=== PATIENT | female | born 1965 | race Caucasian/White ===

== ENCOUNTER → 2016-11-10 | Outpatient (CLI) | payer SELFPAY ==
[~2016-11-10] MED LIST: ASPI1TAB PO; ATOR1TAB18 PO; CARA1TAB2 PO; CLOP75TA2 PO; CRES40TA PO; FENO160T10 PO; FLUT22IN INH; FURO20TA2 PO; GEMF600T PO; INSUHUMDS SC; INSULANT SC; K-TA10TA PO; KLOR1TAB77 PO; LISI-538 PO; LOPI600T PO; METF1000 PO; PANT40TA2 PO; PERCOCET PO; POTA10CA PO; PROA1AER IN; SERT-141 PO; SPIR25TA2 PO; SPIR50TA2 PO; TOUJ1.2I SC; TYLE325T5 PO; VITA100066 PO; VITA50003 PO; VITMTA PO
[2016-11-10 09:29] LABS: ALBUMIN 2.6 GM/DL (3.2-5.2); ALBUMIN/GLOBULIN RATIO 0.76 (1.00-1.93); ALKALINE PHOSPHATASE 58 U/L (45-117); ALT/SGPT 19 U/L (12-78); ANION GAP 6 MEQ/L (8-16); AST/SGOT 14 U/L (15-37); BILIRUBIN,TOTAL 0.2 MG/DL (0.2-1.0); BLOOD UREA NITROGEN 27 MG/DL (7-18); CALCIUM LEVEL 8.2 MG/DL (8.5-10.1); CARBON DIOXIDE LEVEL 26 MEQ/L (21-32); CHLORIDE LEVEL 106 MEQ/L (98-107); CHOLESTEROL LEVEL 162 MG/DL (<200); CREATININE FOR GFR 1.36 MG/DL (0.55-1.02); GLOMERULAR FILTRATION RATE 43.5 (>51); GLUCOSE, FASTING 278 MG/DL (70-105); POTASSIUM SERUM 4.3 MEQ/L (3.5-5.1); SODIUM LEVEL 138 MEQ/L (136-145); TRIGLYCERIDES LEVEL 655 MG/DL (<150)
== END ==
LOC: M LAB 08:24
PROVIDERS: ATTEND Nurse Practitioner Family
DX: E11.9 Type 2 diabetes mellitus without complications (principal); N28.9 Disorder of kidney and ureter, unspecified; E78.5 Hyperlipidemia, unspecified

== ENCOUNTER → 2017-02-17 | Outpatient (REF) | payer MEDICAID, SELFPAY ==
[~2017-02-17] MED LIST changes: +CARV6.25 PO; +FLUT1SPR2; -SERT-141 PO; +SERT50TA PO
[2017-02-17 14:22] LABS: ALBUMIN 1.9 GM/DL (3.2-5.2); ALBUMIN/GLOBULIN RATIO 0.49 (1.00-1.93); ALKALINE PHOSPHATASE 120 U/L (45-117); ANION GAP 7 MEQ/L (8-16); BILIRUBIN,TOTAL 0.3 MG/DL (0.2-1.0); BLOOD UREA NITROGEN 18 MG/DL (7-18); CARBON DIOXIDE LEVEL 25 MEQ/L (21-32); CHLORIDE LEVEL 103 MEQ/L (98-107); CREATININE FOR GFR 1.18 MG/DL (0.55-1.02); POTASSIUM SERUM 4.5 MEQ/L (3.5-5.1); SODIUM LEVEL 135 MEQ/L (136-145); TOTAL PROTEIN 5.8 GM/DL (6.4-8.2)
[2017-02-17 14:38] LABS: TRIGLYCERIDES LEVEL 2152 MG/DL (<150)
[2017-02-17 15:11] LABS: ALT/SGPT 25 U/L (12-78); AST/SGOT 24 U/L (15-37)
[2017-02-17 15:19] LABS: CHOLESTEROL LEVEL 595 MG/DL (<200)
[2017-02-17 15:23] LABS: GLUCOSE, FASTING 401 MG/DL (70-105)
== END ==
LOC: M LAB REF 13:26
PROVIDERS: ATTEND Nurse Practitioner Family
DX: E55.9 Vitamin D deficiency, unspecified (principal)

== ENCOUNTER 2017-03-02 13:33 | Emergency (ER) | payer OTHER, SELFPAY ==
[~2017-03-02] VITALS: Ht 157.5 cm; Wt 77.1 kg
[~2017-03-02 13:33] MED LIST changes: -CARV6.25 PO; -FLUT1SPR2
[2017-03-02] MEDS ORDERED: CARV6.25 PO (13:50)
[2017-03-02] MEDS ORDERED: FLUT1SPR2 (13:50)
[2017-03-02] MEDS ORDERED: PERCOCET 5MG/325MG TAB PO ONE (14:15)
[2017-03-02] MEDS ORDERED: NS 1,000 ML IV ONE ×2 (14:45→15:30)
[2017-03-02 14:56] LABS: BASO # 0.1 K/mm3 (0.0-0.2); EOS # 0.3 K/mm3 (0.0-0.50); EOS % 2.9 % (0.0-3.0); LARGE UNSTAINED CELL # 0.2 K/mm3 (0.0-0.4); LARGE UNSTAINED CELL % 1.6 % (0.0-4.0); LYMPH # 2.8 K/mm3 (1.5-4.5); LYMPH % 28.5 % (24.0-44.0); MEAN CORPUSCULAR HEMOGLOBIN 30.2 pg (27.0-33.0); MEAN CORPUSCULAR HGB CONC 32.9 g/dl (32.0-36.5); MEAN CORPUSCULAR VOLUME 91.7 fl (80.0-96.0); MONO # 0.6 K/mm3 (0.0-0.8); NEUTROPHILS # 5.6 K/mm3 (1.8-7.7); PLATELET COUNT, AUTOMATED 292 k/mm3 (150-450); RED CELL DISTRIBUTION WIDTH 14.3 % (11.5-14.5); WHITE BLOOD COUNT 9.3 K/mm3 (4.0-10.0)
[2017-03-02 15:01] LABS: INR 0.9
[2017-03-02 15:16] LABS: ALBUMIN 2.1 GM/DL (3.2-5.2); ALBUMIN/GLOBULIN RATIO 0.55 (1.00-1.93); ALKALINE PHOSPHATASE 89 U/L (45-117); ALT/SGPT 16 U/L (12-78); ANION GAP 8 MEQ/L (8-16); AST/SGOT 12 U/L (15-37); BILIRUBIN,DIRECT < 0.1 MG/DL (0.0-0.2); BILIRUBIN,TOTAL 0.2 MG/DL (0.2-1.0); BLOOD UREA NITROGEN 39 MG/DL (7-18); CARBON DIOXIDE LEVEL 21 MEQ/L (21-32); CHLORIDE LEVEL 105 MEQ/L (98-107); GLOMERULAR FILTRATION RATE 27.7 (>51); GLUCOSE, FASTING 396 MG/DL (70-105); POTASSIUM SERUM 4.9 MEQ/L (3.5-5.1); SODIUM LEVEL 134 MEQ/L (136-145); TOTAL PROTEIN 5.9 GM/DL (6.4-8.2)
[2017-03-02] MEDS ORDERED: MORPHINE 4 MG/ML 1ML SYRINGE IV ONE (19:00)
[2017-03-02] MEDS ORDERED: ONDANSETRON 4MG/2ML VIAL (J2405) IV ONE (19:00)
[2017-03-02 19:04] LABS: CALCIUM LEVEL 7.6 MG/DL (8.5-10.1); CREATININE FOR GFR 1.74 MG/DL (0.55-1.02); GLOMERULAR FILTRATION RATE 32.6 (>51); POTASSIUM SERUM 4.7 MEQ/L (3.5-5.1)
[2017-03-02] MEDS ORDERED: OXYCODONE/APAP 5MG/325MG(BULK FOR ED) 1 TABLET PO ONE (19:30)
[2017-03-02 19:34] VITALS: BP 144/82
== END 2017-03-02 19:39 | disposition home or self-care (01) ==
LOC: M ED 14:01
DX: I73.9 Peripheral vascular disease, unspecified (principal); S93.602A Unspecified sprain of left foot, initial encounter; X58.XXXA Exposure to other specified factors, initial encounter; Y92.89 Other specified places as the place of occurrence of the external cause; Y93.89 Activity, other specified; Y99.8 Other external cause status; I25.10 Atherosclerotic heart disease of native coronary artery without angina pectoris; E78.00 Pure hypercholesterolemia, unspecified; J45.909 Unspecified asthma, uncomplicated; E11.9 Type 2 diabetes mellitus without complications; F32.9 Major depressive disorder, single episode, unspecified; F17.200 Nicotine dependence, unspecified, uncomplicated; Z85.41 Personal history of malignant neoplasm of cervix uteri; Z79.82 Long term (current) use of aspirin; Z79.899 Other long term (current) drug therapy; Z88.0 Allergy status to penicillin

== ENCOUNTER → 2017-03-24 | Outpatient (REF) | payer OTHER ==
[~2017-03-24] MED LIST changes: +CARV6.25 PO; +FLUT1SPR2
[2017-03-24 20:12] LABS: BACTERIA, URINE SMALL AMOUNT; RBC, URINE 0-1 /hpf (0-3); SQUAMOUS EPITHELIAL CELL URINE MOD AMOUNT /hpf (SMALL AMT)
[2017-03-24 20:13] LABS: MICROSCOPIC EXAM PERFORMED
== END ==
LOC: M LAB REF 16:53
PROVIDERS: ATTEND Internal Medicine Nephrology
DX: R80.9 Proteinuria, unspecified (principal)

== ENCOUNTER → 2017-03-29 | Outpatient (REF) | payer OTHER ==
[2017-03-29 14:26] LABS: HEPATITIS B SURFACE ANTIBODY NEGATIVE (POSITIVE)
[2017-03-29 14:32] LABS: COMPLEMENT C3 140 MG/DL (90-180); COMPLEMENT C4 41.7 MG/DL (10-40); TOTAL PROTEIN 6.1 GM/DL (6.4-8.2)
[2017-03-30 13:38] LABS: ALBUMIN 2.93 GM/DL (3.29-5.55); GAMMA GLOBULIN % 16.1 % (11.1-18.8)
[2017-04-02 00:06] LABS: FREE KAPPA LIGHT CHAINS SERUM 76.2 mg/L (3.3-19.4); FREE LAMBDA LIGHT CHAINS SERUM 57.1 mg/L (5.7-26.3); KAPPA/LAMBDA RATIO SERUM 1.33 (0.26-1.65); SJOGREN'S ANTI SS-A <0.2 AI (0.0-0.9); SJOGREN'S ANTI SS-B <0.2 AI (0.0-0.9)
== END ==
LOC: M LAB REF 12:52
PROVIDERS: ATTEND Internal Medicine Nephrology
DX: E11.22 Type 2 diabetes mellitus with diabetic chronic kidney disease (principal); R80.9 Proteinuria, unspecified; N17.9 Acute kidney failure, unspecified

== ENCOUNTER → 2017-03-29 | Outpatient (CLI) | payer OTHER ==
--- NOTE | 2017-03-29 14:59 | REP ---
Renal ultrasound: The kidneys are normal size. The right kidney measures 12.6 x 5.4 x 5.6 cm. Left kidney measures 4.8 x 5.5 x 7.0 cm. There is no hydronephrosis, calculus or mass on the right on the left. There is no right renal cyst. There is a 9.3 mm left renal upper pole cyst. The bladder is not evaluated. Impression: Small left renal cyst. Otherwise, negative renal ultrasound. Signed by Ever Dotson MD 03/29/2017 02:51 P
== END ==
LOC: M RAD 13:43
PROVIDERS: ATTEND Internal Medicine Nephrology
DX: N18.3 Chronic kidney disease, stage 3 (moderate) (principal); E11.22 Type 2 diabetes mellitus with diabetic chronic kidney disease; R80.9 Proteinuria, unspecified

== ENCOUNTER 2017-04-14 04:11 | Emergency (ER) | payer OTHER ==
[~2017-04-14] VITALS: Ht 157.5 cm; Wt 75.0 kg
[~2017-04-14 04:11] MED LIST changes: -ATOR1TAB18 PO; +ATOR80TA59 PO; -CARA1TAB2 PO; +CARA1TAB6 PO; -METF1000 PO; +METF10004 PO; -PROA1AER IN; +PROAAER10 IN; +VITA1CAP40 PO; -VITA50003 PO
[2017-04-14 04:15] VITALS: BP 187/98
[2017-04-14] MEDS ORDERED: BACT800T5 PO (04:23)
--- NOTE | 2017-04-14 05:40 | REPUSA ---
CLINICAL HISTORY: Left upper extremity edema COMMENTS: Real-time ultrasound images of the deep venous system with Doppler evaluation. Normal compression, spontaneity and augmentation. Normal color Doppler. No intraluminal thrombus is seen. IMPRESSION: No evidence of deep venous thrombosis. Thank you for your kind referral of this patient.
== END 2017-04-14 05:40 | disposition home or self-care (01) ==
LOC: M ED 05:38
DX: S46.112A Strain of muscle, fascia and tendon of long head of biceps, left arm, initial encounter (principal); X58.XXXA Exposure to other specified factors, initial encounter; Y92.9 Unspecified place or not applicable; Y93.9 Activity, unspecified; Y99.8 Other external cause status; I10 Essential (primary) hypertension; I25.10 Atherosclerotic heart disease of native coronary artery without angina pectoris; E11.9 Type 2 diabetes mellitus without complications; E78.5 Hyperlipidemia, unspecified; J45.909 Unspecified asthma, uncomplicated; F32.9 Major depressive disorder, single episode, unspecified; I73.9 Peripheral vascular disease, unspecified; F17.200 Nicotine dependence, unspecified, uncomplicated; Z95.820 Peripheral vascular angioplasty status with implants and grafts; Z79.4 Long term (current) use of insulin; Z79.51 Long term (current) use of inhaled steroids; Z79.899 Other long term (current) drug therapy; Z88.0 Allergy status to penicillin

== ENCOUNTER 2017-04-17 00:03 | Emergency (ER) | payer OTHER ==
[~2017-04-17] VITALS: Ht 154.9 cm; Wt 76.0 kg
[~2017-04-17 00:03] MED LIST changes: +BACT800T5 PO
[2017-04-17] MEDS ORDERED: SERT-138 PO (00:30)
[2017-04-17] MEDS ORDERED: FENO48TA2 PO (00:30)
[2017-04-17] MEDS ORDERED: PRED20TA PO (05:08)
[2017-04-17] MEDS ORDERED: predniSONE 20 MG TAB PO ONE (05:15)
[2017-04-17 05:24] VITALS: BP 177/84
--- NOTE | 2017-04-17 07:46 | ECGEPIP ---
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
--- NOTE | 2017-04-17 10:00 | REP ---
LEFT SHOULDER SERIES, COMPLETE: 04/17/2017 CLINICAL HISTORY: Shoulder pain. FINDINGS: No prior study. AC joint shows spurring inferiorly without widening of the joint space or elevation of the clavicle in relationship to the acromion. No clavicular, rib, scapula or humeral fracture. There is some soft tissue calcifications over the greater tuberosity of the humeral head consistent with calcific tendinopathy/calcific bursitis. No subluxation or dislocation of the humeral head on the scapular Y view. IMPRESSION: 1. AC joint arthritis with inferior spurring that may contribute to some impingement at the musculotendinous junction rotator cuff. 2. Calcific tendonitis or calcific bursitis over the greater tuberosity humeral head. Signed by Eric De MD 04/17/2017 07:50 P
== END 2017-04-17 05:33 | disposition home or self-care (01) ==
LOC: M ED 01:16
DX: M25.512 Pain in left shoulder (principal); F17.210 Nicotine dependence, cigarettes, uncomplicated

== ENCOUNTER → 2017-04-28 | Outpatient (CLI) | payer OTHER ==
[~2017-04-28] MED LIST changes: +FENO48TA2 PO; +PRED20TA PO; +SERT-138 PO
[2017-04-28 10:55] LABS: BASO # 0.1 K/mm3 (0.0-0.2); EOS # 0.2 K/mm3 (0.0-0.50); EOS % 2.6 % (0.0-3.0); LARGE UNSTAINED CELL # 0.1 K/mm3 (0.0-0.4); LARGE UNSTAINED CELL % 1.2 % (0.0-4.0); LYMPH # 2.2 K/mm3 (1.5-4.5); LYMPH % 21.6 % (24.0-44.0); MEAN CORPUSCULAR HEMOGLOBIN 30.6 pg (27.0-33.0); MEAN CORPUSCULAR HGB CONC 33.7 g/dl (32.0-36.5); MEAN CORPUSCULAR VOLUME 90.8 fl (80.0-96.0); MONO # 0.5 K/mm3 (0.0-0.8); MONO % 5.3 % (0.0-5.0); NEUTROPHILS # 6.6 K/mm3 (1.8-7.7); NEUTROPHILS % 68.3 % (36.0-66.0); PLATELET COUNT, AUTOMATED 344 k/mm3 (150-450); RED CELL DISTRIBUTION WIDTH 14.7 % (11.5-14.5); WHITE BLOOD COUNT 9.7 K/mm3 (4.0-10.0)
[2017-04-28 11:23] LABS: CALCIUM LEVEL 8.3 MG/DL (8.5-10.1); CREATININE FOR GFR 1.63 MG/DL (0.55-1.02); GLOMERULAR FILTRATION RATE 35.1 (>51); MAGNESIUM LEVEL 1.9 MG/DL (1.8-2.4); POTASSIUM SERUM 4.4 MEQ/L (3.5-5.1)
== END ==
LOC: M LAB 10:03
PROVIDERS: ATTEND Internal Medicine Nephrology
DX: N18.3 Chronic kidney disease, stage 3 (moderate) (principal)

== ENCOUNTER → 2017-05-03 | Outpatient (REF) | payer OTHER ==
[2017-05-03 16:18] LABS: CALCIUM LEVEL 8.2 MG/DL (8.5-10.1); CREATININE FOR GFR 1.48 MG/DL (0.55-1.02); GLOMERULAR FILTRATION RATE 39.3 (>51); POTASSIUM SERUM 3.9 MEQ/L (3.5-5.1)
== END ==
LOC: M LAB REF 14:55
PROVIDERS: ATTEND Nurse Practitioner Family
DX: E78.5 Hyperlipidemia, unspecified (principal)

== ENCOUNTER → 2017-06-01 | Outpatient (CLI) | payer OTHER ==
[2017-06-01 10:38] LABS: CALCIUM LEVEL 8.4 MG/DL (8.5-10.1); CREATININE FOR GFR 1.75 MG/DL (0.55-1.02); GLOMERULAR FILTRATION RATE 32.4 (>51); POTASSIUM SERUM 4.2 MEQ/L (3.5-5.1)
== END ==
LOC: M LAB 09:47
PROVIDERS: ATTEND Nurse Practitioner Family
DX: E11.9 Type 2 diabetes mellitus without complications (principal)

== ENCOUNTER → 2017-07-23 | Outpatient (REF) | payer OTHER | LOC: M LAB REF 13:32 | PROVIDERS: ATTEND Internal Medicine Nephrology | DX: R80.9 Proteinuria, unspecified (principal) ==

== ENCOUNTER → 2017-07-30 | Outpatient (REF) | payer OTHER ==
[2017-07-30 19:16] LABS: INR 0.86
== END ==
LOC: M LAB REF 16:44
PROVIDERS: ATTEND Internal Medicine Nephrology
DX: Z01.818 Encounter for other preprocedural examination (principal); R80.9 Proteinuria, unspecified; N18.3 Chronic kidney disease, stage 3 (moderate)

== ENCOUNTER → 2017-08-12 | Outpatient (CLI) | payer OTHER ==
[~2017-08-12] MED LIST changes: +LIDOCAINE 1% MDV 20ML VIAL As Ordered ONE
--- NOTE | 2017-08-12 17:34 | RO ---
DATE OF PROCEDURE: 08/12/2017 PROCEDURE: Left kidney biopsy. DESCRIPTION: Informed consent was obtained from the patient. Indication for biopsy is proteinuria and hematuria with DANIELA positive. The patient was brought to ultrasound room and procedure was explained. Left kidney identified with ultrasound after getting the patient in proper prone position on the stretcher. Skin was cleaned and prepped in usual sterile fashion. 1% lidocaine used for local anesthesia and a small skin incision made for biopsy needle. Under direct ultrasound guidance left kidney biopsy performed and stool specimens obtained without any problems. The patient tolerated the procedure well. There were no complications. After the procedure ultrasound was performed again and there was no perinephric hematoma noted. The patient transferred back to the recovery room. Tissue sent to pathology.
--- NOTE | 2017-08-16 08:10 | REP ---
Ultrasound guidance: History: Chronic kidney disease stage III. Kidney biopsy. Findings: Sonographic guidance is provided to Dr. Mckeon who performed ultrasound-guided needle biopsy of the left kidney. Signed by Lv Alan MD 08/16/2017 09:15 A
== END ==
LOC: M RADPRO 11:18
PROVIDERS: ATTEND Internal Medicine Nephrology
DX: N18.3 Chronic kidney disease, stage 3 (moderate) (principal); R80.9 Proteinuria, unspecified; Z88.0 Allergy status to penicillin; Z88.8 Allergy status to other drugs, medicaments and biological substances; Z87.891 Personal history of nicotine dependence; Z79.82 Long term (current) use of aspirin; Z79.52 Long term (current) use of systemic steroids; Z79.4 Long term (current) use of insulin; Z79.899 Other long term (current) drug therapy

== ENCOUNTER → 2017-09-23 | Outpatient (REF) | payer OTHER ==
[~2017-09-23] MED LIST changes: -LIDOCAINE 1% MDV 20ML VIAL As Ordered ONE
== END ==
LOC: M LAB REF 13:25
PROVIDERS: ATTEND Internal Medicine Nephrology
DX: E11.22 Type 2 diabetes mellitus with diabetic chronic kidney disease (principal)

== ENCOUNTER → 2017-09-25 | Outpatient (CLI) | payer OTHER ==
[2017-09-25 11:57] LABS: CREATININE FOR GFR 1.81 MG/DL (0.55-1.02); GLOMERULAR FILTRATION RATE 31.1 (>51)
[2017-09-25 12:30] LABS: POTASSIUM SERUM 5.5 MEQ/L (3.5-5.1)
== END ==
LOC: M LAB 11:10
PROVIDERS: ATTEND Orthopaedic Surgery
DX: Z01.810 Encounter for preprocedural cardiovascular examination (principal); E10.9 Type 1 diabetes mellitus without complications; G56.01 Carpal tunnel syndrome, right upper limb

== ENCOUNTER → 2017-10-04 | Outpatient (CLI) | payer OTHER ==
[2017-10-04 17:32] LABS: CALCIUM LEVEL 10.1 MG/DL (8.5-10.1); CREATININE FOR GFR 2.22 MG/DL (0.55-1.02); GLOMERULAR FILTRATION RATE 24.6 (>51); POTASSIUM SERUM 4.5 MEQ/L (3.5-5.1)
== END ==
LOC: M LAB 16:09
PROVIDERS: ATTEND Nurse Practitioner Adult Health
DX: R79.89 Other specified abnormal findings of blood chemistry (principal)

== ENCOUNTER → 2017-11-18 | Day surgery (SDC) | payer OTHER ==
[2017-11-18] MEDS: LR 1,000 ML IV (07:31)
[2017-11-18 10:57] LABS: BEDSIDE GLUCOSE 436 MG/DL (70-105)
[2017-11-18 10:57] LABS: BEDSIDE GLUCOSE 426 MG/DL (70-105)
== END ==
LOC: M SDC 06:28
DX: K13.70 Unspecified lesions of oral mucosa (principal); Z53.09 Procedure and treatment not carried out because of other contraindication

== ENCOUNTER → 2017-12-23 | Outpatient (CLI) | payer OTHER ==
[2017-12-23 14:44] LABS: ANION GAP 7 MEQ/L (8-16); BLOOD UREA NITROGEN 26 MG/DL (7-18); CALCIUM LEVEL 7.9 MG/DL (8.5-10.1); CARBON DIOXIDE LEVEL 26 MEQ/L (21-32); CHLORIDE LEVEL 103 MEQ/L (98-107); GLOMERULAR FILTRATION RATE 23.6 (>51); POTASSIUM SERUM 3.9 MEQ/L (3.5-5.1); SODIUM LEVEL 136 MEQ/L (136-145)
[2017-12-23 15:58] LABS: GLUCOSE, FASTING 432 MG/DL (70-100)
== END ==
LOC: M LAB 13:32
DX: E10.9 Type 1 diabetes mellitus without complications (principal)
CPT/HCPCS: 80048

== ENCOUNTER → 2017-12-24 | Outpatient (CLI) | payer OTHER ==
[2017-12-24 12:43] LABS: ANION GAP 4 MEQ/L (8-16); BLOOD UREA NITROGEN 28 MG/DL (7-18); CARBON DIOXIDE LEVEL 26 MEQ/L (21-32); CHLORIDE LEVEL 111 MEQ/L (98-107); CREATININE FOR GFR 2.19 MG/DL (0.55-1.30); GLUCOSE, FASTING 84 MG/DL (70-100); POTASSIUM SERUM 3.8 MEQ/L (3.5-5.1); SODIUM LEVEL 141 MEQ/L (136-145)
== END ==
LOC: M LAB 11:52
DX: G56.01 Carpal tunnel syndrome, right upper limb (principal); Z01.810 Encounter for preprocedural cardiovascular examination
CPT/HCPCS: 80048

== ENCOUNTER → 2018-03-03 | Outpatient (CLI) | payer OTHER | LOC: M RAD 16:14 | DX: M25.562 Pain in left knee (principal); M25.462 Effusion, left knee | CPT/HCPCS: 73564 ==

== ENCOUNTER → 2018-05-02 | Outpatient (CLI) | payer OTHER | LOC: M RAD 11:43 | DX: N18.6 End stage renal disease (principal) | CPT/HCPCS: G0365 ==

== ENCOUNTER 2018-05-27 10:58 | Day surgery (SDC) | payer OTHER ==
[2018-05-27 11:51] LABS: BEDSIDE GLUCOSE 254 MG/DL (70-105)
[2018-05-27] MEDS: D5W/0.2% SODIUM CHLORIDE 1,000 ML IV (11:59)
[2018-05-27 12:01] LABS: POTASSIUM SERUM 4.7 MEQ/L (3.5-5.1)
[2018-05-27] MEDS ORDERED: HumaLOG INSULIN (NovoLOG) PER UNIT As Ordered (12:43)
[2018-05-27] MEDS ORDERED: LIDOCAINE 1% SDV INJ 30 ML VIAL As Ordered (12:48)
[2018-05-27] MEDS ORDERED: BUPIVACAINE HCL 0.5% 30 ML VIAL As Ordered (12:48)
[2018-05-27] MEDS: NS 1,000 ML IV (13:00)
[2018-05-27] MEDS: HumaLOG INSULIN (NovoLOG) PER UNIT SC (13:00)
[2018-05-27] MEDS ORDERED: ONDANSETRON 4MG/2ML VIAL (J2405) As Ordered (13:19)
[2018-05-27] MEDS ORDERED: ROCURONIUM BROMIDE 50 MG/5 ML VIAL As Ordered (13:19)
[2018-05-27] MEDS ORDERED: MIDAZOLAM INJ 2 MG/2 ML VIAL (J2250) As Ordered (13:19)
[2018-05-27] MEDS ORDERED: LIDOCAINE 2% INJ 100 MG/5 ML SDV (FOR ANES.) As Ordered (13:19)
[2018-05-27] MEDS ORDERED: fentaNYL 100 MCG/2 ML INJECTION (J3010) As Ordered (13:19)
[2018-05-27] MEDS ORDERED: PROPOFOL 200 MG/20 ML VIAL As Ordered ×2 (13:19)
[2018-05-27] MEDS ORDERED: GLYCOPYRROLATE INJ 0.2 MG/ML 2 ML VIAL As Ordered ×3 (13:20→14:34)
[2018-05-27] MEDS: CLINDAMYCIN 900 MG/50 ML PREMIX BAG As Ordered (13:33)
[2018-05-27] MEDS: HEPARIN SOD (PORCINE) 5000 UNITS/ML VIAL As Ordered (13:42)
[2018-05-27] MEDS ORDERED: VASOPRESSIN INJ 20 UNITS/ML VIAL As Ordered (14:22)
[2018-05-27] MEDS ORDERED: ePHEDrine SULFATE 25 MG/5 ML(5MG/ML) SYRINGE As Ordered (14:30)
[2018-05-27] MEDS ORDERED: NEOSTIGMINE 10 MG/10 ML VIAL (J2710) As Ordered (14:34)
[2018-05-27 15:10] LABS: BEDSIDE GLUCOSE 102 MG/DL (70-105)
[2018-05-27] MEDS ORDERED: LR 1,000 ML IV (15:30)
[2018-05-27] MEDS ORDERED: PERCOCET 5MG/325MG TAB PO (15:30)
[2018-05-27] MEDS ORDERED: fentaNYL 100 MCG/2 ML INJECTION (J3010) IV (15:30)
[2018-05-27] MEDS ORDERED: ONDANSETRON 4MG/2ML VIAL (J2405) IV (15:30)
== END 2018-05-27 17:10 | disposition home or self-care (01) ==
LOC: M SDC 10:58
DX: N18.6 End stage renal disease (principal); E11.9 Type 2 diabetes mellitus without complications; I12.0 Hypertensive chronic kidney disease with stage 5 chronic kidney disease or end stage renal disease; D64.9 Anemia, unspecified; F17.210 Nicotine dependence, cigarettes, uncomplicated; F41.9 Anxiety disorder, unspecified; F32.9 Major depressive disorder, single episode, unspecified; J44.9 Chronic obstructive pulmonary disease, unspecified; Z88.0 Allergy status to penicillin; Z79.899 Other long term (current) drug therapy; Z79.4 Long term (current) use of insulin
CPT/HCPCS: 36821

== ENCOUNTER → 2018-06-07 | Outpatient (CLI) | payer OTHER ==
[~2018-06-07] MED LIST changes: -ASPI1TAB PO; -ATOR80TA59 PO; -BACT800T5 PO; -CARA1TAB6 PO; -CARV6.25 PO; -CLOP75TA2 PO; -CRES40TA PO; -FENO160T10 PO; -FENO48TA2 PO; -FLUT1SPR2; -FLUT22IN INH; -FURO20TA2 PO; -GEMF600T PO; -INSUHUMDS SC; -INSULANT SC; +ISOVUE-300 61% 50ML VIAL (Q9967) As Ordered; -K-TA10TA PO; -KLOR1TAB77 PO; -LISI-538 PO; -LOPI600T PO; -METF10004 PO; +MIDAZOLAM INJ 2 MG/2 ML VIAL (J2250) As Ordered; -PANT40TA2 PO; -PERCOCET PO; -POTA10CA PO; -PRED20TA PO; -PROAAER10 IN; -SERT-138 PO; -SERT50TA PO; -SPIR25TA2 PO; -SPIR50TA2 PO; -TOUJ1.2I SC; -TYLE325T5 PO; -VITA100066 PO; -VITA1CAP40 PO; -VITMTA PO; +fentaNYL 100 MCG/2 ML INJECTION (J3010) As Ordered
== END | disposition home or self-care (01) ==
LOC: M IRPRO 08:07
DX: T82.898A Other specified complication of vascular prosthetic devices, implants and grafts, initial encounter (principal); N18.6 End stage renal disease
CPT/HCPCS: 36901

== ENCOUNTER → 2018-06-07 | Outpatient (CLI) | payer OTHER ==
[2018-06-08 09:13] LABS: HEPATITIS B SURFACE ANTIGEN NEGATIVE (NEGATIVE)
[2018-06-08 09:14] LABS: HEPATITIS B SURFACE ANTIBODY NEGATIVE (POSITIVE)
[2018-06-08 09:37] LABS: HEPATITIS C VIRUS ABY INDEX 0.1 INDEX (<0.8)
[2018-06-08 09:38] LABS: HEPATITIS B CORE ANTIBODY IGM NEGATIVE (NEGATIVE)
== END ==
LOC: M SMT 11:16
DX: N18.4 Chronic kidney disease, stage 4 (severe) (principal); N05.8 Unspecified nephritic syndrome with other morphologic changes
CPT/HCPCS: 86706

== ENCOUNTER 2018-06-12 19:43 | Emergency (ER) | payer OTHER ==
[2018-06-12] MEDS: OXYMETAZOLINE NASAL SPRAY (AFRIN) (21:01)
[2018-06-12 21:41] LABS: HEMATOCRIT 36.7 % (36.0-47.0); HEMOGLOBIN 12.5 g/dl (12.0-15.5); MEAN CORPUSCULAR HEMOGLOBIN 29.8 pg (27.0-33.0); MEAN CORPUSCULAR HGB CONC 34.1 g/dl (32.0-36.5); MEAN CORPUSCULAR VOLUME 87.6 fl (80.0-96.0); RED BLOOD COUNT 4.19 10^6/uL (4.00-5.40); RED CELL DISTRIBUTION WIDTH 14.2 % (11.5-14.5); WHITE BLOOD COUNT 11.3 10^3/uL (4.0-10.0)
[2018-06-12 21:42] LABS: BASO # 0.1 10^3/uL (0.0-0.2); BASO % 0.8 % (0.0-1.0); EOS # 0.6 10^3/uL (0.0-0.50); EOS % 5.6 % (0.0-3.0); IMMATURE GRANULOCYTE % 0.4 % (0-3.0); LYMPH % 26.4 % (24.0-44.0); MONO # 0.7 10^3/uL (0.0-0.8); MONO % 5.7 % (0.0-5.0); NEUTROPHILS # 6.9 10^3/uL (1.8-7.7); NEUTROPHILS % 61.1 % (36.0-66.0); PLATELET COUNT, AUTOMATED 323 10^3/uL (150-450)
[2018-06-12 21:57] LABS: INR 0.95; PROTHROMBIN TIME 12.8 SECONDS (12.1-14.4)
[2018-06-12 21:58] LABS: PARTIAL THROMBOPLASTIN TIME 29.6 SECONDS (25.4-37.6)
[2018-06-12 22:04] LABS: ANION GAP 10 MEQ/L (8-16); BLOOD UREA NITROGEN 62 MG/DL (7-18); CALCIUM LEVEL 8.5 MG/DL (8.5-10.1); CARBON DIOXIDE LEVEL 20 MEQ/L (21-32); CHLORIDE LEVEL 104 MEQ/L (98-107); CREATININE FOR GFR 3.82 MG/DL (0.55-1.30); GLOMERULAR FILTRATION RATE 13.1 (>51); POTASSIUM SERUM 4.3 MEQ/L (3.5-5.1); SODIUM LEVEL 134 MEQ/L (136-145)
[2018-06-12 22:07] LABS: GLUCOSE, FASTING 456 MG/DL (70-100)
== END 2018-06-12 23:17 | disposition home or self-care (01) ==
LOC: M ED 19:43
DX: R04.0 Epistaxis (principal); E11.9 Type 2 diabetes mellitus without complications; N18.6 End stage renal disease; Z99.2 Dependence on renal dialysis; Z79.82 Long term (current) use of aspirin; Z79.4 Long term (current) use of insulin; Z79.899 Other long term (current) drug therapy; Z88.0 Allergy status to penicillin; Z88.8 Allergy status to other drugs, medicaments and biological substances
CPT/HCPCS: 80048

== ENCOUNTER → 2018-06-29 | Outpatient (REF) | payer OTHER ==
[2018-06-29 14:08] LABS: CHOLESTEROL LEVEL 210 MG/DL (<200); HDL CHOLESTEROL 30 MG/DL (>40); NON-HDL-C 180 MG/DL; TRIGLYCERIDES LEVEL 844 MG/DL (<150)
== END ==
LOC: M LAB REF 13:27
DX: N18.5 Chronic kidney disease, stage 5 (principal)
CPT/HCPCS: 80061

== ENCOUNTER → 2018-07-20 | Outpatient (CLI) | payer OTHER | LOC: M RAD 12:51 | DX: N18.5 Chronic kidney disease, stage 5 (principal); T85.691A Other mechanical complication of intraperitoneal dialysis catheter, initial encounter; Y83.1 Surgical operation with implant of artificial internal device as the cause of abnormal reaction of the patient, or of later complication, without mention of misadventure at the time of the procedure | CPT/HCPCS: 74018 ==

== ENCOUNTER → 2018-07-26 | Outpatient (CLI) | payer OTHER | LOC: M LAB 12:10 | DX: Z01.818 Encounter for other preprocedural examination (principal) | CPT/HCPCS: 93005 ==

== ENCOUNTER 2018-07-28 08:23 | Day surgery (SDC) | payer OTHER ==
[~2018-07-28 08:23] MED LIST changes: -ISOVUE-300 61% 50ML VIAL (Q9967) As Ordered; +LIDOCAINE 2% INJ 100 MG/5 ML SDV (FOR ANES.) As Ordered; +ONDANSETRON 4MG/2ML VIAL (J2405) As Ordered; +PROPOFOL 200 MG/20 ML VIAL As Ordered; +ROCURONIUM BROMIDE 50 MG/5 ML VIAL As Ordered; +dexameTHASONE 4 MG/ML 1ML VIAL (J1100) As Ordered; -fentaNYL 100 MCG/2 ML INJECTION (J3010) As Ordered; +fentaNYL 250 MCG/5 ML INJECTION (J3010) As Ordered
[2018-07-28] MEDS ORDERED: D5W/0.2% SODIUM CHLORIDE 1,000 ML IV (09:00)
[2018-07-28 09:20] LABS: BEDSIDE GLUCOSE 275 MG/DL (70-105)
[2018-07-28] MEDS ORDERED: LIDOCAINE 1% SDV INJ 30 ML VIAL As Ordered (10:58)
[2018-07-28] MEDS ORDERED: BUPIVACAINE HCL 0.5% 30 ML VIAL As Ordered (10:58)
[2018-07-28 12:37] LABS: BEDSIDE GLUCOSE 172 MG/DL (70-105)
[2018-07-28] MEDS ORDERED: CISATRACURIUM 2MG/ML 5ML VIAL As Ordered (13:04)
[2018-07-28] MEDS ORDERED: MIDAZOLAM INJ 2 MG/2 ML VIAL (J2250) As Ordered (13:04)
[2018-07-28] MEDS ORDERED: dexameTHASONE 4 MG/ML 1ML VIAL (J1100) As Ordered (13:04)
[2018-07-28] MEDS ORDERED: fentaNYL 250 MCG/5 ML INJECTION (J3010) As Ordered (13:04)
[2018-07-28] MEDS ORDERED: PROPOFOL 200 MG/20 ML VIAL As Ordered (13:04)
[2018-07-28] MEDS ORDERED: LIDOCAINE 2% INJ 100 MG/5 ML SDV (FOR ANES.) As Ordered (13:04)
[2018-07-28] MEDS ORDERED: ONDANSETRON 4MG/2ML VIAL (J2405) As Ordered (13:04)
[2018-07-28] MEDS ORDERED: PHENYLephrine HCL 500 MCG/5 ML (100MCG/ML) SYRINGE (J2370) As Ordered (13:10)
[2018-07-28] MEDS ORDERED: GLYCOPYRROLATE INJ 0.2 MG/ML 2 ML VIAL As Ordered (13:19)
[2018-07-28] MEDS ORDERED: NEOSTIGMINE 10 MG/10 ML VIAL (J2710) As Ordered (13:19)
[2018-07-28] MEDS ORDERED: LR 1,000 ML IV (14:15)
[2018-07-28] MEDS ORDERED: METOCLOPRAMIDE INJ 10MG/2ML VIAL (J2765) IV (14:15)
[2018-07-28] MEDS ORDERED: ONDANSETRON 4MG/2ML VIAL (J2405) IV (14:15)
[2018-07-28 14:20] LABS: BEDSIDE GLUCOSE 205 MG/DL (70-105)
[2018-07-28] MEDS: fentaNYL 100 MCG/2 ML INJECTION (J3010) IV ×4 (14:25→14:40)
[2018-07-28] MEDS: PERCOCET 5MG/325MG TAB PO (14:25)
[2018-07-28 14:28] LABS: APPEARANCE, BODY FLUID CLOUDY (CLEAR); BF DIFF IF INDICATED? YES (NO); BF MONONUCLEAR CELL % 37.2 % (0-0); BF POLYMORPHONUCLEAR CELL % 62.8 % (0-0); PERITONEAL FL COLOR RED (COLORLESS); RBC BODY FLUID 54 10^3/uL (<2); SOURCE, BODY FLUID PERITONEAL; WBC BODY FLUID 164 /uL (0-10)
== END 2018-07-28 19:20 | disposition home or self-care (01) ==
LOC: M SDC 08:23
DX: N18.5 Chronic kidney disease, stage 5 (principal); I12.0 Hypertensive chronic kidney disease with stage 5 chronic kidney disease or end stage renal disease; E78.00 Pure hypercholesterolemia, unspecified; I73.9 Peripheral vascular disease, unspecified; M12.9 Arthropathy, unspecified; L40.9 Psoriasis, unspecified; J45.909 Unspecified asthma, uncomplicated; J44.9 Chronic obstructive pulmonary disease, unspecified; F41.9 Anxiety disorder, unspecified; F32.9 Major depressive disorder, single episode, unspecified; R06.83 Snoring; G47.33 Obstructive sleep apnea (adult) (pediatric); E11.51 Type 2 diabetes mellitus with diabetic peripheral angiopathy without gangrene; T88.59XD Other complications of anesthesia, subsequent encounter; Z88.0 Allergy status to penicillin; Z88.8 Allergy status to other drugs, medicaments and biological substances; Z91.048 Other nonmedicinal substance allergy status; Z79.899 Other long term (current) drug therapy; Z79.52 Long term (current) use of systemic steroids; Z79.82 Long term (current) use of aspirin; Z72.0 Tobacco use; Z86.718 Personal history of other venous thrombosis and embolism; Z98.51 Tubal ligation status; Z78.0 Asymptomatic menopausal state; Z86.19 Personal history of other infectious and parasitic diseases
CPT/HCPCS: 49325

== ENCOUNTER → 2018-08-01 | Outpatient (REF) | payer OTHER ==
[2018-08-02 12:38] LABS: IMMEDIATE SPIN CROSSMATCH 1 1
== END ==
LOC: M LAB REF 17:30
DX: D64.9 Anemia, unspecified (principal)

== ENCOUNTER 2018-08-02 09:35 | Outpatient (CLI) | payer OTHER ==
[2018-08-02] MEDS: diphenhydrAMINE 25 MG CAP PO (11:45)
[2018-08-02] MEDS: FUROSEMIDE 40 MG/4 ML VIAL (J1940) IV (14:52)
== END 2018-08-02 16:00 | disposition home or self-care (01) ==
LOC: M OPCLI4PR 09:35 → M MS4PR 10:32 → M OPCLI4PR 16:00
DX: D50.0 Iron deficiency anemia secondary to blood loss (chronic) (principal); Z79.4 Long term (current) use of insulin; Z79.82 Long term (current) use of aspirin; Z79.899 Other long term (current) drug therapy; Z88.0 Allergy status to penicillin; Z88.8 Allergy status to other drugs, medicaments and biological substances
CPT/HCPCS: 36430

== ENCOUNTER → 2018-11-14 | Outpatient (REF) | payer MEDICARE, OTHER ==
[~2018-11-14] MED LIST changes: +AMLO2.5T3 PO; +ASPI1TAB PO; +ATOR80TA59 PO; +BACT800T5 PO; +CALC1CAP; +CARA1TAB6 PO; +CARV12.5; +CARV6.25 PO; +CLEO300C2 PO; +CLOP75TA2 PO; +CRES40TA PO; +FENO160T10 PO; +FENO48TA2 PO; +FLUT1SPR2; +FLUT22IN INH; +FURO20TA2 PO; +GEMF600T5 PO; +INSUHUMDS SC; +INSULANT SC; +IPRA0.00 IN; +K-TA10TA PO; +KLOR CON; +KLOR10TA76 PO; +KLOR1TAB77 PO; -LIDOCAINE 2% INJ 100 MG/5 ML SDV (FOR ANES.) As Ordered; +LISI-538 PO; +LOPI600T PO; +LORA-243 PO; +MAGN250T3 PO; +METF10004 PO; -MIDAZOLAM INJ 2 MG/2 ML VIAL (J2250) As Ordered; -ONDANSETRON 4MG/2ML VIAL (J2405) As Ordered; +PANT40TA3 PO; +PERCOCET PO; +PRED20TA PO; +PROAAER10 IN; -PROPOFOL 200 MG/20 ML VIAL As Ordered; -ROCURONIUM BROMIDE 50 MG/5 ML VIAL As Ordered; +SERT-138 PO; +SERT50TA PO; +SODI325T9 PO; +SPIR-10; +SPIR-10 PO; +SPIR50TA4 PO; +TORS10TA3 PO; +TORS20TA2; +TOUJ1.2I SC; +TUMS750C20 PO; +TYLE325T5 PO; +VENTAER IN; +VITA100066 PO; +VITA50005 PO; +VITMTA PO; +[UNRECOGNIZED DRUG - OTHER]; -dexameTHASONE 4 MG/ML 1ML VIAL (J1100) As Ordered; -fentaNYL 250 MCG/5 ML INJECTION (J3010) As Ordered
== END ==
LOC: M SFHCWAGY 14:12
PROVIDERS: ATTEND Nurse Practitioner Family
DX: Z12.4 Encounter for screening for malignant neoplasm of cervix (principal); Z12.12 Encounter for screening for malignant neoplasm of rectum
CPT/HCPCS: 82270; G0101; G0123

== ENCOUNTER 2018-12-28 11:04 | Inpatient (IN) | payer MEDICARE, OTHER ==
[~2018-12-28] VITALS: Ht 160 cm; Wt 77.0 kg
[~2018-12-28 11:04] MED LIST changes: -CARV12.5; +CARV12.5 PO; -SPIR-10; -VENTAER IN; +VENTAER INH
[2018-12-28] MEDS ORDERED: NS 500 ML IV ONE (11:15)
[2018-12-28] MEDS ORDERED: LABETALOL HCL 100 MG/20 ML VIAL IV STA ×2 (11:27→13:22)
[2018-12-28 11:30] LABS: BASO # 0.1 10^3/uL (0.0-0.2); BASO % 0.8 % (0.0-1.0); EOS # 0.1 10^3/uL (0.0-0.50); EOS % 0.4 % (0.0-3.0); HEMATOCRIT 36.9 % (36.0-47.0); HEMOGLOBIN 12.1 g/dl (12.0-15.5); LYMPH # 1.6 10^3/uL (1.5-4.5); LYMPH % 12.3 % (24.0-44.0); MEAN CORPUSCULAR HEMOGLOBIN 28.4 pg (27.0-33.0); MEAN CORPUSCULAR HGB CONC 32.8 g/dl (32.0-36.5); MEAN CORPUSCULAR VOLUME 86.6 fl (80.0-96.0); MONO # 0.5 10^3/uL (0.0-0.8); MONO % 3.5 % (0.0-5.0); NEUTROPHILS # 10.6 10^3/uL (1.8-7.7); NEUTROPHILS % 82.4 % (36.0-66.0); PLATELET COUNT, AUTOMATED 338 10^3/uL (150-450); RED BLOOD COUNT 4.26 10^6/uL (4.00-5.40); WHITE BLOOD COUNT 12.9 10^3/uL (4.0-10.0)
[2018-12-28 11:30] LABS: ABG BASE EXCESS -2.4 (-2.0-2.0); ABG HCO3 20.9 MEQ/L (22.0-26.0); ABG O2 SATURATION 94.2 % (95.0-99.0); ABG PARTIAL PRESSURE CO2 31.6 mmHg (35.0-45.0); ABG PARTIAL PRESSURE O2 68.6 mmHg (75.0-100.0); ABG STANDARD HCO3 22.4 MEQ/L (22.0-26.0); ABG TOTAL CO2 21.9 MEQ/L (22.0-29.0); ABG pH (ARTERIAL) 7.438 UNITS (7.350-7.450)
[2018-12-28] MEDS ORDERED: ACETAMINOPHEN 325 MG TAB PO ONE (11:30)
[2018-12-28] MEDS ORDERED: ACETAMINOPHEN 650 MG SUPP As Ordered ONE (11:36)
[2018-12-28] MEDS ORDERED: ACETAMINOPHEN 650 MG SUPP PR ONE (11:45)
[2018-12-28 12:15] LABS: OSMOLALITY SERUM 321 MOSM/KG (275-295)
--- NOTE | 2018-12-28 12:22 | REP ---
CT brain without contrast: History: Altered mental status. Comparison is made with MRI study of the brain from February 18, 2012. CT findings: Preliminary digital front end driver radiograph demonstrates that the patient is edentulous. Bone window settings demonstrate an intact bony calvarium. There is heavy vascular calcification in the distal vertebral and distal carotid arteries in this relatively young woman. Visualized paranasal sinuses are clear except for the right frontal sinus which is completely opacified. The right frontal sinus was filled with fluid at the time the 2012 prior MRI study as well. No intraorbital abnormality is seen. On soft-tissue window settings, there is diffuse mild to moderate cerebral atrophy. This is more prominent than on the prior study. There is no evidence of intracranial hemorrhage. There is no evidence of infarct, extra-axial fluid collection, mass or midline shift. Mild small vessel changes are noted in the periventricular white matter as seen on previous MRI study. Impression: Diffuse atrophy and advanced vascular calcification. Small vessel changes. No acute intracranial abnormality. Electronically Signed by Lv Alan MD 12/28/2018 12:26 P
--- NOTE | 2018-12-28 12:31 | REP ---
CHEST, SINGLE VIEW: Single view of the chest is performed in the supine position. No infiltrate is seen. There is mild elevation of the left hemidiaphragm. Cardiomediastinal silhouette is somewhat magnified. There is calcification of the thoracic aorta. IMPRESSION: No acute infiltrate. Electronically Signed by Ever Spencer MD 12/28/2018 11:02 P
[2018-12-28 12:47] LABS: ACETAMINOPHEN LEVEL 7.3 UG/ML (10.0-30.0); ALBUMIN 1.6 GM/DL (3.2-5.2); ALT/SGPT 21 U/L (12-78); BILIRUBIN,DIRECT < 0.1 MG/DL (0.0-0.2); BILIRUBIN,TOTAL 0.2 MG/DL (0.2-1.0); BLOOD UREA NITROGEN 34 MG/DL (7-18); CARBON DIOXIDE LEVEL 23 MEQ/L (21-32); CHLORIDE LEVEL 98 MEQ/L (98-107); CPK CREATINE PHOSPHOKINASE 105 U/L (26-192); CREATININE FOR GFR 2.96 MG/DL (0.55-1.30); ETHYL ALCOHOL (ETHANOL) < 0.003 % (0.000-0.010); GLOMERULAR FILTRATION RATE 17.6 (>51); GLUCOSE, FASTING 740 MG/DL (70-100); SALICYLATE LEVEL < 1.7 MG/DL (5.0-30.0); SODIUM LEVEL 132 MEQ/L (136-145); TOTAL PROTEIN 5.4 GM/DL (6.4-8.2); TROPONIN I < 0.02 NG/ML (< 0.10)
[2018-12-28 12:53] LABS: INFLUENZA A AMPLIFICATION NEGATIVE (NEGATIVE); INFLUENZA B AMPLIFICATION NEGATIVE (NEGATIVE)
[2018-12-28] MEDS ORDERED: INSULIN IV RATE CHANGE DOCUMENTATION ML/HR XX SCH (13:00)
[2018-12-28] MEDS ORDERED: INSULIN HUMAN REGULAR 100 UNITS in NS 99 ML IV SCH (13:00)
[2018-12-28 13:43] LABS: AMPHETAMINES LEVEL URINE NEGATIVE (NEGATIVE); BARBITURATES URINE NEGATIVE (NEGATIVE); BENZODIAZEPINES URINE NEGATIVE (NEGATIVE); CANNABINOIDS URINE NEGATIVE (NEGATIVE); COCAINE METABOLITE URINE NEGATIVE (NEGATIVE); METHADONE URINE NEGATIVE (NEGATIVE); OPIATES URINE NEGATIVE (NEGATIVE); PHENCYCLIDINE URINE NEGATIVE (NEGATIVE)
[2018-12-28] MEDS ORDERED: RANI300T PO (13:53)
[2018-12-28] MEDS ORDERED: KLOR20TA42 PO (13:53)
[2018-12-28] MEDS ORDERED: ZOFR4TAB16 PO (13:53)
[2018-12-28] MEDS ORDERED: TESS100C PO (13:53)
[2018-12-28] MEDS ORDERED: NOVOINJ3 SC (13:53)
[2018-12-28] MEDS ORDERED: AURY1TAB PO (13:53)
[2018-12-28] MEDS ORDERED: TORS20TA2 PO (13:53)
[2018-12-28] MEDS ORDERED: MOXIFLOXACIN HCL 400 MG in APPROPRIATE DILUENT 1 EA IV ONE (14:30)
--- NOTE | 2018-12-28 14:43 | REP ---
CT CHEST WITHOUT IV CONTRAST: CT chest performed without IV contrast. Sagittal and coronal reconstruction images are performed. The study is limited by breathing motion. There does appear to be hazy infiltrate throughout the left upper lobe with diffuse ground-glass and mild interstitial opacity with more focal patchy infiltrate or atelectasis in the lingula. There also appears to be mild diffuse ground-glass interstitial infiltrate in the right lung. I do not see significant axillary or mediastinal adenopathy. The heart is slightly enlarged. There is mild atherosclerotic calcification of the thoracic aorta without evidence of aneurysm. A very small amount of pericardial fluid or thickening is seen. No pleural effusion is seen. There are degenerative changes of the spine. IMPRESSION: Diffuse ground-glass and interstitial infiltrate left upper lobe with patchy atelectasis/infiltrate in the lingula. Mild diffuse ground-glass and interstitial infiltrate right lung. Electronically Signed by Ever Spencer MD 12/28/2018 11:35 P
--- NOTE | 2018-12-28 14:46 | REP ---
CT of the abdomen pelvis without IV or bowel contrast: Comparison is 06/11/2016. There is a peritoneal catheter entering at the umbilicus with the tip coiled in the mid abdomen. This is a change from the prior study. There is no catheter kinking. There is a small volume of free fluid in the abdomen surrounding the liver and spleen and in the pelvis. There are no focal fluid collections to suggest abscess or hematoma. There are no inflammatory changes in the mesentery. There is no pneumoperitoneum. There is no bowel distension or obstruction. There is no diverticulosis or diverticulitis. The unenhanced hepatic parenchyma is unremarkable. There are surgical clips in the gallbladder fossa. The pancreas and spleen are unremarkable. The adrenals and unenhanced kidneys are unremarkable except for tiny calcifications in the renal danilo bilaterally, likely vascular calcifications. The abdominal aorta is unremarkable except for calcified atheroma. There is no retroperitoneal mass or abscess. Pelvis: The terminal ileum and appendix are unremarkable. There is a small volume of free fluid as discussed previously. The uterus and adnexa are unremarkable. There is no adenopathy. There are no lytic, blastic or destructive skeletal changes. Impression: There has been interval placement of a peritoneal catheter. There is a small volume of free fluid surrounding the liver and spleen and in the pelvis. There are no focal fluid collections to suggest abscess or hematoma. There is no bowel distension or obstruction. There is no diverticulosis or diverticulitis. No pneumoperitoneum. Cholecystectomy. Electronically Signed by Ever Dotson MD 12/28/2018 02:37 P
[2018-12-28] MEDS ORDERED: DEXTROSE 50% 50 ML SYRINGE IV PRN (16:00)
[2018-12-28] MEDS ORDERED: GLUCAGON FOR INJ 1 MG VIAL (J1610) SC PRN (16:00)
[2018-12-28] MEDS ORDERED: GLUCOSE 4 GM CHEW TABLET PO PRN (16:00)
[2018-12-28] MEDS ORDERED: NS 1,000 ML IV SCH (16:00)
[2018-12-28] MEDS: HumaLOG INSULIN (NovoLOG) PER UNIT SC SCH ×2 (18:06→23:21)
[2018-12-28 18:08] LABS: APPEARANCE, BODY FLUID CLEAR (CLEAR); PERITONEAL FL COLOR COLORLESS (COLORLESS); SOURCE, BODY FLUID PERITONEAL
[2018-12-28 18:18] VITALS: BP 191/91
[2018-12-28] MEDS ORDERED: hydrALAZINE INJ 20 MG/ML VIAL IV ONE (18:30)
[2018-12-28] MEDS ORDERED: LABETALOL HCL 100 MG/20 ML VIAL IV PRN (18:30)
[2018-12-28 18:41] LABS: SOURCE, BODY FLUID ALBUMIN PERITONEAL; SOURCE, BODY FLUID GLUCOSE PERITONEAL; SOURCE, BODY FLUID TOT PROTEIN PERITONEAL; TOTAL PROTEIN, BODY FLUID 0.2 G/DL (NOT ESTABLISHED)
[2018-12-28] MEDS: VANCOMYCIN HCL 1,000 MG, VIAL MATE ADAPTER 1 EACH in D5W 250 ML IV SCH (19:05)
[2018-12-28] MEDS: ACETAMINOPHEN 650 MG SUPP PR PRN (19:05)
--- NOTE | 2018-12-28 19:18 | HPEPDOC ---
[facility] Medical History & Physical Date of Admission Dec 28, 2018 Primary Care Physician: CHRISTNIA TUBBS NP Attending Physician: JACK MCGRATH MD History and Physical CHIEF COMPLAINT: Altered mental status HISTORY OF PRESENT ILLNESS: Kerline Henao is a 53-year-old white female, diabetic with stage IV kidney disease on nightly peritoneal dialysis, who presents to emergency department via EMS for altered mental status. Per 's report: Patient woke up this morning at approximately 8:30 AM and walked into the kitchen to get something to drink. At this time she became dizzy and lethargic. She called out to her come help her. He assisted her back into the bedroom and to the bed. He was at this time that he noticed she became obtunded and having difficulty answering questions. EMS was contacted and the patient was transported to the hospital. Her states that she did not fall or completely lose consciousness. He also shares that over the last 2 weeks the patient has been vomiting episodically. He also reports new onset of diarrhea, cough and fatigue. Yesterday the patient's cough became productive with brown-colored phlegm. Family states that the patient would take her temperature daily and at no time did she come febrile. In patient's usual state of health, she is quite active, ambulates on her own accord and drives independently. Upon presentation to the emergency room, the patient had a low-grade temperature and remained largely obtunded. Patient was given fluids. Her blood glucose was quite elevated at 740 and insulin drip was started. Head CT was negative, a chest CT did indicate bilateral infiltrates. Lumbar puncture was unable to be performed due to the patient being on Plavix. Patient was admitted to the ICU for further treatment and management of suspected infectious encephalitis. PAST MEDICAL HISTORY: 1. COPD 2. Type II Diabetes 3. Hypertension 4. Hyperlipidemia 5. Hypertriglyceridemia 6. Chronic back pain 7. Stage 4 kidney disease, on nightly peritoneal dialysis PAST SURGICAL HISTORY: 1. Tubal Ligation 2. Ovarian Cyst removal 3. Right breast biopsy in 2002 4. D&C hysteroscopy by Dr. Diallo in 2005 5. Right carpal tunnel release 6. Bilateral arterial stent placement 7. Cholecystectomy 8. Left arm fistula 9. Kidney Biopsy 10. 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 REVIEW OF SYSTEMS: A complete review of systems was unable to be performed due to the patient's altered mental status. Per patient's family, she has been experiencing 2 weeks worth of intermittent vomiting, diarrhea and productive cough with brown sputum. Otherwise negative in systems HOME MEDICATIONS: Please see below. PHYSICAL EXAMINATION: VITAL SIGNS: Temperature 101.9, pulse 82, respiratory rate 22, blood pressure 191/91 (124), pulse oximetry 93 % on room air. GENERAL APPEARANCE: Obese, obtunded patient, HEENT: Mucous membranes moist, OP clear CARDIOVASCULAR: Regular rate and rhythm, normal S1 and S2, no murmurs appreciated LUNGS: Rales appreciated in the lower lobes bilaterally. No wheezing or rhonchi ABDOMEN: Protuberant, obese, no obvious masses, bowel sounds are normal, patient does have a port for dialysis in the mid abdomen SKIN: Warm, dry, intact MSK: Moves all extremities appropriately. EXTREMITIES: Radial pulses 2+, equal bilaterally. No lower extremity edema NEUROLOGICAL: Minimally responsive to verbal stimuli, able to open eyes, not oriented, not consistently following commands, but no focal neurological deficits LABORATORY DATA: See below. IMAGING: Head CT: Diffuse atrophy and advanced vascular calcification small vessel changes, no acute intracranial abnormality Chest x-ray: No acute infiltrate Chest CT: Diffuse groundglass interstitial infiltrate in the left upper lobe with patchy atelectasis in the lingula. Diffuse groundglass interstitial infiltrate in the right lung Abdomen/pelvis CT: Peritoneal catheter, small volume of free fluid surrounding the liver and spleen no abscess or hematoma, no bowel distention or obstruction, no diverticulosis or diverticulitis, no pneumoperitoneum MICROBIOLOGY: Please see below. ASSESSMENT: Patient is a 53-year-old female with past medical history significant for type 2 diabetes, stage IV kidney disease (nightly peritoneal dialysis) and COPD who presents to the emergency department following 2 weeks of intermittent vomiting diarrhea and productive cough with brown sputum. PLAN: 1. Altered mental status likely 2/2 encephalopathy from infectious etiology (bl PNA and concern for possible meningtitis and/or viral encephalitis) Patient is being worked up for a possible infectious encephalitis/meningitis and pneumonia Started on broad-spectrum antibiotics vancomycin and moxifloxacin. Infectious disease was consulted regarding antibiotic therapy and we appreciate Dr. Otto's input. Per her recommendations the patient was also started on acyclovir x 1 in the event encephalitis is of viral origin. HSV PCR, urine strep pneumo and legionella antigen tests ordered. Other infectious workup including GI panel and respiratory panel sent, flu negative, Anesthesia was consult is regarding the possibility of performing a lumbar puncture. Unfortunately there was some concern regarding the patient being on Plavix. The possibility of a puncture will again be discussed with them tomorrow. CT head negative. MRI ordered and pending, may need sedation to tolerate MRI 2. Diabetes: Patient initially presented with a high blood glucose is on an insulin drip. However, given her lack of anion gap, the drip was discontinued and a sliding scale was initiated. Fingersticks every 6 hours while NPO 3. Hypertensive Urgency IV labetalol prn for pressure control holding home oral medications 4. ESRD on PD Patient receives nightly peritoneal dialysis. Nephrology has been consulted and we appreciate their input. Dr Smith to place PD orders 5. GI/FEN - pt npo given altered - holding home po meds for now pending clinical improvement 6. DVT prophylaxis: subQ heparin Vital Signs Vital Signs Date Time Temp Pulse Resp B/P (MAP) Pulse Ox O2 Delivery O2 Flow Rate FiO2 12/28/18 17:15 88 213/103 (139) 95 12/28/18 13:48 101.7 12/28/18 11:23 17 Room Air Laboratory Data Labs 24H Laboratory Tests 2 12/28/18 11:15: Immature Granulocyte % (Auto) 0.6, White Blood Count 12.9H, Red Blood Count 4.26, Hemoglobin 12.1, Hematocrit 36.9, Mean Corpuscular Volume 86.6, Mean Corpuscular Hemoglobin 28.4, Mean Corpuscular Hemoglobin Concent 32.8, Red Cell Distribution Width 14.6H, Platelet Count 338, Neutrophils (%) (Auto) 82.4H, Lymphocytes (%) (Auto) 12.3L, Monocytes (%) (Auto) 3.5, Eosinophils (%) (Auto) 0.4, Basophils (%) (Auto) 0.8, Neutrophils # (Auto) 10.6H, Lymphocytes # (Auto) 1.6, Monocytes # (Auto) 0.5, Eosinophils # (Auto) 0.1, Basophils # (Auto) 0.1, Nucleated Red Blood Cells % (auto) 0.0, Anion Gap 11, Glomerular Filtration Rate 17.6L, Osmolality 321H, Lactic Acid Level 0.6, Calcium Level 8.0L, Aspartate Amino Transf (AST/SGOT) 24, Alanine Aminotransferase (ALT/SGPT) 21, Alkaline Phosphatase 127H, Total Bilirubin 0.2, Direct Bilirubin < 0.1, Ammonia 25, Total Creatine Kinase 105, Creatine Kinase MB 2.0, Creatine Kinase MB Relative Index 2.00, Troponin I < 0.02, Total Protein 5.4L, Albumin 1.6L, Albumin/Globulin Ratio 0.42L, Thyroid Stimulating Hormone (TSH) 1.390, Salicylates Level < 1.7L, Acetaminophen Level 7.3L, Ethyl Alcohol Level < 0.003, B-Hydroxybutyrate 1.60 12/28/18 11:20: Blood Gas Bicarbonate Standard 22.4, Arterial Blood pH 7.438, Arterial Blood Partial Pressure CO2 31.6L, Arterial Blood Partial Pressure O2 68.6L, Arterial Blood Total CO2 21.9L, Arterial Blood HCO3 20.9L, Arterial Blood Base Excess - 2.4L, Arterial Blood Oxygen Saturation 94.2L 12/28/18 12:11: Influenza Type A (RT-PCR) NEGATIVE, Influenza Type B (RT-PCR) NEGATIVE 12/28/18 12:57: Urine Color STRAW, Urine Appearance CLEAR, Urine pH 7.0, Urine Specific [place] 1.020, Urine Protein 3+H, Urine Glucose (UA) 3+H, Urine Ketones NEGATIVE, Urine Blood 1+H, Urine Nitrite NEGATIVE, Urine Bilirubin NEGATIVE, Urine Urobilinogen 0.2, Urine Leukocyte Esterase NEGATIVE, Urine WBC (Auto) 2, Urine RBC (Auto) 11H, Urine Hyaline Casts (Auto) 0, Urine Bacteria (Auto) 1+H, Urine Squamous Epithelial Cells 1, Urine Sperm (Auto) , Urine Amphetamines Screen NEGATIVE, Urine Benzodiazepines Screen NEGATIVE, Urine Opiates Screen NEGATIVE, Urine Methadone Screen NEGATIVE, Urine Barbiturates Screen NEGATIVE, Urine Phencyclidine Screen NEGATIVE, Urine Cocaine Metabolite Screen NEGATIVE, Urine Cannabinoids Screen NEGATIVE 12/28/18 14:24: Bedside Glucose (Misc Panel) 545*H 12/28/18 15:36: Bedside Glucose (Misc Panel) 413H 12/28/18 16:56: Body Fluid Specific [place] 1.010, Body Fluid WBC (Auto) 25H, Body Fluid RBC (Auto) < 2, Body Fluid Mononuclear Cells % Auto 92.0H, Fluid Polymorphonuclear Cell % Auto 8.0H, Peritoneal Fluid Source PERITONEAL, Peritoneal Fluid Color COLORLESS, Peritoneal Fluid Appearance CLEAR 12/28/18 16:57: Bedside Glucose (Misc Panel) 363H 12/28/18 17:39: Bedside Glucose (Misc Panel) 369H CBC/BMP Laboratory Tests 12/28/18 11:15 Red Blood Count 4.26, Mean Corpuscular Volume 86.6, Mean Corpuscular Hemoglobin 28.4, Mean Corpuscular Hemoglobin Concent 32.8, Red Cell Distribution Width 14.6 H, Neutrophils (%) (Auto) 82.4 H, Lymphocytes (%) (Auto) 12.3 L, Monocytes (%) (Auto) 3.5, Eosinophils (%) (Auto) 0.4, Basophils (%) (Auto) 0.8, Neutrophils # (Auto) 10.6 H, Lymphocytes # (Auto) 1.6, Monocytes # (Auto) 0.5, Eosinophils # (Auto) 0.1, Basophils # (Auto) 0.1 Microbiology Microbiology 12/28/18 Blood Culture, Received Pending 12/28/18 Blood Culture, Received Pending 12/28/18 Acid Fast Stain, Received Pending 12/28/18 Mycobacterial Culture, Received Pending 12/28/18 Fungal Smear, Received Pending 12/28/18 Fungal Culture, Received Pending 12/28/18 Gram Stain, Received Pending 12/28/18 Body Fluid Culture, Received Pending 12/28/18 Anaerobic Culture, Received Pending 12/28/18 Respiratory Virus Panel (PCR) (DAFNE) - Final, Complete Home Medications Scheduled (Auryxia) 210 Mg Tab, 420 MG PO WM Carvedilol (Carvedilol) 12.5 Mg Tab, 12.5 MG PO BID Clopidogrel Bisulfate (Clopidogrel) 75 Mg Tab, 75 MG PO DAILY Ergocalciferol (Vitamin D) 50,000 Unit Cap, 50,000 UNIT PO QWEEK THURSDAYS Fluticasone Propionate (Flovent Hfa) 220 Mcg/Act Aer, 2 PUFF INH BID Insulin Aspart (Novolog Flexpen) 100 Unit/Ml Inj, 1 DOSE SC WM PER SLIDING SCALE Insulin Glargine (Lantus) 1 Units/0.01 Ml Susp, 50 UNITS SC BID Loratadine (Loratadine) 10 Mg Tab, 10 MG PO DAILY Potassium Chloride (Klor-Con M20) 20 Meq Tabcr, 20 MEQ PO DAILY Ranitidine HCl (Ranitidine HCl) 300 Mg Tab, 1 TAB PO DAILY Rosuvastatin Calcium (Crestor) 40 Mg Tab, 40 MG PO QHS Sertraline HCl (Sertraline HCl) 100 Mg Tab, 200 MG PO DAILY Spironolactone (Spironolactone) 25 Mg Tab, 25 MG PO DAILY Torsemide (Torsemide) 20 Mg Tab, 20 MG PO DAILY Scheduled PRN Albuterol Sulfate (Ventolin Hfa) 108 Mcg/Act Aer, 2 PUFF INH QID PRN for SHORTNESS OF BREATH Benzonatate (Tessalon Perles) 100 Mg Cap, 100 MG PO TID PRN for COUGH Ondansetron HCl (Zofran) 4 Mg Tab, 4 MG PO Q6H PRN for NAUSEA Allergies Coded Allergies: Penicillins (Verified Allergy, Intermediate, HIVES, 07/26/18) Penicillins Cross Reactors (Verified Allergy, Intermediate, HIVES, 07/26/18) TAPE (Verified Allergy, Intermediate, SILKY TAPE - ITCHY RASH, 07/26/18) Linagliptin (Verified Adverse Reaction, Intermediate, pancreatitis, 07/26/18) GME ATTESTATION GME ATTESTATION My faculty preceptor for this patient encounter was physically present during the encounter and was fully available. All aspects of the patient interview, e xamination, medical decision making process, and medical care plan development were reviewed and approved by the faculty preceptor. The faculty preceptor is aware and concurs with the plan as stated in the body of this note and will attest to such by his/her cosignature. DESIREE SCOTT DO Dec 28, 2018 19:18 JACK MCGRATH MD Dec 28, 2018 19:30
[2018-12-28 20:00] VITALS: BP 183/81
[2018-12-28] MEDS ORDERED: ACYCLOVIR IV ONE (20:00)
[2018-12-28] MEDS ORDERED: NS IV ONE (20:00)
[2018-12-28] MEDS: HEPARIN SOD (PORCINE) 5000 UNITS/ML VIAL SQ SCH (20:10)
--- NOTE | 2018-12-28 20:35 | ECGEPIP ---
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
[2018-12-28 21:00] VITALS: BP 180/89
[2018-12-28 22:00] VITALS: BP 155/79
--- NOTE | 2018-12-28 22:35 | PHACANCOPD ---
PHARMACY VANCOMYCIN DOSING Pt Demographics Demographics Patient Age:53 , Weight:78.400 , Gender: female Events Past 24 Hours Events Past 24 Hours: YES: Dialysis, Fever, Elevation in WBC Vancomycin Vancomycin indication: AMS, possible ENCEPHALOPATHY Vancomycin Target Ranges: 15-20 mcg/ml Vancomycin Load Y/N: No Load Dose Date Time Vancomycin Load Dose: Date: Time: Vancomycin Dose Date: 12/28/18. Current Vancomycin Dose: [1GM IV Q24H (18:00)] Intermittent Dosing?: No Labs Labs Laboratory Tests 12/28/18 11:15 Red Blood Count 4.26, Mean Corpuscular Volume 86.6, Mean Corpuscular Hemoglobin 28.4, Mean Corpuscular Hemoglobin Concent 32.8, Red Cell Distribution Width 14.6 H, Neutrophils (%) (Auto) 82.4 H, Lymphocytes (%) (Auto) 12.3 L, Monocytes (%) (Auto) 3.5, Eosinophils (%) (Auto) 0.4, Basophils (%) (Auto) 0.8, Neutrophils # (Auto) 10.6 H, Lymphocytes # (Auto) 1.6, Monocytes # (Auto) 0.5, Eosinophils # (Auto) 0.1, Basophils # (Auto) 0.1 Micro Microbiology 12/28/18 Blood Culture, Received Pending 12/28/18 Blood Culture, Received Pending 12/28/18 Acid Fast Stain, Received Pending 12/28/18 Mycobacterial Culture, Received Pending 12/28/18 Fungal Smear, Received Pending 12/28/18 Fungal Culture, Received Pending 12/28/18 Gram Stain, Received Pending 12/28/18 Body Fluid Culture, Received Pending 12/28/18 Anaerobic Culture, Received Pending 12/28/18 Respiratory Virus Panel (PCR) (DAFNE) - Final, Complete Creatinine Clearance Date:12/28/18. Creatinine Clearance: [STAGE IV CKD w/NIGHTLY PD]. Assessment and Plan Maintaining Current Dose?: Yes Reason for dose change: No Dose Change Pharmacist Note Pharmacist Note Date: 12/28/18. PharmD note: BEGIN VANCO 1GM IV Q24H @18:00 VANCO TROUGH IN A FEW DAYS WHEN SHE IS AT [facility] Dec 28, 2018 22:35
[2018-12-29] VITALS (12 sets, daily range): BP systolic 103–160; BP diastolic 60–75
[2018-12-29] MEDS: ACETAMINOPHEN 650 MG SUPP PR PRN
[2018-12-29 05:01] LABS: BASO # 0.1 10^3/uL (0.0-0.2); BASO % 0.5 % (0.0-1.0); EOS % 0.1 % (0.0-3.0); HEMATOCRIT 37.1 % (36.0-47.0); HEMOGLOBIN 12.4 g/dl (12.0-15.5); LYMPH # 2.4 10^3/uL (1.5-4.5); LYMPH % 16.5 % (24.0-44.0); MEAN CORPUSCULAR HEMOGLOBIN 28.2 pg (27.0-33.0); MEAN CORPUSCULAR HGB CONC 33.4 g/dl (32.0-36.5); MEAN CORPUSCULAR VOLUME 84.5 fl (80.0-96.0); MONO # 0.9 10^3/uL (0.0-0.8); MONO % 6.2 % (0.0-5.0); NEUTROPHILS # 11.1 10^3/uL (1.8-7.7); NEUTROPHILS % 76.3 % (36.0-66.0); PLATELET COUNT, AUTOMATED 316 10^3/uL (150-450); RED BLOOD COUNT 4.39 10^6/uL (4.00-5.40); WHITE BLOOD COUNT 14.6 10^3/uL (4.0-10.0)
[2018-12-29 05:15] LABS: INR 1.04; PROTHROMBIN TIME 13.7 SECONDS (12.1-14.4)
[2018-12-29 05:26] LABS: ALBUMIN 1.4 GM/DL (3.2-5.2); BILIRUBIN,TOTAL 0.4 MG/DL (0.2-1.0); CREATININE FOR GFR 3.36 MG/DL (0.55-1.30); GLOMERULAR FILTRATION RATE 15.2 (>51); POTASSIUM SERUM 3.2 MEQ/L (3.5-5.1); TOTAL PROTEIN 5.9 GM/DL (6.4-8.2)
[2018-12-29] MEDS: HumaLOG INSULIN (NovoLOG) PER UNIT SC SCH ×4 (05:42→22:09)
[2018-12-29] MEDS: HEPARIN SOD (PORCINE) 5000 UNITS/ML VIAL SQ SCH ×2 (09:06→22:10)
[2018-12-29] MEDS: KCL 10MEQ/100ML SWI (KRUN) 10 MEQ in APPROPRIATE DILUENT 1 EA IV SCH ×3 (09:07→14:44)
[2018-12-29] MEDS ORDERED: ONDANSETRON 4MG/2ML VIAL (J2405) IV PRN (09:45)
[2018-12-29] MEDS ORDERED: METOCLOPRAMIDE INJ 10MG/2ML VIAL (J2765) IV PRN (09:45)
[2018-12-29] MEDS ORDERED: NS 0.45% 1,000 ML IV SCH (10:00)
--- NOTE | 2018-12-29 10:30 | IPNPDOC ---
Text Note Date of Service The patient was seen on 12/29/18. NOTE Subjective: Patient is able to open her eyes and follow basic commands this morning. She denies any pain or discomfort but does complain of nausea. No chest pain or shortness or breath. No belly pain. She has had 1 solid BM and 1 bout of diarrhea since admission. No difficulties urinating. Family at bedside states they will be bringing in the patient's MOLST form today. They are under the impression that she is a DNR/DNI. PFS consult to confirm. Objective: Vitals: (see below) General: Awake and alert, laying in ICU bed, no acute distress HEENT: Moist mucous membranes. EOMI, sclera non-icteric Neck: No JVD or carotid bruits appreciated bilaterally Cardiac: Slightly tachycardic, regular rate and rhythm, normal S1 and S1, No murmurs Pulm: Crackles appreciated on R lung mid and lower lung orona. No wheezing, rhonchi. Abd: NT/ND + BS Ext: No edema or cyanosis, PT pulses 1+ and equal bilaterally. 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 Diffuse ground glass interstitial infiltrate in the right lung Abdomen/pelvis CT: Peritoneal catheter, small volume of free fluid surrounding the liver and spleen no abscess or hematoma, no bowel distention or obstruction, no diverticulosis or diverticulitis, no pneumoperitoneum Assessment/Plan: Patient is a 53-year-old female with past medical history significant for type 2 diabetes, stage IV kidney disease (nightly peritoneal dialysis) and COPD who presents to the emergency department following 2 weeks of intermittent vomiting diarrhea and productive cough with brown sputum, found to be obtunded with AMS. 1. Altered mental status likely 2/2 encephalopathy from infectious etiology (bl PNA and concern for possible meningtitis and/or viral encephalitis) - Possible infectious encephalitis/meningitis and pneumonia: Started on broad- spectrum antibiotics vancomycin and moxifloxacin. Infectious disease was consulted regarding antibiotic therapy and we appreciate Dr. Otto's input. Peritoneal fluid testing pending. Influenza, GI and respiratory panel are negative. Brain MRI ordered. - Possible HSV Encephalitis: Per ID recommendations, the patient was also started on acyclovir x 1 in the event encephalitis is of viral origin. HSV PCR, urine strep pneumo and legionella antigen tests ordered. 2. Diabetes: -Sliding scale was initiated. Fingersticks every 6 hours while NPO -Holding home medications 3. Hypertensive Urgency: -Patient maintaining pressures -IV labetalol prn for pressure control -holding home oral medications 4. ESRD on PD -Patient receives nightly peritoneal dialysis. Nephrology has been consulted and we appreciate their input. -Dr Smith to place PD orders 5. GI/FEN - pt npo given altered - holding home po meds for now pending clinical improvement 6. Hypokalemia - 10 meq of KCL IV given 7. Nausea: -Reglan every 6 hours PRN 8. DVT prophylaxis: -SubQ heparin -DVT prophy: Heparin SubQ and Sequentials Dispo: Pending clinical improvement VS,Aleksandrbone, I+O VS, Fishbone, I+O Laboratory Tests 12/28/18 11:15 Red Blood Count 4.26, Mean Corpuscular Volume 86.6, Mean Corpuscular Hemoglobin 28.4, Mean Corpuscular Hemoglobin Concent 32.8, Red Cell Distribution Width 14.6 H, Neutrophils (%) (Auto) 82.4 H, Lymphocytes (%) (Auto) 12.3 L, Monocytes (%) (Auto) 3.5, Eosinophils (%) (Auto) 0.4, Basophils (%) (Auto) 0.8, Neutrophils # (Auto) 10.6 H, Lymphocytes # (Auto) 1.6, Monocytes # (Auto) 0.5, Eosinophils # (Auto) 0.1, Basophils # (Auto) 0.1 12/29/18 04:43 Red Blood Count 4.39, Mean Corpuscular Volume 84.5, Mean Corpuscular Hemoglobin 28.2, Mean Corpuscular Hemoglobin Concent 33.4, Red Cell Distribution Width 14.6 H, Neutrophils (%) (Auto) 76.3 H, Lymphocytes (%) (Auto) 16.5 L, Monocytes (%) (Auto) 6.2 H, Eosinophils (%) (Auto) 0.1, Basophils (%) (Auto) 0.5, Neutrophils # (Auto) 11.1 H, Lymphocytes # (Auto) 2.4, Monocytes # (Auto) 0.9 H, Eosinophils # (Auto) 0.0, Basophils # (Auto) 0.1, Calcium Level 8.0 L, Aspartate Amino Transf (AST/SGOT) 25, Alanine Aminotransferase (ALT/SGPT) 17, Alkaline Phosphatase 108, Total Bilirubin 0.4 #, Total Protein 5.9 L, Albumin 1.4 L Vital Signs Date Time Temp Pulse Resp B/P (MAP) Pulse Ox O2 Delivery O2 Flow Rate FiO2 12/29/18 04:00 99.9 98 18 108/63 (78) 95 12/28/18 11:23 Room Air I&O- Last 24 Hours up to 6 AM 12/29/18 06:00 Intake Total 5615.6 ml Output Total 4100 ml Balance 1515.6 ml GME ATTESTATION GME ATTESTATION My faculty preceptor for this patient encounter was physically present during the encounter and was fully available. All aspects of the patient interview, examination, medical decision making process, and medical care plan development were reviewed and approved by the faculty preceptor. The faculty preceptor is aware and concurs with the plan as stated in the body of this note and will attest to such by his/her cosignature. DESIREE SCOTT DO Dec 29, 2018 10:30 ALEJANDRA BENZ MD Dec 29, 2018 20:59
[2018-12-29] MEDS: ACETAMINOPHEN TAB 650MG DOSE (2X325MG) PO PRN (14:31)
[2018-12-29] MEDS ORDERED: KCL 10MEQ IN STERILE WATER 100ML As Ordered ONE (14:40)
[2018-12-29 14:48] LABS: MAGNESIUM LEVEL 1.7 MG/DL (1.8-2.4)
--- NOTE | 2018-12-29 14:57 | IPN ---
DATE: 12/29/2018 SUBJECTIVE: Patient is seen and examined this morning at the bedside in the intensive care unit. She is mentating better today. She is awake, alert, oriented to person and place. She is conversational. She complains of mild headache and reports that she is hungry and thirsty. Denies any other complaints. Blood pressure is better controlled this morning, and nursing staff report no issues with her peritoneal dialysis exchanges. She continues to spike fever. Maximal temperature this afternoon is 101.2. VITAL SIGNS: Temperature 101.2, pulse 90, respiratory rate 20, blood pressure 157/72, saturating 94% on room air. Intake and output yesterday shows positive 1.1 liter balance. Weight in the bed scale today is 77.5 kg. GENERAL: Patient is seen in the intensive care unit lying in bed in no acute distress. Her extraocular muscles are intact. Her tongue is dry. Her neck is supple. There is no jugular venous distention. Her pupils are reactive to light. CARDIAC: S1, S2, regular rate and rhythm. LUNGS: There is occasional crackle on the left. Otherwise clear on the right. There is no accessory muscle use or tachypnea. ABDOMEN: Soft and nontender. The peritoneal dialysis (PD) catheter exit site is clean, dry, and intact. EXTREMITIES: Negative for edema, clubbing, or cyanosis. Her left upper extremity shows a radiocephalic fistula with thrill and bruit. SKIN: Shows no rashes or ulcers. There is tattooing. NEUROLOGIC: She is cooperative with physical exam. She answers simple questions appropriately. She thinks it is 2018. She is oriented to person and place. LABORATORY DATA: White count 14.6, hemoglobin 12.4. Sodium 139, potassium 3.2, bicarbonate 24, glucose 218. Microbiology: Blood cultures no growth for 24 hours times two sets. Gastrointestinal (GI) polymerase chain reaction (PCR) negative. Respiratory panel negative. INPATIENT MEDICATIONS: She received a dose of acyclovir. She continues on moxifloxacin. She is on half-normal saline at 30 mL an hour. She continues on renally dosed vancomycin. Remainder of medications is unchanged from prior. PROBLEMS: 1. Altered mental status. She has clinically improved in the past 24 hours. Her altered mentation is associated with the fever spikes and initially presenting with hypertensive urgency. CT head is reviewed. MRI of the brain is pending. She received empiric antimicrobial and also antiviral. The infectious workup is ongoing. She is still having fever spikes but is mentating better this morning. Her peritoneal dialysis fluid was negative for infection. Blood cultures are thus far negative as well. 2. End-stage renal disease, on peritoneal dialysis. She continues on her usual 2.5% exchanges, five exchanges daily. Volume status is acceptable, and no changes are being made to the regimen today. 3. Hypertension. Blood pressure control has improved since admission. Patient is now tolerating clear liquid diet, and she can likely be transitioned back to her home antihypertensive regimen, presently receiving labetalol intravenous (IV), managed by the primary team. 4. Hypokalemia. She received IV potassium chloride supplementation. Will check a magnesium level as well.
[2018-12-29] MEDS ORDERED: DEXTROSE 50% 50 ML SYRINGE IV PRN (15:00)
[2018-12-29] MEDS ORDERED: GLUCOSE 4 GM CHEW TABLET PO PRN (15:00)
[2018-12-29] MEDS ORDERED: GLUCAGON FOR INJ 1 MG VIAL (J1610) SC PRN (15:00)
--- NOTE | 2018-12-29 15:44 | REP ---
Chest x-ray: Two views. History: Pneumonia. Comparison chest x-ray December 28, 2018. Findings: The lungs are symmetrically aerated. There is hazy opacity seen along the left heart border consistent with some residual infiltrate. No new infiltrate is seen. Pleural angles are sharp. Heart size is normal. The aorta is slightly calcific. Impression: Some residual infiltrate is seen along the left heart border. Otherwise no acute disease. Electronically Signed by Lv Alan MD 12/29/2018 04:53 P
[2018-12-29] MEDS ORDERED: MOXIFLOXACIN HCL 400 MG in APPROPRIATE DILUENT 1 EA IV SCH (16:00)
[2018-12-29] MEDS: VANCOMYCIN HCL 1,000 MG, VIAL MATE ADAPTER 1 EACH in D5W 250 ML IV SCH (17:48)
--- NOTE | 2018-12-29 23:33 | CR ---
DATE OF CONSULTATION: 12/29/2018 INFECTIOUS DISEASE CONSULTATION REASON FOR CONSULTATION: Asked to consult by the hospitalist for headache and sepsis. HISTORY OF PRESENT ILLNESS: Kerline Yadav is a 53-year-old female with a history of end-stage renal disease, on peritoneal dialysis for the past 6 months who presented to the emergency room, brought in by her because of mental status changes and fevers. The patient had what she describes today as a flu-like illness, cough, nausea, vomiting, diarrhea, not feeling well for about a week prior to admission. The day of hospitalization, her saw her walking to the kitchen, and she complained of being very dizzy and lethargic. He brought her back to her bedroom and then became unresponsive with difficulty arousing. He called the paramedics and brought her to the hospital. The patient was complaining of severe headache, was very confused. She stated that she was having this headache associated with vomiting. Her had been ill. The daughter stated that the had the flu and was treated, but she denied that. She did not have a fever at home that she knew about. She feels much better today, the headache has markedly improved. She received IV vancomycin and moxifloxacin as well as one dose of IV acyclovir. She did not receive any steroids. Her blood glucose was elevated at 740. Insulin drip was started. Head CT was negative. Lumbar puncture was not performed as the patient is on Plavix for peripheral vascular disease. PAST MEDICAL HISTORY: Significant for chronic obstructive pulmonary disease (COPD) with continued tobacco abuse, type 2 diabetes, hypertension, hyperlipidemia, chronic back pain, degenerative disc disease, end-stage renal disease - on peritoneal dialysis, peripheral vascular disease status post stenting, five stents on the left SFA, one stent Rt SFA, done by Dr. Barnes in 2014. PAST SURGICAL HISTORY: Tubal ligation, ovarian cyst removal, right breast biopsy, dilation and curettage (D and C), carpal tunnel release, bilateral arterial stents, superficial femoral arteries, cholecystectomy, left arm arteriovenous (AV) fistula, kidney biopsy. SOCIAL HISTORY: She is . She lives with her . She has two children, a son and a daughter. The daughter is in the intensive care unit (ICU) at her bedside. She babysits for her grandchildren. She continues to smoke about a pack of cigarettes a day. Denies alcohol use. FAMILY HISTORY: Father of lung cancer and a stroke, and mother had bilateral breast cancer and a stroke as well as diabetes, but she is alive. ALLERGIES: PENICILLIN. She describes hives and does not know if she has had cephalosporins. TAPE and LINAGLIPTIN causing pancreatitis. MEDICATIONS: Insulin sliding scale, moxifloxacin 400 mg IV every 24 hours, Tylenol as needed, metoclopramide 10 mg IV every 6 hours as needed, labetalol 20 mg IV every 6 hours as needed, vancomycin 1 gram IV every 24 hours, dextrose as directed. LABORATORY DATA: White count on admission was 12.9, today it was 14.6, hemoglobin 12.4, hematocrit 37.1, platelets 316. Sodium 139, potassium 3.2, chloride 106, bicarbonate 24, BUN 31, creatinine 3.36, glucose 218, yesterday glucose was 740. Lactic acid 0.6, calcium 8, magnesium 1.7, AST 25, ALT 17, alkaline phosphatase 108, albumin 1.4, ammonia 25. Blood cultures, two sets, done on 12/28/2018 are no growth after 24 hours. Respiratory panel was negative. Peritoneal fluid had 25 white cells, less than 2 reds, 92% mononuclear cells. Cultures are pending but this is not the source of infection. There is no pleocytosis. Gastrointestinal (GI) panel was negative. Sputum has many white cells, many gram-positive rods, gram-negative rods and gram-positive cocci. Cultures pending. IMAGING: Brain MRI is pending. Chest x-ray shows residual infiltrate, hazy opacity at the left heart border. CT abdomen and pelvis shows unremarkable ileum, appendix, small volume of free fluid. Uterus, adnexa are normal. There is no adenopathy. No lytic lesions. No intra-abdominal infection. Presence of peritoneal catheter. No fluid collections. CXR shows diffuse ground glass opacity and interstitial infiltrate left upper lobe with patchy atelectasis in the lingula. PHYSICAL EXAMINATION: She is a pleasant female in no acute distress. Temperature is 101.2, pulse 99, respirations 18, blood pressure 125/70, oxygen saturations 98% on room air. Heart: Normal S1, S2. Fine systolic ejection murmur best heard at the left upper sternal border. Lungs: Diffuse expiratory wheezes bilaterally. Abdomen: Soft, nontender, slightly distended, peritoneal dialysis (PD) catheter in place, clear ascitic fluid. Extremities: No clubbing, cyanosis or edema. No calf tenderness. Skin: No rashes. Multiple tattoos on upper extremities, back: Oropharynx: Edentulous. No thrush. No lesions. Neck: Supple. No jugular venous distention (JVD). No bruits. Neurologic Exam: Patient alert and oriented times three. She moves all extremities. She knows she is in the hospital. She knows the name of her daughter and grandkids. IMPRESSION: This is a 53-year-old female admitted yesterday with mental status changes and significant lethargy, within 24 hours has markedly improved after she received broad-spectrum antibiotic with IV vancomycin and moxifloxacinand one dose of acyclovir. Lumbar puncture was not done as there was concern of spinal hematoma from Plavix. She received one dose of acyclovir while she was being worked up for possibility of encephalitis as she had significant mental status changes, but today she has recovered drastically and this would not be consistent with encephalitis. Her symptoms are more likely related to a postviral pneumonia, possibly Pneumococcus, Staphylococcus aureus, also in the differential would be Legionnaire's disease as she is a smoker, and she had a lot of GI illness as well headache, which are sometimes consistent with Legionnaire's disease. PLAN: Agree with continued current antibiotics including IV vancomycin and moxifloxacin. If cultures tomorrow remain negative after 48 hours, would discontinue vancomycin and continue moxifloxacin. If she continues to improve, moxifloxacin could be switched to oral as long as she has good oral intake and continued improvement. Urine Legionella antigen and pneumococcal antigens have been sent. Will add a procalcitonin level in the morning. That will help de-escalate antibiotics. I did not see the need for a lumbar puncture to be done as this is clinically not encephalitis or meningitis due to the quick turn around and marked improvement within 24 hours. [facility]
[2018-12-30] VITALS (7 sets, daily range): BP systolic 122–158; BP diastolic 63–80
[2018-12-30 05:06] LABS: INR 1.01; PROTHROMBIN TIME 13.4 SECONDS (12.1-14.4)
[2018-12-30] MEDS: HumaLOG INSULIN (NovoLOG) PER UNIT SC SCH ×4 (07:30→21:13)
--- NOTE | 2018-12-30 08:25 | REP ---
MRI brain without contrast: History: Altered mental status. Comparison CT study December 28, 2018. Comparison MRI study of the brain is from February 18, 2012. Technique: Axial and sagittal imaging planes are utilized for T1 and T2-weighted scans. Sequences include spin-echo, fast spin echo, FLAIR, and diffusion weighted sequences. MRI findings: No bony calvarial lesion is seen. There is mucosal thickening and/or fluid filling the right frontal sinus. This is a chronic finding unchanged. There is no other evidence of significant paranasal sinus disease. No intraorbital abnormality is seen. Deep facial soft tissues are unremarkable. There is mild generalized volume loss. FLAIR and turbo spin echo T2-weighted scans demonstrate a moderate pattern of multifocal periventricular T2 hyperintensity. This is similar to the 2012 study, perhaps slightly more pronounced. It is most compatible with small vessel changes. There is no area of corresponding T1 hypointensity. Diffusion weighted scan show no evidence of restricted diffusion. There is no evidence of acute ischemia, infarct, mass or hemorrhage. No extra-axial fluid collection or midline shift is seen. No vascular abnormality is appreciated. There is mild motion artifact. Impression: No acute intracranial lesion. Small vessel changes are again noted along with some mild generalized volume loss. Electronically Signed by Lv Alan MD 12/30/2018 09:53 A
[2018-12-30 08:46] LABS: HEMATOCRIT 35.7 % (36.0-47.0); HEMOGLOBIN 11.7 g/dl (12.0-15.5); MEAN CORPUSCULAR HEMOGLOBIN 28.9 pg (27.0-33.0); MEAN CORPUSCULAR HGB CONC 32.8 g/dl (32.0-36.5); MEAN CORPUSCULAR VOLUME 88.1 fl (80.0-96.0); PLATELET COUNT, AUTOMATED 276 10^3/uL (150-450); RED BLOOD COUNT 4.05 10^6/uL (4.00-5.40); WHITE BLOOD COUNT 9.6 10^3/uL (4.0-10.0)
[2018-12-30 09:12] LABS: CALCIUM LEVEL 7.6 MG/DL (8.5-10.1); CREATININE FOR GFR 3.46 MG/DL (0.55-1.30); GLOMERULAR FILTRATION RATE 14.7 (>51); POTASSIUM SERUM 2.9 MEQ/L (3.5-5.1)
--- NOTE | 2018-12-30 09:48 | CR ---
DATE OF CONSULTATION: 12/28/2018 REQUESTING PHYSICIAN: Kelsie Menon MD REASON FOR CONSULTATION: Management of end-stage renal disease on peritoneal dialysis in this patient with altered mental status. 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 She is maintained on peritoneal dialysis. Per the family the patient was in her usual state of health yesterday. She was up about and active, interacting with the family, going about her daily routine and last night before she fell asleep she hooked herself up to her peritoneal dialysis cycler. However, this morning the family found her to be significantly altered, confused and lethargic. She has been nonverbal since this morning. She has not recognized her family and has not followed any commands. Subsequently, she was also noted to be at times touching her forehead. The family reports she has had some mild diarrhea over the past couple of weeks and has chronic on and off headaches. They otherwise deny any new issues, deny any new medications, deny any rashes, or sick contacts. The patient was subsequently brought to the emergency room. She was noted to be febrile and significantly hypertensive and with blood glucose of 740. Workup for infectious etiologies/stroke/metabolic causes of encephalopathy are all underway and nephrology consultation was requested for the help in management of her end-stage renal disease on peritoneal dialysis. PAST MEDICAL HISTORY: 1. 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 2. Peritoneal dialysis dependent. 3. Insulin-dependent diabetes. 4. Hypertension. 5. History of cervical cancer. 6. Depression. 7. Asthma. 8. Dyslipidemia. 9. Secondary hyperparathyroidism. 10. Anemia of chronic renal failure. PAST SURGICAL HISTORY: 1. Cholecystectomy in 2017. 2. Femoral artery bypass in 2017. 3. Renal biopsy in 2017. 4. Arteriovenous (AV) fistula creation 2017. 5. Peritoneal dialysis catheter placement 2018. FAMILY HISTORY: Dyslipidemia, hypertension, diabetes, history of lung cancer and breast cancer and brain aneurysm in the family. Father is to lung cancer. Mother to pneumonia. She has two children. She is and lives with her . She is a current everyday smoker. There is no alcohol or drug use reported. ALLERGIES: TRADJENTA and PENICILLIN. HOME MEDICATIONS: - Tylenol as needed - Colace 100 mg by mouth daily - Carvedilol 12.5 mg by mouth twice a day - Crestor 40 mg nightly - Lantus - Bactroban to dialysis catheter exit site - Novolog - Plavix 75 mg daily - potassium chloride 20 mEq by mouth daily - Renvela 800 mg three times a day with meals - Sertraline 100 mg by mouth daily - spironolactone 25 mg by mouth daily - Torsemide 20 mg by mouth daily - Ventolin inhaler REVIEW OF SYSTEMS: Unable to obtain secondary to the patient's altered mental status. Per her family she has been having intermittent diarrhea for the past couple of weeks and also has on and off headaches. They deny sick contacts, rashes, complaints of abdominal pain, complaint of visual disturbances. PHYSICAL EXAMINATION: VITAL SIGNS: Temperature 99.9 current, temperature maximum (T-max) 101.9, pulse 82, respiratory rate 18, blood pressure 183/81 saturating 98% on room air. In and out (I and O) not fully recorded. GENERAL: The patient is seen in the emergency room lying lateral recumbent in the stretcher. She does not respond to verbal or tactile stimulus. She does not focus or make eye contact. She is obtunded but she does self position in the stretcher. HEENT: Pupils reactive to light. Her tongue is dry. NECK: Supple. Jugular veins are not elevated. CARDIAC: S1, S2, regular rate and rhythm. No edema in the peripheries. LUNGS: Occasional rhonchus on the left, otherwise clear. ABDOMEN: Soft, there are bowel sounds. She does not grimace when I palpate. Her peritoneal catheter (PD) catheter exit site is on the left and is clean, dry and intact to a dressing. SKIN: Normal temperature and turgor. MUSCULOSKELETAL: She is noted to be moving all of her extremities. She does not follow any commands. NEUROLOGIC: The patient is lethargic, does not respond to verbal stimuli. She is nonverbal, no moaning or muttering noted. She opens her eyes but does not track. No tremor noted. SKIN: Scattered tattoos are visible but I do not see any rashes. LABORATORY DATA: White count 12.9, hemoglobin 12.1, platelets 338. Sodium 132, potassium 4.0, bicarbonate 23, glucose 740, ammonia 25, TSH 1.3. Urine toxicology is reviewed. Her peritoneal cell count shows only 25 WBC. MICROBIOLOGY: Blood cultures are pending. IMAGING: Chest CT on December 28, noncontrast shows some ground-glass interstitial infiltrate on the left and mild ground-glass interstitial infiltrate on the right. CT of the abdomen and pelvis: No pneumoperitoneum. No focal fluid collections, no bowel distention or obstruction. INPATIENT MEDICATIONS: - she received Moxifloxacin 400 mg intravenous (IV) daily - acyclovir 780 mg IV times one - normal saline at 40 mL an hour - insulin drip - vancomycin 1 gram daily - heparin 5000 units subcutaneous every 12 - several pushes of labetalol IV and then started on labetalol 20 mg IV every 6 hourly PROBLEMS: 1. Altered mental status of one day onset with fever spikes and associated uncontrolled hypertension and leukocytosis. She is undergoing infectious workup. The peritoneal fluid is benign. The peritoneal cell count is not compatible with peritonitis. Her blood cultures are pending. She has been started on empiric antibiotics and antivirals. CT of the head is noted. MRI is also pending to evaluate for possible stroke. Lumbar puncture is on hold due to the patient being on Plavix but serologies for herpes simplex virus (HSV) and Strep pneumonia are pending. 2. End-stage renal disease on peritoneal dialysis. There is no sign of any peritonitis or dialysis related infection. Orders for peritoneal dialysis are written. She will continue on five exchanges of 2.5% Dianeal. Her electrolytes are acceptable with of course the exception of significant hyperglycemia. 3. Hypertensive urgency. Her oral home medications are held due to altered mental status. She is receiving IV labetalol per primary team. Would control her blood pressure by 25%. CT of head is noted and MRI is pending for stroke evaluation. 4. Insulin-dependent diabetes with significant hyperglycemia. Glucose 740 on arrival, now down to about 300. The patient is receiving insulin managed by the primary team. Thank you for involving me in the care of Ms. Kerline Henao. I will be happy to follow her along with you. .
[2018-12-30] MEDS: ACETAMINOPHEN TAB 650MG DOSE (2X325MG) PO PRN (09:52)
[2018-12-30] MEDS: HEPARIN SOD (PORCINE) 5000 UNITS/ML VIAL SQ SCH ×2 (09:53→21:13)
[2018-12-30] MEDS ORDERED: POTASSIUM CHLORIDE 10 MEQ SR TABLET PO ONE ×2 (10:00→11:00)
[2018-12-30] MEDS ORDERED: POTASSIUM CHLORIDE 10 MEQ SR TABLET As Ordered ONE (10:03)
--- NOTE | 2018-12-30 13:18 | IPNPDOC ---
Text Note Date of Service The patient was seen on 12/30/18. NOTE Subjective: Patient was interviewed and examined today in the ICU. Patient is alert and oriented and denying any pain or discomfort. Patient's mentation has drastically improved since her admission. She does not recall the events surrounding her initial admission nor does she recall her time in the emergency department. She confirmed much of the HPI obtained from her family members in regards to her 2 week history of nausea, vomiting, and diarrhea. She denies chest pain, shortness of breath, abdominal pain. She has moved her bowels and has not had any difficulty with urination. Objective: Vitals: (see below) General: Awake and alert, laying in ICU bed, no acute distress HEENT: Moist mucous membranes. Patient wears dentures, EOMI, sclera non-icteric, no nystagmus Neck: No JVD or carotid bruits appreciated bilaterally. Cardiac: Slightly tachycardic, regular rate and rhythm, normal S1 and S1, No murmurs Pulm: Crackles appreciated on R lower lung orona. No wheezing, rhonchi. Abd: NT/ND + BS, abdominal catheter site examined, no surrounding erythema, drainage or induration. Catheter placement appropriate. Ext: No edema or cyanosis, PT pulses 1+ and equal bilaterally. Radial pulses 2+ and equal MSK: Moves all extremities equally and bilaterally SKIN: Warm, pink, dry, multiple colored tattoos noted on patient's upper arms and back Neuro: Patient is oriented to person place and time. Rubber Molder strength and dorsiflexion 5/5 bilaterally, negative nuchal rigidity and Kernig sign. Labs (see below) Microbiology (see below) Images: Head CT: Diffuse atrophy and advanced vascular calcification small vessel changes, no acute intracranial abnormality Chest x-ray: No acute infiltrate Chest CT: Diffuse ground glass interstitial infiltrate in the left upper lobe with patchy atelectasis in the lingula. Diffuse ground glass interstitial infiltrate in the right lung Abdomen/pelvis CT: Peritoneal catheter, small volume of free fluid surrounding the liver and spleen no abscess or hematoma, no bowel distention or obstruction, no diverticulosis or diverticulitis, no pneumoperitoneum Brain MRI: No acute intracranial lesion. Small vessel changes are again noted a long with some mild generalized volume loss. Assessment/Plan: Patient is a 53-year-old female with past medical history significant for type 2 diabetes, stage IV kidney disease (nightly peritoneal dialysis) and COPD who presents to the emergency department following 2 weeks of intermittent vomiting diarrhea and productive cough with brown sputum, found to be obtunded with AMS. 1. Altered mental status likely secondary to pneumonia - Patient to be continued on IV vancomycin and moxifloxacin with plan to D/C vancomycin if cultures are negative after 48 hours. Moxifloxacin to PO with continued improvement per ID. patient will be transferred out of the ICU for management. - Given that the patient's mental status has drastically improved in the last 24 hours, in conjunction with a largely negative physical exam, encephalitis/meningitis remains unlikely. Patient did receive acyclovir 1, she did not receive steroids - HSV, urine Legionella, urine strep pneumoniae pending. Legionnaires on differential due to the patient being a smoker with a history of GI illness. - Tox screen negative 2. Diabetes: -Sliding scale was initiated. Fingersticks every 6 hours while NPO -Holding home medications 3. Hypertensive Urgency: -Patient maintaining pressures -IV labetalol prn for pressure control -holding home oral medications 4. ESRD on PD -Patient receives nightly peritoneal dialysis. Nephrology has been consulted and we appreciate their input. -Continue on five exchanges of 2.5% Dianeal. 5. GI/FEN - pt npo - holding home po meds for now pending clinical improvement 6. Hypokalemia - Downward trending potassium, 2.9 this morning. - 40 meq of KCL PO ONCE given 7. Nausea: -Reglan every 6 hours PRN -DVT prophy: Heparin SubQ and Sequentials Dispo: Pending clinical improvement VS,Fishbone, I+O VS, Fishbone, I+O Vital Signs Date Time Temp Pulse Resp B/P (MAP) Pulse Ox O2 Delivery O2 Flow Rate FiO2 12/30/18 04:15 99.5 84 20 145/69 (94) 91 12/28/18 11:23 Room Air I&O- Last 24 Hours up to 6 AM 12/30/18 06:00 Intake Total 18995 ml Output Total 36716 ml Balance 180 ml GME ATTESTATION GME ATTESTATION My faculty preceptor for this patient encounter was physically present during the encounter and was fully available. All aspects of the patient interview, examination, medical decision making process, and medical care plan development were reviewed and approved by the faculty preceptor. The faculty preceptor is aware and concurs with the plan as stated in the body of this note and will attest to such by his/her cosignature. DESIREE SCOTT DO Dec 30, 2018 06:25
[2018-12-30] MEDS ORDERED: MOXIFLOXACIN 400 MG TAB PO ONE (15:45)
--- NOTE | 2018-12-30 21:56 | IPN ---
DATE: 12/30/2018 Kerline Yadav is doing very well. She was transferred to the medical/surgical floor. She denies any headache. No nausea, vomiting or diarrhea. No abdominal pain. She has a mild cough, mild shortness of breath with exertion, otherwise feeling great. She has been afebrile. Temperature is 97.2, last fever was 24 hours ago up to 101.2. HEART: Normal S1, S2. No murmurs. LUNGS: Diffuse expiratory wheezes bilaterally. ABDOMEN: Soft, nontender with a peritoneal dialysis (PD) catheter in place. EXTREMITIES: No clubbing, cyanosis or edema. No calf tenderness. Skin has multiple tattoos. LABORATORY DATA: White count is 9.6, hemoglobin 11.7, hematocrit 35.7, platelets 276. Sodium 136, potassium 2.9, chloride 101, bicarbonate 26, BUN 26, creatinine 3.46, glucose 380, calcium 7.6. (cut off) 0.37, which is consistent with local bacterial infection and sepsis. IMPRESSION: 1. Pneumonia, postviral, probably superimposed bacterial infection, doing much better. The patient will be switched to oral moxifloxacin to finish a seven-day course of antibiotics. 2. Encephalopathy, probably related to sepsis and has resolved. There is no evidence of meningitis. MRI was negative and therefore lumbar puncture is no longer indicated. 3. End-stage renal disease, on peritoneal dialysis. There is no evidence of peritonitis from peripheral dialysis (PD) catheter. PLAN: Discontinue IV moxifloxacin, switch to oral moxifloxacin to finish a 7-10 day course. If the patient has Legionnaire's disease, I would recommend a 10-day course of therapy. If urine Legionella antigen is negative, probably a seven-day course therapy would be adequate.
[2018-12-31 02:00] VITALS: BP 152/76
[2018-12-31] MEDS: MOXIFLOXACIN 400 MG TAB PO SCH (05:46)
[2018-12-31 05:55] LABS: BASO # 0.1 10^3/uL (0.0-0.2); BASO % 0.9 % (0.0-1.0); EOS # 0.3 10^3/uL (0.0-0.50); HEMATOCRIT 32.3 % (36.0-47.0); HEMOGLOBIN 10.4 g/dl (12.0-15.5); LYMPH # 2.9 10^3/uL (1.5-4.5); LYMPH % 32.8 % (24.0-44.0); MEAN CORPUSCULAR HEMOGLOBIN 28.1 pg (27.0-33.0); MEAN CORPUSCULAR HGB CONC 32.2 g/dl (32.0-36.5); MEAN CORPUSCULAR VOLUME 87.3 fl (80.0-96.0); MONO # 0.6 10^3/uL (0.0-0.8); MONO % 6.8 % (0.0-5.0); NEUTROPHILS # 4.9 10^3/uL (1.8-7.7); NEUTROPHILS % 56.3 % (36.0-66.0); PLATELET COUNT, AUTOMATED 286 10^3/uL (150-450); WHITE BLOOD COUNT 8.7 10^3/uL (4.0-10.0)
[2018-12-31 06:00] VITALS: BP 158/68
[2018-12-31 06:06] LABS: INR 0.97
[2018-12-31 06:19] LABS: CALCIUM LEVEL 7.3 MG/DL (8.5-10.1); CREATININE FOR GFR 3.63 MG/DL (0.55-1.30); GLOMERULAR FILTRATION RATE 13.9 (>51)
--- NOTE | 2018-12-31 07:47 | IPN ---
DATE: 12/30/2018 SUBJECTIVE: Patient is seen and examined this morning at the bedside in the intensive care unit. Family reports she is not back to her baseline mentation. She is still having trouble recalling some things and becomes easily tearful. She tries to explain the story and significance behind some of her tattoos but is unable to express herself and tears up. She otherwise denies any complaints. Has been tolerating oral diet. Reports cough is mild, and there is some dyspnea with exertion when she walked around her room. She remains afebrile. VITAL SIGNS: Temperature 97.2, pulse 85, respiratory rate 18, blood pressure 156/79, saturating 97% on room air. Review of intake and output yesterday shows positive 380 mL. Weight on the bed scale today is 77 kg. General: The patient is seen sitting upright in bed in the ICU, awake, alert, oriented to person, year and place. Extraocular muscles are intact. Tongue is moist. Neck is supple. Jugular veins are not elevated. Cardiac: S1, S2, regular rate and rhythm. Lungs: There is occasional rhonchus and expiratory wheeze bilaterally. Abdomen: Soft and nontender. There is peritoneal dialysis (PD) fluid in situ. The PD catheter exit site is clean, dry and intact. There is a left upper extremity fistula with thrill and bruit. The lower extremities are negative for clubbing, cyanosis, or edema. Skin shows multiple tattoos. LABORATORY: Sodium 136, potassium 2.9, hemoglobin 11.7. Microbiology: Cultures thus far remain negative, including blood, peritoneal fluid. Brain MRI did not show any acute findings. INPATIENT MEDICATIONS: Patient is noted to now be on oral moxifloxacin. She received 80 mEq of oral potassium today. Remainder of medications are unchanged from prior. PROBLEMS: 1. End-stage renal disease, on peritoneal dialysis. Continue with five exchanges of 2.5% Dianeal. Volume status is acceptable. No changes are being made to the regimen today, and the PD fluid was negative for any infection. 2. Hypokalemia. She received aggressive oral supplementation with 80 mEq of potassium today, and her spironolactone can be resumed tomorrow. 3. Altered mental status. The patient is clinically improving. There is no further fever. Cultures thus far are negative. She has been evaluated by infectious disease and encephalopathy is attributed to probable pneumonia. She continues on now oral moxifloxacin. 4. Hypertension. Blood pressures are fairly controlled. Systolic is in the 140s. She has not yet been resumed on her home antihypertensive regimen.
[2018-12-31] MEDS: HEPARIN SOD (PORCINE) 5000 UNITS/ML VIAL SQ SCH ×2 (08:30→21:42)
[2018-12-31] MEDS: HumaLOG INSULIN (NovoLOG) PER UNIT SC SCH ×4 (08:31→21:42)
[2018-12-31 09:50] LABS: HSV-1 DNA Negative (Negative); HSV-2 DNA Negative (Negative)
--- NOTE | 2018-12-31 11:07 | IPNPDOC ---
Text Note Date of Service The patient was seen on 12/31/18. NOTE Subjective: Patient was interviewed and examined today in the PCU. Patient is alert and oriented to person, place and time. This morning, she cites concerns regarding her vision. She states that yesterday, she noted splashes of red and blue colors in her L temporal visual field. She denies eye pain, blurry or hazy vision. Her , who was at bedside, is reporting that her eyelids appear more swollen than usual. She denies chest pain, shortness of breath, abdominal pain. She has moved her bowels and has not had any difficulty with urination. Objective: Vitals: (see below) General: Awake and alert, laying in ICU bed, no acute distress HEENT: Moist mucous membranes. Patient wears dentures, EOMI, sclera non-icteric, no nystagmus, visual acuity intact bilateral, no visual field deficits. Neck: No JVD or carotid bruits appreciated bilaterally. Cardiac: Slightly tachycardic, regular rate and rhythm, normal S1 and S1, No murmurs Pulm: Crackles appreciated on R lower lung orona. No wheezing, rhonchi. Abd: NT/ND + BS, abdominal catheter site examined, no surrounding erythema, drainage or induration. Catheter placement appropriate. Ext: No edema or cyanosis, PT pulses 1+ and equal bilaterally. Radial pulses 2+ and equal MSK: Moves all extremities equally and bilaterally SKIN: Warm, pink, dry, multiple colored tattoos noted on patient's upper arms and back Neuro: Patient is oriented to person place and time. Refrigerator Car Icer strength and dorsiflexion 5/5 bilaterally, negative nuchal rigidity and Kernig sign. Labs (see below) Microbiology (see below) Images: Head CT: Diffuse atrophy and advanced vascular calcification small vessel changes, no acute intracranial abnormality Chest x-ray: No acute infiltrate Chest CT: Diffuse ground glass interstitial infiltrate in the left upper lobe with patchy atelectasis in the lingula. Diffuse ground glass interstitial infiltrate in the right lung Abdomen/pelvis CT: Peritoneal catheter, small volume of free fluid surrounding the liver and spleen no abscess or hematoma, no bowel distention or obstruction, no diverticulosis or diverticulitis, no pneumoperitoneum Brain MRI: No acute intracranial lesion. Small vessel changes are again noted along with some mild generalized volume loss. Assessment/Plan: Patient is a 53-year-old female with past medical history significant for type 2 diabetes, stage IV kidney disease (nightly peritoneal dialysis) and COPD who presents to the emergency department following 2 weeks of intermittent vomiting diarrhea and productive cough with brown sputum, found to be obtunded with AMS. 1. Altered mental status likely secondary to pneumonia - IV vancomycin and moxifloxacin discontinues, patient now on PO moxifloxacin. - Given that the patient's mental status has drastically improved in the last 48 hours, in conjunction with a largely negative physical exam, meningitis remains unlikely. - Monitor vision impairment for improvement. MRI negative yesterday, WBC trending downward. - HSV negative - Urine Legionella, urine strep pneumoniae pending. Legionnaires on differential due to the patient being a smoker with a history of GI illness. - Tox screen negative 2. Diabetes: -Sliding scale was initiated. -Holding home medications 3. Hypertensive Urgency: -Patient maintaining pressures -IV labetalol prn for pressure control -holding home oral medications 4. ESRD on PD: -Patient receives nightly peritoneal dialysis. Nephrology has been consulted and we appreciate their input. -Continue on five exchanges of 2.5% Dianeal. 5. GI/FEN - pt npo - holding home po meds for now pending clinical improvement 6. Hypokalemia - Downward trending potassium, 3.2 this morning. - 80 meq of KCL PO given yesterday, will monitor and supplement if necessary 7. Nausea: -Reglan every 6 hours PRN -DVT prophy: Heparin SubQ and Sequentials Dispo: Pending clinical improvement, potential for discharge on Wednesday VS,Shai, I+O VS, Shai, I+O Laboratory Tests 12/30/18 08:16 Red Blood Count 4.05, Mean Corpuscular Volume 88.1, Mean Corpuscular Hemoglobin 28.9, Mean Corpuscular Hemoglobin Concent 32.8, Red Cell Distribution Width 15.4 H, Calcium Level 7.6 L 12/30/18 18:44 12/31/18 05:34 Red Blood Count 3.70 L, Mean Corpuscular Volume 87.3, Mean Corpuscular Hemoglobin 28.1, Mean Corpuscular Hemoglobin Concent 32.2, Red Cell Distribution Width 15.2 H, Calcium Level 7.3 L, Neutrophils (%) (Auto) 56.3, Lymphocytes (%) (Auto) 32.8, Monocytes (%) (Auto) 6.8 H, Eosinophils (%) (Auto) 3.0, Basophils (%) (Auto) 0.9, Neutrophils # (Auto) 4.9, Lymphocytes # (Auto) 2.9, Monocytes # (Auto) 0.6, Eosinophils # (Auto) 0.3, Basophils # (Auto) 0.1 Vital Signs Date Time Temp Pulse Resp B/P (MAP) Pulse Ox O2 Delivery O2 Flow Rate FiO2 12/31/18 06:00 97.6 81 18 158/68 (98) 97 12/28/18 11:23 Room Air I&O- Last 24 Hours up to 6 AM 12/31/18 06:00 Intake Total 95564 ml Output Total 74555 ml Balance 350 ml GME ATTESTATION GME ATTESTATION My faculty preceptor for this patient encounter was physically present during the encounter and was fully available. All aspects of the patient interview, examination, medical decision making process, and medical care plan development were reviewed and approved by the faculty preceptor. The faculty preceptor is aware and concurs with the plan as stated in the body of this note and will attest to such by his/her cosignature. DESIREE SCOTT DO Dec 31, 2018 07:10
[2018-12-31 14:00] VITALS: BP 158/76
[2018-12-31 14:09] LABS: BODY FLUID CULTURE Not Indicated (.); LEGIONELLA ANTIGEN URINE Negative (Negative); ORGANISM ID Not indicated. (.); SPECIMEN SOURCE Urine (.); URINE STREP PNEUMONIAE ANTIGEN Negative (Negative)
[2018-12-31 18:00] VITALS: BP 180/74
[2018-12-31 22:00] VITALS: BP 160/67
[2019-01-01] VITALS (7 sets, daily range): BP systolic 113–184; BP diastolic 63–91
[2019-01-01] MEDS: MOXIFLOXACIN 400 MG TAB PO SCH (05:55)
[2019-01-01 06:02] LABS: BASO # 0.1 10^3/uL (0.0-0.2); BASO % 1.1 % (0.0-1.0); EOS # 0.3 10^3/uL (0.0-0.50); EOS % 3.5 % (0.0-3.0); HEMATOCRIT 33.2 % (36.0-47.0); HEMOGLOBIN 10.8 g/dl (12.0-15.5); LYMPH # 2.9 10^3/uL (1.5-4.5); LYMPH % 32.1 % (24.0-44.0); MEAN CORPUSCULAR HEMOGLOBIN 28.7 pg (27.0-33.0); MEAN CORPUSCULAR HGB CONC 32.5 g/dl (32.0-36.5); MEAN CORPUSCULAR VOLUME 88.3 fl (80.0-96.0); MONO # 0.7 10^3/uL (0.0-0.8); MONO % 7.7 % (0.0-5.0); NEUTROPHILS % 55.4 % (36.0-66.0); PLATELET COUNT, AUTOMATED 299 10^3/uL (150-450); RED BLOOD COUNT 3.76 10^6/uL (4.00-5.40); WHITE BLOOD COUNT 8.9 10^3/uL (4.0-10.0)
[2019-01-01 06:14] LABS: INR 0.86; PROTHROMBIN TIME 11.8 SECONDS (12.1-14.4)
[2019-01-01 06:28] LABS: CALCIUM LEVEL 7.4 MG/DL (8.5-10.1); CREATININE FOR GFR 3.66 MG/DL (0.55-1.30); GLOMERULAR FILTRATION RATE 13.8 (>51); POTASSIUM SERUM 3.2 MEQ/L (3.5-5.1)
[2019-01-01] MEDS ORDERED: AVEL1TAB3 PO (06:55)
[2019-01-01] MEDS ORDERED: INSUDET SC (07:00)
[2019-01-01] MEDS ORDERED: amLODIPine 5 MG TAB PO ONE (07:30)
[2019-01-01] MEDS: HEPARIN SOD (PORCINE) 5000 UNITS/ML VIAL SQ SCH ×2 (07:43→22:12)
[2019-01-01] MEDS: HumaLOG INSULIN (NovoLOG) PER UNIT SC SCH ×4 (07:44→22:12)
[2019-01-01] MEDS: ACETAMINOPHEN TAB 650MG DOSE (2X325MG) PO PRN (07:51)
[2019-01-01] MEDS ORDERED: POTASSIUM CHLORIDE 10 MEQ SR TABLET PO ONE (08:00)
[2019-01-01] MEDS ORDERED: LEVEMIR (INSULIN DETEMIR) 1 UNITS/0.01ML SC ONE (08:00)
[2019-01-01] MEDS: LOSARTAN 50 MG TAB PO SCH (10:12)
--- NOTE | 2019-01-01 13:23 | IPNPDOC ---
Date Seen The patient was seen on 01/01/19. Progress Note SUBJECTIVE: Pt anxious to go home. Despite nin070's mmHg, she denies any headache, changes in vision, chest pain, pressure, tightness, diplopia, dizziness, orlightheadedness. She has remained afebrile and has no c/o chills, abd pain, nausea, diarrhea or vomiting. tolerating her diet. She still has residual dry nonproductive cough. OBJECTIVE: VITALS: PLS SEE BELOW GEN: edentulous. no repsiratory distress, AAOx3. answering questions appropriately HEART: Normal S1, S2. No murmurs. LUNGS: bilateral rhonchi. diminished. ABDOMEN: Soft, nontender with a peritoneal dialysis (PD) catheter in place. EXTREMITIES: No clubbing, cyanosis or edema. No calf tenderness. Skin has multiple tattoos. LABORATORY DATA, IMAGING STUDIES, MICROBIOLOGY: PLS SEE BELOW ASSESSMENT AND PLAN: 53-year-old female with a past medical history significant for end-stage renal disease, on peritoneal dialysis for the past 6 months c/o flu-like illness, cough, nausea, vomiting, diarrhea, not feeling well x1 wk , unresponsivess, severe headache, vomiting. SBP on admission was 200mmHg. She was given iv labetalol and CT head was negative, s/p IV vancomycin and moxifloxacin as well as one dose of IV acyclovir. She did not receive any steroids. Her blood glucose was elevated at 740. Insulin drip was started. Head CT was negative. Lumbar puncture was not performed as the patient is on Plavix for peripheral vascular disease. After IV abx and HTN control, her mentation improved. MRI brain was negative and encephalitis was ruled out. Vanco was discontinued. CXR: left heart border infiltrate, urine legionella was negative. She clinically improved and was transferred to a [facility] floor with her mentation returning back to baseline. She was treated for. Left Lower lobe Pneumonia ID appreciated. continued on po avelox without fever chills or productive cough. white count has improved and pt remains stable on po avelox x 7-10 days. urine legionella is negative. Sepsis due to LLL Pneumonia on avelox. Hypertensive Encephalopathy with presenting blood pressure of 200 mmHg on admission, s/p iv labetalol. currently with sbp 160 mmHg and asymptomatic. on norvasc and BENTLEY inh. per nephrology, labetalol with holding parameters Acute Encephalopathy,most likely secondary to sepsis from viral and subsequent secondary bacterial pneumonia inthe setting of uncontrolled hypertension, resolved. There is no evidence of meningitis. MRI was negative and therefore lumbar puncture is no longer indicated. End-stage renal disease, on peritoneal dialysis. There is no evidence of peritonitis from peripheral dialysis (PD) catheter. Hypokalemia, supplemented. disposition: dc home Wednesday if normal bp and if passes HSE. VS, I&O, 24H, Fishbone Vital Signs/I&O Vital Signs Date Time Temp Pulse Resp B/P (MAP) Pulse Ox O2 Delivery O2 Flow Rate FiO2 01/01/19 02:00 98.8 88 18 168/78 (108) 98 12/28/18 11:23 Room Air I&O- Last 24 Hours up to 6 AM 01/01/19 06:00 Intake Total 57829 ml Output Total 8750 ml Balance 1560 ml Laboratory Data 24H LABS Laboratory Tests 2 12/31/18 11:30: Bedside Glucose (Misc Panel) 348H 01/01/19 05:18: Immature Granulocyte % (Auto) 0.2, White Blood Count 8.9, Red Blood Count 3.76L, Hemoglobin 10.8L, Hematocrit 33.2L, Mean Corpuscular Volume 88.3, Mean Corpuscular Hemoglobin 28.7, Mean Corpuscular Hemoglobin Concent 32.5, Red Cell Distribution Width 14.9H, Platelet Count 299, Neutrophils (%) (Auto) 55.4, Lymphocytes (%) (Auto) 32.1, Monocytes (%) (Auto) 7.7H, Eosinophils (%) (Auto) 3.5H, Basophils (%) (Auto) 1.1H, Neutrophils # (Auto) 5.0, Lymphocytes # (Auto) 2.9, Monocytes # (Auto) 0.7, Eosinophils # (Auto) 0.3, Basophils # (Auto) 0.1, Nucleated Red Blood Cells % (auto) 0.0, Prothrombin Time 11.8L, Prothromb Time International Ratio 0.86, Anion Gap 9, Glomerular Filtration Rate 13.8L, Blood Urea Nitrogen 31H, Creatinine 3.66H, Sodium Level 134L, Potassium Level 3.2L, Chloride Level 99, Carbon Dioxide Level 26, Calcium Level 7.4L CBC/BMP Laboratory Tests 01/01/19 05:18 Red Blood Count 3.76 L, Mean Corpuscular Volume 88.3, Mean Corpuscular Hemoglobin 28.7, Mean Corpuscular Hemoglobin Concent 32.5, Red Cell Distribution Width 14.9 H, Neutrophils (%) (Auto) 55.4, Lymphocytes (%) (Auto) 32.1, Monocytes (%) (Auto) 7.7 H, Eosinophils (%) (Auto) 3.5 H, Basophils (%) (Auto) 1.1 H, Neutrophils # (Auto) 5.0, Lymphocytes # (Auto) 2.9, Monocytes # (Auto) 0.7, Eosinophils # (Auto) 0.3, Basophils # (Auto) 0.1, Calcium Level 7.4 L Microbiology Microbiology 12/28/18 Blood Culture - Preliminary, Resulted No Growth after 72 hours. All specime... 12/28/18 Blood Culture - Preliminary, Resulted No Growth after 72 hours. All specime... 12/28/18 Acid Fast Stain, Received Pending 12/28/18 Mycobacterial Culture, Received Pending 12/28/18 Fungal Smear, Received Pending 12/28/18 Fungal Culture, Received Pending 12/28/18 Gram Stain - Final, Complete 12/28/18 Body Fluid Culture - Final, Complete 12/28/18 Anaerobic Culture - Final, Complete 12/29/18 Gastrointestinal Tract Panel (PCR) - Final, Complete 12/29/18 Gram Stain - Final, Resulted 12/29/18 Sputum Culture, Resulted Pending 12/28/18 Respiratory Virus Panel (PCR) (DAFNE) - Final, Complete ALEJANDRA BENZ MD Jan 01, 2019 06:47
[2019-01-01] MEDS: LABETALOL 100 MG TAB PO SCH ×2 (14:29→22:12)
[2019-01-01] MEDS ORDERED: SPIRONOLACTONE 50 MG TAB PO ONE (17:00)
[2019-01-01] MEDS: LEVEMIR (INSULIN DETEMIR) 1 UNITS/0.01ML SC SCH (22:12)
[2019-01-01] MEDS: amLODIPine 5 MG TAB PO SCH (22:13)
[2019-01-02 02:00] VITALS: BP 136/60
[2019-01-02 06:00] VITALS: BP 133/91
[2019-01-02] MEDS: MOXIFLOXACIN 400 MG TAB PO SCH (06:09)
[2019-01-02 06:30] LABS: BASO # 0.1 10^3/uL (0.0-0.2); BASO % 1.2 % (0.0-1.0); EOS # 0.3 10^3/uL (0.0-0.50); EOS % 3.4 % (0.0-3.0); HEMATOCRIT 32.6 % (36.0-47.0); HEMOGLOBIN 10.7 g/dl (12.0-15.5); LYMPH # 2.6 10^3/uL (1.5-4.5); LYMPH % 30.4 % (24.0-44.0); MEAN CORPUSCULAR HEMOGLOBIN 28.5 pg (27.0-33.0); MEAN CORPUSCULAR HGB CONC 32.8 g/dl (32.0-36.5); MEAN CORPUSCULAR VOLUME 86.9 fl (80.0-96.0); MONO # 0.6 10^3/uL (0.0-0.8); MONO % 7.1 % (0.0-5.0); NEUTROPHILS % 57.4 % (36.0-66.0); PLATELET COUNT, AUTOMATED 305 10^3/uL (150-450); RED BLOOD COUNT 3.75 10^6/uL (4.00-5.40); WHITE BLOOD COUNT 8.7 10^3/uL (4.0-10.0)
[2019-01-02 06:44] LABS: INR 0.89; PROTHROMBIN TIME 12.1 SECONDS (12.1-14.4)
[2019-01-02 06:49] LABS: CALCIUM LEVEL 7.5 MG/DL (8.5-10.1); CREATININE FOR GFR 3.58 MG/DL (0.55-1.30); GLOMERULAR FILTRATION RATE 14.1 (>51); POTASSIUM SERUM 3.8 MEQ/L (3.5-5.1)
[2019-01-02 08:00] VITALS: BP 144/62
[2019-01-02] MEDS: HumaLOG INSULIN (NovoLOG) PER UNIT SC SCH ×2 (08:14→12:18)
[2019-01-02] MEDS ORDERED: SPIRONOLACTONE 50 MG TAB PO SCH (09:00)
[2019-01-02] MEDS: HEPARIN SOD (PORCINE) 5000 UNITS/ML VIAL SQ SCH (09:00)
[2019-01-02] MEDS: amLODIPine 5 MG TAB PO SCH (09:00)
[2019-01-02] MEDS: LEVEMIR (INSULIN DETEMIR) 1 UNITS/0.01ML SC SCH (09:01)
[2019-01-02] MEDS: LOSARTAN 50 MG TAB PO SCH (09:02)
[2019-01-02] MEDS: LABETALOL 100 MG TAB PO SCH (09:02)
--- NOTE | 2019-01-02 10:55 | IPN ---
DATE: 12/31/2018 Mrs. Pierce is seen this morning on her bedside. Peritoneal dialysis exchange is in progress. The patient is feeling much better and denies any dyspnea, chest pain, headache, nausea, vomiting, fever or chills. She was admitted with altered mentation and has been treated with broad-spectrum antibiotics and antiviral therapy. Her mentation has improved and it is felt that she does not have any central nervous system infection. She remains on broad-spectrum antibiotic with Avelox 400 mg daily. She is tolerating her peritoneal dialysis very well and her peritoneal fluid has been cleared. Peritonitis has been ruled out. The patient also had severe hypokalemia which has been corrected with replacement. PHYSICAL EXAMINATION: Temperature 97.6 degrees Fahrenheit, heart rate 80 per minute and respiratory rate 18 per minute. Blood pressure 158/68 mmHg and oxygen saturation 97% on room air. Her head is atraumatic. There is no oral thrush or ulcers. Neck is supple and without jugular venous distention (JVD) or thyroid enlargement. Heart sounds are regular and lungs sound clear to auscultation. Abdomen is soft and nontender and bowel sounds are normal. Her belly is filled with peritoneal solution at present. Extremities have no cyanosis or clubbing. Skin has no rash or ulcers. Neurologically, she is awake, alert and able to answer all questions appropriately; however, her feels that she is still not quite at her baseline mentation. On review of laboratories, her sodium level is 136, potassium 4.0, CO2 22, BUN 32 and creatinine 3.60. WBC count is 8.7, hemoglobin 10.4 and hematocrit 32.3. PROBLEMS: 1. End-stage renal disease. The patient remains on peritoneal dialysis and is tolerating well. We will continue with the current prescription. 2. Hypokalemia. Mostly nutritional and has recovered and improved with supplement. She should remain on regular diet now. 3. Anemia. She does have mild anemia, which does not need any specific intervention at this point. 4. Altered mentation. The patient seems to be doing very well and is close to her baseline mentation. 5. Hypertension. Blood pressure is reasonably well-controlled and will continue to monitor and make adjustments as needed. DISPOSITION: Hospitalist service should evaluate her and if she gets cleared by physical therapy then from a renal standpoint, probably she can be discharged within the next 24 hours.
[2019-01-02 12:00] VITALS: BP 148/68
[2019-01-02] MEDS ORDERED: COZA50TA PO (12:29)
[2019-01-02] MEDS ORDERED: ALDA50TA2 PO (12:29)
[2019-01-02] MEDS ORDERED: LABE10TAB PO (12:29)
[2019-01-02] MEDS ORDERED: AMLO5TAB6 PO (12:31)
--- NOTE | 2019-01-02 13:02 | DS.PDOC ---
Discharge Summary General Date of Admission Dec 28, 2018 at 16:01 Date of Discharge Jan 02, 2019 Specialist/Consultants Involve Dr. Clarita Mckeon Discharge Summary ADMITTING DIAGNOSES: 1. Hypertensive encephalopathy DISCHARGE DIAGNOSES: 1. Hypertensive encephalopathy 2. Left lower lobe Pneumonia COMPLICATIONS/CHIEF COMPLAINT: Fever Hypertensive Encephalopathy. HISTORY OF PRESENT ILLNESS: 53-year-old female with a past medical history significant for end-stage renal disease, on peritoneal dialysis for the past 6 months c/o flu-like illness, cough, nausea, vomiting, diarrhea, not feeling well x1 wk , unresponsive, severe headache, vomiting. HOSPITAL COURSE: SBP on admission was 200mmHg. She was given iv labetalol and CT head was negative, s/p IV vancomycin and moxifloxacin as well as one dose of IV acyclovir. She did not receive any steroids. Her blood glucose was elevated at 740. Insulin drip was started. Head CT was negative. Lumbar puncture was not performed as the patient is on Plavix for peripheral vascular disease. After IV abx and HTN control, her mentation improved. MRI brain was negative and encephalitis was ruled out. Vanco was discontinued. CXR: left heart border infiltrate, urine legionella was negative. She clinically improved and was henry sferred to a med surg floor with her mentation returning back to baseline. On med surg floor, the patient was transitioned to po avelox for 7-10 days. Patient's white count remained stable without fever, chills or productive cough. Hypertension has been controlled with PO labetalol. Patient had a bout of hypokalemia that was corrected with supplementation. Given that she has remained hemodynamically stable, afebrile and without leukocytosis, the patient will be discharged home with close follow-up from her PCP. DISCHARGE MEDICATIONS: Please see below. ALLERGIES: Please see below. PHYSICAL EXAMINATION ON DISCHARGE: VITAL SIGNS: Please see below. GENERAL: Alert and oriented, looked of bed and ambulating , no acute distress, able to participate in her care HEENT: Normocephalic atraumatic, membranes moist, EOMI, PERRLA, sclera nonicteric NECK: Supple, no thyromegaly, no adenopathy CARDIOVASCULAR EXAMINATION: Normal S1 and S2, regular rate and rhythm, no murmurs, gallops or rubs appreciated RESPIRATORY EXAMINATION: Clear to auscultation bilaterally, no wheezing rhonchi or rales ABDOMINAL EXAMINATION: Abdomen is protuberant (secondary to peritoneal dialysis fluid), catheter site is clean, no erythema or drainage. Bowel sounds are present throughout EXTREMITIES: Healed to move all extremities equally and bilaterally, some bilateral 2+ pitting edema in the lower extremity SKIN: Tattoos noted throughout, warm pink and dry NEUROLOGICAL EXAMINATION: No focal deficits PSYCHIATRIC EXAMINATION: Mood and affect are appropriate LABORATORY DATA: Please see below. IMAGING: Head CT: Diffuse atrophy and advanced vascular calcification. Small vessel changes. No acute intracranial abnormality. Chest CT: Diffuse ground-glass and interstitial infiltrate left upper lobe with patchy atelectasis/infiltrate in the lingula. Mild diffuse ground-glass and interstitial infiltrate right lung. Abdomen CT: There has been interval placement of a peritoneal catheter. There is a small volume of free fluid surrounding the liver and spleen and in the pelvis.There are no focal fluid collections to suggest abscess or hematoma. There is no bowel distension or obstruction. There is no diverticulosis or diverticulitis. No pneumoperitoneum. Cholecystectomy. Chest XR:Some residual infiltrate is seen along the left heart border. Otherwise no acute disease. Head MRI: No acute intracranial lesion. Small vessel changes are again noted along with some mild generalized volume loss. ACTIVITY: As tolerated DIET: As tolerated DISPOSITION: Discharge home with close follow-up with PCP and nephrology DISCHARGE CONDITION: Stable TIME SPENT ON DISCHARGE: Greater than 25 minutes. Vital Signs/I&Os Vital Signs Date Time Temp Pulse Resp B/P (MAP) Pulse Ox O2 Delivery O2 Flow Rate FiO2 01/02/19 08:00 97.0 101 18 144/62 (89) 98 12/28/18 11:23 Room Air I&O- Last 24 Hours up to 6 AM 01/02/19 06:00 Intake Total 9002 ml Output Total 9650 ml Balance -648 ml Laboratory Data Labs 24H Laboratory Tests 2 01/01/19 11:55: Bedside Glucose (Misc Panel) 320H 01/01/19 16:26: Bedside Glucose (Misc Panel) 266H 01/01/19 20:06: Bedside Glucose (Misc Panel) 417H 01/02/19 06:06: Immature Granulocyte % (Auto) 0.5, White Blood Count 8.7, Red Blood Count 3.75L, Hemoglobin 10.7L, Hematocrit 32.6L, Mean Corpuscular Volume 86.9, Mean Corpuscular Hemoglobin 28.5, Mean Corpuscular Hemoglobin Concent 32.8, Red Cell Distribution Width 14.6H, Platelet Count 305, Neutrophils (%) (Auto) 57.4, Lymphocytes (%) (Auto) 30.4, Monocytes (%) (Auto) 7.1H, Eosinophils (%) (Auto) 3.4H, Basophils (%) (Auto) 1.2H, Neutrophils # (Auto) 5.0, Lymphocytes # (Auto) 2.6, Monocytes # (Auto) 0.6, Eosinophils # (Auto) 0.3, Basophils # (Auto) 0.1, Nucleated Red Blood Cells % (auto) 0.0, Prothrombin Time 12.1, Prothromb Time International Ratio 0.89, Anion Gap 9, Glomerular Filtration Rate 14.1L, Blood Urea Nitrogen 30H, Creatinine 3.58H, Sodium Level 133L, Potassium Level 3.8, Chloride Level 100, Carbon Dioxide Level 24, Calcium Level 7.5L CBC/BMP Laboratory Tests 01/02/19 06:06 Red Blood Count 3.75 L, Mean Corpuscular Volume 86.9, Mean Corpuscular Hemoglobin 28.5, Mean Corpuscular Hemoglobin Concent 32.8, Red Cell Distribution Width 14.6 H, Neutrophils (%) (Auto) 57.4, Lymphocytes (%) (Auto) 30.4, Monocytes (%) (Auto) 7.1 H, Eosinophils (%) (Auto) 3.4 H, Basophils (%) (Auto) 1.2 H, Neutrophils # (Auto) 5.0, Lymphocytes # (Auto) 2.6, Monocytes # (Auto) 0.6, Eosinophils # (Auto) 0.3, Basophils # (Auto) 0.1, Calcium Level 7.5 L FSBS Laboratory Tests Test 01/01/19 11:55 01/01/19 16:26 01/01/19 20:06 Range/Units Bedside Glucose (Misc Panel) 320 266 417 70-105 MG/DL Microbiology Microbiology 12/28/18 Blood Culture - Preliminary, Resulted No Growth after 72 hours. All specime... 12/28/18 Blood Culture - Preliminary, Resulted No Growth after 72 hours. All specime... 12/28/18 Acid Fast Stain, Received Pending 12/28/18 Mycobacterial Culture, Received Pending 12/28/18 Fungal Smear, Received Pending 12/28/18 Fungal Culture, Received Pending 12/28/18 Gram Stain - Final, Complete 12/28/18 Body Fluid Culture - Final, Complete 12/28/18 Anaerobic Culture - Final, Complete 12/29/18 Gastrointestinal Tract Panel (PCR) - Final, Complete 12/29/18 Gram Stain - Final, Complete 12/29/18 Sputum Culture - Final, Complete Streptococcus Group G 12/28/18 Respiratory Virus Panel (PCR) (DAFNE) - Final, Complete Discharge Medications Scheduled (Auryxia) 210 Mg Tab, 420 MG PO WM, (Reported) Amlodipine Besylate (Amlodipine Besylate) 5 Mg Tab, 5 MG PO BID Clopidogrel Bisulfate (Clopidogrel) 75 Mg Tab, 75 MG PO DAILY, (Reported) Ergocalciferol (Vitamin D) 50,000 Unit Cap, 50,000 UNIT PO QWEEK, (Reported) THURSDAYS Fluticasone Propionate (Flovent Hfa) 220 Mcg/Act Aer, 2 PUFF INH BID, (Reported) Insulin Aspart (Novolog Flexpen) 100 Unit/Ml Inj, 1 DOSE SC WM, (Reported) PER SLIDING SCALE Insulin Detemir (Levemir) 1 Units/0.01 Ml Susp, 10 UNITS SC QAM Labetalol HCl (Labetalol HCl) 100 Mg Tab, 100 MG PO BID Loratadine (Loratadine) 10 Mg Tab, 10 MG PO DAILY, (Reported) Losartan Potassium (Cozaar) 50 Mg Tab, 50 MG PO DAILY Moxifloxacin Hydrochloride (Avelox) 400 Mg Tab, 400 MG PO DAILY@06 Potassium Chloride (Klor-Con M20) 20 Meq Tabcr, 20 MEQ PO DAILY, (Reported) Ranitidine HCl (Ranitidine HCl) 300 Mg Tab, 1 TAB PO DAILY, (Reported) Rosuvastatin Calcium (Crestor) 40 Mg Tab, 40 MG PO QHS, (Reported) Sertraline HCl (Sertraline HCl) 100 Mg Tab, 200 MG PO DAILY, (Reported) Spironolactone (Aldactone) 50 Mg Tab, 50 MG PO DAILY Scheduled PRN Albuterol Sulfate (Ventolin Hfa) 108 Mcg/Act Aer, 2 PUFF INH QID PRN for SHORTNESS OF BREATH, (Reported) Benzonatate (Tessalon Perles) 100 Mg Cap, 100 MG PO TID PRN for COUGH, (Reported) Ondansetron HCl (Zofran) 4 Mg Tab, 4 MG PO Q6H PRN for NAUSEA, (Reported) Allergies Coded Allergies: Penicillins (Verified Allergy, Intermediate, HIVES, 07/26/18) Penicillins Cross Reactors (Verified Allergy, Intermediate, HIVES, 07/26/18) TAPE (Verified Allergy, Intermediate, SILKY TAPE - ITCHY RASH, 07/26/18) Linagliptin (Verified Adverse Reaction, Intermediate, pancreatitis, 07/26/18) GME ATTESTATION GME ATTESTATION My faculty preceptor for this patient encounter was physically present during the encounter and was fully available. All aspects of the patient interview, examination, medical decision making process, and medical care plan development were reviewed and approved by the faculty preceptor. The faculty preceptor is aw are and concurs with the plan as stated in the body of this note and will attest to such by his/her cosignature. DESIREE SCOTT DO Jan 02, 2019 11:58
[2019-01-02] MEDS ORDERED: LOSA100T50 PO (13:34)
[2019-01-02] MEDS ORDERED: CORE25TA PO (13:34)
--- NOTE | 2019-01-02 14:49 | IPN ---
DATE: 01/01/2019 Mrs. Henao is seen this morning on her bedside. She is feeling well and denies any complaints other than mild cough. She has been on Avelox. She is afebrile at present and denies any chills, nausea or vomiting. Her peritoneal dialysis is functioning very well. PHYSICAL EXAMINATION: Temperature 97.8 degrees Fahrenheit, heart rate 88 per minute and respiratory rate 20 per minute. Blood pressure 170/84 mmHg and oxygen saturation 97% on room air. Head is atraumatic. Neck is supple and without jugular venous distention (JVD) or thyroid enlargement. Heart sounds are irregular in rhythm. Lungs are clear to auscultation. Abdomen is soft and distended with peritoneal dialysis fluid and bowel sounds are present. Extremities have no cyanosis or clubbing. Neurologically, she is awake, alert and without a focal deficit. Today's labs show WBC count 8.9, hemoglobin 10.8 and hematocrit 33.2. Sodium 134, potassium 3.2, BUN 31 and creatinine 3.66. Glucose 415 and calcium 7.4. Her hemoglobin A1c is 16.0. PROBLEMS: 1. End-stage renal disease. The patient remains on peritoneal dialysis, which has been functioning reasonably well. We will continue with current prescription. 2. Hypokalemia. This is nutritional and she will continue with spironolactone. I am going to increase the dose of her spironolactone to 50 mg daily. She has already been given a dose of potassium chloride 40 mEq this morning and her electrolytes will be checked again tomorrow morning. 3. Diabetes. Her diabetes has been poorly controlled, which is reflected by hemoglobin A1c of 16%. Even here in the hospital, her blood sugars are running high. I would suggest to hospitalist service for adjusting her insulin. She will need further adjustment as an outpatient after discharge. 4. Altered mentation. She seems to be doing well and remains on Avelox 400 mg daily. 5. Hypertension. Blood pressure control is also suboptimal. I am going to adjust her medications with increase in the dose of spironolactone. We are going to add losartan 50 mg daily and then adjust further if needed.
--- NOTE | 2019-01-02 18:28 | IPN ---
DATE: 01/02/2019 Mrs. Henao is seen this morning on her bedside. She is feeling well and wants to go home. She denies any nausea, vomiting, dyspnea or chest pain. She still has a mild cough but no sputum or hemoptysis. PHYSICAL EXAMINATION: Temperature 97.0 degrees Fahrenheit, heart rate 101 per minute and respiratory rate 18 per minute. Blood pressure 144/62 mmHg and oxygen saturation 98% on room air. Head is atraumatic. Neck veins are not abnormally distended. She has no oral thrush or ulcers. Heart sounds are irregular and tachycardiac. Lungs sound clear to auscultation. Abdomen is soft and nontender and filled with peritoneal dialysis solution. Catheter is intact. Extremities have no cyanosis or clubbing. Neurologically, she seems at her baseline mentation without a focal deficit. LABORATORY DATA: Today's laboratories show WBC count 8.7, hemoglobin 10.7 and hematocrit 32.6. Platelets 305. Sodium 133, potassium 3.8, CO2 24, BUN 30 and creatinine 3.89. PROBLEMS: 1. End-stage renal disease. The patient remains on peritoneal dialysis which is functioning very well. She will continue with her prescription at home. 2. Diabetes. Her diabetes has been uncontrolled and she needs to work on it. She needs her dietary restrictions and to follow her insulin regimen in order to get her diabetes under good control. Her A1c is 16% which is worrisome. 3. Cough and shortness of breath. She is improving and has been on Avelox. No other source of infection has been identified. Volume status is reasonable and she will remain on current prescription of peritoneal dialysis and diuretic. 4. Anemia. Her anemia is stable and she will be managed with her chronic dialysis treatment. DISPOSITION: From a renal standpoint, the patient can be discharged to home and followup in outpatient dialysis clinic. She already has an appointment scheduled for the third week of this month.
[2019-01-02] MEDS ORDERED: LEVEMIR (INSULIN DETEMIR) 1 UNITS/0.01ML SC SCH (21:00)
== END 2019-01-02 14:16 | disposition home or self-care (01) | DRG 193 ==
LOC: M ED 11:04 → EDBD 11:04 → M ED INP 16:01 → M ICU 17:31 → M MS5PR 12-30 13:55 → M MSPAV 12-30 15:42
PROVIDERS: ADMIT Internal Medicine; ATTEND General Practice
PROC: 3E1M39Z Irrigation of Peritoneal Cavity using Dialysate, Percutaneous Approach (ICD-10-PCS; principal; 2018-12-28)
DX: J15.9 Unspecified bacterial pneumonia (principal); N18.6 End stage renal disease; I12.0 Hypertensive chronic kidney disease with stage 5 chronic kidney disease or end stage renal disease; I67.4 Hypertensive encephalopathy; J44.9 Chronic obstructive pulmonary disease, unspecified; E11.22 Type 2 diabetes mellitus with diabetic chronic kidney disease; E78.5 Hyperlipidemia, unspecified; E78.1 Pure hyperglyceridemia; F17.210 Nicotine dependence, cigarettes, uncomplicated; I16.0 Hypertensive urgency; Z99.2 Dependence on renal dialysis; Z79.4 Long term (current) use of insulin; Z79.899 Other long term (current) drug therapy; Z88.0 Allergy status to penicillin; Z88.8 Allergy status to other drugs, medicaments and biological substances; Z91.048 Other nonmedicinal substance allergy status; E87.6 Hypokalemia; R19.7 Diarrhea, unspecified; R11.2 Nausea with vomiting, unspecified; R41.82 Altered mental status, unspecified; E11.51 Type 2 diabetes mellitus with diabetic peripheral angiopathy without gangrene; Z95.820 Peripheral vascular angioplasty status with implants and grafts; E11.21 Type 2 diabetes mellitus with diabetic nephropathy; D63.1 Anemia in chronic kidney disease; E11.65 Type 2 diabetes mellitus with hyperglycemia

== ENCOUNTER → 2019-06-28 | Outpatient (CLI) | payer MEDICARE, MEDICAID ==
[~2019-06-28] MED LIST changes: +ALDA50TA2 PO; +AMLO5TAB6 PO; -ASPI1TAB PO; +ASPI81TA26 PO; +AURY1TAB PO; +AVEL1TAB3 PO; +CARV25TA PO; +CORE25TA PO; +COZA50TA PO; +DIFI200T PO; +FENO135C6 PO; +FENO145T7 PO; -FENO48TA2 PO; +FENO48TA7 PO; +GABA-1171 PO; +INSUDET SC; +KLOR20TA42 PO; +LABE10TAB PO; +LOSA100T50 PO; +NOVOINJ3 SC; +RANI300T PO; +SERT-141 PO; -SERT50TA PO; +SEVE800T3 PO; +TESS100C PO; +TORS100T PO; +TORS20TA2 PO; +ZOFR4TAB16 PO; +[UNRECOGNIZED DRUG - OTHER] IV
[2019-06-28 15:38] LABS: BASO # 0.1 10^3/uL (0.0-0.2); BASO % 1.2 % (0.0-1.0); EOS # 0.4 10^3/uL (0.0-0.5); EOS % 4.2 % (0.0-3.0); HEMATOCRIT 33.9 % (36.0-47.0); HEMOGLOBIN 11.1 g/dl (12.0-15.5); LYMPH # 1.9 10^3/uL (1.5-5.0); LYMPH % 19.7 % (24.0-44.0); MEAN CORPUSCULAR HGB CONC 32.7 g/dl (32.0-36.5); MEAN CORPUSCULAR VOLUME 91.6 fl (80.0-96.0); MONO # 0.6 10^3/uL (0.0-0.8); MONO % 6.1 % (0.0-5.0); NEUTROPHILS # 6.5 10^3/uL (1.5-8.5); NEUTROPHILS % 68.6 % (36.0-66.0); PLATELET COUNT, AUTOMATED 342 10^3/uL (150-450); WHITE BLOOD COUNT 9.5 10^3/uL (4.0-10.0)
[2019-06-28 16:04] LABS: HEMOGLOBIN A1c 9.1 %
[2019-06-28 16:15] LABS: ALBUMIN 2.4 GM/DL (3.2-5.2); BILIRUBIN,TOTAL 0.2 MG/DL (0.2-1.0); CALCIUM LEVEL 8.3 MG/DL (8.5-10.1); CREATININE FOR GFR 7.48 MG/DL (0.55-1.30); POTASSIUM SERUM 4.5 MEQ/L (3.5-5.1); THYROID STIMULATING HORMONE 1.64 uIU/ML (0.358-3.740); TOTAL 25(OH) VITAMIN D 26.4 NG/ML (30.0-100.0)
== END ==
LOC: M LAB 14:54
PROVIDERS: ATTEND Nurse Practitioner Family
DX: Z00.01 Encounter for general adult medical examination with abnormal findings (principal); R19.7 Diarrhea, unspecified

== ENCOUNTER → 2019-08-02 | Outpatient (REF) | payer MEDICARE, MEDICAID ==
[~2019-08-02] MED LIST changes: -CARV25TA PO; -FENO135C6 PO; -FENO145T7 PO; +FENO48TA2 PO; -FENO48TA7 PO; -GABA-1171 PO; -SEVE800T3 PO; -TORS100T PO; -[UNRECOGNIZED DRUG - OTHER] IV
== END ==
LOC: M LAB REF 09:23
PROVIDERS: ATTEND Internal Medicine Nephrology
DX: A04.72 Enterocolitis due to Clostridium difficile, not specified as recurrent (principal)

== ENCOUNTER 2019-08-03 20:28 | Emergency (ER) | payer MEDICARE, MEDICAID ==
[~2019-08-03] VITALS: Ht 157.5 cm; Wt 65.9 kg
[2019-08-03 20:28] VITALS: BP 124/64
[~2019-08-03 20:28] MED LIST changes: -DIFI200T PO; +FENO48TA13 PO; -FENO48TA2 PO
[2019-08-03 22:00] LABS: BASO # 0.1 10^3/uL (0.0-0.2); BASO % 0.5 % (0.0-1.0); EOS # 0.3 10^3/uL (0.0-0.5); EOS % 1.4 % (0.0-3.0); HEMOGLOBIN 10.2 g/dl (12.0-15.5); LYMPH # 1.6 10^3/uL (1.5-5.0); LYMPH % 8.6 % (24.0-44.0); MEAN CORPUSCULAR HEMOGLOBIN 30.6 pg (27.0-33.0); MEAN CORPUSCULAR HGB CONC 32.9 g/dl (32.0-36.5); MEAN CORPUSCULAR VOLUME 93.1 fl (80.0-96.0); MONO # 1.1 10^3/uL (0.0-0.8); MONO % 5.6 % (0.0-5.0); NEUTROPHILS # 15.7 10^3/uL (1.5-8.5); NEUTROPHILS % 83.5 % (36.0-66.0); PLATELET COUNT, AUTOMATED 369 10^3/uL (150-450); RED BLOOD COUNT 3.33 10^6/uL (4.00-5.40); WHITE BLOOD COUNT 18.8 10^3/uL (4.0-10.0)
[2019-08-03] MEDS: GASTROGRAFIN SOLUTION 30ML PO SCH ×2 (22:30→23:10)
[2019-08-03 22:36] LABS: ALBUMIN 2.1 GM/DL (3.2-5.2); BILIRUBIN,TOTAL 0.4 MG/DL (0.2-1.0); CALCIUM LEVEL 8.1 MG/DL (8.5-10.1); CREATININE FOR GFR 7.08 MG/DL (0.55-1.30); GLOMERULAR FILTRATION RATE 6.4 (>51); POTASSIUM SERUM 2.8 MEQ/L (3.5-5.1); TOTAL PROTEIN 5.5 GM/DL (6.4-8.2)
[2019-08-03] MEDS ORDERED: KCL 10MEQ/100ML SWI (KRUN) 10 MEQ in IV 1 EA IV ONE (23:00)
--- NOTE | 2019-08-04 00:01 | REPVR ---
PROCEDURE INFORMATION: Exam: CT Abdomen And Pelvis Without Contrast Exam date and time: 08/03/2019 9:28 PM Clinical history: 54 years old, female; Abdominal pain; Generalized; Additional Info: abdominal pain; R/O colitis TECHNIQUE: Imaging protocol: Computed tomography of the abdomen and pelvis without contrast. Radiation optimization: All CT scans at this facility use at least one of these dose optimization techniques: automated exposure control; mA and/or kV adjustment per patient size (includes targeted exams where dose is matched to clinical indication); or iterative reconstruction. COMPARISON: CT ABD PELVIS W/O CONTRAST 12/28/2018 1:54 PM FINDINGS: Tubes, catheters and devices: Peritoneal dialysis catheter with the tip in the right lower quadrant. Heart: Mild pericardial effusion. Liver: Normal. No mass. Gallbladder and bile ducts: Status post cholecystectomy. No biliary ductal dilatation. Pancreas: Normal. No ductal dilation. Spleen: Normal. No splenomegaly. Adrenals: Normal. No mass. Kidneys and ureters: Normal. No hydronephrosis. Stomach and bowel: Diffuse thickening of the colon from the mid colon to the rectum. No abnormal bowel dilatation. Appendix: Appendix is normal. Intraperitoneal space: Unremarkable. No free air. No significant fluid collection. Vasculature: Severe calcified atherosclerotic disease. No aortic aneurysm. Stents in the visualized right and left superficial femoral arteries. Lymph nodes: Unremarkable. No enlarged lymph nodes. Bladder: Unremarkable as visualized. Reproductive: Uterus is normal. Pelvic Floor: There is ballooning of the levator hiatus. Bones/joints: Moderate degenerative spine. No acute fracture. Soft tissues: Unremarkable. IMPRESSION: 1. Diffuse thickening of the colon from the mid colon to the rectum. Ischemic versus infectious versus inflammatory colitis. 2. Severe calcified atherosclerotic disease. 3. Peritoneal dialysis catheter present. 4. Additional findings as described. Electronically signed by: Chacha Avery On 08/04/2019 00:01:19 AM
[2019-08-04] MEDS ORDERED: POTASSIUM CHLORIDE 10 MEQ SR TABLET PO ONE ×2 (00:45→02:00)
[2019-08-04] MEDS ORDERED: DIFI200T PO (01:59)
== END 2019-08-04 02:11 | disposition home or self-care (01) ==
LOC: M ED 20:28
DX: A04.72 Enterocolitis due to Clostridium difficile, not specified as recurrent (principal); E87.6 Hypokalemia; N18.9 Chronic kidney disease, unspecified; I12.9 Hypertensive chronic kidney disease with stage 1 through stage 4 chronic kidney disease, or unspecified chronic kidney disease; E78.5 Hyperlipidemia, unspecified; Z99.2 Dependence on renal dialysis; Z88.0 Allergy status to penicillin; Z88.8 Allergy status to other drugs, medicaments and biological substances; Z91.048 Other nonmedicinal substance allergy status
CPT/HCPCS: 74176; 80053; 81001; 83605; 85025; 87040; 96365; 99284; Q9963

== ENCOUNTER 2019-09-28 13:32 | Inpatient (IN) | payer MEDICARE, MEDICAID ==
[~2019-09-28] VITALS: Ht 154.9 cm; Wt 74.7 kg
[~2019-09-28 13:32] MED LIST changes: +DIFI200T PO
[2019-09-28 14:58] LABS: BASO % 0.2 % (0.0-1.0); EOS % 0.1 % (0.0-3.0); HEMATOCRIT 25.3 % (36.0-47.0); HEMOGLOBIN 8.4 g/dl (12.0-15.5); LYMPH # 0.8 10^3/uL (1.5-5.0); LYMPH % 4.1 % (24.0-44.0); MEAN CORPUSCULAR HEMOGLOBIN 31.7 pg (27.0-33.0); MEAN CORPUSCULAR HGB CONC 33.2 g/dl (32.0-36.5); MEAN CORPUSCULAR VOLUME 95.5 fl (80.0-96.0); MONO # 0.9 10^3/uL (0.0-0.8); MONO % 4.3 % (0.0-5.0); NEUTROPHILS # 18.1 10^3/uL (1.5-8.5); NEUTROPHILS % 90.7 % (36.0-66.0); PLATELET COUNT, AUTOMATED 288 10^3/uL (150-450); RED BLOOD COUNT 2.65 10^6/uL (4.00-5.40)
--- NOTE | 2019-09-28 15:06 | REP ---
Clinical: Systemic inflammatory response syndrome . Comparison: 12/29/2018 . Findings: The mediastinum and cardiac silhouette are stable and within normal limits for portable technique. The lung orona are clear without acute consolidation, effusion, or pneumothorax. Skeletal structures are intact. Impression: No acute cardiopulmonary process appreciated. Electronically Signed by Elpidio Baumann MD 09/28/2019 02:58 P
[2019-09-28 15:21] LABS: BILIRUBIN,TOTAL 0.8 MG/DL (0.2-1.0); CALCIUM LEVEL 7.7 MG/DL (8.5-10.1); CREATININE FOR GFR 8.85 MG/DL (0.55-1.30); GLOMERULAR FILTRATION RATE 4.9 (>51); POTASSIUM SERUM 3.4 MEQ/L (3.5-5.1)
[2019-09-28 15:22] LABS: BILIRUBIN,DIRECT 0.6 MG/DL (0.0-0.2); MAGNESIUM LEVEL 2.1 MG/DL (1.8-2.4); TOTAL PROTEIN 5.7 GM/DL (6.4-8.2)
[2019-09-28 15:23] LABS: INFLUENZA A AMPLIFICATION NEGATIVE (NEGATIVE); INFLUENZA B AMPLIFICATION NEGATIVE (NEGATIVE)
[2019-09-28] MEDS ORDERED: NS 500 ML IV ONE (15:45)
[2019-09-28] MEDS ORDERED: TORS100T PO (16:07)
[2019-09-28] MEDS ORDERED: FENO135C6 PO (16:07)
[2019-09-28] MEDS ORDERED: SEVE800T3 PO (16:07)
[2019-09-28] MEDS ORDERED: GABA-1171 PO (16:07)
[2019-09-28] MEDS ORDERED: VANCOMYCIN HCL 1,000 MG, VIAL MATE ADAPTER 1 EACH in D5W 250 ML IV ONE (16:15)
--- NOTE | 2019-09-28 16:32 | REP ---
Clinical: Abdominal pain. Technique: Axial noncontrast images from the lung bases to the pubic symphysis with coronal and sagittal re-formations. Comparison: 08/03/2019. Findings: Lung bases demonstrate minimal dependent changes. Liver, spleen, pancreas, bilateral adrenal glands and kidneys are relatively normal / stable. Atherosclerotic changes to the aorta and vasculature as well as renovascular calcifications are again identified. No hydronephrosis or perinephric stranding. Peritoneal dialysis catheter noted in the lower abdomen/pelvis. Evaluation of the enteric system demonstrates mild mucosal thickening to the ascending through transverse colon suggesting the possibility of colitis. Normal terminal ileum and appendix identified in the right lower quadrant. No evidence for small bowel obstruction. Evaluation the pelvis demonstrates normal bladder and stable uterus/adnexa. No ascites. No free air. No significant adenopathy. Atherosclerotic disease noted. Skeletal structures are intact. Impression: 1. Possible mild colitis involving the ascending through transverse colon. 2. No further acute abdominopelvic pathology appreciated. 3. Chronic stable findings. Electronically Signed by Elpidio Baumann MD 09/28/2019 04:24 P
[2019-09-28 16:56] LABS: VENOUS BASE EXCESS -15.8 (-2.0-2.0); VENOUS HCO3 10.9 MEQ/L (23.0-27.0); VENOUS O2 SATURATION 94.8 % (60.0-80.0); VENOUS PARTIAL PRESSURE CO2 28.6 mmHg (38.0-50.0); VENOUS PARTIAL PRESSURE O2 84.9 mmHg (30.0-50.0); VENOUS PH 7.197 UNITS (7.330-7.430); VENOUS STANDARD HCO3 12.1 MEQ/L; VENOUS TOTAL CO2 11.7 MEQ/L (24.0-28.0)
[2019-09-28] MEDS ORDERED: LOSA100T50 PO (17:09)
[2019-09-28] MEDS ORDERED: CARV25TA PO (17:09)
[2019-09-28 18:50] VITALS: BP 76/38
[2019-09-28] MEDS ORDERED: SODIUM CHLORIDE 0.9% 1000ML IV ONE ×2 (19:00→19:15)
[2019-09-28] MEDS ORDERED: ALBUTEROL SULFATE 2.5 MG/0.5 ML INH NEB SOLN NEB PRN (19:00)
[2019-09-28 19:34] VITALS: BP 106/56
[2019-09-28] MEDS ORDERED: GLUCAGON FOR INJ 1 MG VIAL (J1610) SC PRN (20:15)
[2019-09-28] MEDS ORDERED: DEXTROSE 50% 50 ML SYRINGE IV PRN (20:15)
[2019-09-28] MEDS ORDERED: GLUCOSE 4 GM CHEW TABLET PO PRN (20:15)
[2019-09-28] MEDS ORDERED: MEROPENEM INJ 1 GM in IV 1 EA IV SCH (21:00)
[2019-09-28] MEDS ORDERED: GABAPENTIN 100 MG CAP PO SCH (21:00)
[2019-09-28] MEDS: HumaLOG INSULIN (NovoLOG) PER UNIT SC SCH (21:00)
[2019-09-28] MEDS: SERTRALINE 100 MG TAB PO SCH (21:23)
[2019-09-28] MEDS: HEPARIN SOD (PORCINE) 5000 UNITS/ML VIAL SC SCH (21:23)
[2019-09-28] MEDS: ROSUVASTATIN 10 MG TAB (CRESTOR) PO SCH (21:23)
--- NOTE | 2019-09-28 21:28 | HPEPDOC ---
General Date of Admission 09/28/19 Date of Service: Sep 28, 2019 Chief Complaint The patient is a 54-year-old female admitted with a reason for visit of Weakness. Source: Patient, RN/, Old records History of Present Illness 54 year old female with PMH of C diff in June 2019 treated with more than 1 month of vancomycin , stool positive for C diff again in jul 2019 was given Dificid prescription from the ED but she did not fill it as not covered by insurance, COPD, ESRD on PD, depression, Peripheral arterial disease with stents, Type II Diabetes says does not need medicine any more, Hypertension, Hyperlipidemia, Hypertriglyceridemia, Chronic back pain, Peripheral vascular disease status post stenting, five stents on the left SFA, one stent Rt SFA was sent form dialysis clinic as she was felt to have signs of uremia with flap and mild lethargy and BP of 80s/50s. She complained of abdominal pain with cramps going on for 2 weeks and diarrehea wtery 6 to 8 times a day for at least 1 month. She has not been able to use her cycler every day as she had to disconn ect herself several times a night to go to the bathroom. She last dialyzed 2 days ago. Her abdominal ain is located in the left upper quadrant and in the lower abdomen . The pain is like a pressure sensation with some cramps about 5/10 in intensity. Associated with episodes of diarrhea. The stools are watery no blood in it. CT abdomen showed colitis in the ascending and transverse colon. Her BP was low in the ED and she recieved a NS bolus and also recieved 1 dose of vancomycin. She was admitted for Sepsis due to colitis possibly c.diff colitis and possible PD peritonitis with Uremia. Home Medications Scheduled Carvedilol (Carvedilol) 25 Mg Tablet, 25 MG PO BID, (Reported) Clopidogrel Bisulfate (Clopidogrel) 75 Mg Tab, 75 MG PO DAILY, (Reported) Ergocalciferol (Vitamin D2) (Vitamin D2) 50,000 Unit Cap, 50,000 UNIT PO QWEEK, (Reported) THURSDAYS Fenofibric Acid (Choline) (Fenofibric Acid) 135 Mg Capsule.dr, 135 MG PO DAILY, (Reported) Ferric Citrate (Auryxia) 210 Mg Tab, 420 MG PO WM, (Reported) Fluticasone Propionate (Flovent Hfa) 220 Mcg/Act Aer, 2 PUFF INH BID, (Reported) Gabapentin (Gabapentin) 100 Mg Capsule, 200 MG PO QHS, (Reported) Loratadine (Loratadine) 10 Mg Tab, 10 MG PO DAILY, (Reported) Losartan Potassium (Losartan Potassium) 100 Mg Tablet, 100 MG PO DAILY, (Reported) Potassium Chloride (Klor-Con M20) 20 Meq Tabcr, 20 MEQ PO DAILY, (Reported) Rosuvastatin Calcium (Crestor) 40 Mg Tab, 40 MG PO QHS, (Reported) Sertraline HCl (Sertraline HCl) 100 Mg Tab, 200 MG PO QHS, (Reported) Sevelamer Carbonate (Sevelamer Carbonate) 800 Mg Tablet, 1,600 MG PO TID, (Reported) with meals Torsemide (Torsemide) 100 Mg Tablet, 100 MG PO DAILY, (Reported) Scheduled PRN Albuterol Sulfate (Ventolin Hfa) 108 Mcg/Act Aer, 2 PUFF INH QID PRN for SHORTNESS OF BREATH, (Reported) Allergies Coded Allergies: Penicillins (Verified Allergy, Intermediate, HIVES, 08/03/19) TAPE (Verified Allergy, Intermediate, SILKY TAPE - ITCHY RASH, 07/26/18) linagliptin (Verified Adverse Reaction, Intermediate, PANCREATITIS, 08/03/19) Past Medical History Medical History 1. COPD 2. Type II Diabetes 3. Hypertension 4. Hyperlipidemia 5. Hypertriglyceridemia 6. Chronic back pain 7. ESRD on PD. 8. Peripheral vascular disease status post stenting, five stents on the left SFA, one stent Rt SFA, done by Dr. Barnes 9. C diff. Surgical History 1. Tubal Ligation 2. Ovarian Cyst removal 3. Right breast biopsy in 2002 4. D&C hysteroscopy by Dr. Diallo in 2005 5. Right carpal tunnel release 6. Bilateral arterial stent placement 7. Cholecystectomy 8. Left arm fistula 9. Kidney Biopsy 10. PermCatheter placement 11. carpal tunnel release Family History Father: at 67 years old, lung cancer, CVA Mother: Alive, cancer, breast bilateral, diabetes, CVA Siblings: Brother: Skin cancer, diabetes, 2 sisters: Diabetes and cervical cancer Children: Healthy Unexpected deaths due to medical reasons: Maternal aunt of lung cancer Social History * Smoker: current smoker Alcohol: Denies Drugs: denies A-FIB/CHADSVASC A-FIB History Current/History of A-Fib/PAF?: No Review of Systems Constitutional: Reports: Weakness, Fatigue, Lethargy; Denies: Chills, Fever, Malaise, Night Sweats, Weight Loss, Other Eyes: Denies: Pain, Vision change ENT: Denies: Head Aches, Ear Pain, Dysphagia Skin: Denies: Rash, Lesions, Breakdown Pulmonary: Denies: Dyspnea, Cough Cardiovascular: Denies: Chest Pain, Palpitations, Orthopnea, Paroxysmal Noc. Dyspnea, Lt Headedness Gastrointestinal: Reports: Nausea, Abdominal Pain, Diarrhea Genitourinary: Reports: Incontinence Hematologic: Denies: Bruising, Bleeding Excessively Musculoskeletal: Denies: Neck Pain, Back Pain, Joint Pain, Muscle Pain, Spasms Neurological: Denies: Weakness, Numbness, Change in speech, Confusion Physical Examination General Exam: Positive: Alert, Cooperative, No Acute Distress Eye Exam: Positive: PERRLA, Conjunctiva & lids normal, EOMI; Negative: Sclera icteric ENT Exam: Positive: Atraumatic, Mucous membr. moist/pink, Pharynx Normal Neck Exam: Positive: Supple; Negative: JVD, thyromegaly Chest Exam: Positive: Normal air movement, Other (bilateral few basal crackles. ) Heart Exam: Positive: Rate Normal, Regular Rhythm, Normal S1, Normal S2, Murmurs (continueous murmur probably conducted for the AVF in the lef fore arm. ); Negative: Rubs Abdomen Exam: Positive: BS Hypoactive, Soft, Tenderness (in the left upper quadrant and periumbilical region), Other (PD cath in place, no tenderness in t eh tunnel no discharge ) Extremity Exam: Negative: Clubbing, Cyanosis, Edema Skin Exam: Negative: Breakdown, Lesion Neuro Exam: Positive: Normal Speech, Strength at 5/5 X4 ext Vital Signs Vital Signs Date Time Temp Pulse Resp B/P (MAP) Pulse Ox O2 Delivery O2 Flow Rate FiO2 09/28/19 15:17 76 78 Room Air 09/28/19 14:52 09/28/19 13:35 97.8 18 Laboratory Data Labs 24H Laboratory Tests 2 09/28/19 14:30: Immature Granulocyte % (Auto) 0.6, Neutrophils (%) (Auto) 90.7H, Lymphocytes (%) (Auto) 4.1L, Monocytes (%) (Auto) 4.3, Eosinophils (%) (Auto) 0.1, Basophils (%) (Auto) 0.2, Neutrophils # (Auto) 18.1H, Lymphocytes # (Auto) 0.8L, Monocytes # (Auto) 0.9H, Eosinophils # (Auto) 0.0, Basophils # (Auto) 0.0, Nucleated Red Blood Cells % (auto) 0.0, Anion Gap 17H, Glomerular Filtration Rate 4.9L, Lactic Acid Level 0.8, Calcium Level 7.7L, Magnesium Level 2.1, Total Bilirubin 0.8, Direct Bilirubin 0.6H, Aspartate Amino Transf (AST/SGOT) 158H, Alanine Aminotransferase (ALT/SGPT) 127H, Alkaline Phosphatase 97, Total Protein 5.7L, Albumin 2.0L, Albumin/Globulin Ratio 0.54L, Influenza Type A (RT-PCR) NEGATIVE, Influenza Type B (RT-PCR) NEGATIVE 09/28/19 15:47: Urine Color YELLOW, Urine Appearance CLOUDYH, Urine pH 5.0, Urine Specific [place] 1.012, Urine Protein 3+H, Urine Glucose (UA) NEGATIVE, Urine Ketones NEGATIVE, Urine Blood 3+H, Urine Nitrite NEGATIVE, Urine Bilirubin NEGATIVE, Urine Urobilinogen 0.2, Urine Leukocyte Esterase 2+H, Urine WBC (Auto) 51H, Urine RBC (Auto) 19H, Urine Hyaline Casts (Auto) 1, Urine Bacteria (Auto) 2+H, Urine Squamous Epithelial Cells 9, Urine Transitional Epithelial Cells <1, Urine Sperm (Auto) CBC/BMP Laboratory Tests 09/28/19 14:30 Microbiology Microbiology 09/28/19 Urine Culture, Received Pending 09/28/19 Blood Culture, Received Pending 09/28/19 Blood Culture, Received Pending Assessment/Plan 54 year old female with PMH of C diff in June 2019 treated with more than 1 month of vancomycin , stool positive for C diff again in jul 2019 was given Dificid prescription from the ED but she did not fill it as not covered by insurance, COPD, ESRD on PD, depression, Peripheral arterial disease with stents, Type II Diabetes says does not need medicine any more, Hypertension, Hyperlipidemia, Hypertriglyceridemia, Chronic back pain, Peripheral vascular disease status post stenting, five stents on the left SFA, one stent Rt SFA was sent form dialysis clinic as she was felt to have signs of uremia with flap and mild lethargy and BP of 80s/50s. She complained of abdominal pain with cramps going on for 2 weeks and diarrehea wtery 6 to 8 times a day for at least 1 month. She has not been able to use her cycler every day as she had to di sconnect herself several times a night to go to the bathroom. She last dialyzed 2 days ago. Her abdominal ain is located in the left upper quadrant and in the lower abdomen . The pain is like a pressure sensation with some cramps about 5/10 in intensity. Associated with episodes of diarrhea. The stools are watery no blood in it. CT abdomen showed colitis in the ascending and transverse colon. Her BP was low in the ED and she received a NS bolus and also received 1 dose of vancomycin. She was admitted for Sepsis due to colitis possibly c.diff colitis and possible PD peritonitis with Uremia. Possible C diff colitis will send GI panel. did not respond to long course of vancomycin from june to july. c,diff still positive in july was given deficid but insurance did not cover it so patient never took it. will start on deficid consult ID PD peritonitis possibly secondary to colitis however with cover with broad spectrum antibitics till PD fluid cell count and gram strain are available Meropenem and voncomycin. normal lactate patient has no SIRS criteria and has only one q SOFA criteria so we cannot say that she has sepsis Hypotension clinically looks dry. possibly due to dehydration form diarrhea, poor oral intake on the backgound of antihypertensives and diuretics. will give ivf bolus and continue Bicarb gtt. Uremia due to inadequete dialysis patient has not been using her cycler regularly as she has been having days of diarrehea when she would have to unhook herselt 3 or 4 times a night. So if she is having diarrhea then she would not dialyse herself. will start on PD exchanges 5 each with 1.5%. 2 liters. Nephrology consulted. ESRD on PD. for 1 year. Inadequete Dialysis recently due to being sick. Now very acidotic with VVG pH of 7.13. Bicarb of 13. will start on Bicarb gtt. DIabetes says does not need medications any more will place patient with lispro sliding scale Sepsis with hypotension with elevated WBC seems to be responding to fluids. continue meropenem and vancomycin. Peripheral arterial disease with stents will continue ASA and plavix Hyperlipidemia continue statin Hypertension now with hypotension will hold all antihypertensives and diuretics Plan / VTE VTE Prophylaxis Ordered?: Yes ANGELA RUIZ MD Sep 28, 2019 16:22
[2019-09-28] MEDS: FLUTICASONE HFA 220 MCG 12 GM INHALER (FLOVENT) INH SCH (22:37)
[2019-09-28] MEDS: SODIUM BICARBONATE 150 MEQ in STERILE WATER LITER BAG 1,000 ML IV SCH (23:00)
[2019-09-28] MEDS ORDERED: ACETAMINOPHEN TAB 650MG DOSE (2X325MG) PO ONE (23:15)
[2019-09-29] VITALS: BP 121/58
[2019-09-29] MEDS: FIDAXOMICIN 200 MG TAB (DIFICID) PO SCH ×3 (00:15→21:25)
[2019-09-29 04:00] VITALS: BP 112/62
[2019-09-29 06:12] LABS: HEMATOCRIT 22.1 % (36.0-47.0); HEMOGLOBIN 7.4 g/dl (12.0-15.5); MEAN CORPUSCULAR HGB CONC 33.5 g/dl (32.0-36.5); MEAN CORPUSCULAR VOLUME 92.5 fl (80.0-96.0); PLATELET COUNT, AUTOMATED 246 10^3/uL (150-450); RED BLOOD COUNT 2.39 10^6/uL (4.00-5.40); WHITE BLOOD COUNT 17.5 10^3/uL (4.0-10.0)
[2019-09-29 06:37] LABS: SOURCE, BODY FLUID PERITONEAL DIALYSATE
[2019-09-29 06:37] LABS: CALCIUM LEVEL 6.9 MG/DL (8.5-10.1); CREATININE FOR GFR 8.45 MG/DL (0.55-1.30); GLOMERULAR FILTRATION RATE 5.2 (>51); POTASSIUM SERUM 2.6 MEQ/L (3.5-5.1)
[2019-09-29 06:38] LABS: APPEARANCE, BODY FLUID HAZY (CLEAR); PERITONEAL DIALYSATE FL COLOR PALE YELLOW (COLORLESS)
[2019-09-29] MEDS ORDERED: POTASSIUM CHLORIDE 10 MEQ SR TABLET PO ONE ×3 (06:45→23:30)
[2019-09-29] MEDS: HumaLOG INSULIN (NovoLOG) PER UNIT SC SCH ×4 (07:30→21:00)
[2019-09-29 08:00] VITALS: BP 109/55
[2019-09-29] MEDS: FLUTICASONE HFA 220 MCG 12 GM INHALER (FLOVENT) INH SCH ×2 (08:21→20:55)
[2019-09-29] MEDS: CLOPIDOGREL 75 MG TAB PO SCH (10:47)
[2019-09-29] MEDS: FENOFIBRATE 145 MG TAB (TRICOR) PO SCH (10:48)
[2019-09-29] MEDS: HEPARIN SOD (PORCINE) 5000 UNITS/ML VIAL SC SCH ×2 (10:49→21:24)
[2019-09-29] MEDS: SODIUM BICARBONATE 150 MEQ in STERILE WATER LITER BAG 1,000 ML IV SCH (10:49)
[2019-09-29 12:00] VITALS: BP 110/66
[2019-09-29 13:06] LABS: ALBUMIN 1.7 GM/DL (3.2-5.2); BILIRUBIN,DIRECT 0.4 MG/DL (0.0-0.2); BILIRUBIN,TOTAL 1.1 MG/DL (0.2-1.0); TOTAL PROTEIN 5.8 GM/DL (6.4-8.2)
[2019-09-29] MEDS: IBUPROFEN 400 MG TAB PO ONE ×2 (15:50→17:18)
[2019-09-29] MEDS: KCL 10MEQ/100ML SWI (KRUN) 10 MEQ in IV 1 EA IV SCH ×3 (15:50→18:34)
[2019-09-29 16:00] VITALS: BP 118/67
[2019-09-29] MEDS ORDERED: DIFI200T PO (16:33)
[2019-09-29 20:00] VITALS: BP 152/60
[2019-09-29] MEDS ORDERED: MEROPENEM INJ 1 GM in IV 1 EA IV SCH (21:00)
[2019-09-29] MEDS: ROSUVASTATIN 10 MG TAB (CRESTOR) PO SCH (21:25)
[2019-09-29] MEDS: SERTRALINE 100 MG TAB PO SCH (21:25)
[2019-09-29] MEDS: SODIUM BICARBONATE 325 MG TAB PO SCH (21:25)
[2019-09-29 23:01] LABS: POTASSIUM SERUM 2.7 MEQ/L (3.5-5.1)
[2019-09-30] VITALS: BP 126/56
[2019-09-30] MEDS ORDERED: POTASSIUM CHLORIDE 10 MEQ SR TABLET PO ONE ×2 (01:00→04:00)
[2019-09-30 04:00] VITALS: BP 104/52
[2019-09-30 05:03] LABS: HEMATOCRIT 24.4 % (36.0-47.0); MEAN CORPUSCULAR HEMOGLOBIN 30.3 pg (27.0-33.0); MEAN CORPUSCULAR HGB CONC 32.8 g/dl (32.0-36.5); MEAN CORPUSCULAR VOLUME 92.4 fl (80.0-96.0); PLATELET COUNT, AUTOMATED 269 10^3/uL (150-450); RED BLOOD COUNT 2.64 10^6/uL (4.00-5.40)
[2019-09-30 05:50] LABS: CREATININE FOR GFR 7.37 MG/DL (0.55-1.30); GLOMERULAR FILTRATION RATE 6.1 (>51); POTASSIUM SERUM 3.3 MEQ/L (3.5-5.1)
--- NOTE | 2019-09-30 07:30 | CR ---
DATE OF CONSULTATION: 09/29/2019 REASON FOR CONSULTATION: Recurrent Clostridium (C) difficile diarrhea. HISTORY OF PRESENT ILLNESS: The patient is a 54-year-old female with a history of end-stage renal disease on peritoneal dialysis for about a year who presented with diarrhea, incontinence, weakness and lethargy. The patient's states that he took her to dialysis to be evaluated and they recommended for her to be admitted to the hospital due to dehydration and weakness. The patient has a history of Clostridium (C) difficile colitis for the past three months with C. difficile positivity on 06/28/2019 and 08/02/2019 and 09/29/2019. The patient was treated as an outpatient by her primary care provider at the [facility] with vancomycin. At one point, fidaxomicin was attempted through the emergency room (ER) but it was denied due to prior authorization. She denies any cough or shortness of breath. No abdominal pain. No nausea or vomiting. Mostly, she has diarrhea and decreased appetite. She has not been able to do dialysis due to her diarrhea. PAST MEDICAL HISTORY: Significant for: 1. End-stage renal disease on peritoneal dialysis. 2. History of diabetes with diabetic neuropathy. 3. Chronic obstructive pulmonary disease (COPD) with continued tobacco abuse. 4. Depressive disorder. 5. Peripheral vascular disease with stents. 6. Hypertension. 7. Hyperlipidemia. 8. Chronic degenerative disc disease. 9. History of gallstone pancreatitis. PAST SURGICAL HISTORY: 1. Peripheral vascular stents to the left superficial femoral artery (SFA), right SFA. 2. Peritoneal dialysis (PD) catheter placement. 3. Laparoscopic cholecystectomy in May of 2016. 4. Tubal ligation. 5. Ovarian cyst removal. 6. Right breast biopsy 2002. 7. Hysteroscopy by Dr. Diallo in 2005. 8. Right carpal tunnel release. 9. Bilateral arterial stent placement. 10. Left arm arteriovenous (AV) fistula that has not been used. 11. Kidney biopsy. MEDICATIONS: - Coreg 25 mg by mouth twice a day - Plavix 75 mg by mouth daily - vitamin D2 50,000 units weekly - fenofibric acid 135 mg by mouth daily - ferric citrate 210 mg by mouth with meals - Flovent HFA 220 mcg two puffs inhaled twice a day - gabapentin 200 mg at bedtime - loratadine 10 mg by mouth daily - losartan 100 mg daily - potassium chloride 20 mEq daily - rosuvastatin 40 mg by mouth at bedtime - sertraline 100 mg tablets two tablets at bedtime - sevelamer 800 mg two tablets three times a day - torsemide 100 mg by mouth daily - albuterol 108 mcg two puffs four times a day as needed ALLERGIES: PENICILLIN, TAPE and LINAGLIPTIN causing pancreatitis. FAMILY HISTORY: Father at 67 from lung cancer. Mother of cancer, diabetes, cerebrovascular accident (CVA). Brother has skin cancer and sister has cervical cancer. SOCIAL HISTORY: She continues to smoke less than a half a pack a day. Denies alcohol or drug use. She lives with her . REVIEW OF SYSTEMS: She complains of weakness, lethargy, but had no fever or chills. No night sweats. No weight loss. She has a headache today. She has no abdominal pain but has diarrhea and incontinence and decreased appetite. The patient does have urinary incontinence. She does still urinate, usually whenever she has a bowel movement. She denies any upper or lower extremity weakness. PHYSICAL EXAMINATION: She is a lethargic, middle-aged woman, looks older than stated age, in no acute distress. She falls asleep when she is talked to. Neck is supple. No jugular venous distention (JVD). She has bilateral bruits radiating from heart murmur. Heart: Normal S1, S2 with a holosystolic ejection murmur 2/6 over the whole precordium radiating also to the carotids. Abdomen: Soft, decreased bowel sounds, mildly tender in the left lower quadrant. There is a peritoneal dialysis (PD) catheter periumbilical with clear fluid in the tubing. Extremities: No clubbing, cyanosis or edema. Skin has multiple tattoos but no ulcerations or open lesions. Oropharynx is clear with no lesion or thrush. Neurologic: Motor strength is normal but the patient is lethargic, falling asleep easily with conversation but easily arousable. HEENT: Pupils equal and reactive, anicteric. Neck is supple. No adenopathy. Temperature is 97.5, pulse 75, respirations 22, blood pressure 109/55, oxygen saturation 92% on room air. LABORATORY DATA: White count was 20, hemoglobin 8.4, hematocrit 25.3, platelets 288 yesterday. Today, white count is 17.5, hemoglobin 7.4, hematocrit 22.1, platelets 246. Sodium 137, potassium 2.6, chloride 107, bicarbonate 15, BUN 106, creatinine 8.45, glucose 133, calcium 6.9, lactic acid 0.8, AST 158, ALT 127, alkaline phosphatase 97. Influenza A and B were negative. MICROBIOLOGY: C. difficile was positive on GI panel. Urine culture is pending. Blood cultures are pending. Peritoneal fluid was sent out at 6 a.m. today. Gram-stain and fungal smear pending. Fluid has 155 white cells with 62% mononuclear cells, 38% PMNs, not consistent with infection, total PMNs would be 62. IMAGING STUDIES: CT abdomen and pelvis suggestive of mild colitis the ascending throughout the transverse colon, no acute process, peritoneal dialysis in place. Chest x-ray PA and lateral showed no acute pulmonary process. IMPRESSION: This is a 54-year-old female with a history of end-stage renal disease on peritoneal dialysis who presented with diarrhea, incontinence, and weakness. She has not done peritoneal dialysis in a couple of days due to weakness. She is uremic and encephalopathic with leukocytosis but does not look septic. The patient was dehydrated with hypotension and hypokalemia. She has received one dose of vancomycin and meropenem for presumptive sepsis and was started on fidaxomicin. There is no evidence of infection other than Clostridium (C) difficile colitis and therefore antibiotics are not indicated. PLAN: Discontinue IV vancomycin. Discontinue IV meropenem. Continue fidaxomicin 200 mg by mouth twice a day. The patient has failed two courses of vancomycin. The patient will need IV bezlotoxumab 700 mg IV infusion that could be done at the infusion unit the day after discharge as it is not covered as an inpatient. If diarrhea does not improve with fidaxomicin and bezlotoxumab then a stool transplantation may be indicated. Thank you for the consultation. The case has been discussed with Dr. Nahed Johnson.
[2019-09-30 07:42] VITALS: BP 117/58
[2019-09-30] MEDS: CLOPIDOGREL 75 MG TAB PO SCH (08:36)
[2019-09-30] MEDS: FENOFIBRATE 145 MG TAB (TRICOR) PO SCH (08:36)
[2019-09-30] MEDS: SODIUM BICARBONATE 325 MG TAB PO SCH (08:36)
[2019-09-30] MEDS: HumaLOG INSULIN (NovoLOG) PER UNIT SC SCH ×4 (08:36→22:06)
[2019-09-30] MEDS: POTASSIUM CHLORIDE 10 MEQ SR TABLET PO SCH ×2 (08:36→22:05)
[2019-09-30] MEDS: FIDAXOMICIN 200 MG TAB (DIFICID) PO SCH ×2 (08:36→22:05)
[2019-09-30] MEDS: HEPARIN SOD (PORCINE) 5000 UNITS/ML VIAL SC SCH ×2 (08:37→22:05)
[2019-09-30] MEDS: FLUTICASONE HFA 220 MCG 12 GM INHALER (FLOVENT) INH SCH ×2 (09:28→21:08)
--- NOTE | 2019-09-30 11:26 | IPNPDOC ---
Subjective Date Seen The patient was seen on 09/29/19. Subjective Chief Complaint/HPI Complains of a little heavy breathing this am , No diarrhea this am , did have 4 stools overnight. Abdominal pain is better. Poor appetite. no fever or chills, BP better after IVF. No cough or phlegm. Also complains of headache Objective Physical Examination General Exam: Positive: Alert, Cooperative, No Acute Distress Eye Exam: Positive: PERRLA, Conjunctiva & lids normal, EOMI; Negative: Sclera icteric ENT Exam: Positive: Atraumatic, Mucous membr. moist/pink, Pharynx Normal Neck Exam: Positive: Supple; Negative: JVD, thyromegaly Chest Exam: Positive: Normal air movement, Other (bilateral few basal crackles. ) Heart Exam: Positive: Rate Normal, Regular Rhythm, Normal S1, Normal S2, Murmurs (continueous murmur probably conducted for the AVF in the lef fore arm. ); Negative: Rubs Abdomen Exam: Positive: BS Hypoactive, Soft, Tenderness (in the left upper quadrant and periumbilical region), Other (PD cath in place, no tenderness in carrillo tunnel no discharge ) Extremity Exam: Negative: Clubbing, Cyanosis, Edema Skin Exam: Negative: Breakdown, Lesion Neuro Exam: Positive: Normal Speech, Strength at 5/5 X4 ext, Other (flap present) Assessment /Plan Assessment 54 year old female with PMH of C diff in June 2019 treated with more than 1 month of vancomycin , stool positive for C diff again in jul 2019 was given Dificid prescription from the ED but she did not fill it as not covered by insurance, COPD, ESRD on PD, depression, Peripheral arterial disease with stents, Type II Diabetes says does not need medicine any more, Hypertension, Hyperlipidemia, Hypertriglyceridemia, Chronic back pain, Peripheral vascular disease status post stenting, five stents on the left SFA, one stent Rt SFA was sent form dialysis clinic as she was felt to have signs of uremia with flap and mild lethargy and BP of 80s/50s. She complained of abdominal pain with cramps going on for 2 weeks and diarrehea wtery 6 to 8 times a day for at least 1 month. She has not been able to use her cycler every day as she had to disconnect herself several times a night to go to the bathroom. She last dialyzed 2 days ago. Her abdominal ain is located in the left upper quadrant and in the lower abdomen . The pain is like a pressure sensation with some cramps about 5/10 in intensity. Associated with episodes of diarrhea. The stools are watery no blood in it. CT abdomen showed colitis in the ascending and transverse colon. Her BP was low in the ED and she received a NS bolus and also received 1 dose of vancomycin. She was admitted for Sepsis due to colitis possibly c.diff colitis and possible PD peritonitis with Uremia. C diff colitis did not respond to long course of vancomycin from june to july. c,diff still positive in july was given deficid but insurance did not cover it so patient never took it. on deficid consult ID PD peritonitis possibly secondary to c diff colitis will dc meropenem. Transaminitis ? cause. Hypotension resolved. possibly due to dehydration form diarrhea, poor oral intake on the backgound of antihypertensives and diuretics. now seems to be getting a little overloaded. will stop the bicarb gtt. Uremia due to inadequete dialysis patient has not been using her cycler regularly as she has been having days of diarrehea when she would have to unhook herselt 3 or 4 times a night. So if she is having diarrhea then she would not dialyse herself. will start on PD exchanges 5 each with 1.5%. 2 liters. Nephrology consulted. ESRD on PD. for 1 year. Inadequete Dialysis recently due to being sick. Now very acidotic with VVG pH of 7.13. Bicarb of 13. will start on Bicarb gtt. DIabetes says does not need medications any more will place patient with lispro sliding scale Sepsis with hypotension with elevated WBC seems to be responding to fluids. continue meropenem and vancomycin. Peripheral arterial disease with stents will continue ASA and plavix Hyperlipidemia continue statin Hypertension now with hypotension will hold all antihypertensives and diuretics Plan/VTE VTE Prophylaxis Ordered?: Yes VS, I&O, 24H, Fishbone Vital Signs/I&O Vital Signs Date Time Temp Pulse Resp B/P (MAP) Pulse Ox O2 Delivery O2 Flow Rate FiO2 09/29/19 04:00 99.2 78 18 112/62 (79) 90 Room Air I&O- Last 24 Hours up to 6 AM 09/29/19 06:00 Intake Total 6080 ml Output Total 1700 ml Balance 4380 ml Laboratory Data 24H LABS Laboratory Tests 2 09/28/19 14:30: Immature Granulocyte % (Auto) 0.6, Neutrophils (%) (Auto) 90.7H, Lymphocytes (%) (Auto) 4.1L, Monocytes (%) (Auto) 4.3, Eosinophils (%) (Auto) 0.1, Basophils (%) (Auto) 0.2, Neutrophils # (Auto) 18.1H, Lymphocytes # (Auto) 0.8L, Monocytes # (Auto) 0.9H, Eosinophils # (Auto) 0.0, Basophils # (Auto) 0.0, Nucleated Red Blood Cells % (auto) 0.0, Anion Gap 17H, Glomerular Filtration Rate 4.9L, Lactic Acid Level 0.8, Calcium Level 7.7L, Magnesium Level 2.1, Total Bilirubin 0.8, Direct Bilirubin 0.6H, Aspartate Amino Transf (AST/SGOT) 158H, Alanine Aminotransferase (ALT/SGPT) 127H, Alkaline Phosphatase 97, Total Protein 5.7L, Albumin 2.0L, Albumin/Globulin Ratio 0.54L, Influenza Type A (RT-PCR) NEGATIVE, Influenza Type B (RT-PCR) NEGATIVE 09/28/19 15:47: Urine Color YELLOW, Urine Appearance CLOUDYH, Urine pH 5.0, Urine Specific Crouse 1.012, Urine Protein 3+H, Urine Glucose (UA) NEGATIVE, Urine Ketones NEGATIVE, Urine Blood 3+H, Urine Nitrite NEGATIVE, Urine Bilirubin NEGATIVE, Urine Urobilinogen 0.2, Urine Leukocyte Esterase 2+H, Urine WBC (Auto) 51H, Urine RBC (Auto) 19H, Urine Hyaline Casts (Auto) 1, Urine Bacteria (Auto) 2+H, Urine Squamous Epithelial Cells 9, Urine Transitional Epithelial Cells <1, Urine Sperm (Auto) 09/28/19 16:43: Blood Gas Bicarbonate Standard 12.1, Venous Blood pH 7.197L, Venous Blood Partial Pressure CO2 28.6L, Venous Blood Partial Pressure O2 84.9H, Venous Blood Total Carbon Dioxide 11.7L, Venous Blood HCO3 10.9L, Venous Blood Oxygen Saturation 94.8H, Venous Blood Base Excess -15.8L 09/28/19 20:27: Bedside Glucose (Misc Panel) 189H 09/29/19 05:28: Nucleated Red Blood Cells % (auto) 0.2H, Anion Gap 15, Glomerular Filtration Rate 5.2L, Calcium Level 6.9L 09/29/19 06:00: Body Fluid Source PERITONEAL DIALYSATE, Body Fluid WBC (Auto) 155H, Body Fluid RBC (Auto) < 2, Body Fluid Mononuclear Cells % Auto 61.9H, Fluid Polymorphonuclear Cell % Auto 38.1H, Peritoneal Fluid Color PALE YELLOW, Peritoneal Fluid Appearance HAZY CBC/BMP Laboratory Tests 09/28/19 14:30 09/29/19 05:28 Microbiology Microbiology 09/29/19 Fungal Smear, Received Pending 09/29/19 Fungal Culture, Received Pending 09/29/19 Gram Stain, Received Pending 09/29/19 Body Fluid Culture, Received Pending 09/29/19 Gastrointestinal Tract Panel (PCR) - Final, Complete Clostridium Difficile A/B 09/28/19 Urine Culture, Received Pending 09/28/19 Blood Culture, Received Pending 09/28/19 Blood Culture, Received Pending ANGELA RUIZ MD Sep 29, 2019 06:54
[2019-09-30 12:30] LABS: ALBUMIN 1.7 GM/DL (3.2-5.2); BILIRUBIN,DIRECT 0.4 MG/DL (0.0-0.2); BILIRUBIN,TOTAL 0.9 MG/DL (0.2-1.0); TOTAL PROTEIN 5.9 GM/DL (6.4-8.2)
--- NOTE | 2019-09-30 12:38 | IPNPDOC ---
Subjective Date Seen The patient was seen on 09/30/19. Subjective Chief Complaint/HPI Continues to have loose stools but says it is a little thicker now. Denies any abdominal pain today. no fever or chills, no chest pain or sob, says her hands are not shaking so much today. Her appetite is better. Objective Physical Examination General Exam: Positive: Alert, Cooperative, No Acute Distress Eye Exam: Positive: PERRLA, Conjunctiva & lids normal, EOMI; Negative: Sclera icteric ENT Exam: Positive: Atraumatic, Mucous membr. moist/pink, Pharynx Normal Neck Exam: Positive: Supple; Negative: JVD, thyromegaly Chest Exam: Positive: Normal air movement, Other (bilateral few basal crackles. ) Heart Exam: Positive: Rate Normal, Regular Rhythm, Normal S1, Normal S2, Murmurs (continueous murmur probably conducted for the AVF in the lef fore arm. ); Negative: Rubs Abdomen Exam: Positive: BS Hypoactive, Soft, Tenderness (in the left upper quadrant and periumbilical region), Other (PD cath in place, no tenderness in carrillo tunnel no discharge ) Extremity Exam: Negative: Clubbing, Cyanosis, Edema Skin Exam: Negative: Breakdown, Lesion Neuro Exam: Positive: Normal Speech, Strength at 5/5 X4 ext, Other (flap present) Assessment /Plan Assessment 54 year old female with PMH of C diff in June 2019 treated with more than 1 month of vancomycin , stool positive for C diff again in jul 2019 was given Dificid prescription from the ED but she did not fill it as not covered by insurance, COPD, ESRD on PD, depression, Peripheral arterial disease with stents, Type II Diabetes says does not need medicine any more, Hypertension, Hyperlipidemia, Hypertriglyceridemia, Chronic back pain, Peripheral vascular disease status post stenting, five stents on the left SFA, one stent Rt SFA was sent form dialysis clinic as she was felt to have signs of uremia with flap and mild lethargy and BP of 80s/50s. She complained of abdominal pain with cramps going on for 2 weeks and diarrhea watery 6 to 8 times a day for at least 1 month. She has not been able to use her cycler every day as she had to disconnect herself several times a night to go to the bathroom. She last dialyzed 2 days ago. Her abdominal ain is located in the left upper quadrant and in the lower abdomen . The pain is like a pressure sensation with some cramps about 5/10 in intensity. Associated with episodes of diarrhea. The stools are watery no blood in it. CT abdomen showed colitis in the ascending and transverse colon. Her BP was low in the ED and she received a NS bolus and also received 1 dose of vancomycin. She was admitted for Sepsis due to colitis possibly c.diff colitis and possible PD peritonitis with Uremia. C.diff colitis failed 2 courses of vancomycin on deficid at present As per ID the patient will need IV bezlotoxumab 700 mg IV infusion the day after discharge as it is not covered as an inpatient. If diarrhea does not improve with fidaxomicin and bezlotoxumab then a stool transplantation may be needed. PD peritonitis possibly secondary to c diff colitis will dc meropenem and vancomycin Transaminitis ? cause. Hypotension resolved. possibly due to dehydration form diarrhea, poor oral intake on the backgound of antihypertensives and diuretics. now seems to be getting a little overloaded. Uremia improved. due to inadequete dialysis at home. continue PD exchanges as per nephrology ESRD on PD. for 1 year. Inadequete Dialysis recently due to being sick. continue PD exchanges as per nephrology Diabetes says does not need medications any more will place patient with lispro sliding scale Sepsis with hypotension with elevated WBC seems to be responding to fluids. continue meropenem and vancomycin. Peripheral arterial disease with stents will continue ASA and plavix Hyperlipidemia continue statin Hypertension will restart Bp starts rising.now Bp is normal Hypokalemia will continue aggressive replacement. Plan/VTE VTE Prophylaxis Ordered?: Yes VS, I&O, 24H, Shai Vital Signs/I&O Vital Signs Date Time Temp Pulse Resp B/P (MAP) Pulse Ox O2 Delivery O2 Flow Rate FiO2 09/30/19 07:42 97.5 76 18 117/58 (77) 93 Room Air I&O- Last 24 Hours up to 6 AM 09/30/19 06:00 Intake Total 47993 ml Output Total 8400 ml Balance 4580 ml Laboratory Data 24H LABS Laboratory Tests 2 09/29/19 18:23: Bedside Glucose (Misc Panel) 190H 09/29/19 21:24: Bedside Glucose (Misc Panel) 243H 09/29/19 22:20: Magnesium Level 2.0 09/30/19 04:45: Nucleated Red Blood Cells % (auto) 0.1H, Anion Gap 13, Glomerular Filtration Rate 6.1L, Calcium Level 7.0L 09/30/19 12:00: Bedside Glucose (Misc Panel) 276H CBC/BMP Laboratory Tests 09/29/19 22:20 09/30/19 04:45 Microbiology Microbiology 09/29/19 Fungal Smear, Received Pending 09/29/19 Fungal Culture, Received Pending 09/29/19 Gram Stain - Final, Resulted 09/29/19 Body Fluid Culture, Resulted Pending 09/29/19 Gastrointestinal Tract Panel (PCR) - Final, Complete Clostridium Difficile A/B 09/28/19 Urine Culture - Final, Complete 09/28/19 Blood Culture - Preliminary, Resulted No growth after 24 hours . All specim... 09/28/19 Blood Culture - Preliminary, Resulted No growth after 24 hours . All specim... ANGELA RUIZ MD Sep 30, 2019 12:38
--- NOTE | 2019-09-30 14:32 | IPN ---
DATE OF VISIT: 09/30/2019 Mrs. Henao is seen this morning on her bedside. She is being treated for recurrent C. difficile colitis. She has a known history of end-stage renal disease and has been on peritoneal dialysis. Her dialysis is working very well. Acute peritonitis has been ruled out. The patient continues to have loose stools but denies any vomiting or abdominal pain. She has no dyspnea or chest pain. PHYSICAL EXAMINATION: Temperature 97.5 degrees Fahrenheit, heart rate 76 per minute and respiratory rate 18 per minute. Blood pressure 117/58 mmHg and oxygen saturation 93% on room air. Head is atraumatic. Neck supple and without JVD or thyroid enlargement. Heart sounds are regular and lungs sound clear to auscultation. Abdomen is soft with minimal tenderness. Peritoneal dialysis catheter is intact. Extremities have no cyanosis or clubbing. Neurologically, she is awake, alert and at her baseline mentation. Today's labs show WBC count down to 16.0 from 20.0 on admission and 17.5 yesterday. Hemoglobin is 8.0 and hematocrit 24.4. Platelets 269. Sodium 138, potassium 3.3, CO2 20, BUN 86 and creatinine 7.37. Glucose 176 and calcium 7.0. Her albumin level was 1.7 yesterday and it was not checked today. PROBLEMS: 1. End-stage renal disease. The patient remains on peritoneal dialysis. She did not perform her dialysis for a few days at home due to frequent diarrhea. Her BUN and creatinine have improved significantly. At present we will continue with current prescription of peritoneal dialysis five exchanges per day. 2. Metabolic acidosis due to lack of dialysis and it is now improving nicely. We will continue with dialysis and stop the sodium bicarbonate for now. 3. Hypokalemia related to frequent diarrhea and we will continue to replace potassium and recheck her electrolytes. 4. C. difficile colitis. The patient is now on Dificid and continues to have loose stools for now. She is being followed by Dr. Otto. It remains to be seen if she improves with Dificid only or if she will need a fecal transplant. 5. Anemia. Her anemia is significant and she is likely to require transfusion. I am going to check her iron studies and I will consider giving her Aranesp if she has adequate iron stores.
[2019-09-30 15:50] VITALS: BP 165/70
[2019-09-30 22:00] VITALS: BP 159/74
[2019-09-30] MEDS: ROSUVASTATIN 10 MG TAB (CRESTOR) PO SCH (22:04)
[2019-09-30] MEDS: SERTRALINE 100 MG TAB PO SCH (22:05)
[2019-10-01 06:00] VITALS: BP 144/69
[2019-10-01 06:41] LABS: HEMATOCRIT 24.2 % (36.0-47.0); HEMOGLOBIN 7.8 g/dl (12.0-15.5); MEAN CORPUSCULAR HEMOGLOBIN 30.4 pg (27.0-33.0); MEAN CORPUSCULAR HGB CONC 32.2 g/dl (32.0-36.5); MEAN CORPUSCULAR VOLUME 94.2 fl (80.0-96.0); PLATELET COUNT, AUTOMATED 303 10^3/uL (150-450); RED BLOOD COUNT 2.57 10^6/uL (4.00-5.40); WHITE BLOOD COUNT 13.2 10^3/uL (4.0-10.0)
[2019-10-01 07:07] LABS: CALCIUM LEVEL 7.5 MG/DL (8.5-10.1); CREATININE FOR GFR 7.01 MG/DL (0.55-1.30); GLOMERULAR FILTRATION RATE 6.5 (>51); POTASSIUM SERUM 3.5 MEQ/L (3.5-5.1)
--- NOTE | 2019-10-01 07:55 | CR ---
DATE OF CONSULTATION: 09/29/2019 REQUESTING PHYSICIAN: Dr. Nahed Johnson CONSULTING PHYSICIAN: Dr. Neli Mckeon REASON FOR CONSULTATION: End-stage renal disease on peritoneal dialysis. HISTORY OF PRESENT ILLNESS: Kerline Henao is well known to me. 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 The patient has recently been having recurrent C. difficile colitis and has been on antibiotics in June and July with a prolonged vancomycin taper for her recurrent C. difficile colitis. The patient states that over the past week she continued had a flare-up of multiple watery bowel movements per day and she stopped doing her peritoneal dialysis at home at nighttime because of the recurrent diarrhea. She went to the peritoneal dialysis outpatient office yesterday for a routine visit for blood work and she was noted by the peritoneal dialysis nurse to be frankly uremic with asterixis and also to be hypotensive and generally unwell looking, and she was subsequently directed to come to the emergency room for further evaluation. The patient complains of diarrhea, weakness and lethargy. In the ER she was found to have an elevated white count and to be severely acidotic with blood urea nitrogen of greater than 100 and nephrology evaluation was requested for management of this patient's end-stage renal disease. PAST MEDICAL HISTORY: 1. 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 2. Peritoneal dialysis dependent. 3. Insulin dependent diabetes, poorly controlled. 4. Hypertension. 5. History of cervical cancer. 6. Depression. 7. Asthma. 8. Dyslipidemia. 9. Secondary hyperparathyroidism. 10. Anemia of chronic renal failure. PAST SURGICAL HISTORY: Cholecystectomy in 2017. Femoral artery bypass in 2017. Renal biopsy 2017. Arteriovenous fistula creation 2018. Peritoneal dialysis catheter placement 2018. Tubal ligation. Ovarian cyst removal. Right breast biopsy 2002. Hysteroscopy. Right carpal tunnel release. FAMILY/SOCIAL HISTORY: Dyslipidemia, hypertension, diabetes, history of lung cancer and breast cancer, and brain aneurysm the family. Father is due to lung cancer. Mother of pneumonia. Kerline has two children. She is , lives with her . She denies alcohol or drug use. She smokes less than half a pack a day. HOME MEDICATIONS: - carvedilol 25 mg twice a day - Plavix 75 mg daily - vitamin D 50,000 units by mouth weekly - fenofibrate acid 135 mg by mouth daily - ferric citrate 210 mg by mouth with meals - Flovent two puffs inhaled daily - gabapentin 200 mg at bedtime - loratadine 10 mg by mouth daily - losartan 100 mg daily - potassium chloride 20 mEq daily - rosuvastatin 40 mg by mouth at bedtime - sertraline 100 mg two tablets at bedtime - Renvela 800 mg two tablets three times a day - torsemide 100 mg by mouth daily - albuterol two puffs four times a day as needed ALLERGIES: 1. PENICILLIN. 2. TAPE. 3. LINAGLIPTIN. REVIEW OF SYSTEMS: CONSTITUTIONAL: She complains of weakness and lethargy. Denies fevers or chills. No weight loss. EYES: She denies visual changes or tearing. ENT: She denies of odynophagia or epistaxis. CARDIAC: She denies chest pain, palpitations or leg swelling. RESPIRATORY: She denies shortness of breath or cough. GASTROINTESTINAL: She reports diarrhea and poor appetite. ENDOCRINE: She reports diabetes and secondary hyperparathyroidism of renal origin. HEMATOLOGIC: She reports anemia. She denies long-term anticoagulant use. MUSCULOSKELETAL: She denies acute arthralgias or myalgias. SKIN: She denies any new rashes or ulcers. NEUROLOGIC: She denies a seizures or syncope. PSYCHIATRIC: She reports a history of depression. PHYSICAL EXAMINATION: Vital signs: Temperature 98.2, pulse 72, respiratory rate 18, blood pressure 118/67, saturating 100% on room air. General: The patient is seen sitting upright at the edge of the bed, legs dangling, awake, alert and oriented times three. Neck is supple. Jugular veins are not elevated. Heart sounds are regular, S1-S2. No edema in the legs. Lungs have diminished breath sounds at the base and fine crackles. She is seen on room air. No accessory muscle use. No tachypnea. Abdomen is soft. There is some mild tenderness. The peritoneal dialysis catheter exit site is clean, dry and intact. There is peritoneal dialysis fluid in situ. Musculoskeletal: There is a left upper extremity fistula with thrill and bruit. The legs have no clubbing, cyanosis or edema. Skin normal temperature and turgor. Neurologic: Oriented times three. No focal deficits. Psychiatric: Appropriate mood and affect. LABORATORIES: White count 17.5, hemoglobin 7.4, platelet 246, sodium 137, potassium 2.6, bicarbonate 15, BUN 106, creatinine 8.4, magnesium 2.1. Microbiology: GI PCR grew C. Difficile. Blood cultures with no growth for 24 hours times two sets. Peritoneal cell count shows WBC of 155 of which will be 38% of polymorphs. Chest x-ray September 28 shows no acute cardiopulmonary process. INPATIENT MEDICATIONS: - albuterol as needed - Plavix 75 mg by mouth daily - fenofibrate 145 mg by mouth daily - sodium bicarbonate drip 100 mL/hour - Dificid 200 mg by mouth twice daily - Advair two puffs inhaled twice a day - heparin 5000 units subcu every 12 hours - insulin - I started the patient on potassium 40 mEq by mouth daily. - rosuvastatin 40 by mouth at bedtime - Zoloft 100 mg by mouth at bedtime - sodium bicarbonate 325 mg by mouth twice a day PROBLEMS: 1. End-stage renal disease on peritoneal dialysis. The patient presented with symptoms of uremia. She admitted to skipping her peritoneal dialysis for at least three or four nights in a row because of recurrent diarrhea and generalized weakness. Her BUN is greater than 100. She is acidotic. She was resumed on the manual exchanges overnight. She has also received IV fluids overnight and today I am making her exchanges all 2.5% DIANEAL and I am stopping her IV fluids. She is receiving appropriate electrolyte supplementation, but she does remain considerably acidotic. I will add some oral bicarbonate until the acidosis improves. 2. Metabolic acidosis secondary to noncompliance with peritoneal dialysis. Serum bicarbonate is significantly low at 13. The patient received sodium bicarbonate IV fluids; however, she is having some faint crackles at the bases and has skipped dialysis for a few nights. I do not want her to get volume overloaded and the IV fluids are being discontinued and we will put her on oral bicarbonate supplementation. I do expect that her acidosis should improve with reinstitution of peritoneal dialysis exchanges. 3. Hypokalemia related to Clostridium difficile diarrhea. She is receiving aggressive oral supplementation. 4. C. difficile colitis. The patient is on Dificid. She has been having flares of her C. difficile for the past two months. Dr. Otto is seeing her. She has significant leukocytosis, although this is improving. 5. Anemia related to chronic renal failure and possible iron deficiency. Hemoglobin is significantly low at 7.4. Iron studies are pending and we will follow. Thank you for involving me in the care of Ms. Henao. I will be happy to follow her along with you.
[2019-10-01] MEDS: FENOFIBRATE 145 MG TAB (TRICOR) PO SCH (08:31)
[2019-10-01] MEDS: CLOPIDOGREL 75 MG TAB PO SCH (08:31)
[2019-10-01] MEDS: FIDAXOMICIN 200 MG TAB (DIFICID) PO SCH ×2 (08:31→22:43)
[2019-10-01] MEDS: POTASSIUM CHLORIDE 10 MEQ SR TABLET PO SCH ×2 (08:32→22:43)
[2019-10-01] MEDS: HEPARIN SOD (PORCINE) 5000 UNITS/ML VIAL SC SCH ×2 (08:32→22:44)
[2019-10-01] MEDS: HumaLOG INSULIN (NovoLOG) PER UNIT SC SCH ×4 (08:32→22:44)
[2019-10-01] MEDS: LEVEMIR (INSULIN DETEMIR) 1 UNITS/0.01ML SC SCH (08:33)
[2019-10-01] MEDS: FLUTICASONE HFA 220 MCG 12 GM INHALER (FLOVENT) INH SCH ×2 (08:58→20:00)
--- NOTE | 2019-10-01 11:27 | IPNPDOC ---
Subjective Date Seen The patient was seen on 10/01/19. Subjective Chief Complaint/HPI feels much better. Diarrhea almost gone. Has 1 small episode yesterday and none overnight. Says she is not shaking any more and her appetite is better. Said early this morning had some chest tightness and difficulty in breathing and needed a breathing treatment which helped Objective Physical Examination General Exam: Positive: Alert, Cooperative, No Acute Distress Eye Exam: Positive: PERRLA, Conjunctiva & lids normal, EOMI; Negative: Sclera icteric ENT Exam: Positive: Atraumatic, Mucous membr. moist/pink, Pharynx Normal Neck Exam: Positive: Supple; Negative: JVD, thyromegaly Chest Exam: Positive: Clear to auscultation, Normal air movement Heart Exam: Positive: Rate Normal, Regular Rhythm, Normal S1, Normal S2, Murmurs (continueous murmur probably conducted for the AVF in the lef fore arm. ); Negative: Rubs Abdomen Exam: Positive: BS Hypoactive, Soft, Tenderness (in the left upper quadrant and periumbilical region), Other (PD cath in place, no tenderness in the tunnel no discharge ) Extremity Exam: Negative: Clubbing, Cyanosis, Edema Skin Exam: Negative: Breakdown, Lesion Neuro Exam: Positive: Normal Speech, Strength at 5/5 X4 ext, Normal Tone Assessment /Plan Assessment 54 year old female with PMH of C diff in June 2019 treated with more than 1 month of vancomycin , stool positive for C diff again in jul 2019 was given Dificid prescription from the ED but she did not fill it as not covered by insurance, COPD, ESRD on PD, depression, Peripheral arterial disease with stents, Type II Diabetes says does not need medicine any more, Hypertension, Hyperlipidemia, Hypertriglyceridemia, Chronic back pain, Peripheral vascular disease status post stenting, five stents on the left SFA, one stent Rt SFA was sent form dialysis clinic as she was felt to have signs of uremia with flap and mild lethargy and BP of 80s/50s. She complained of abdominal pain with cramps going on for 2 weeks and diarrhea watery 6 to 8 times a day for at least 1 month. She has not been able to use her cycler every day as she had to disconnect herself several times a night to go to the bathroom. She last dialyzed 2 days ago. Her abdominal ain is located in the left upper quadrant and in the lower abdomen . The pain is like a pressure sensation with some cramps about 5/10 in intensity. Associated with episodes of diarrhea. The stools are watery no blood in it. CT abdomen showed colitis in the ascending and transverse colon. Her BP was low in the ED and she received a NS bolus and also received 1 dose of vancomycin. She was admitted for Sepsis due to colitis possibly c.diff colitis and possible PD peritonitis with Uremia. C.diff colitis No sepsis. Hypotension due to dehydraton form diarreha and poor ora intake on the back ground of diuretics and antihypertensives. failed 2 courses of vancomycin on deficid at present As per ID the patient will need IV bezlotoxumab 700 mg IV infusion the day after discharge as it is not covered as an inpatient. If diarrhea does not improve with fidaxomicin and bezlotoxumab then a stool transplantation may be needed. Will consult PFS for Deficid . PD peritonitis ruled out PD fluid culture negative. dced meropenem and vancomycin Transaminitis improving. ? cause possible due to infection. Hypotension resolved. possibly due to dehydration form diarrhea, poor oral intake on the background of antihypertensives and diuretics. Uremia Had BUN of over 100 on admission improved. due to inadequete dialysis at home. continue PD exchanges as per nephrology ESRD on PD. for 1 year. Inadequete Dialysis recently due to being sick. continue PD exchanges as per nephrology Diabetes says does not need medications any more sugsrs high in the hsopital will start levemir and continue lispro as per sliding scale. Peripheral arterial disease with stents will continue ASA and plavix Hyperlipidemia continue statin Hypertension will restart Bp starts rising.now Bp is normal Hypokalemia will continue aggressive replacement. COPD/asthma will continue albuterol and fluticasone. Plan/VTE VTE Prophylaxis Ordered?: Yes VS, I&O, 24H, Fishbone Vital Signs/I&O Vital Signs Date Time Temp Pulse Resp B/P (MAP) Pulse Ox O2 Delivery O2 Flow Rate FiO2 10/01/19 06:00 99.9 82 17 144/69 (94) 98 Room Air I&O- Last 24 Hours up to 6 AM 10/01/19 06:00 Intake Total 47173 ml Output Total 81963 ml Balance -780 ml Laboratory Data 24H LABS Laboratory Tests 2 09/30/19 12:00: Bedside Glucose (Misc Panel) 276H 09/30/19 16:53: Bedside Glucose (Misc Panel) 229H 09/30/19 19:46: Bedside Glucose (Misc Panel) 295H 10/01/19 06:13: Nucleated Red Blood Cells % (auto) 0.3H, Anion Gap 11, Glomerular Filtration Rate 6.5L, Calcium Level 7.5L CBC/BMP Laboratory Tests 10/01/19 06:13 Microbiology Microbiology 09/29/19 Fungal Smear, Received Pending 09/29/19 Fungal Culture, Received Pending 09/29/19 Gram Stain - Final, Complete 09/29/19 Body Fluid Culture - Final, Complete 09/29/19 Gastrointestinal Tract Panel (PCR) - Final, Complete Clostridium Difficile A/B 09/28/19 Urine Culture - Final, Complete 09/28/19 Blood Culture - Preliminary, Resulted No Growth after 48 hours. All Specime... 09/28/19 Blood Culture - Preliminary, Resulted No Growth after 48 hours. All Specime... ANGELA RUIZ MD Oct 01, 2019 11:23
--- NOTE | 2019-10-01 13:47 | IPN ---
DATE OF VISIT: 10/01/2019 Mrs. Henao is seen this morning. She just completed her peritoneal dialysis exchange. She reports that diarrhea is improving. She denies any nausea, vomiting, or abdominal pain. She has no dyspnea, chest pain, fever, or chills. PHYSICAL EXAMINATION: Temperature 99 degrees Fahrenheit, heart rate 82 per minute, and respiratory rate 16 per minute. Blood pressure 144/69 mmHg, and oxygen saturation 98% on room air. Head is atraumatic. Neck is supple and without jugular venous distention (JVD) or thyroid enlargement. Heart sounds are regular, and lungs clear to auscultation. Abdomen: Soft and nontender. Bowel sounds normal. Peritoneal dialysis catheter is intact. Extremities have no cyanosis or clubbing. Neurologically, she is awake, alert and oriented times three. Today's labs show WBC count down to 13.2, hemoglobin 7.8, and hematocrit 24.2. Sodium is 136, potassium 3.5, CO2 23, BUN 76, and creatinine 7.01. A ferritin level is 1123. Yesterday, her iron level was only 21. PROBLEMS: 1. End-stage renal disease. The patient continues with peritoneal dialysis which is working very well. No changes are being made today. 2. Anemia. She has worsening anemia with iron deficiency. Will give her a dose of intravenous Venofer 400 mg. I will hold off on Aranesp at this point. 3. Clostridium (C) difficile colitis. The patient is improving and continues with Dificid. 4. Hypertension. Blood pressure seems to be reasonably well-controlled, and no changes are being made today.
[2019-10-01 14:25] VITALS: BP 154/65
[2019-10-01] MEDS: GABAPENTIN 100 MG CAP PO SCH ×2 (18:07→22:43)
[2019-10-01 22:00] VITALS: BP 154/75
[2019-10-01] MEDS: ROSUVASTATIN 10 MG TAB (CRESTOR) PO SCH (22:42)
[2019-10-01] MEDS: SERTRALINE 100 MG TAB PO SCH (22:43)
[2019-10-02] VITALS (13 sets, daily range): BP systolic 112–186; BP diastolic 58–86
[2019-10-02 06:25] LABS: HEMATOCRIT 23.4 % (36.0-47.0); HEMOGLOBIN 7.7 g/dl (12.0-15.5); MEAN CORPUSCULAR HEMOGLOBIN 30.7 pg (27.0-33.0); MEAN CORPUSCULAR HGB CONC 32.9 g/dl (32.0-36.5); MEAN CORPUSCULAR VOLUME 93.2 fl (80.0-96.0); PLATELET COUNT, AUTOMATED 290 10^3/uL (150-450); RED BLOOD COUNT 2.51 10^6/uL (4.00-5.40); WHITE BLOOD COUNT 11.8 10^3/uL (4.0-10.0)
[2019-10-02 06:46] LABS: ALBUMIN 1.5 GM/DL (3.2-5.2); BILIRUBIN,DIRECT 0.6 MG/DL (0.0-0.2); BILIRUBIN,TOTAL 0.8 MG/DL (0.2-1.0); CALCIUM LEVEL 7.6 MG/DL (8.5-10.1); CREATININE FOR GFR 6.61 MG/DL (0.55-1.30); GLOMERULAR FILTRATION RATE 6.9 (>51); TOTAL PROTEIN 5.8 GM/DL (6.4-8.2)
[2019-10-02] MEDS: FLUTICASONE HFA 220 MCG 12 GM INHALER (FLOVENT) INH SCH ×2 (07:59→20:13)
[2019-10-02] MEDS: HumaLOG INSULIN (NovoLOG) PER UNIT SC SCH ×4 (09:49→22:18)
[2019-10-02] MEDS: FENOFIBRATE 145 MG TAB (TRICOR) PO SCH (09:50)
[2019-10-02] MEDS: GABAPENTIN 100 MG CAP PO SCH ×3 (09:50→22:20)
[2019-10-02] MEDS: POTASSIUM CHLORIDE 10 MEQ SR TABLET PO SCH ×2 (09:50→22:19)
[2019-10-02] MEDS: FIDAXOMICIN 200 MG TAB (DIFICID) PO SCH ×2 (09:51→22:19)
[2019-10-02] MEDS: CLOPIDOGREL 75 MG TAB PO SCH (09:51)
[2019-10-02] MEDS: HEPARIN SOD (PORCINE) 5000 UNITS/ML VIAL SC SCH ×2 (09:51→22:19)
[2019-10-02] MEDS: LEVEMIR (INSULIN DETEMIR) 1 UNITS/0.01ML SC SCH (09:51)
--- NOTE | 2019-10-02 11:40 | IPNPDOC ---
Subjective Date Seen The patient was seen on 10/02/19. Subjective Chief Complaint/HPI Feeling well this morning. Diarrhea has stopped had 1 bowel movement semisoft stool small amount, Had low grade fever this morning. No abdominal pain , nausea or vomiting. No issues with PD Objective Physical Examination General Exam: Positive: Alert, Cooperative, No Acute Distress Eye Exam: Positive: PERRLA, Conjunctiva & lids normal, EOMI; Negative: Sclera icteric ENT Exam: Positive: Atraumatic, Mucous membr. moist/pink, Pharynx Normal Neck Exam: Positive: Supple; Negative: JVD, thyromegaly Chest Exam: Positive: Clear to auscultation, Normal air movement Heart Exam: Positive: Rate Normal, Regular Rhythm, Normal S1, Normal S2, Murmurs (continueous murmur probably conducted for the AVF in the lef fore arm. ); Negative: Rubs Abdomen Exam: Positive: Normal bowel sounds, Soft, Other (PD cath in place, no tenderness in the tunnel no discharge ) Extremity Exam: Negative: Clubbing, Cyanosis, Edema Skin Exam: Negative: Breakdown, Lesion Neuro Exam: Positive: Normal Speech, Strength at 5/5 X4 ext, Normal Tone Assessment /Plan Assessment 54 year old female with PMH of C diff in June 2019 treated with more than 1 month of vancomycin , stool positive for C diff again in jul 2019 was given Dificid prescription from the ED but she did not fill it as not covered by insurance, COPD, ESRD on PD, depression, Peripheral arterial disease with stents, Type II Diabetes says does not need medicine any more, Hypertension, Hyperlipidemia, Hypertriglyceridemia, Chronic back pain, Peripheral vascular disease status post stenting, five stents on the left SFA, one stent Rt SFA was sent form dialysis clinic as she was felt to have signs of uremia with flap and mild lethargy and BP of 80s/50s. She complained of abdominal pain with cramps going on for 2 weeks and diarrhea watery 6 to 8 times a day for at least 1 month. She has not been able to use her cycler every day as she had to disconnect herself several times a night to go to the bathroom. She last dialyzed 2 days ago. Her abdominal ain is located in the left upper quadrant and in the lower abdomen . The pain is like a pressure sensation with some cramps about 5/10 in intensity. Associated with episodes of diarrhea. The stools are watery no blood in it. CT abdomen showed colitis in the ascending and transverse colon. Her BP was low in the ED and she received a NS bolus and also received 1 dose of vancomycin. She was admitted for Sepsis due to colitis possibly c.diff colitis and possible PD peritonitis with Uremia. C.diff colitis but no sepsis. hypotension possible due to dehydration, from diarrhea and poor oral intake on hte back ground of antihypertensives. failed 2 courses of vancomycin on deficid at present As per ID the patient will need IV bezlotoxumab 700 mg IV infusion the day after discharge as it is not covered as an inpatient. If diarrhea does not improve with fidaxomicin and bezlotoxumab then a stool transplantation may be needed. Will consult PFS for Deficid . PD peritonitis ruled out peritoneal fluid culture is negative. Transaminitis CT abdomen and pelvis no abnormality in Liver or gall bladder noted. ? cause possible due to infection. Hepatitis panel ordered Hypotension resolved. possibly due to dehydration form diarrhea, poor oral intake on the background of antihypertensives and diuretics. Uremia Had BUN of over 100 on admission improved. due to inadequete dialysis at home. continue PD exchanges as per nephrology ESRD on PD. for 1 year. Inadequete Dialysis recently due to being sick. continue PD exchanges as per nephrology Acute on chronic Anemia due anemia of chronic disease with Ongoing infection. Ferritin is 1123 though iron is low . I do not think she has iron deficiency. She is not using her iron stores. will give 2 units of PRBC. Diabetes says does not need medications any more sugars high in the hospital will start levemir and continue lispro as per sliding scale. Peripheral arterial disease with stents will continue ASA and plavix Hyperlipidemia continue statin Hypertension will restart Bp starts rising.now Bp is normal Hypokalemia will continue aggressive replacement. COPD/asthma will continue albuterol and fluticasone. Dispo: Discharge in 24 to 48 hours after PRBC transfusion and get authorization for deficid. Plan/VTE VTE Prophylaxis Ordered?: Yes VS, I&O, 24H, Fishbone Vital Signs/I&O Vital Signs Date Time Temp Pulse Resp B/P (MAP) Pulse Ox O2 Delivery O2 Flow Rate FiO2 10/02/19 06:20 100.0 10/02/19 06:00 82 18 133/58 (83) 96 10/01/19 22:00 Room Air I&O- Last 24 Hours up to 6 AM 10/02/19 06:00 Intake Total 45927 ml Output Total 49187 ml Balance 1445 ml Laboratory Data 24H LABS Laboratory Tests 2 10/01/19 12:13: Bedside Glucose (Misc Panel) 273H 10/01/19 16:39: Bedside Glucose (Misc Panel) 266H 10/01/19 20:28: Bedside Glucose (Misc Panel) 194H 10/02/19 05:55: Nucleated Red Blood Cells % (auto) 0.2H, Anion Gap 8, Glomerular Filtration Rate 6.9L, Calcium Level 7.6L, Total Bilirubin 0.8, Direct Bilirubin 0.6H, Aspartate Amino Transf (AST/SGOT) 130H, Alanine Aminotransferase (ALT/SGPT) 102H, Alkaline Phosphatase 145H, Total Protein 5.8L, Albumin 1.5L, Albumin/Globulin Ratio 0.35L CBC/BMP Laboratory Tests 10/02/19 05:55 Microbiology Microbiology 09/29/19 Fungal Smear, Received Pending 09/29/19 Fungal Culture, Received Pending 09/29/19 Gram Stain - Final, Complete 09/29/19 Body Fluid Culture - Final, Complete 09/29/19 Gastrointestinal Tract Panel (PCR) - Final, Complete Clostridium Difficile A/B 09/28/19 Urine Culture - Final, Complete 09/28/19 Blood Culture - Preliminary, Resulted No Growth after 72 hours. All specime... 09/28/19 Blood Culture - Preliminary, Resulted No Growth after 72 hours. All specime... ANGELA RUIZ MD Oct 02, 2019 11:40
--- NOTE | 2019-10-02 14:24 | IPN ---
DATE OF VISIT: 10/02/2019 Mrs. Henao is seen this morning on her bedside. Her is visiting and present in the room. The patient is feeling much better today but still has some lower extremity discomfort. She denies any fever, chills, nausea, or vomiting. Her diarrhea is improving. She is being treated for Clostridium (C) difficile colitis. She is also on peritoneal dialysis for her end-stage renal disease. On physical examination, temperature 100 degrees Fahrenheit, heart rate 82 per minute, and respiratory rate 18 per minute. Blood pressure 133/58 mmHg and oxygen saturation 96% on room air. Head is atraumatic. Neck: Supple and without jugular venous distention (JVD) or thyroid enlargement. Heart sounds are regular. Lungs clear to auscultation. Abdomen: Soft and nontender and bowel sounds are present. Peritoneal dialysis catheter is intact. Extremities: Without any cyanosis or clubbing. Skin has no rash or ulcers. Neurologically, she is awake, alert, and oriented times three. Today's laboratories show WBC count 11.8, hemoglobin 7.7, and hematocrit 23.4. Platelets 290. Sodium 136, potassium 4.0, CO2 24, BUN 71, and creatinine 6.61. Calcium 7.6 and albumin 1.5. PROBLEMS: 1. End-stage renal disease. The patient remains on peritoneal dialysis with five exchanges per day. We will continue with the same until she goes home and will resume her chronic prescription at home. 2. Clostridium (C) difficile colitis. Her diarrhea is improving, and she remains on Dificid. Patient and family services is trying to get an authorization for outpatient use of Dificid. 3. Anemia. Her anemia is gradually worsening. She will be transfused 2 units of packed red blood cells (RBCs) in order to optimize her condition for discharge. The patient consented for transfusion. 4. Hypertension. Blood pressure very well controlled on current antihypertensive medications. No changes are being made today.
[2019-10-02] MEDS ORDERED: HEPARIN SOD (PORCINE) 5000 UNITS/ML VIAL PD ONE (17:00)
--- NOTE | 2019-10-02 17:33 | IPN ---
DATE: 09/28/2019 Kerline is doing much better. She is getting two units of packed red blood cells this afternoon and hopefully will be discharged home tomorrow. She has a three dollar co-pay on fidaxomicin. She has no nausea or vomiting. No abdominal pain. Diarrhea has markedly improved. She had some mucus and had only two bowel movements. PHYSICAL EXAMINATION: Maximum temperature (T-max) is 100, currently 99.6 but she is getting blood, pulse 78, respirations 24, blood pressure 112/63, oxygen saturation 96% on room air. HEART: Normal S1, S2 with a systolic ejection murmur 2/6 over the whole precordium. LUNGS: Few expiratory wheezes, diminished air entry. ABDOMEN: Soft, nontender. No hepatosplenomegaly. Peritoneal dialysis (PD) catheter in place with clear dialysate. She has multiple ecchymosis in the lower abdominal quadrant. EXTREMITIES: +1 pitting edema bilaterally. She has an ulceration on the mid back which is tender with a scab, mild erythema around it. LABORATORY DATA: White count is 11.8 down from 20,000 on admission, hemoglobin 7.7, hematocrit 23.4, platelets 290. Sodium 136, potassium 4, chloride 104, bicarbonate 24, BUN 71, creatinine 6.6, glucose 171, AST 130, ALT 102, alkaline phosphatase 145, total protein 5.8, albumin 1.5. IMPRESSION: 1. Clostridium (C) difficile colitis, on oral fidaxomicin, doing much better. White count has markedly improved and she is currently day number five of by mouth Dificid to finish a 14-day course. I would also suggest a prior authorization to get IV Zinplava as an outpatient to be done in the next 2-3 days after discharge at a dose of 750 mg times one dose. Please obtain prior authorization before discharge. 2. Abnormal liver function tests (LFTs). Hepatitis serology has been added. This needs to be further monitored. 3. End-stage renal disease, on peritoneal dialysis. Peritoneal culture fluids were negative. PLAN: Continue Dificid 200 mg by mouth twice a day for a total of 14 days, get prior authorization for IV Zinplava 750 mg to be given within the next week.
[2019-10-02] MEDS: ROSUVASTATIN 10 MG TAB (CRESTOR) PO SCH (22:20)
[2019-10-02] MEDS: SERTRALINE 100 MG TAB PO SCH (22:20)
[2019-10-02] MEDS: MUPIROCIN 2% OINT 22 GM TUBE TOP SCH (22:21)
[2019-10-03] VITALS (8 sets, daily range): BP systolic 149–171; BP diastolic 67–89
[2019-10-03 06:11] LABS: HEMATOCRIT 31.1 % (36.0-47.0); MEAN CORPUSCULAR HEMOGLOBIN 29.9 pg (27.0-33.0); MEAN CORPUSCULAR HGB CONC 33.1 g/dl (32.0-36.5); MEAN CORPUSCULAR VOLUME 90.4 fl (80.0-96.0); PLATELET COUNT, AUTOMATED 276 10^3/uL (150-450); RED BLOOD COUNT 3.44 10^6/uL (4.00-5.40); WHITE BLOOD COUNT 12.9 10^3/uL (4.0-10.0)
[2019-10-03 06:21] LABS: HEMOGLOBIN 10.3 g/dl (12.0-15.5)
[2019-10-03 06:39] LABS: ALBUMIN 1.5 GM/DL (3.2-5.2); BILIRUBIN,TOTAL 1.6 MG/DL (0.2-1.0); CREATININE FOR GFR 6.02 MG/DL (0.55-1.30); GLOMERULAR FILTRATION RATE 7.7 (>51); POTASSIUM SERUM 4.1 MEQ/L (3.5-5.1)
[2019-10-03] MEDS: FLUTICASONE HFA 220 MCG 12 GM INHALER (FLOVENT) INH SCH ×2 (07:16→20:36)
[2019-10-03] MEDS ORDERED: ACETAMINOPHEN 500 MG TAB PO ONE (08:00)
[2019-10-03] MEDS ORDERED: CARVedilol 12.5 MG TAB PO ONE (08:00)
[2019-10-03] MEDS: HumaLOG INSULIN (NovoLOG) PER UNIT SC SCH ×4 (08:53→21:42)
[2019-10-03] MEDS: HEPARIN SOD (PORCINE) 5000 UNITS/ML VIAL SC SCH ×2 (08:54→21:43)
[2019-10-03] MEDS: LEVEMIR (INSULIN DETEMIR) 1 UNITS/0.01ML SC SCH (08:54)
[2019-10-03] MEDS: POTASSIUM CHLORIDE 10 MEQ SR TABLET PO SCH ×2 (08:55→21:43)
[2019-10-03] MEDS: FIDAXOMICIN 200 MG TAB (DIFICID) PO SCH ×2 (08:55→21:43)
[2019-10-03] MEDS: CLOPIDOGREL 75 MG TAB PO SCH (08:55)
[2019-10-03] MEDS: FENOFIBRATE 145 MG TAB (TRICOR) PO SCH (08:55)
[2019-10-03] MEDS: GABAPENTIN 100 MG CAP PO SCH ×3 (08:56→21:43)
[2019-10-03] MEDS: MUPIROCIN 2% OINT 22 GM TUBE TOP SCH ×2 (08:57→21:46)
--- NOTE | 2019-10-03 09:59 | REP ---
PORTABLE CHEST X-RAY: Single view. HISTORY: Fever. COMPARISON STUDY: September 28, 2019. FINDINGS: Moderate cardiomegaly is observed. There is no evidence of pleural effusion or pulmonary edema. There is minimal plate-like atelectasis in the left base. IMPRESSION: Moderate cardiomegaly. Plate-like atelectasis left base. No acute infiltrate. Electronically Signed by Lv Alan MD 10/03/2019 05:14 P
[2019-10-03 11:44] LABS: APPEARANCE, BODY FLUID CLEAR (CLEAR); PERITONEAL FL COLOR PALE YELLOW (COLORLESS); SOURCE, BODY FLUID PERITONEAL
--- NOTE | 2019-10-03 12:09 | IPN ---
DATE: 10/03/2019 SUBJECTIVE: The patient is a 54-year-old female who is seen sitting on the side of her bed during her peritoneal dialysis exchange. The patient says that she is feeling better today; however, she did have a fever overnight, which is currently being worked up by her primary team. The patient also did receive 2 units of blood yesterday, but says she is feeling better. Her diarrhea has improved. PHYSICAL EXAMINATION: VITAL SIGNS: Temperature 99.8, pulse 77, respiratory rate 18, blood pressure 156/68, pulse oximetry 98% on room air. HEENT: Normocephalic, atraumatic. Anicteric sclerae. Moist mucous membranes. NECK: Supple without jugular venous distention (JVD). CARDIOVASCULAR: Regular rate and rhythm. No murmur. LUNGS: Clear to auscultation bilaterally. ABDOMEN: Soft, nontender. Bowel sounds heard. Hemodialysis catheter intact. Peritoneal dialysis fluid was clear and yellow. EXTREMITIES: No evidence of edema. LABORATORIES: White blood cells 12.9, hemoglobin 10.3, hematocrit 31.1, platelet count 276. Sodium 133, potassium 4.1, chloride 101, carbon dioxide 24, BUN 65, creatinine 6.02, glucose 174, calcium 8.0, total bilirubin 1.6, direct bilirubin 1.0, AST 145, ALT 105, alkaline phosphatase 160, total protein 6.0, albumin 1.5. IMAGING: Chest x-ray performed on 10/03/2019 showed moderate cardiomegaly with plate-like atelectasis in the left base but no acute infiltrate. ASSESSMENT AND PLAN: 1. End stage renal disease. The patient remains on peritoneal dialysis with five exchanges per day. We will continue the same until she goes home. The patient was going to be go home today but because she has had fevers overnight she is remaining in the hospital. Her peritoneal dialysis fluid does not appear to be the source of infection, but a cell count was ordered today. 2. Clostridium (C.) difficile colitis. Her diarrhea is improving and she remains on Dificid. THe patient has been able to get Dificid covered with a $3.00 copay. 3. Anemia. Her anemia was gradually worsening, but she received 2 units of packed red blood cells and her hemoglobin has responded. 4. Hypertension. Blood pressure is well controlled on current antihypertensive medications and no changes are being made today. 5. Fever. The patient had fevers overnight. Her chest x-ray appears clear. We are ordering a cell count for her peritoneal dialysis fluid, although this does not appear to be the source of the infection. The patient's fever could most likely be secondary to the 2 units of red blood cells that she received yesterday, as she says that she feels well and does not feel ill.
--- NOTE | 2019-10-03 14:57 | IPN ---
DATE: 10/03/2019 Patient is febrile with temperature of 101.1 yesterday at 2208. This morning had a low grade temperature of 100.8 at 2:00 a.m. The patient otherwise denies any fevers, chills, abdominal pain, nausea or vomiting. Denies any dysuria, urgency or frequency. The patient's diarrhea is improving, currently yogurt like consistency and down to about three bowel movements from previous 10-15 at home. No other issues per nursing. Overnight, T-max 101, current temperature is 99.4, pulse 72, respiratory rate 18, blood pressure 149/89, 98% on room air. Generally, patient is awake, alert and oriented to person, place and time, answering questions appropriately. Neck is supple. Full range of motion. No cervical lymphadenopathy or thyromegaly. Moist mucous membranes. Lungs are clear to auscultation. No wheezing, rales or rhonchi. Heart S1, S2 sinus rhythm. Abdomen is soft, nontender. Positive bowel sounds times four quadrants. Peritoneal dialysis intact and nontender. Extremities no cyanosis, clubbing or pitting edema. LABORATORY DATA: White 12.9, hemoglobin 10, hematocrit 31, platelet count 276, sodium 133, potassium 4.1, chloride 101, bicarb 24, BUN 65, creatinine 6, glucose 174, total bilirubin 1.6, direct bilirubin 1, AST 145, ALT 105, alkaline phosphatase 160. ASSESSMENT/PLAN: This is a 54-year-old female with end stage renal disease on chronic peritoneal dialysis, C. difficile colitis followed by Dr. Otto, on Dificid, to finish a 14 day course and prior authorization required for IV ZINPLAVA as an outpatient at a dose of 750 mg times one dose. Peritoneal fluids were initially negative, but currently has a fever of 101. ACTIVE ISSUES: 1. Fever, T-max of 101 on 10/02/2019. Initial peritoneal fluid was negative. Currently on no antibiotics aside from Dificid for C. difficile. Defer to Dr. Otto for further management. The patient had a chest x-ray which showed no acute infiltrate. Will check UA, peritoneal fluid culture and gram stain. White count is slightly elevated at 12.9. The patient was transfused blood, 2 units yesterday. 2. Anemia of chronic disease status post 2 units RBC transfusion with resultant improvement in hemoglobin to optimize her condition. 3. End stage renal disease on peritoneal dialysis, five exchanges per day to be continued as an outpatient once stable for hospital discharge. 4. C. difficile colitis. Patient and family services (PFS) has obtained authorization for Dificid with $3 copay as an outpatient. DISPOSITION: Stable for hospital discharge if she remains stable overnight and her peritoneal fluid is clear with no signs of peritonitis. [facility]
[2019-10-03] MEDS: LORATADINE 10 MG TAB PO SCH (16:27)
--- NOTE | 2019-10-03 17:33 | IPN ---
DATE: 10/03/2019 Kerline is feeling great. She denies any complaints. She had some fevers while getting her blood transfusion yesterday up to 101.1 and elevated high blood pressures and therefore was not discharged today. She had three bowel movements that are muddy, more formed. No nausea, vomiting or abdominal pain. She is doing her peritoneal dialysis without any problem. LABORATORY DATA White count 12.9, hemoglobin 10.3, hematocrit 31.1, platelets 276. Sodium 133, potassium 4.1, chloride 101, bicarb 24, BUN 65, creatinine 6, glucose 174, calcium 8, bilirubin 1.6, AST 145, ALT 105, alkaline phosphatase 160. Hepatitis A, B and C serology are pending. Respiratory panel was sent today and is pending. PHYSICAL EXAMINATION: Temperature is 99.8, pulse 77, respirations 18, O2 sat 98%, blood pressure 156/68. HEART: Normal S1, S2. Systolic ejection murmur 2/6. LUNGS: Clear. No wheezes, rales or rhonchi. ABDOMEN: Soft, nontender. PD catheter in place. EXTREMITIES: No clubbing, cyanosis or edema. SKIN: An ulcerated scab on her mid back which is slightly tender to touch. Has Bactroban and Optifoam dressing. Chest x-ray portable has moderate cardiomegaly and atelectasis left base. No acute infiltrate. IMPRESSION: 1. Clostridium (C.) difficile colitis, recurrent. Doing much better with by mouth Dificid 200 mg twice a day. Only had three bowel movements today. 2. Leukocytosis, improving. 3. Low grade fever, probably related to transfusion. 4. Abnormal liver function tests. Needs to be followed up as an outpatient. Hepatitis serology is still pending. Also HIV serology was added. PLAN The patient could be discharged home tomorrow on daptomycin for 10 more days. She also will receive an infusion of IV Zinplava 750 mg times one dose on at the infusion unit. The patient has no contraindication to Zinplava. No history of congestive heart failure even though her BMP was slightly elevated while in the hospital.
[2019-10-03] MEDS: (RENVELA) SEVELAMER **CARBONate** 800 MG TAB PO SCH (17:52)
[2019-10-03] MEDS: ROSUVASTATIN 10 MG TAB (CRESTOR) PO SCH (21:43)
[2019-10-03] MEDS: SERTRALINE 100 MG TAB PO SCH (21:43)
[2019-10-03] MEDS: CARVedilol 12.5 MG TAB PO SCH (21:45)
[2019-10-04 06:00] VITALS: BP 151/70
[2019-10-04 06:20] LABS: HEMATOCRIT 31.7 % (36.0-47.0); HEMOGLOBIN 10.3 g/dl (12.0-15.5); MEAN CORPUSCULAR HGB CONC 32.5 g/dl (32.0-36.5); MEAN CORPUSCULAR VOLUME 92.4 fl (80.0-96.0); PLATELET COUNT, AUTOMATED 261 10^3/uL (150-450); RED BLOOD COUNT 3.43 10^6/uL (4.00-5.40); WHITE BLOOD COUNT 13.2 10^3/uL (4.0-10.0)
[2019-10-04 06:50] LABS: ALBUMIN 1.5 GM/DL (3.2-5.2); BILIRUBIN,TOTAL 1.3 MG/DL (0.2-1.0); CREATININE FOR GFR 5.97 MG/DL (0.55-1.30); GLOMERULAR FILTRATION RATE 7.8 (>51); POTASSIUM SERUM 4.4 MEQ/L (3.5-5.1)
[2019-10-04] MEDS: FLUTICASONE HFA 220 MCG 12 GM INHALER (FLOVENT) INH SCH (07:22)
[2019-10-04] MEDS ORDERED: FENO145T13 PO (07:31)
[2019-10-04] MEDS: HEPARIN SOD (PORCINE) 5000 UNITS/ML VIAL SC SCH (08:10)
[2019-10-04] MEDS: HumaLOG INSULIN (NovoLOG) PER UNIT SC SCH (08:11)
[2019-10-04] MEDS: LEVEMIR (INSULIN DETEMIR) 1 UNITS/0.01ML SC SCH (08:11)
[2019-10-04] MEDS: POTASSIUM CHLORIDE 10 MEQ SR TABLET PO SCH (08:13)
[2019-10-04] MEDS: (RENVELA) SEVELAMER **CARBONate** 800 MG TAB PO SCH (08:13)
[2019-10-04] MEDS: GABAPENTIN 100 MG CAP PO SCH (08:13)
[2019-10-04] MEDS: CLOPIDOGREL 75 MG TAB PO SCH (08:13)
[2019-10-04 08:14] VITALS: BP 146/70
[2019-10-04] MEDS: LORATADINE 10 MG TAB PO SCH (08:14)
[2019-10-04] MEDS: FENOFIBRATE 145 MG TAB (TRICOR) PO SCH (08:14)
[2019-10-04] MEDS: CARVedilol 12.5 MG TAB PO SCH (08:14)
[2019-10-04] MEDS: FIDAXOMICIN 200 MG TAB (DIFICID) PO SCH (08:14)
[2019-10-04] MEDS: MUPIROCIN 2% OINT 22 GM TUBE TOP SCH (08:17)
[2019-10-04 13:07] LABS: HEPATITIS A ANTIBODY IGM NEGATIVE (NEGATIVE); HEPATITIS B CORE ANTIBODY IGM NEGATIVE (NEGATIVE); HEPATITIS B SURFACE ANTIGEN NEGATIVE (NEGATIVE); HEPATITIS C VIRUS ABY INDEX 0.1 INDEX (<0.8); HIV 1&2 SCREEN CENTAUR NEGATIVE (NEGATIVE)
--- NOTE | 2019-10-04 13:28 | DSES ---
DATE OF ADMISSION: 09/28/2019 DATE OF DISCHARGE: 10/04/2019 CONSULTANTS: [employer], Dr. Elkins and Neli Mckeon. Dr. Gertrudis Otto, infectious disease specialist. PRIMARY DISCHARGE DIAGNOSES: 1. Recurrent Clostridium difficile colitis. 2. Low grade fever related to blood transfusion. 3. Abnormal liver function tests. 4. Peritoneal dialysis, with end stage renal disease. 5. Anemia, requiring two units packed red blood (RBC) transfusion. 6. Hypertension. DISCHARGE MEDICATIONS: - fenofibrate 145 daily - Dificid 200 twice a day for ten days - albuterol two puffs inhaled four times a day - Coreg 25 twice a day - Plavix 75 daily - vitamin D 50,000 units weekly - ferrous citrate 420 with meals - Flovent 2 puffs inhaled twice a day - gabapentin 200 mg at bedtime - loratadine 10 daily - potassium chloride 20 mEq daily - Crestor 40 at bedtime - Sertraline 200 at bedtime - Sevelamer 1600 mg by mouth three times a day HOSPITAL COURSE: 54-year-old female who presented to the emergency room with worsening weakness, abdominal cramping and diarrhea for two weeks, 6-8 times daily for the last month. The patient has had to disconnect herself from peritoneal dialysis due to her bowel movement several times during the night to go to the bathroom. Her cramping abdominal pain was rated at 5 out of 10. Blood pressure was low. The patient on presentation to the ER received a bolus of normal saline and a dose of vancomycin for possible peritoneal dialysis peritonitis with uremia. The patient was given bicarbonate drip as well as IV fluid boluses with improvement in her hypotension and metabolic acidosis. She had nephrology consulted for peritoneal dialysis management. For recurrent Clostridium difficile, Dr. Gertrudis Otto was consulted and recommended Dificid for a total of 14 days IV and then Zinplava as outpatient with dose of 750 mg times one. Peritoneal cultures were negative. White count decreased from admission of 20,000 to discharge of 13.2. Blood cultures were negative. Peritoneal fluid was negative. Respiratory panel was negative. The patient had a blood transfusion, 2 units RBCs, with a temperature of 101 thought to be related to blood transfusion. PHYSICAL EXAMINATION ON DISCHARGE: Temperature 99.8, pulse 73, respiratory rate 20, blood pressure 151/70, 94% on room air. Generally, awake, alert, oriented times three, answering questions appropriately. Lungs: Clear to auscultation. No wheezing, rales or rhonchi. Heart: S1 and S2. Sinus rhythm. Abdomen: Soft. Peritoneal dialysis noted. No rebound or guarding. Positive bowel sounds. Extremities: No pitting edema. LABORATORY DATA: On discharge, white count 13.2, hemoglobin 10, hematocrit 31, platelet count 261. Sodium 137, potassium 4.4, chloride 103, bicarbonate 27, BUN 64, creatinine 5.97, glucose 206. GI panel on 09/29/2019 Clostridium difficile positive. IMAGING STUDY: CT of abdomen and pelvis 09/28/2019 with mild colitis involving the ascending through transverse colon. MTDD
[2019-10-05] MEDS ORDERED: [UNRECOGNIZED DRUG - OTHER] IV (17:19)
[2019-10-06] MEDS ORDERED: VITA50005 PO (02:17)
[2019-10-06] MEDS ORDERED: FENO145T13 PO (02:23)
[2019-10-06] MEDS ORDERED: LOSA100T50 PO (02:23)
[2019-10-06] MEDS ORDERED: DIFI200T PO (02:23)
== END 2019-10-04 08:42 | disposition home or self-care (01) | DRG 371 ==
LOC: M ED 13:32 → M ED INP 17:08 → M MSPAV 18:50 → M PCU 19:33 → M MSPAV 09-30 15:42
PROVIDERS: ADMIT Internal Medicine Nephrology; ATTEND General Practice
PROC: 3E1M39Z Irrigation of Peritoneal Cavity using Dialysate, Percutaneous Approach (ICD-10-PCS; principal; 2019-09-28)
PROC: 30233N1 Transfusion of Nonautologous Red Blood Cells into Peripheral Vein, Percutaneous Approach (ICD-10-PCS; 2019-10-02)
DX: A04.71 Enterocolitis due to Clostridium difficile, recurrent (principal); N18.6 End stage renal disease; I12.0 Hypertensive chronic kidney disease with stage 5 chronic kidney disease or end stage renal disease; E87.2 Acidosis; N25.81 Secondary hyperparathyroidism of renal origin; J44.9 Chronic obstructive pulmonary disease, unspecified; E11.51 Type 2 diabetes mellitus with diabetic peripheral angiopathy without gangrene; E78.5 Hyperlipidemia, unspecified; E87.6 Hypokalemia; F32.9 Major depressive disorder, single episode, unspecified; I95.9 Hypotension, unspecified; R50.84 Febrile nonhemolytic transfusion reaction; D63.1 Anemia in chronic kidney disease; F17.200 Nicotine dependence, unspecified, uncomplicated; E11.40 Type 2 diabetes mellitus with diabetic neuropathy, unspecified; E11.22 Type 2 diabetes mellitus with diabetic chronic kidney disease; Z99.2 Dependence on renal dialysis; Z95.820 Peripheral vascular angioplasty status with implants and grafts; Z79.899 Other long term (current) drug therapy; Z88.0 Allergy status to penicillin; Z88.8 Allergy status to other drugs, medicaments and biological substances; Z91.048 Other nonmedicinal substance allergy status; Z90.49 Acquired absence of other specified parts of digestive tract; Z79.02 Long term (current) use of antithrombotics/antiplatelets; Z91.15 Patient's noncompliance with renal dialysis; Z85.41 Personal history of malignant neoplasm of cervix uteri

== ENCOUNTER 2019-10-05 16:22 | Outpatient (CLI) | payer MEDICARE, MEDICAID ==
[~2019-10-05] VITALS: Ht 157.5 cm; Wt 74.7 kg
[~2019-10-05 16:22] MED LIST changes: +CARV25TA PO; +FENO135C6 PO; +FENO145T13 PO; +GABA-1171 PO; +SEVE800T3 PO; +TORS100T PO
[2019-10-05 16:45] VITALS: BP 80/52
[2019-10-05] MEDS ORDERED: BEZLOTOXUMAB 750 MG in NS 100 ML IV ONE (16:45)
[2019-10-05] MEDS ORDERED: [UNRECOGNIZED DRUG - OTHER] IV (17:19)
[2019-10-05 18:43] VITALS: BP 88/40
[2019-10-05 19:15] VITALS: BP 76/40
[2019-10-06] MEDS ORDERED: VITA50005 PO (02:17)
[2019-10-06] MEDS ORDERED: DIFI200T PO (02:23)
[2019-10-06] MEDS ORDERED: LOSA100T50 PO (02:23)
[2019-10-06] MEDS ORDERED: FENO145T13 PO (02:23)
== END 2019-10-05 19:15 | disposition home or self-care (01) ==
LOC: M INFU 16:22
PROVIDERS: ATTEND Internal Medicine Infectious Disease
DX: A04.71 Enterocolitis due to Clostridium difficile, recurrent (principal)

== ENCOUNTER 2019-11-17 07:56 | Outpatient (CLI) | payer MEDICARE, MEDICAID ==
[~2019-11-17] VITALS: Ht 157.5 cm; Wt 73.5 kg
[~2019-11-17 07:56] MED LIST changes: -FENO145T13 PO; +FENO145T7 PO; -FENO48TA13 PO; +FENO48TA7 PO; +[UNRECOGNIZED DRUG - OTHER] IV
[2019-11-17] MEDS ORDERED: diphenhydrAMINE 25 MG CAP PO ONE (08:30)
[2019-11-17 09:17] VITALS: BP 162/61
[2019-11-17 10:10] VITALS: BP 159/60
[2019-11-17 10:25] VITALS: BP 161/70
[2019-11-17 11:25] VITALS: BP 165/80
[2019-11-17 12:30] VITALS: BP 179/64
[2019-11-17 12:45] VITALS: BP 169/88
== END 2019-11-17 12:45 | disposition home or self-care (01) ==
LOC: M INFU 07:56
PROVIDERS: ATTEND Internal Medicine Nephrology
DX: N18.9 Chronic kidney disease, unspecified (principal); D63.1 Anemia in chronic kidney disease; Z88.0 Allergy status to penicillin; Z91.048 Other nonmedicinal substance allergy status
CPT/HCPCS: 36430; 36592; 86850; 86900; 86901; 86920; P9016

== ENCOUNTER → 2020-01-04 | Outpatient (CLI) | payer MEDICARE, MEDICAID ==
[~2020-01-04] MED LIST changes: +LIDOCAINE 1% MDV 20ML VIAL As Ordered ONE
[2020-01-04 15:47] VITALS: BP 178/73
--- NOTE | 2020-01-29 15:17 | POST-OPPD ---
Postoperative Procedure Note Date Of Procedure: Jan 04, 2020 Time Of Procedure: 15:14 PREOPERATIVE DIAGNOSIS: ESRD. PermCath no longer needed POSTOPERATIVE DIAGNOSIS: same FINDINGS: PermCath in place PROCEDURE: The PermCath site was prepped and draped in the usual sterile fashion. Lidocaine was used for local anesthesia. The catheter cuff was dissected out of the soft tissues using blunt dissection. The catheter was removed in it's entirety. Patient tolerated the procedure well, hemostasis achieved and a sterile dressing was applied to the site. This is the entire report of procedure. SURGEON: Isauro ANESTHESIA: local ESTIMATED BLOOD LOSS: < 5 ml COMPLICATIONS: none POSTOPERATIVE CONDITION: stable INGE PAUL MD Jan 29, 2020 15:17
== END ==
LOC: M IRPRO 13:14
PROVIDERS: ATTEND Radiology Diagnostic Radiology
DX: N18.6 End stage renal disease (principal)

== ENCOUNTER → 2020-03-19 | Outpatient (REF) | payer MEDICARE, MEDICAID ==
[~2020-03-19] MED LIST changes: -LIDOCAINE 1% MDV 20ML VIAL As Ordered ONE
== END ==
LOC: M LAB REF 19:46
PROVIDERS: ATTEND Nurse Practitioner Family
DX: R19.7 Diarrhea, unspecified (principal)

== ENCOUNTER → 2020-07-30 | Outpatient (REF) ==
[~2020-07-30] MED LIST changes: +AMLO1TAB24 PO; -AMLO5TAB6 PO; +FIRV50SO PO; +MUPI2OI TOP; +PANT40TA29 PO; -PANT40TA3 PO; +RENATAB5 PO; +VANC250C3 PO; +VELP5CHW PO
[2020-07-30 17:57] LABS: APPEARANCE, BODY FLUID HAZY (CLEAR); PERITONEAL DIALYSATE FL COLOR COLORLESS (COLORLESS); SOURCE, BODY FLUID PERITONEAL DIALYSATE
== END ==
LOC: M LAB REF 17:23
PROVIDERS: ATTEND Internal Medicine Nephrology
DX: R88.8 Abnormal findings in other body fluids and substances (principal)

== ENCOUNTER → 2020-08-04 | Outpatient (CLI) | payer MEDICARE, MEDICAID ==
--- NOTE | 2020-08-08 07:31 | REP ---
CHEST X-RAY CLINICAL: Cough and COPD. TECHNIQUE: PA and lateral. COMPARISON: 10/03/2019 FINDINGS: Small to moderate right pleural effusion along with right lower lobe atelectasis represents a change from prior examination. Remainder of lung orona are well aerated and clear. No pneumothorax. Visualized portions of the mediastinum and cardiac silhouette appear to be within normal limits. Skeletal structures are intact. IMPRESSION: Small to moderate right pleural effusion with right lower lobe atelectasis and possible consolidation. MTDD
== END ==
LOC: M RAD 19:05
PROVIDERS: ATTEND Family Medicine Addiction Medicine
DX: J90 Pleural effusion, not elsewhere classified (principal); J98.11 Atelectasis; R05 Cough; J44.9 Chronic obstructive pulmonary disease, unspecified

== ENCOUNTER → 2020-08-12 | Outpatient (CLI) | payer MEDICARE, MEDICAID | LOC: M LAB 11:19 | PROVIDERS: ATTEND Ophthalmology | DX: I77.6 Arteritis, unspecified (principal) ==

== ENCOUNTER 2020-08-15 10:58 | Inpatient (IN) | payer MEDICARE, MEDICAID ==
[~2020-08-15] VITALS: Ht 157.5 cm; Wt 65.2 kg
[~2020-08-15 10:58] MED LIST changes: -FIRV50SO PO; -MUPI2OI TOP; -RENATAB5 PO; -VANC250C3 PO; -VELP5CHW PO
[2020-08-15] MEDS ORDERED: PANT40TA29 PO (11:44)
[2020-08-15] MEDS ORDERED: CARV25TA PO (11:44)
[2020-08-15] MEDS ORDERED: VELP5CHW PO (11:44)
[2020-08-15] MEDS ORDERED: TORS100T PO (11:44)
[2020-08-15] MEDS ORDERED: RENATAB5 PO (11:45)
[2020-08-15] MEDS ORDERED: AMLO1TAB24 PO (11:45)
--- NOTE | 2020-08-15 11:48 | REPVR ---
PROCEDURE INFORMATION: Exam: XR Chest, 1 View Exam date and time: 08/15/2020 11:27 AM Age: 55 years old Clinical indication: Shortness of breath; Additional info: Peritonitis TECHNIQUE: Imaging protocol: XR of the chest Views: 1 view. COMPARISON: CR Chest, 2 view PA, Lat 08/04/2020 7:11 PM FINDINGS: Lungs: Unremarkable. No consolidation. Pleural space: Small right pleural effusion. Heart/Mediastinum: Stable mild prominence of the cardiac silhouette. Vasculature: Calcification of the thoracic aorta. Bones/joints: Degenerative change of the spine. IMPRESSION: Small right pleural effusion. Electronically signed by: Eliz Fowler On 08/15/2020 11:48:08 AM
[2020-08-15 12:17] LABS: APPEARANCE, BODY FLUID CLOUDY (CLEAR); PERITONEAL FL COLOR COLORLESS (COLORLESS); SOURCE, BODY FLUID PERITONEAL
[2020-08-15 12:48] LABS: SOURCE, BODY FLUID GLUCOSE PERITONEAL; SOURCE, BODY FLUID TOT PROTEIN PERITONEAL; TOTAL PROTEIN, BODY FLUID 0.6 G/DL (NOT ESTABLISHED)
[2020-08-15] MEDS ORDERED: LevoFLOXacin IV 250 MG in IV 1 EA IV SCH (13:00)
[2020-08-15 13:44] LABS: BASO # 0.1 10^3/uL (0.0-0.2); BASO % 0.6 % (0.0-1.0); EOS # 0.3 10^3/uL (0.0-0.5); EOS % 2.4 % (0.0-3.0); HEMATOCRIT 32.6 % (36.0-47.0); HEMOGLOBIN 10.4 g/dl (12.0-15.5); LYMPH # 0.8 10^3/uL (1.5-5.0); LYMPH % 7.1 % (24.0-44.0); MEAN CORPUSCULAR HEMOGLOBIN 29.7 pg (27.0-33.0); MEAN CORPUSCULAR HGB CONC 31.9 g/dl (32.0-36.5); MEAN CORPUSCULAR VOLUME 93.1 fl (80.0-96.0); MONO # 0.7 10^3/uL (0.0-0.8); MONO % 5.9 % (0.0-5.0); NEUTROPHILS # 9.3 10^3/uL (1.5-8.5); NEUTROPHILS % 83.3 % (36.0-66.0); PLATELET COUNT, AUTOMATED 286 10^3/uL (150-450); WHITE BLOOD COUNT 11.2 10^3/uL (4.0-10.0)
[2020-08-15 14:08] LABS: CALCIUM LEVEL 6.5 MG/DL (8.5-10.1); CREATININE FOR GFR 6.45 MG/DL (0.55-1.30); GLOMERULAR FILTRATION RATE 7.1 (>51); POTASSIUM SERUM 2.3 MEQ/L (3.5-5.1)
[2020-08-15] MEDS ORDERED: HumuLIN R (REGULAR) INSULIN (NovoLIN R) **100U/ML** PER UNIT IV ONE (14:30)
[2020-08-15] MEDS ORDERED: ISOVUE-370 76% 100ML VIAL As Ordered ONE (14:35)
[2020-08-15] MEDS ORDERED: MUPI2OI TOP (14:39)
[2020-08-15] MEDS ORDERED: POTASSIUM CHLORIDE 10 MEQ SR TABLET PO ONE ×3 (14:45→20:45)
[2020-08-15] MEDS ORDERED: DEXTROSE 50% 50 ML SYRINGE IV PRN (14:45)
[2020-08-15] MEDS ORDERED: GLUCOSE 4GM CHEW TABLET PO PRN (14:45)
[2020-08-15] MEDS ORDERED: GLUCAGON INJ 1MG VIAL SC PRN (14:45)
[2020-08-15 14:58] LABS: VANCOMYCIN RANDOM 22.6 UG/ML
[2020-08-15] MEDS ORDERED: KCL 10MEQ/100ML SWI (KRUN) 10 MEQ in IV 1 EA IV ONE (15:00)
[2020-08-15 15:10] LABS: HEPATITIS B SURFACE ANTIBODY NEGATIVE (POSITIVE)
--- NOTE | 2020-08-15 15:15 | REPVR ---
PROCEDURE INFORMATION: Exam: CT Abdomen And Pelvis With Contrast Exam date and time: 08/15/2020 2:42 PM Age: 55 years old Clinical indication: Other: Peritonitis; Additional info: Persistent peritonitis, pd catheter TECHNIQUE: Imaging protocol: Computed tomography of the abdomen and pelvis with intravenous contrast. Radiation optimization: All CT scans at this facility use at least one of these dose optimization techniques: automated exposure control; mA and/or kV adjustment per patient size (includes targeted exams where dose is matched to clinical indication); or iterative reconstruction. Contrast material: ISOVUE 370; Contrast volume: 100 ml; Contrast route: INTRAVENOUS (IV); COMPARISON: CT ABD PELVIS W/O CONTRAST 10/05/2019 9:31 PM FINDINGS: Tubes, catheters and devices: Percutaneous catheter terminates in the right lower quadrant. Lungs: Mild dependent right middle and lower lobe atelectasis. Pleural space: Moderate right pleural effusion. Heart: Mitral annulus calcification. Liver: Normal. No mass. Gallbladder and bile ducts: There has been a cholecystectomy. Pancreas: Stable calcification within the tail of the pancreas. Spleen: 8 mm splenic hypodensity is too small to definitively characterize, but likely represents a cyst. Adrenals: Normal. No mass. Kidneys and ureters: 5 mm left renal cortical hypodensity is too small to definitively characterize, but most likely represents a cyst. Stomach and bowel: [id number] circumferential wall thickening of the cecum, ascending colon, and proximal and mid transverse colon, suggestive of acute colitis. Mild circumferential wall thickening of several of the small bowel loops. No bowel obstruction. Appendix: No evidence of appendicitis. Intraperitoneal space: Mild ascites. Single tiny locule of extraluminal gas within the abdomen, likely related to the peritoneal dialysis catheter. Vasculature: Advanced atherosclerotic changes. Stents within the left superficial femoral artery. Lymph nodes: Borderline prominent periportal lymph nodes, measuring up to 10 mm in short axis dimension. Mildly prominent bilateral inguinal lymph nodes, measuring up to 12 mm in short axis dimension. Urinary bladder: Unremarkable as visualized. Reproductive: Unremarkable as visualized. Bones/joints: Degenerative change of the spine. Bilateral hip joint DJD. Soft tissues: Mild anasarca. IMPRESSION: 1. Acute regional colitis and mild enteritis. 2. Mild ascites and mild anasarca. 3. Moderate right pleural effusion. 4. Mild bilateral inguinal lymphadenopathy. Electronically signed by: Eliz Fowler On 08/15/2020 15:15:43 PM
[2020-08-15 15:17] LABS: HEMOGLOBIN A1c 8.4 %
[2020-08-15 15:20] LABS: HEPATITIS B SURFACE ANTIGEN NEGATIVE (NEGATIVE)
[2020-08-15 15:49] LABS: HEPATITIS B CORE ANTIBODY IGM NEGATIVE (NEGATIVE); HEPATITIS C VIRUS ABY INDEX 0.1 INDEX (<0.8)
[2020-08-15 16:30] VITALS: BP 132/80
[2020-08-15] MEDS: HumaLOG INSULIN (NovoLOG) PER UNIT SC SCH ×2 (16:50→20:31)
--- NOTE | 2020-08-15 17:03 | HPEPDOC ---
General Date of Admission 08/15/20 Date of Service: Aug 15, 2020 Chief Complaint The patient is a 55-year-old female admitted with a reason for visit of Abnormal Labs. Source: Patient History of Present Illness 55 year old female with PMD of ESRD on PD, Diabetes only on short-acting insulin, hypertension, hyperlipidemia, COPD, peripheral vascular disease status post stenting, history of CT in 2018 and in February 2020 was diagnosed with the PD peritonitis on July 30 with MSSA. Patient was getting intraperitoneal vancomycin as an outpatient. She went for a follow-up visit to the dialysis clinic and peritoneal fluid was sent out for testing and was seen that her cell count in the peritoneal fluid has increased from [id number]. It was felt that she has failed outpatient treatment of PD peritonitis, so was sent to the ER for admission for further evaluation and treatment. Patient complains of ongoing diarrhea for the past 2-3 weeks about 4 times per day, sometimes with them liquid watery stool, sometimes with liquid brown stools. She would have abdominal cramps intermittently denied any fever, any nausea or vomiting. Her peritoneal fluid has been cloudy. Patient also reported that her legs were very swollen, so she was instructed to use 4.25 exchanges at night, which she has been doing every other day. She used a 4.25% exchange last night. The night before she only used 2.5% exchanges. Patient did report that she was prescribed some medications by Dr. Wright for her eyes, but she hasn't yet picked those medications up from the pharmacy. In the ED she was found to have a blood glucose of more than 700. Patient reports that yesterday when she checked her sugars after lunch it was only 179. She usually checks her sugar once a day and it mostly runs less than 200. She uses insulin only when her sugar is greater than 150. She reports that her leg swelling has improved over the past 2 weeks. She was also hypokalemic CT scan in the ED showed acute regional colitis and mild enteritis with bilateral mild inguinal lymphadenopathy.. She was admitted for PD peritonitis, possibly secondary to colitis or enteritis, Hyperglycemia and electrolyte imbalance. Home Medications Scheduled Amlodipine Besylate (Amlodipine Besylate) 5 Mg Tablet, 5 MG PO DAILY, (Reported) Carvedilol (Carvedilol) 25 Mg Tablet, 25 MG PO BID, (Reported) Ergocalciferol (Vitamin D2) (Vitamin D2) 50,000 Units Cap, 50,000 UNITS PO 1XWK, (Reported) WEDNESDAY Folic Acid/Vit B Complex and C (Anne Marie-Flaquito Tablet) 0.8 Mg Tablet, 0.8 MG PO DAILY, (Reported) Gabapentin (Gabapentin) 100 Mg Capsule, 200 MG PO QHS, (Reported) Loratadine (Loratadine) 10 Mg Tab, 10 MG PO DAILY, (Reported) Mupirocin (Mupirocin) 2 % Oint...g., 1 DOSE TOP DAILY, (Reported) APPLY TO DIALYSIS CATHETER Pantoprazole Sodium (Pantoprazole Sodium) 40 Mg Tablet.dr, 40 MG PO DAILY, (Reported) Rosuvastatin Calcium (Crestor) 40 Mg Tab, 40 MG PO QHS, (Reported) Sertraline HCl (Sertraline HCl) 100 Mg Tab, 200 MG PO QHS, (Reported) Sevelamer Carbonate (Sevelamer Carbonate) 800 Mg Tablet, 1,600 MG PO WM, (Reported) with meals Sucroferric Oxyhydroxide (Velphoro) 500 Mg Tab.chew, 1,000 MG PO WM, (Reported) Torsemide (Torsemide) 100 Mg Tablet, 100 MG PO DAILY, (Reported) Scheduled PRN Albuterol Sulfate (Ventolin Hfa) 108 Mcg/Act Aer, 2 PUFF INH QID PRN for SHORTNESS OF BREATH, (Reported) Allergies Coded Allergies: Penicillins (Verified Allergy, Intermediate, HIVES, 10/05/19) TAPE (Verified Allergy, Intermediate, SILKY TAPE - ITCHY RASH, 10/05/19) linagliptin (Verified Adverse Reaction, Intermediate, PANCREATITIS, 10/05/19) Past Medical History Medical History PD peritonitis with MSSA since 07/30/20 COPD Type II Diabetes Hypertension Hyperlipidemia Hypertriglyceridemia Chronic back pain ESRD on PD. Peripheral vascular disease status post stenting, five stents on the left SFA, one stent Rt SFA, done by Dr. Barnes H/o C diff. History of thoracic aortic aneurysm 4 cm. Surgical History 1. Tubal Ligation 2. Ovarian Cyst removal 3. Right breast biopsy in 2002 4. D&C hysteroscopy by Dr. Diallo in 2005 5. Right carpal tunnel release 6. Bilateral arterial stent placement 7. Cholecystectomy 8. Left arm fistula 9. Kidney Biopsy 10. Perm Rachele placement 11. carpal tunnel release Family History Father: at 67 years old, lung cancer, CVA Mother: Alive, cancer, breast bilateral, diabetes, CVA Siblings: Brother: Skin cancer, diabetes, 2 sisters: Diabetes and cervical cancer Children: Healthy Maternal aunt of lung cancer Social History * Smoker: current smoker Alcohol: Denies Drugs: denies A-FIB/CHADSVASC A-FIB History Current/History of A-Fib/PAF?: No Review of Systems Constitutional: Denies: Chills, Fever, Night Sweats Eyes: Denies: Pain, Vision change ENT: Denies: Head Aches, Ear Pain, Dysphagia Skin: Denies: Rash, Lesions, Breakdown Pulmonary: Denies: Dyspnea, Cough Cardiovascular: Denies: Chest Pain, Palpitations, Orthopnea, Paroxysmal Noc. Dyspnea, Lt Headedness Gastrointestinal: Reports: Abdominal Pain, Diarrhea Genitourinary: Denies: Dysuria, Frequency, Incontinence Hematologic: Denies: Bruising, Bleeding Excessively Physical Examination General Exam: Positive: Alert, Cooperative, No Acute Distress Eye Exam: Positive: PERRLA, Conjunctiva & lids normal, EOMI; Negative: Sclera icteric ENT Exam: Positive: Atraumatic, Mucous membr. moist/pink, Pharynx Normal Neck Exam: Positive: Supple; Negative: JVD, thyromegaly Chest Exam: Positive: Normal air movement, Diminished (at the bases) Heart Exam: Positive: Rate Normal, Regular Rhythm, Normal S1, Normal S2; Negative: Murmurs, Rubs Abdomen Exam: Positive: BS Hyperactive, Soft; Negative: Tenderness, Hepatospenomegaly Extremity Exam: Positive: Edema (1+), Normal pulses; Negative: Clubbing, Cyanosis Neuro Exam: Positive: Normal Speech, Strength at 5/5 X4 ext, Normal Tone Vital Signs Vital Signs Date Time Temp Pulse Resp B/P (MAP) Pulse Ox O2 Delivery O2 Flow Rate FiO2 08/15/20 13:00 75 16 142/65 (90) 94 Room Air 08/15/20 10:59 97.4 Laboratory Data Labs 24H Laboratory Tests 2 08/15/20 11:57: Body Fluid Specific [place] 1.010, Body Fluid WBC (Auto) 5335H, Body Fluid RBC (Auto) < 2, Body Fluid Mononuclear Cells % Auto 15.5H, Fluid Polymorphonuclear Cell % Auto 84.5H, Body Fluid Glucose Source PERITONEAL, Body Fluid Glucose 335, Body Fluid Protein Source PERITONEAL, Body Fluid Total Protein 0.6, Peritoneal Fluid Source PERITONEAL, Peritoneal Fluid Color COLORLESS, Peritoneal Fluid Appearance CLOUDY 08/15/20 13:35: Immature Granulocyte % (Auto) 0.7, Neutrophils (%) (Auto) 83.3H, Lymphocytes (%) (Auto) 7.1L, Monocytes (%) (Auto) 5.9H, Eosinophils (%) (Auto) 2.4, Basophils (%) (Auto) 0.6, Neutrophils # (Auto) 9.3H, Lymphocytes # (Auto) 0.8L, Monocytes # (Auto) 0.7, Eosinophils # (Auto) 0.3, Basophils # (Auto) 0.1, Nucleated Red Blood Cells % (auto) 0.0, Anion Gap 11, Glomerular Filtration Rate 7.1L, Calcium Level 6.5L CBC/BMP Laboratory Tests 08/15/20 13:35 Microbiology Microbiology 08/15/20 Blood Culture, Received Pending 08/15/20 Fungal Smear, Received Pending 08/15/20 Fungal Culture, Received Pending 08/15/20 Anaerobic Culture, Received Pending 08/15/20 Acid Fast Stain, Received Pending 08/15/20 Mycobacterial Culture, Received Pending 08/15/20 Gram Stain, Received Pending 08/15/20 Body Fluid Culture, Received Pending 08/15/20 Blood Culture, Received Pending Assessment/Plan 55 year old female with PMD of ESRD on PD, Diabetes only on short-acting insulin, hypertension, hyperlipidemia, COPD, peripheral vascular disease status post stenting, history of CT in 2018 and in February 2020 was diagnosed with the PD peritonitis on July 30 with MSSA. Patient was getting intraperitoneal vancomycin as an outpatient. She went for a follow-up visit to the dialysis clinic and peritoneal fluid was sent out for testing and was seen that her cell count in the peritoneal fluid has increased from 4107-6858. It was felt that she has failed outpatient treatment of PD peritonitis, so was sent to the ER for admission for further evaluation and treatment. She also has been having ongoing diarrhea with history of 2 C. difficile infections in the past. In the ED she was found to have a blood glucose of more than 700. Patient reports that yesterday when she checked her sugars after lunch it was only 179. She usually checks her sugar once a day and it mostly runs less than 200. She uses insulin only when her sugar is greater than 150. She reports that her leg swelling has improved over the past 2 weeks. She was also hypokalemic CT scan in the ED showed acute regional colitis and mild enteritis with bilateral mild inguinal lymphadenopathy.. She was admitted for PD peritonitis, possibly secondary to colitis or enteritis, Hyperglycemia and electrolyte imbalance PD peritonitis MSSA in the fluid on July 30 Was on intraperitoneal vancomycin. Vanco level is therapeutic. No improvement in cell count after [address] abdomen and pelvis 1. Acute regional colitis and mild enteritis. 2. Mild ascites and mild anasarca. 3. Moderate right pleural effusion. 4. Mild bilateral inguinal lymphadenopathy Started on levofloxacin also. Peritonitis may be secondary to an ongoing colitis or enteritis due to her history of ongoing diarrhea and past history of C diff it is highly possible that she may be having another C. difficile infection GI panel ordered Diarrhea GI panel possibility of c.diff is very high Hyperglycemia and type II DM with neuropathy Her A1c is only 8.4 This is probably is related to the 4.25% exchange that she used last night started on Levemir and lispro Fingerstick before meals and at bedtime Continue gabapentin will hold torsemide for now Hypokalemia Getting replacement COPD Albuterol when necessary Hypertension Amlodipine , Coreg Hold torsemide Hyperlipidemia Statin ESRD with hyperphosphatemia on PD . She is ordered for 5 exchanges all with 2.5% Continue Renvela GERD Pantoprazole Plan / VTE VTE Prophylaxis Ordered?: Yes ANGELA RUIZ MD Aug 15, 2020 14:22
[2020-08-15] MEDS ORDERED: (RENVELA) SEVELAMER **CARBONate** 800 MG TAB PO SCH (18:00)
[2020-08-15 20:00] VITALS: BP 178/82
[2020-08-15] MEDS: ROSUVASTATIN 10 MG TAB (CRESTOR) PO SCH (20:29)
[2020-08-15] MEDS: CARVedilol 12.5 MG TAB PO SCH (20:29)
[2020-08-15] MEDS: SERTRALINE 100 MG TAB PO SCH (20:29)
[2020-08-15] MEDS: HEPARIN SOD (PORCINE) 5000UNITS/ML 1ML VIAL/SYRINGE SC SCH (20:30)
[2020-08-15] MEDS: GABAPENTIN 100 MG CAP PO SCH (20:30)
[2020-08-15] MEDS: DOCUSATE SODIUM 100 MG CAP PO SCH (20:31)
[2020-08-15 20:39] LABS: CALCIUM LEVEL 7.6 MG/DL (8.5-10.1); CREATININE FOR GFR 6.83 MG/DL (0.55-1.30); GLOMERULAR FILTRATION RATE 6.6 (>51); MAGNESIUM LEVEL 1.8 MG/DL (1.8-2.4); POTASSIUM SERUM 3.3 MEQ/L (3.5-5.1)
[2020-08-15] MEDS ORDERED: LEVEMIR (INSULIN DETEMIR) 1 UNITS/0.01ML SC SCH ×2 (21:00)
[2020-08-15 21:48] LABS: CLOSTRIDIUM DIFFICILE PCR POSITIVE (NEGATIVE)
[2020-08-15 22:18] LABS: SOURCE, BODY FLUID ALBUMIN PERITONEAL
[2020-08-16] VITALS: BP 137/70
[2020-08-16] MEDS: VANCOMYCIN ORAL SOL 250MG/5ML ORAL SYRINGE PO SCH ×4 (01:18→17:40)
[2020-08-16 04:00] VITALS: BP 138/64
[2020-08-16 05:28] LABS: HEMATOCRIT 36.7 % (36.0-47.0); HEMOGLOBIN 11.7 g/dl (12.0-15.5); MEAN CORPUSCULAR HEMOGLOBIN 29.3 pg (27.0-33.0); MEAN CORPUSCULAR HGB CONC 31.9 g/dl (32.0-36.5); MEAN CORPUSCULAR VOLUME 91.8 fl (80.0-96.0); PLATELET COUNT, AUTOMATED 348 10^3/uL (150-450); WHITE BLOOD COUNT 10.8 10^3/uL (4.0-10.0)
[2020-08-16 05:49] LABS: BLOOD UREA NITROGEN 39 MG/DL (7-18); CALCIUM LEVEL 7.7 MG/DL (8.5-10.1); CARBON DIOXIDE LEVEL 24 MEQ/L (21-32); CHLORIDE LEVEL 105 MEQ/L (98-107); CREATININE FOR GFR 6.64 MG/DL (0.55-1.30); GLOMERULAR FILTRATION RATE 6.9 (>51); GLUCOSE, FASTING 49 MG/DL (70-100); POTASSIUM SERUM 3.5 MEQ/L (3.5-5.1); SODIUM LEVEL 136 MEQ/L (136-145)
[2020-08-16] MEDS: HumaLOG INSULIN (NovoLOG) PER UNIT SC SCH ×4 (07:30→21:00)
[2020-08-16 08:00] VITALS: BP 136/65
[2020-08-16] MEDS: PANTOPRAZOLE 40MG TAB (PROTONIX) PO SCH (08:04)
[2020-08-16] MEDS: CARVedilol 12.5 MG TAB PO SCH ×2 (08:07→21:15)
[2020-08-16] MEDS: DOCUSATE SODIUM 100 MG CAP PO SCH (08:08)
[2020-08-16] MEDS: amLODIPine 5 MG TAB PO SCH (08:08)
[2020-08-16] MEDS: LORATADINE 10 MG TAB PO SCH (08:08)
[2020-08-16] MEDS: HEPARIN SOD (PORCINE) 5000UNITS/ML 1ML VIAL/SYRINGE SC SCH ×2 (08:09→21:29)
[2020-08-16] MEDS ORDERED: POTASSIUM CHLORIDE 10 MEQ SR TABLET PO ONE (09:00)
--- NOTE | 2020-08-16 11:08 | IPNPDOC ---
Text Note Date of Service The patient was seen on 08/16/20. NOTE Subjective: Having watery diarrhea. 3 episodes after admission. Some upper a bdominal and epigastric pain. No fever or chills. Hypoglycemia to 49 this am without any symptoms. No fever or chills. Physical Exam: Vitals: As below General Exam: Positive: Alert, Cooperative, No Acute Distress Eye Exam: Positive: PERRLA, Conjunctiva & lids normal, EOMI; Negative: Sclera icteric ENT Exam: Positive: Atraumatic, Mucous membr. moist/pink, Pharynx Normal Neck Exam: Positive: Supple; Negative: JVD, thyromegaly Chest Exam: Positive: Normal air movement, Diminished (at the bases) Heart Exam: Positive: Rate Normal, Regular Rhythm, Normal S1, Normal S2; Negative: Murmurs, Rubs Abdomen Exam: Positive: BS Hyperactive, Soft; Negative: Tenderness, Hepatospenomegaly Extremity Exam: Positive: Edema (1+), Normal pulses; Negative: Clubbing, Cyanosis Neuro Exam: Positive: Normal Speech, Strength at 5/5 X4 ext, Normal Tone Labs : reviewed Imaging: CT abdomen and pelvis 1. Acute regional colitis and mild enteritis. 2. Mild ascites and mild anasarca. 3. Moderate right pleural effusion. 4. Mild bilateral inguinal lymphadenopathy Assessment and plan: 55 year old female with PMD of ESRD on PD, Diabetes only on short-acting insulin, hypertension, hyperlipidemia, COPD, peripheral vascular disease status post stenting, history of CT in 2018 and in February 2020 was diagnosed with the PD peritonitis on July 30 with MSSA. Patient was getting intraperitoneal vancomycin as an outpatient. She went for a follow-up visit to the dialysis clinic and peritoneal fluid was sent out for testing and was seen that her cell count in the peritoneal fluid has increased from [id number]. It was felt that she has failed outpatient treatment of PD peritonitis, so was sent to the ER for admission for further evaluation and treatment. She also has been having ongoing diarrhea with history of 2 C. difficile infections in the past. In the ED she was found to have a blood glucose of more than 700. Patient reports that yesterday when she checked her sugars after lunch it was only 179. She usually checks her sugar once a day and it mostly runs less than 200. She uses insulin only when her sugar is greater than 150. She reports that her leg swelling has improved over the past 2 weeks. She was also hypokalemic CT scan in the ED showed acute regional colitis and mild enteritis with bilateral mild inguinal lymphadenopathy.. She was admitted for PD peritonitis, possibly seco ndary to colitis or enteritis, Hyperglycemia and electrolyte imbalance PD peritonitis MSSA in the fluid on July 30. Treated. Was on intraperitoneal vancomycin. Vanco level is therapeutic. Now with secondary PD peritonitis due to C diff infection. Recurrent C diff Colitis 4th to 5th episode. On po vancomycin. Last year received deficid and Zinplava(bezlotoxumab) Hyperglycemia and type II DM with neuropathy Her A1c is only 8.4 This is probably is related to the 4.25% exchange that she used last night hypoglycemia today will only continue lispro. Fingerstick before meals and at bedtime Continue gabapentin will hold torsemide for now Hypokalemia Getting replacement COPD Albuterol when necessary Hypertension Amlodipine , Coreg Hold torsemide Hyperlipidemia Statin ESRD with hyperphosphatemia on PD . She is ordered for 5 exchanges all with 2.5% Continue Renvela GERD Pantoprazole VS,Fishbone, I+O VS, Fishbone, I+O Laboratory Tests 08/15/20 13:35 08/15/20 20:08 08/16/20 04:52 Vital Signs Date Time Temp Pulse Resp B/P (MAP) Pulse Ox O2 Delivery O2 Flow Rate FiO2 08/16/20 08:08 66 135/65 08/16/20 08:00 97.1 17 95 Room Air I&O- Last 24 Hours up to 6 AM 08/16/20 06:00 Intake Total 4870 ml Output Total 2410 ml Balance 2460 ml ANGELA RUIZ MD Aug 16, 2020 11:08
--- NOTE | 2020-08-16 11:52 | CR ---
REQUESTING PHYSICIAN: Jl Murrieta M.D. REASON FOR CONSULTATION: Management of peritonitis in this patient with end- stage renal disease. CHIEF COMPLAINT: Patient was sent from home peritoneal dialysis center because of failure of outpatient therapy for peritonitis. HISTORY OF PRESENT ILLNESS: Kerline Pierce is a 55-year-old female with a past medical history of end-stage renal disease on peritoneal dialysis, history of diabetes mellitus type 2 insulin dependent, hypertension, and multiple other comorbidities as mentioned below. She was found to have MSSA peritonitis on 07/30/2020, it was sensitive to gentamicin, Levaquin, Moxifloxacin, Rifampin and tetracycline. She was started on intraperitoneal Vancomycin 2 grams every 5 days; she had received three doses so far. She also received first dose of gentamicin intraperitoneal 80 mg followed by 40 mg of gentamicin daily for three days. Despite this outpatient therapy, latest peritoneal fluid cell count increased to 7,280 on 08/13/2020 and she was sent to the Emergency Room for further evaluation and management. I saw and evaluated the patient today in the Emergency Room. Patient denies any fevers or chills. She denies any nausea or vomiting. She does have a complaint of watery stools for the last 3-4 days and intermittent abdominal cramping. Repeat peritoneal fluid cell count done in the Emergency Room showed it was 5,335 with 84% polymorphonuclears. She had a CAT scan done in the Emergency Room, which showed acute regional colitis and mild enteritis and moderate right- sided pleural effusion. PAST MEDICAL HISTORY: End-stage renal disease on peritoneal dialysis, peritonitis associated with PD catheter secondary to MSSA since 07/30/2020, COPD, diabetes mellitus type 2 insulin dependent, hypertension, hyperlipidemia, chronic back pain, peripheral vascular disease; status post stenting in the left superficial femoral artery and one stent in the right superficial femoral artery, history of C. diff colitis in the past and thoracic aortic aneurysm 4 cm. PAST SURGICAL HISTORY: Status post tubal ligation, status post ovarian cyst removal, right breast biopsy in 2002, D and C and hysterectomy in 2005, right carpal tunnel surgery, bilateral arterial stents in the legs, status post cholecystectomy, left arm AV fistula placement, renal biopsy in the past, and Permacath placement. ALLERGIES: He is allergic to penicillin, tape and Linagliptan. FAMILY HISTORY: No significant family history of end-stage renal disease requiring hemodialysis. SOCIAL HISTORY: Patient lives at home. She is an active smoker. She denies any illicit drug abuse or alcohol abuse. REVIEW OF SYSTEMS: CONSTITUTIONAL: Patient denies any fevers or chills. EYES: She denies any blurry vision or double vision. ENT: She denies any dysphagia or odynophagia. CARDIOVASCULAR: She denies any chest pain or palpitations. RESPIRATORY: She denies any shortness of breath. GASTROINTESTINAL: She reports loose stools. GENITOURINARY: She reports decreased urine output. MUSCULOSKELETAL: She reports bilateral lower extremity edema. SKIN: She denies any rashes or ulcers. PSYCHIATRIC: She denies any depression or anxiety. ENDOCRINE: She reports history of diabetes mellitus type 2 uncontrolled. CENTRAL NERVOUS SYSTEM: She denies any strokes or seizures. HEMATOLOGY/ONCOLOGY: She denies any easy bleeding or bruising. All other review of systems is negative. PHYSICAL EXAMINATION: VITAL SIGNS: Temperature 98 degrees Fahrenheit, blood pressure 162/71, pulse 81, respiratory rate 18, saturating 96% on room air. HEAD AND NECK: Extraocular muscles intact. Pupils equally round and reactive to light. Mucous membranes are moist. Neck is supple. Mildly elevated JVD. CARDIOVASCULAR: S1, S2. 2+ edema of the bilateral lower extremities. RESPIRATORY: Chest is clear to auscultation bilaterally. Bilateral equal air entry. No rales or rhonchi. ABDOMEN: Soft. Positive bowel sounds. Left-sided peritoneal dialysis catheter. No significant tenderness on deep palpation. Catheter tunnel is nontender and there is no drainage from the PD catheter at this time. GENITOURINARY: Bladder is not palpable. MUSCULOSKELETAL: No clubbing or cyanosis. Pulses are 2+. CENTRAL NERVOUS SYSTEM: No focal deficit. Power is 5/5 in all extremities. LABORATORY REVIEW: CBC showed WBC 11.2, hemoglobin 10.4, platelets 286,000. Peritoneal fluid cell count 5,335 with 84% polymorphonuclears. Initial BMP showed sodium 124, potassium 2.3, chloride 90, bicarb 23, BUN 35, creatinine 6.4. Glucose 748 initially. A1C 8.4. Lactic acid 1.1. Calcium 7.6, magnesium 1.8. Random Vancomycin level 22.6. MICROBIOLOGY: Peritoneal fluid gram-stain showed many wbcs, no organism was seen. IMAGING STUDIES: A CAT scan of the abdomen and pelvis was done, which showed acute regional colitis and mild enteritis, mild ascites and anasarca, moderate right-sided pleural effusion, mild bilateral inguinal lymphadenopathy. A chest x-ray was also done, which showed a small right pleural effusion. CURRENT INPATIENT MEDICATIONS: Patient was started on Levaquin 250 mg I.V. daily because of failure of outpatient peritonitis treatment. She is on Amlodipine 5 mg daily, Coreg 25 mg p.o. twice a day, Colace 100 mg p.o. twice a day, Gabapentin 200 mg q.h.s., Heparin 5,000 units subcutaneously every 12 hours, insulin Levemir 15 units q.h.s. and insulin Lispro sliding scale. She was given 7 units of I.V. regular insulin. Protonix 40 mg daily. She was given potassium chloride 40 mEq p.o. times three doses. Rosuvastatin 40 mg q.h.s., Zoloft 200 mg q.h.s., Renvela 1600 mg p.o. with meals. I am going to stop Renvela at this time because of loose stools. I have started the patient on oral Vancomycin 125 mg p.o. every 6 hours. ASSESSMENT AND PLAN: 1. Persistent peritonitis with history of peritoneal dialysis catheter: Patient had MSSA peritonitis. She has received a total of three doses of intraperitoneal Vancomycin 2 grams every five days and despite that, her peritoneal fluid cell count is high. She has colitis and enteritis, which is highly suspicious for C. diff colitis. I have started the patient on oral Vancomycin. She was initially started on I.V. Levaquin, however because of enteritis, I have stopped the Levaquin for now. I am waiting for the stool studies. There is high likelihood that patient might need PD catheter removal. She has a working left forearm AV fistula and she can be easily switched to hemodialysis. 2. Hyponatremia: Patient has hypovolemic hyponatremia. Peritoneal exchanges should help improve her sodium levels. 3. Hypokalemia: Patient was given potassium chloride 40 mEq times three doses. Potassium level is improving, it is 3.3 on repeat labs. 4. End-stage renal disease on peritoneal dialysis: As mentioned above, patient has persistent peritonitis and elevated white cell counts. She might need to be switched to hemodialysis via left forearm AV fistula. 5. Diabetes mellitus type 2 insulin dependent: Uncontrolled, she needed I.V. insulin regular. She is currently on Levemir and insulin sliding scale. Glucose levels are getting better. 6. Anemia and end-stage renal disease: Hemoglobin is 10.4 which is optimal at this time. 7. Hypertension: Blood pressure is improving now with the dose of Amlodipine and Carvedilol. Optimization of volume status would also help improve blood pressures. 8. Chronic kidney disease/mineral bone disease: Patient is currently on Renvela because of loose stools and enteritis. I am stopping the Renvela dose now. 9. Diarrhea and enteritis on CAT scan: GI panel is pending. Oral Vancomycin has been started pending GI panel results. Thank you for involving me in the care of this patient. I shall be following the patient along with hospitalist team while she is hospitalized. Plan of care was discussed with the ER physician, Dr. Murrieta. FABY
[2020-08-16 12:00] VITALS: BP 130/58
[2020-08-16] MEDS ORDERED: HumaLOG INSULIN (NovoLOG) PER UNIT SC SCH (12:00)
[2020-08-16 12:04] LABS: ALBUMIN 1.4 GM/DL (3.2-5.2); ALT/SGPT 89 U/L (12-78); BILIRUBIN,DIRECT < 0.1 MG/DL (0.0-0.2); BILIRUBIN,TOTAL 0.2 MG/DL (0.2-1.0); TOTAL PROTEIN 5.4 GM/DL (6.4-8.2)
[2020-08-16 12:05] LABS: PERITONEAL DIALYSATE FL COLOR COLORLESS (COLORLESS); SOURCE, BODY FLUID PERITONEAL DIALYSATE
[2020-08-16 12:06] LABS: APPEARANCE, BODY FLUID HAZY (CLEAR)
[2020-08-16 16:00] VITALS: BP 170/82
[2020-08-16 20:00] VITALS: BP 134/61
--- NOTE | 2020-08-16 20:17 | ECGEPIP ---
[facility] - ED Test Date: 2020-08-15 Pat Name: ONUR ESPINAL Department: Room: - Gender: Female Blind Eyeletter: torito : 1965 Requested By: Jl Munoz Order Number: [id number] Reading MD: Olivia Bridges Measurements Intervals [place] Rate: 77 P: 82 LA: 185 QRS: -54 QRSD: 181 T: 32 QT: 475 QTc: 539 Interpretive Statements SINUS RHYTHM POSSIBLE LEFT ATRIAL ENLARGEMENT INDETERMINATE AXIS RIGHT BUNDLE BRANCH BLOCK LEFT ANTERIOR FASCICULAR BLOCK PROLONGED QTC Electronically Signed on 08-16-2020 20:16:52 EDT by Olivia Bridges
[2020-08-16] MEDS: GABAPENTIN 100 MG CAP PO SCH (21:13)
[2020-08-16] MEDS: ROSUVASTATIN 10 MG TAB (CRESTOR) PO SCH (21:13)
[2020-08-16] MEDS: SERTRALINE 100 MG TAB PO SCH (21:13)
[2020-08-17] VITALS: BP 136/93
[2020-08-17] MEDS: VANCOMYCIN ORAL SOL 250MG/5ML ORAL SYRINGE PO SCH ×4 (00:06→18:21)
[2020-08-17 04:00] VITALS: BP 134/66
[2020-08-17 06:23] LABS: HEMATOCRIT 36.5 % (36.0-47.0); HEMOGLOBIN 11.8 g/dl (12.0-15.5); MEAN CORPUSCULAR HEMOGLOBIN 29.9 pg (27.0-33.0); MEAN CORPUSCULAR HGB CONC 32.3 g/dl (32.0-36.5); MEAN CORPUSCULAR VOLUME 92.6 fl (80.0-96.0); PLATELET COUNT, AUTOMATED 302 10^3/uL (150-450); RED BLOOD COUNT 3.94 10^6/uL (4.00-5.40); WHITE BLOOD COUNT 10.8 10^3/uL (4.0-10.0)
[2020-08-17 06:47] LABS: CREATININE FOR GFR 6.29 MG/DL (0.55-1.30); GLOMERULAR FILTRATION RATE 7.3 (>51); POTASSIUM SERUM 3.7 MEQ/L (3.5-5.1)
[2020-08-17 06:48] LABS: CALCIUM LEVEL 7.5 MG/DL (8.5-10.1)
[2020-08-17] MEDS: HumaLOG INSULIN (NovoLOG) PER UNIT SC SCH ×4 (07:19→21:00)
[2020-08-17 08:00] VITALS: BP 123/60
[2020-08-17] MEDS: LORATADINE 10 MG TAB PO SCH (08:18)
[2020-08-17] MEDS: PANTOPRAZOLE 40MG TAB (PROTONIX) PO SCH (08:18)
[2020-08-17] MEDS: CARVedilol 12.5 MG TAB PO SCH ×2 (08:19→21:12)
[2020-08-17] MEDS: HEPARIN SOD (PORCINE) 5000UNITS/ML 1ML VIAL/SYRINGE SC SCH ×2 (08:20→21:13)
[2020-08-17] MEDS: amLODIPine 5 MG TAB PO SCH (08:20)
[2020-08-17] MEDS: LEVEMIR (INSULIN DETEMIR) 1 UNITS/0.01ML SC SCH (08:21)
[2020-08-17 09:40] LABS: APPEARANCE, BODY FLUID CLEAR (CLEAR); PERITONEAL DIALYSATE FL COLOR COLORLESS (COLORLESS); SOURCE, BODY FLUID PERITONEAL DIALYSATE
[2020-08-17] MEDS: ACETAMINOPHEN TAB 650MG DOSE (2X325MG) PO PRN ×2 (10:09→21:13)
[2020-08-17 12:00] VITALS: BP 117/64
[2020-08-17] MEDS ORDERED: HEPARIN SOD (PORCINE) 5000UNITS/ML 1ML VIAL/SYRINGE PD ONE (16:30)
[2020-08-17] MEDS: SERTRALINE 100 MG TAB PO SCH (21:13)
[2020-08-17] MEDS: ROSUVASTATIN 10 MG TAB (CRESTOR) PO SCH (21:13)
[2020-08-17] MEDS: GABAPENTIN 100 MG CAP PO SCH (21:13)
[2020-08-17 22:00] VITALS: BP 133/59
[2020-08-18] MEDS: HumaLOG INSULIN (NovoLOG) PER UNIT SC SCH ×5 (01:14→21:00)
[2020-08-18] MEDS ORDERED: GLUCAGON INJ 1MG VIAL SC PRN ×2 (01:15→12:45)
[2020-08-18] MEDS ORDERED: DEXTROSE 50% 50 ML SYRINGE IV PRN ×2 (01:15→12:45)
[2020-08-18] MEDS ORDERED: GLUCOSE 4GM CHEW TABLET PO PRN ×2 (01:15→12:45)
[2020-08-18] MEDS: VANCOMYCIN ORAL SOL 250MG/5ML ORAL SYRINGE PO SCH ×4 (01:25→18:49)
[2020-08-18 06:00] VITALS: BP 141/62
[2020-08-18 06:45] LABS: HEMATOCRIT 33.9 % (36.0-47.0); HEMOGLOBIN 10.6 g/dl (12.0-15.5); MEAN CORPUSCULAR HEMOGLOBIN 29.3 pg (27.0-33.0); MEAN CORPUSCULAR HGB CONC 31.3 g/dl (32.0-36.5); MEAN CORPUSCULAR VOLUME 93.6 fl (80.0-96.0); PLATELET COUNT, AUTOMATED 281 10^3/uL (150-450); RED BLOOD COUNT 3.62 10^6/uL (4.00-5.40); WHITE BLOOD COUNT 8.6 10^3/uL (4.0-10.0)
[2020-08-18 07:03] LABS: CALCIUM LEVEL 7.2 MG/DL (8.5-10.1); CREATININE FOR GFR 7.67 MG/DL (0.55-1.30); GLOMERULAR FILTRATION RATE 5.8 (>51); POTASSIUM SERUM 3.8 MEQ/L (3.5-5.1)
[2020-08-18] MEDS: LORATADINE 10 MG TAB PO SCH ×2 (07:38→13:34)
[2020-08-18] MEDS: amLODIPine 5 MG TAB PO SCH ×2 (07:39→13:36)
[2020-08-18] MEDS: CARVedilol 12.5 MG TAB PO SCH ×3 (07:39→21:40)
[2020-08-18] MEDS: HEPARIN SOD (PORCINE) 5000UNITS/ML 1ML VIAL/SYRINGE SC SCH ×2 (07:41→21:41)
[2020-08-18] MEDS: LEVEMIR (INSULIN DETEMIR) 1 UNITS/0.01ML SC SCH (07:41)
[2020-08-18] MEDS: PANTOPRAZOLE 40MG TAB (PROTONIX) PO SCH ×2 (07:41→13:34)
--- NOTE | 2020-08-18 07:52 | IPNPDOC ---
Text Note Date of Service The patient was seen on 08/17/20. NOTE Subjective: Had only 3 to 4 documented bowel movements daily. liquid brown. No fever or chills. Physical Exam: Vitals: As below General Exam: Positive: Alert, Cooperative, No Acute Distress Eye Exam: Positive: PERRLA, Conjunctiva & lids normal, EOMI; Negative: Sclera icteric ENT Exam: Positive: Atraumatic, Mucous membr. moist/pink, Pharynx Normal Neck Exam: Positive: Supple; Negative: JVD, thyromegaly Chest Exam: Positive: Normal air movement, Diminished (at the bases) Heart Exam: Positive: Rate Normal, Regular Rhythm, Normal S1, Normal S2; Negative: Murmurs, Rubs Abdomen Exam: Positive: BS Hyperactive, Soft; Negative: Tenderness, Hepatospenomegaly Extremity Exam: Positive: Edema (1+), Normal pulses; Negative: Clubbing, Cyanosis Neuro Exam: Positive: Normal Speech, Strength at 5/5 X4 ext, Normal Tone Labs : reviewed Imaging: CT abdomen and pelvis 1. Acute regional colitis and mild enteritis. 2. Mild ascites and mild anasarca. 3. Moderate right pleural effusion. 4. Mild bilateral inguinal lymphadenopathy Assessment and plan: 55 year old female with PMD of ESRD on PD, Diabetes only on short-acting insulin, hypertension, hyperlipidemia, COPD, peripheral vascular disease status post stenting, history of CT in 2018 and in February 2020 was diagnosed with the PD peritonitis on July 30 with MSSA. Patient was getting intraperitoneal vancomycin as an outpatient. She went for a follow-up visit to the dialysis clinic and peritoneal fluid was sent out for testing and was seen that her cell count in the peritoneal fluid has increased from 8581-3110. It was felt that she has failed outpatient treatment of PD peritonitis, so was sent to the ER for admission for further evaluation and treatment. She also has been having ongoing diarrhea with history of 2 C. difficile infections in the past. In the ED she was found to have a blood glucose of more than 700. Patient reports that yesterday when she checked her sugars after lunch it was only 179. She usually checks her sugar once a day and it mostly runs less than 200. She uses insulin only when her sugar is greater than 150. She reports that her leg swelling has improved over the past 2 weeks. She was also hypokalemic CT scan in the ED showed acute regional colitis and mild enteritis with bilateral mild inguinal lymphadenopathy.. She was admitted for PD peritonitis, possibly s econdary to colitis or enteritis, Hyperglycemia and electrolyte imbalance PD peritonitis probably combination of MSSA peritonitis and secondary peritonitis from C diff. MSSA PD cath related peritonitis from July 30,. Treated with Intraperitoneal vancomycin. Vanco level is therapeutic. Fluid culture still positive for MSSA. PD cath not working well As per Nephro the PD cath will need to come out. Also with secondary PD peritonitis due to C diff infection associated with enteritis and colitis. Recurrent C diff Colitis 4th to 5th episode. On po vancomycin. Last year received deficid and Zinplava(bezlotoxumab) Hyperglycemia and type II DM with neuropathy Her A1c is only 8.4 This is probably is related to the 4.25% exchange that she used at home. continue lispro. Fingerstick before meals and at bedtime levemir Continue gabapentin Hypokalemia replaced COPD Albuterol when necessary Hypertension Amlodipine , Coreg Hold torsemide Hyperlipidemia Statin ESRD with hyperphosphatemia on PD . She is ordered for 5 exchanges all with 2.5% renvela stopped due to enteritis. torsemide on hold. Anemia of chronic disease hh stable. GERD Pantoprazole VS,Fishbone, I+O VS, Fishbone, I+O Laboratory Tests 08/17/20 05:33 Vital Signs Date Time Temp Pulse Resp B/P (MAP) Pulse Ox O2 Delivery O2 Flow Rate FiO2 08/17/20 04:00 98.5 83 18 134/66 (88) 92 Room Air I&O- Last 24 Hours up to 6 AM 08/17/20 07:00 Intake Total 8540 ml Output Total 9050 ml Balance -510 ml ANGELA RUIZ MD Aug 17, 2020 08:02
[2020-08-18] MEDS ORDERED: fentaNYL 100 MCG/2 ML INJECTION (J3010) As Ordered ONE (10:30)
[2020-08-18] MEDS ORDERED: MIDAZOLAM INJ 2MG/2ML VIAL (J2250 PER 1MG) As Ordered ONE (10:31)
[2020-08-18] MEDS ORDERED: propofoL 200 MG/20 ML VIAL As Ordered ONE ×2 (10:31→11:44)
[2020-08-18] MEDS ORDERED: LIDOCAINE 2% 100MG/5ML SDV (FOR ANES.) As Ordered ONE (10:31)
[2020-08-18] MEDS ORDERED: LIDOCAINE 1% SDV 30ML VIAL As Ordered ONE (10:48)
--- NOTE | 2020-08-18 11:09 | IPNPDOC ---
Text Note Date of Service The patient was seen on 08/18/20. NOTE No acute events overnight. No complaints, or questions for me. Plan is for r emoval of her catheter this am in the or. VSSAF NAD abd - soft, nt, nd, catheter in the LUQ with the second cuff just inferior to the umbilicus in the midline A) 55y/o female with ESRD on PD Currently with an infected PD catheter and peritonitis P) NPO to OR for PD cath removal no changes to H+P. Jesus James DO VS,Fishbone, I+O VS, Fishbone, I+O Laboratory Tests 08/18/20 06:18 Vital Signs Date Time Temp Pulse Resp B/P (MAP) Pulse Ox O2 Delivery O2 Flow Rate FiO2 08/18/20 06:00 98.3 69 17 141/62 (88) 98 Room Air I&O- Last 24 Hours up to 6 AM 08/18/20 06:00 Intake Total 4100 ml Output Total 5213 ml Balance -1113 ml ERIN JAMES DO Aug 18, 2020 11:09
--- NOTE | 2020-08-18 11:29 | IPNPDOC ---
Text Note Date of Service The patient was seen on 08/18/20. NOTE Subjective: Had only 3 to 4 documented bowel movements daily. Liquid brown. No fever or chills. Going to OR for removal of PD cath. Physical Exam: Vitals: As below General Exam: Positive: Alert, Cooperative, No Acute Distress Eye Exam: Positive: PERRLA, Conjunctiva & lids normal, EOMI; Negative: Sclera icteric ENT Exam: Positive: Atraumatic, Mucous membr. moist/pink, Pharynx Normal Neck Exam: Positive: Supple; Negative: JVD, thyromegaly Chest Exam: Positive: Normal air movement, Diminished (at the bases) Heart Exam: Positive: Rate Normal, Regular Rhythm, Normal S1, Normal S2; Negative: Murmurs, Rubs Abdomen Exam: Positive: BS Hyperactive, Soft; Negative: Tenderness, Hepatospenomegaly Extremity Exam: Positive: Edema (1+), Normal pulses; Negative: Clubbing, Cyanosis Neuro Exam: Positive: Normal Speech, Strength at 5/5 X4 ext, Normal Tone Labs : reviewed Imaging: CT abdomen and pelvis 1. Acute regional colitis and mild enteritis. 2. Mild ascites and mild anasarca. 3. Moderate right pleural effusion. 4. Mild bilateral inguinal lymphadenopathy Assessment and plan: 55 year old female with PMD of ESRD on PD, Diabetes only on short-acting insulin, hypertension, hyperlipidemia, COPD, peripheral vascular disease status post stenting, history of CT in 2018 and in February 2020 was diagnosed with the PD peritonitis on July 30 with MSSA. Patient was getting intraperitoneal vancomycin as an outpatient. She went for a follow-up visit to the dialysis clinic and peritoneal fluid was sent out for testing and was seen that her cell count in the peritoneal fluid has increased from 1478-5102. It was felt that she has failed outpatient treatment of PD peritonitis, so was sent to the ER for admission for further evaluation and treatment. She also has been having ongoing diarrhea with history of 2 C. difficile infections in the past. In the ED she was found to have a blood glucose of more than 700. Patient reports that yesterday when she checked her sugars after lunch it was only 179. She usually checks her sugar once a day and it mostly runs less than 200. She uses insulin only when her sugar is greater than 150. She reports that her leg swelling has improved over the past 2 weeks. She was also hypokalemic CT scan in the ED showed acute regional colitis and mild enteritis with bilateral mild inguinal lymphadenopathy.. She was admitted for PD peritonitis, possibly secondary to colitis or enteritis, Hyperglycemia and electrolyte imbalance PD peritonitis probably combination of MSSA peritonitis and secondary peritonitis from C diff. MSSA PD cath related peritonitis from July 30,. Treated with Intraperitoneal vancomycin. Vanco level is therapeutic. Fluid culture still positive for MSSA. PD cath not working anymore. Planned for removal today. Also with secondary PD peritonitis due to C diff infection associated with e nteritis and colitis. Recurrent C diff Colitis 4th to 5th episode. On po vancomycin. Last year received deficid and Zinplava(bezlotoxumab) Hyperglycemia and type II DM with neuropathy Her A1c is only 8.4 This is probably is related to the 4.25% exchange that she used at home. continue Levemir and lispro. Fingerstick before meals and at bedtime Continue gabapentin Hypokalemia replaced COPD Albuterol when necessary Hypertension Amlodipine , Coreg Hold torsemide Hyperlipidemia Statin ESRD Was on PD will be switched to HD as PD cath infected and not working any more. renvela stopped due to enteritis. torsemide on hold. Anemia of chronic disease hh stable. GERD Pantoprazole VS,Fishbone, I+O VS, Fishbone, I+O Laboratory Tests 08/18/20 06:18 Vital Signs Date Time Temp Pulse Resp B/P (MAP) Pulse Ox O2 Delivery O2 Flow Rate FiO2 08/18/20 06:00 98.3 69 17 141/62 (88) 98 Room Air I&O- Last 24 Hours up to 6 AM 08/18/20 06:00 Intake Total 4100 ml Output Total 5213 ml Balance -1113 ml ANGELA RUIZ MD Aug 18, 2020 08:31
[2020-08-18] MEDS ORDERED: ACETAMINOPHEN TAB 650MG DOSE (2X325MG) As Ordered ONE (12:09)
[2020-08-18] MEDS ORDERED: ACETAMINOPHEN TAB 650MG DOSE (2X325MG) PO ONE (12:15)
[2020-08-18] MEDS ORDERED: ONDANSETRON 4MG/2ML VIAL IV PRN (12:15)
[2020-08-18] MEDS ORDERED: NS 1,000 ML IV SCH (12:15)
[2020-08-18] MEDS: ACETAMINOPHEN TAB 650MG DOSE (2X325MG) PO PRN ×2 (12:20→21:40)
[2020-08-18 12:23] VITALS: BP 145/67
[2020-08-18] MEDS ORDERED: D10W/0.45% SODIUM CHLORIDE 1,000 ML IV SCH (13:00)
[2020-08-18 14:00] VITALS: BP 143/68
[2020-08-18] MEDS: GABAPENTIN 100 MG CAP PO SCH (21:40)
[2020-08-18] MEDS: ROSUVASTATIN 10 MG TAB (CRESTOR) PO SCH (21:40)
[2020-08-18] MEDS: SERTRALINE 100 MG TAB PO SCH (21:40)
[2020-08-18 22:00] VITALS: BP 147/61
[2020-08-19] MEDS: VANCOMYCIN ORAL SOL 250MG/5ML ORAL SYRINGE PO SCH ×4 (00:16→17:21)
[2020-08-19] MEDS: ACETAMINOPHEN TAB 650MG DOSE (2X325MG) PO PRN ×2 (05:02→14:49)
[2020-08-19 06:00] VITALS: BP 148/58
--- NOTE | 2020-08-19 07:58 | RO ---
DATE OF OPERATION: 08/18/2020 PREOPERATIVE DIAGNOSIS: Peritonitis with infected peritoneal dialysis catheter. POSTOPERATIVE DIAGNOSIS: Peritonitis with infected peritoneal dialysis catheter. PROCEDURE: Removal of peritoneal dialysis catheter. SURGEON: Ever James DO TRAVELING CLERK: None. ANESTHESIA: Intravenous (IV) sedation with 10 mL local. COMPLICATIONS: None. INDICATIONS FOR PROCEDURE: The patient is a 55-year-old female who presents with a three week history of infected peritoneal dialysis catheter. She has failed outpatient therapy and also, the catheter has subsequently stopped working as well. Because of that, I was asked by nephrology to remove it. Risks and benefits of the procedure not limited to, but including bleeding, infection, hernia formation, damage to surrounding structures, and need for further surgery were discussed in detail with the patient. Informed consent was obtained and procedure was planned. DESCRIPTION OF PROCEDURE: The patient was brought back to operating room 3 after sufficient sedation. The abdomen was sterilely prepped and draped with chlorhexidine. Next, a time-out was done to confirm proper patient and proper procedure. Following that, a 3 cm incision was made inferior to the umbilicus in the midline overlying a palpable distal cuff. Dissection was done through the subcutaneous tissues using cautery until the cuff was reached. The cuff was then dissected free and the intraperitoneal portion of the catheter was removed. The catheter was then cut in half and the remaining catheter was able to be dissected and pulled out through the proximal skin opening. Once it was removed, the proximal cuff fell off inside. I was able to palpate it below the skin and dissect that free and remove that as well. At the end, both cuffs were removed. The catheter was completely removed. The catheter tip was sent for culture. The deep fascial incision inferior to the umbilicus was closed with a couple interrupted 2-0 Vicryl sutures. The subcutaneous tissues were then reapproximated with 3-0 Vicryl subcuticular sutures and then skin and both incisions were closed with claudia. The patient tolerated the procedure well. At the end, the skin was clean and dried, 4 x 4 and tape were applied ending the procedure. FABY
[2020-08-19] MEDS: HumaLOG INSULIN (NovoLOG) PER UNIT SC SCH ×4 (08:05→21:00)
[2020-08-19] MEDS: LORATADINE 10 MG TAB PO SCH (08:05)
[2020-08-19] MEDS: PANTOPRAZOLE 40MG TAB (PROTONIX) PO SCH (08:05)
[2020-08-19] MEDS: HEPARIN SOD (PORCINE) 5000UNITS/ML 1ML VIAL/SYRINGE SC SCH ×2 (08:07→21:08)
--- NOTE | 2020-08-19 09:33 | IPN ---
DATE: 08/16/2020 SUBJECTIVE: Patient was seen and examined at the bedside today morning. She is reporting abdominal bloating and moderate amount of abdominal pain. She is having loose stools. Patient was found to have C. diff positive in the stool test. She has history of C. diff colitis in the past as well. Her Levaquin was stopped yesterday. She continues to be on oral Vancomycin. Repeat peritoneal fluid cell count is pending. Hypokalemia and hyponatremia is better today as compared with yesterday. OBJECTIVE: VITAL SIGNS: Temperature 97.1 degrees Fahrenheit, there was no fever spike last night, blood pressure 136/65, pulse 66, respiratory rate 17, saturating 95% on room air. INTAKE AND OUTPUT: Urine output recorded as 50 mL. She is not getting much ultrafiltration with peritoneal dialysis. Weight in the bed scale is 74.9 kg. PHYSICAL EXAMINATION: GENERAL: Patient is awake, alert and oriented x3, lying in bed, in no apparent distress. HEAD AND NECK: Extraocular muscles intact. Pupils equally round and reactive to light. Mucous membranes are moist. Neck is supple. Mildly elevated JVD. CARDIOVASCULAR: S1, S2, regular rate. 1+ edema of the bilateral lower extremities. RESPIRATORY: Mildly decreased breath sounds at the bases, otherwise no active rales or rhonchi. ABDOMEN: Soft, positive bowel sounds. She has tenderness to deep palpation in the left side of the abdomen and in the epigastrium as well. Peritoneal dialysis catheter access site is nontender and there is no drainage. MUSCULOSKELETAL: 1+ edema of the extremities, otherwise no clubbing or cyanosis. FLOOR LAYER HELPER: No focal deficit. Power is 5/5 in all extremities. LABORATORY REVIEW: CBC showed WBC 10.8, hemoglobin 11.7, platelets 348,000. Repeat peritoneal fluid cell count is still pending. BNP showed sodium 136, potassium 3.5, chloride 105, bicarb 24, BUN 39, creatinine 6.6. Sugar was low at 49. Calcium 7.7. MICROBIOLOGY: All the cultures are negative so far. C. diff toxin PCR is positive. IMAGING STUDIES: No new imaging available today as compared with yesterday. CURRENT INPATIENT MEDICATIONS: Patient's medications were all reviewed by myself. I have increased her Vancomycin dose to 250 mg p.o. every 6 hours. She was given another dose of potassium chloride 40 mEq p.o. in the morning. Insulin Levemir has been stopped. She is just on insulin sliding scale now. I.V. Levaquin was stopped after first dose last night. IMPRESSION AND PLAN: 1. MSSA peritonitis associated with peritoneal dialysis catheter: Patient got three weeks of intraperitoneal Vancomycin. Vancomycin level was therapeutic yesterday. Because of C. diff colitis, no further antibiotics were given. I suspect that the elevated white cell counts are because of C. diff. Repeat cell count is still pending today. 2. End-stage renal disease: Patient is currently tolerating peritoneal dialysis. No urgent need to remove the PD catheter at this time until we treat C. diff colitis. 3. Hypokalemia: It has improved now. Potassium is 3.5. I gave her another dose of potassium chloride 40 mEq. 4. Anemia and end-stage renal disease: Hemoglobin is more than 11. No need of Aranesp administration at this time. 5. Hypertension: Blood pressure is controlled with Amlodipine and Carvedilol. 6. Chronic kidney disease/mineral bone disease: Renvela was stopped because of C. diff colitis. 7. Recurrent C. diff colitis: Patient has history of C. diff colitis in the past requiring Dificid and Zinplava. She is currently getting oral Vancomycin. If she does not respond to the oral Vancomycin, then infectious disease consult will be requested. [facility]
--- NOTE | 2020-08-19 09:35 | IPN ---
DATE: 08/17/2020 SUBJECTIVE: Patient was seen and examined at the bedside today morning. She is afebrile and hemodynamically stable. She reports her frequency of diarrhea as improving, however, she still has loose stools. Peritoneal fluid cell count is decreasing now, however, peritoneal fluid culture from the first day still came back positive for Staph Aureus. She continues to be on oral Vancomycin. OBJECTIVE: VITAL SIGNS: Temperature 97.7 degrees Fahrenheit, blood pressure 117/64, pulse 73, respiratory rate 20, saturating 98% on room air. INTAKE AND OUTPUT: Urine output is not recorded. So far, peritoneal dialysis output is 50 to 100 mL. Weight in the bed scale is 74.9 kg, which is stable since yesterday. PHYSICAL EXAMINATION: GENERAL: Patient is awake, alert and oriented x3, lying in bed, in no apparent distress. HEAD AND NECK: Extraocular muscles intact. Pupils equally round and reactive to light. Mucous membranes are moist. Neck is supple. There is no JVD. CARDIOVASCULAR: S1, S2, regular rate. 1+ edema of the bilateral lower extremities. RESPIRATORY: Chest is clear to auscultation bilaterally. Bilateral equal air entry. No rales or rhonchi. ABDOMEN: Soft. No tenderness today on deep palpation. She has a left-sided abdominal PD catheter, access site is clean. MUSCULOSKELETAL: No clubbing or cyanosis. Pulses are 2+. COAL CARRIER: No focal deficit. Power is 5/5 in all extremities. LABORATORY REVIEW: CBC showed WBC 10.8, hemoglobin 11.8, platelets 302,000. Peritoneal fluid cell count is 890 with polymorphonuclear percentage of 67%; it is slightly better today as compared with yesterday. BNP today morning showed sodium 139, potassium 3.7, chloride 106, bicarb 23, BUN 38, creatinine 6.2. Calcium 7.5. Random Vancomycin level today morning was 20. MICROBIOLOGY: Peritoneal fluid culture from the first day is positive for Staph Aureus. Blood cultures are negative so far. CURRENT INPATIENT MEDICATIONS: Patient's medications were all reviewed by myself. She continues to be on oral Vancomycin. No other significant change in the medication today as compared with yesterday. ASSESSMENT AND PLAN: 1. MSSA peritonitis associated with peritoneal dialysis catheter: The patient has received two days of intraperitoneal antibiotics. Repeat cultures on admission are still positive for MSSA. She still has elevated white cell count. Along with that, her PD catheter is malfunctioning and it is not draining. The decision has been made to remove the PD catheter. Surgical service consult has been requested. Once the PD catheter is removed, she will be switched to hemodialysis. 2. End-stage renal disease: As mentioned above, PD catheter has infection and malfunctioning. She has a left forearm AV fistula, which is okay to use. She will be switched to hemodialysis from Wednesday onwards. 3. C. diff colitis: Continue oral Vancomycin. Diarrhea is slowly improving. Patient has previous history of requiring Dificid and Zinplava because of severe C. diff infection. 4. Anemia and end-stage renal disease: Hemoglobin level is more than 11. No need of Aranesp at this time. 5. Hypertension: Blood pressure is controlled with current dose of Amlodipine, Coreg. 6. Diabetes mellitus type 2: Continue insulin Levemir and sliding scale. MTDD
--- NOTE | 2020-08-19 09:41 | IPN ---
DATE: 08/18/2020 SUBJECTIVE: The patient was seen and examined at the bed today morning in the PACU. She is n.p.o. today for surgery for removal of peritoneal dialysis catheter. Her PD catheter stopped working. It is clotted. We were unable to instill any fluid or drain it. She reports that her diarrhea is getting better. She continues to be on oral Vancomycin. OBJECTIVE: VITAL SIGNS: Temperature is 98.3 degrees Fahrenheit, blood pressure 141/62, pulse of 69, respiratory rate of 17, saturating 98% on room air. Intake and Output Urine output recorded as 83 mL. There is no peritoneal dialysis done since yesterday. Weight on the bed scale is 73.4 kg. PHYSICAL EXAMINATION: GENERAL APPEARANCE: The patient is awake, alert, oriented x3, laying in bed in no apparent distress. HEAD AND NECK: Extraocular muscles intact. Pupils are equally round and reactive to light. Mucous membranes are moist. Neck is supple. There is no jugular venous distention. CARDIOVASCULAR: S1, S2, regular rate. EXTREMITIES: 1+ edema of the bilateral lower extremities. RESPIRATORY: Chest is clear to auscultation bilaterally. Bilaterally currently no rales or rhonchi. ABDOMEN: Soft, positive bowel sounds. Left upper quadrant peritoneal dialysis catheter nontender. MUSCULOSKELETAL: No clubbing, no cyanosis. Pulses are 2+. C&S: No focal deficits. Power is 5/5 in all extremities. LAB REVIEW: CBC showed a WBC of 8.6, hemoglobin 10.6, 281. There is no new peritoneal fluid cell count available at this time. BMP showed sodium 140, potassium 3.8, chloride 109, bicarbonate 21, BUN 4,5 creatinine 7.6. Glucose is 99, calcium level is 7.2. MICROBIOLOGY: Blood cultures are negative so far. CURRENT INPATIENT MEDICATIONS: The patient's medications were all reviewed by myself. She continues to be on oral Vancomycin. She is n.p.o. and her sugar levels were low last night. I started her on D10 half normal saline at 50 mL an hour for a total of 6 hours. No other significant change in the medications today as compared with yesterday. ASSESSMENT AND PLAN: 1. MSSA peritonitis associated with peritoneal dialysis catheter - The patient has failed outpatient therapy. After 2 weeks of intraperitoneal Vancomycin, she still has elevated white cell count and positive MSSA on repeat cultures. Catheter had stopped working. She is n.p.o. today for removal of peritoneal dialysis catheter. 2. End-stage renal disease - The patient was dependent on peritoneal dialysis. She has a mature left forearm AV fistula. She will be started on hemodialysis tomorrow morning. 3. C-difficile colitis she is currently on oral Vancomycin. Frequency of loose stools is slowly getting better. 4. Anemia and end-stage renal disease - hemoglobin level is 10.6 which is optimal. She will be started on Aranesp and for dialysis. 5. Hypertension - blood pressure is controlled with Amlodipine and Coreg. 6. Diabetes mellitus type 2 - The patient gets insulin sliding scale and Levemir. She was hypoglycemic overnight. Since peritoneal dialysis is being stopped, I am going to hold the Levemir dose now. MTDD
[2020-08-19 11:59] LABS: HEMATOCRIT 32.2 % (36.0-47.0); HEMOGLOBIN 10.3 g/dl (12.0-15.5); MEAN CORPUSCULAR HEMOGLOBIN 30.1 pg (27.0-33.0); MEAN CORPUSCULAR VOLUME 94.2 fl (80.0-96.0); PLATELET COUNT, AUTOMATED 267 10^3/uL (150-450); RED BLOOD COUNT 3.42 10^6/uL (4.00-5.40); WHITE BLOOD COUNT 9.2 10^3/uL (4.0-10.0)
[2020-08-19 12:13] LABS: CALCIUM LEVEL 7.5 MG/DL (8.5-10.1); CREATININE FOR GFR 8.55 MG/DL (0.55-1.30); GLOMERULAR FILTRATION RATE 5.1 (>51); POTASSIUM SERUM 4.2 MEQ/L (3.5-5.1)
--- NOTE | 2020-08-19 12:15 | IPNPDOC ---
Text Note Date of Service The patient was seen on 08/19/20. NOTE Subjective: Patient had gone for HD today however her AVF was not large enough to the used so will be getting a perm cath today. Had 2 bowel movements overnight. Feels that as soon as she sits up or stands she has to go for a movement. Though it is now thicker and less in amount. No fever or chills. No abdominal pain. Physical Exam: Vitals: As below General Exam: Positive: Alert, Cooperative, No Acute Distress Eye Exam: Positive: PERRLA, Conjunctiva & lids normal, EOMI; Negative: Sclera icteric ENT Exam: Positive: Atraumatic, Mucous membr. moist/pink, Pharynx Normal Neck Exam: Positive: Supple; Negative: JVD, thyromegaly Chest Exam: Positive: Normal air movement, Diminished (at the bases) Heart Exam: Positive: Rate Normal, Regular Rhythm, Normal S1, Normal S2; Negative: Murmurs, Rubs Abdomen Exam: Positive: BS Hyperactive, Soft; Nontender expect at the site from where the PD cath was taken out. Negative: Tenderness, Hepatosplenomegaly Extremity Exam: Positive: Edema (1+), Normal pulses; Negative: Clubbing, Cyanosis Neuro Exam: Positive: Normal Speech, Strength at 5/5 X4 ext, Normal Tone Labs : reviewed Imaging: CT abdomen and pelvis 1. Acute regional colitis and mild enteritis. 2. Mild ascites and mild anasarca. 3. Moderate right pleural effusion. 4. Mild bilateral inguinal lymphadenopathy Assessment and plan: 55 year old female with PMD of ESRD on PD, Diabetes only on short-acting insulin, hypertension, hyperlipidemia, COPD, peripheral vascular disease status post stenting, history of CT in 2018 and in February 2020 was diagno sed with the PD peritonitis on July 30 with MSSA. Patient was getting intraperitoneal vancomycin as an outpatient. She went for a follow-up visit to the dialysis clinic and peritoneal fluid was sent out for testing and was seen that her cell count in the peritoneal fluid has increased from 6943-3656. It was felt that she has failed outpatient treatment of PD peritonitis, so was sent to the ER for admission for further evaluation and treatment. She also has been having ongoing diarrhea with history of 2 C. difficile infections in the past. In the ED she was found to have a blood glucose of more than 700. Patient reports that yesterday when she checked her sugars after lunch it was only 179. She usually checks her sugar once a day and it mostly runs less than 200. She uses insulin only when her sugar is greater than 150. She reports that her leg swelling has improved over the past 2 weeks. She was also hypokalemic CT scan in the ED showed acute regional colitis and mild enteritis with bilateral mild inguinal lymphadenopathy.. She was admitted for PD peritonitis, possibly secondary to colitis or enteritis, Hyperglycemia and electrolyte imbalance PD peritonitis probably combination of MSSA peritonitis and secondary peritonitis from C diff. MSSA PD cath related peritonitis from July 30,. Treated with Intraperitoneal vancomycin. Vanco level is therapeutic. For more than 2 weeks PD cath removed on 08/18/20 Fluid culture positive for MSSA. Also with secondary PD peritonitis due to C diff infection associated with enteritis and colitis. Recurrent C diff Colitis 4th to 5th episode. On po vancomycin. Last year received deficid and Zinplava(bezlotoxumab) Hyperglycemia and type II DM with neuropathy Her A1c is only 8.4 This is probably is related to the 4.25% exchange that she used at home. continue Levemir and lispro. Fingerstick before meals and at bedtime Continue gabapentin Hypokalemia replaced COPD Albuterol when necessary Hypertension Amlodipine , Coreg Hold torsemide Hyperlipidemia Statin ESRD Was on PD will be switched to HD as PD cath infected and not working any more. perm cath on 08/19/20 renvela stopped due to enteritis. torsemide on hold. Anemia of chronic disease hh stable. GERD Pantoprazole VS,Fishbone, I+O VS, Fishbone, I+O Laboratory Tests 08/19/20 08:51 Vital Signs Date Time Temp Pulse Resp B/P (MAP) Pulse Ox O2 Delivery O2 Flow Rate FiO2 08/19/20 06:00 98.1 78 16 148/58 (88) 95 Room Air I&O- Last 24 Hours up to 6 AM 08/19/20 06:00 Intake Total 1460 ml Output Total 225 ml Balance 1235 ml ANGELA RUIZ MD Aug 19, 2020 12:15
[2020-08-19] MEDS: CARVedilol 12.5 MG TAB PO SCH ×2 (12:16→21:07)
[2020-08-19] MEDS: amLODIPine 5 MG TAB PO SCH (12:16)
--- NOTE | 2020-08-19 12:37 | CR.PDOC ---
General Date of Consultation: Aug 19, [address] Cardona REASON FOR CONSULTATION/CHIEF COMPLAINT: PermCath placement HISTORY OF PRESENT ILLNESS: The patient is a 55-year-old female with ESRD admitted with peritonitis, status post PD catheter removal 08/18/20. Vascular surgery consulted for PermCath placement. Medical History PD peritonitis with MSSA since 07/30/20 COPD Type II Diabetes Hypertension Hyperlipidemia Hypertriglyceridemia Chronic back pain ESRD on PD. Peripheral vascular disease status post stenting, five stents on the left SFA, one stent Rt SFA, done by Dr. Barnes H/o C diff. History of thoracic aortic aneurysm 4 cm. Surgical History 1. Tubal Ligation 2. Ovarian Cyst removal 3. Right breast biopsy in 2002 4. D&C hysteroscopy by Dr. Diallo in 2005 5. Right carpal tunnel release 6. Bilateral arterial stent placement 7. Cholecystectomy 8. Left arm fistula 9. Kidney Biopsy 10. Perm Rachele placement 11. carpal tunnel release FAMILY HISTORY: Father: at 67 years old, lung cancer, CVA Mother: Alive, cancer, breast bilateral, diabetes, CVA Siblings: Brother: Skin cancer, diabetes, 2 sisters: Diabetes and cervical cancer Children: Healthy Maternal aunt of lung cancer SH Current smoker. REVIEW OF SYSTEMS: As noted in HPI otherwise 11 point review of systems unremarkable. PHYSICAL EXAMINATION: VITAL SIGNS: Please see below. GENERAL APPEARANCE: No acute distress HEENT: Moist mucous membranes RESPIRATORY: Clear to auscultation CARDIOVASCULAR: Regular Rate and rhythm NEUROLOGICAL: No focal deficits PSYCHIATRIC: Alert and oriented 3 ASSESSMENT/PLAN: ESRD/dialysis as per nephrology. Plan for PermCath placement later today. NPO. Reviewed PermCath placement with the patient. The procedure, risks, benefits, and alternatives are reviewed with the patient. Informed Consent is obtained and placed with the chart. Vital Signs/I&O Vital Signs Date Time Temp Pulse Resp B/P (MAP) Pulse Ox O2 Delivery O2 Flow Rate FiO2 08/19/20 06:00 98.1 78 16 148/58 (88) 95 Room Air I&O- Last 24 Hours up to 6 AM 08/19/20 06:00 Intake Total 1460 ml Output Total 225 ml Balance 1235 ml Laboratory Data Labs 24H Laboratory Tests 2 08/18/20 12:43: Bedside Glucose (Misc Panel) 112H 08/18/20 17:43: Bedside Glucose (Misc Panel) 180H 08/18/20 21:33: Bedside Glucose (Misc Panel) 118H 08/19/20 06:08: Bedside Glucose (Misc Panel) 126H Microbiology Microbiology 08/15/20 Blood Culture - Preliminary, Resulted No Growth after 72 hours. All specime... 08/15/20 Fungal Smear, Received Pending 08/15/20 Fungal Culture, Received Pending 08/15/20 Anaerobic Culture - Final, Complete 08/15/20 Acid Fast Stain, Received Pending 08/15/20 Mycobacterial Culture, Received Pending 08/15/20 Gram Stain - Final, Complete 08/15/20 Body Fluid Culture - Final, Complete Staphylococcus Aureus 08/15/20 Blood Culture - Preliminary, Resulted No Growth after 72 hours. All specime... Allergies Coded Allergies: Penicillins (Verified Allergy, Intermediate, HIVES, 10/05/19) TAPE (Verified Allergy, Intermediate, SILKY TAPE - ITCHY RASH, 10/05/19) linagliptin (Verified Adverse Reaction, Intermediate, PANCREATITIS, 10/05/19) Home Medications Scheduled Amlodipine Besylate (Amlodipine Besylate) 5 Mg Tablet, 5 MG PO DAILY, (Reported) Carvedilol (Carvedilol) 25 Mg Tablet, 25 MG PO BID, (Reported) Ergocalciferol (Vitamin D2) (Vitamin D2) 50,000 Units Cap, 50,000 UNITS PO 1XWK, (Reported) WEDNESDAY Folic Acid/Vit B Complex and C (Anne Marie-Flaquito Tablet) 0.8 Mg Tablet, 0.8 MG PO DAILY, (Reported) Gabapentin (Gabapentin) 100 Mg Capsule, 200 MG PO QHS, (Reported) Loratadine (Loratadine) 10 Mg Tab, 10 MG PO DAILY, (Reported) Mupirocin (Mupirocin) 2 % Oint...g., 1 DOSE TOP DAILY, (Reported) APPLY TO DIALYSIS CATHETER Pantoprazole Sodium (Pantoprazole Sodium) 40 Mg Tablet.dr, 40 MG PO DAILY, (Reported) Rosuvastatin Calcium (Crestor) 40 Mg Tab, 40 MG PO QHS, (Reported) Sertraline HCl (Sertraline HCl) 100 Mg Tab, 200 MG PO QHS, (Reported) Sevelamer Carbonate (Sevelamer Carbonate) 800 Mg Tablet, 1,600 MG PO WM, (Reported) with meals Sucroferric Oxyhydroxide (Velphoro) 500 Mg Tab.chew, 1,000 MG PO WM, (Reported) Torsemide (Torsemide) 100 Mg Tablet, 100 MG PO DAILY, (Reported) Vancomycin HCl (Firvanq) 50 Mg/1 Ml Soln.recon, 250 MG PO Q6H, #40 Scheduled PRN Albuterol Sulfate (Ventolin Hfa) 108 Mcg/Act Aer, 2 PUFF INH QID PRN for SHORTNESS OF BREATH, (Reported) Mary Pope Aug 19, 2020 10:50 LUCA CARDONA MD Aug 20, 2020 13:32
--- NOTE | 2020-08-19 13:25 | CR ---
DATE OF ADMISSION: 08/18/2020 REASON FOR CONSULTATION: Peritonitis with infected peritoneal dialysis catheter. HISTORY OF PRESENT ILLNESS: The patient is a 55-year-old female with end-stage renal disease normally on peritoneal dialysis. She had a 3 week history of diarrhea as well as abdominal pain with cloudy peritoneal fluid. She has been treated as an outpatient for an infected catheter. Her peritoneal fluid was tested outpatient and found that her cell count was increasing therefore they were assuming she was failing outpatient therapy and she was sent to the Emergency Room for admission. Since her stay here she has been continuing to have high counts. She also now has C. diff. In addition to this her catheter also stopped working therefore I have been asked by nephrology to remove her dialysis catheter. Currently she denies any nausea or vomiting or fevers, no abdominal pains and she again has stopped doing the dialysis because the catheter is no longer functioning. PAST MEDICAL HISTORY: * Peritoneal dialysis. * Peritoneal peritonitis with MSSA since 07/30/2020. * COPD. * Type-2 diabetes. * Hypertension. * Hyperlipidemia. * End-stage renal disease. * Peripheral vascular disease. * History of C. diff. * Thoracic aortic aneurysm. PAST SURGICAL HISTORY: * Tubal ligation. * Ovarian cyst removal. * Right breast biopsy. * D&C. * Hysteroscopy. * Right carpal tunnel. * Bilateral arterial stent placements. * Cholecystectomy. * Left arm fistula. * Renal biopsy. * Permacath placement. SOCIAL HISTORY: Smokes a pack a day. Denies drug or alcohol abuse. FAMILY HISTORY: Noncontributory. ALLERGIES: * PENICILLIN. * TAPE. * LINAGLIPTIN. HOME MEDICATIONS: Please see Med Rec. REVIEW OF SYSTEMS: Pertinent positives as per the HPI. PHYSICAL EXAMINATION: General: Patient is A&O times 3, in no acute distress. Vital signs: Temperature 98.5, pulse 83, respirations 18, blood pressure 134/66, pulse ox 92% on room air. HEENT: Pupils equal, round and reactive to light and accommodation. Heart: S1 and S2 regular rate and rhythm. Lungs: Clear to auscultation bilaterally. Abdomen: Soft, nontender, nondistended, catheter is in place in the left upper quadrant. I can feel the cuffs below the skin easily palpable just inferior to the umbilicus in the midline. LABORATORY DATA: White count 10.8, hemoglobin 11.8, platelets 302. COVID test was negative. Potassium 3.7, creatinine 6.29. ASSESSMENT AND PLAN: Patient is a 55-year-old female with infected peritoneal dialysis catheter. Recommendation from nephrology was removal. Recommendation at this time is to proceed with removal. I discussed the risks and benefits with the patient not limited to, but including bleeding, infection, hernia formation, damage to surrounding structures, need for further surgery. Informed consent was obtained and procedure was planned. FABY
[2020-08-19 14:00] VITALS: BP 148/80
[2020-08-19] MEDS ORDERED: fentaNYL 100 MCG/2 ML INJECTION (J3010) As Ordered ONE (14:44)
[2020-08-19] MEDS ORDERED: ISOVUE-300 61% 50ML VIAL As Ordered ONE (14:45)
[2020-08-19] MEDS ORDERED: MIDAZOLAM INJ 2MG/2ML VIAL (J2250 PER 1MG) As Ordered ONE (14:45)
[2020-08-19] MEDS ORDERED: LIDOCAINE W/EPINEPHRINE 1% 20ML VIAL As Ordered ONE (14:45)
[2020-08-19] MEDS ORDERED: CLINDAMYCIN 600 MG/50 ML PREMIX BAG As Ordered ONE (15:12)
--- NOTE | 2020-08-19 15:46 | ROOPDOC ---
[facility] Report Of Operation Report of Operation DATE OF PROCEDURE: 08/19/20 PREPROCEDURE DIAGNOSES: End-stage renal disease with need for access for hemodialysis POSTPROCEDURE DIAGNOSES: Same PROCEDURE: 1. Ultrasound-guided access right internal jugular vein 2. Right IJ PermCath placement, 23 cm, tunneled SURGEON: Luca Cardona MD ANESTHESIA: Local anesthesia 17 mL lidocaine with epinephrine. Moderate intravenous conscious sedation was supervised by Dr. Cardona. The patient was independent we monitored by registered nurse under the department of radiology using automated blood pressure, EKG, and pulse oximetry. A detailed sedation record is permanently stored in the hospital information system. He is a brief sedation record: Start time: 15:28, stop time: 15:42, Versed 1 mg IV, fentanyl 50 g IV. INDICATION FOR PROCEDURE: This is a very pleasant 55-year-old patient with end- stage renal disease who normally dialyzes with peritoneal dialysis but is unable to continue with this at this time, and now requires access for hemodialysis. Risks benefits alternatives to a PermCath placement were explained and the patient is agreeable to proceed. Informed consent was obtained. INTERPRETATION: PermCath is in good position with the tip freely mobile at the right atrial SVC junction. There were no kinks in the catheter. There is no pneumothorax. It is okay to use the PermCath for dialysis. REPORT OF OPERATION: The patient was brought to the angiographic suite in stable condition. Her right neck and chest were prepped and draped in a sterile fashion. A timeout was performed. Sedation and antibiotics were administered without complication. Local anesthesia was administered to the skin and subcutaneous tissue over the right neck, over the clavicle, to the right chest. A microneedle was used to access the right jugular vein under ultrasound guidance. A wire was passed through this access and the needle was removed. A small incision was made at the access site. A micro-sheath was placed over the wire and the wire was exchanged for an O35 wire into the central system under fluoroscopic guidance. A small incision was made on the right chest distal to the clavicle and a 23 cm PermCath was tunneled from the right chest to the jugular access site until the cough was within the subcutaneous tissue on the right chest. We then performed 2 serial dilations over the wire into the jugular vein using a Seldinger technique, and then a peel-away sheath was placed over the wire. The inner cannula and wire were removed and the tips of the catheter were advanced through the peel-away sheath into the central system. The peel-away sheath was removed. The catheter ports were flushed, and leti back and flushed easily. The ports were heparin locked and appropriate caps were placed. Final imaging showed the catheter to be in good position, the tip mobile at the SVC junction, no kinks in the catheter, no pneumothorax. The jugular access site was closed with deep and superficial interrupted Monocryl suture and Dermabond at the skin. The exit site on the right chest was closed with a Prolene suture in the catheter was secured to the chest wall with 2 additional Prolene sutures. The skin was cleaned and dried and sterile dressings were placed. The patient was then taken to recovery in stable condition. She tolerated the procedure and the sedation well. ESTIMATED BLOOD LOSS: Approximately 5 mL. COMPLICATIONS: None. PLAN: Okay to use PermCath for dialysis. Recommend obtaining a vein mapping of the patient will need long-term hemodialysis and will not be resuming peritoneal dialysis. We appreciate the opportunity to participate in the care of this patient. LUCA CARDONA MD Aug 19, 2020 15:46
[2020-08-19] MEDS ORDERED: ONDANSETRON 4MG/2ML VIAL IV PRN (17:15)
[2020-08-19] MEDS: SERTRALINE 100 MG TAB PO SCH (21:08)
[2020-08-19] MEDS: GABAPENTIN 100 MG CAP PO SCH (21:08)
[2020-08-19] MEDS: ROSUVASTATIN 10 MG TAB (CRESTOR) PO SCH (21:08)
[2020-08-19 22:00] VITALS: BP 132/56
[2020-08-20] MEDS: VANCOMYCIN ORAL SOL 250MG/5ML ORAL SYRINGE PO SCH ×3 (00:13→12:53)
[2020-08-20 05:49] VITALS: BP 117/53
[2020-08-20] MEDS: CARVedilol 12.5 MG TAB PO SCH (05:49)
[2020-08-20] MEDS: PANTOPRAZOLE 40MG TAB (PROTONIX) PO SCH (05:49)
[2020-08-20] MEDS: amLODIPine 5 MG TAB PO SCH (05:50)
[2020-08-20] MEDS: LORATADINE 10 MG TAB PO SCH (05:50)
[2020-08-20 06:00] VITALS: BP 117/53
--- NOTE | 2020-08-20 07:05 | IPN ---
DATE: 08/19/2020 SUBJECTIVE: Kerline is seen and examined this morning in the hemodialysis unit. Her PD catheter was removed yesterday. We attempted to dialyze her via her left forearm fistula today. However, the fistula is immature and not ready for use and we could not successfully cannulate her. I discussed with the patient that we are going to need to get a hemodialysis catheter placed and I have consulted Dr. Cardona for the same. Kerline is very tearful and repeatedly says that she just wants a cigarette and she wants to go home and smoke, let me have a cigarette and then Ill do anything. She otherwise denies any new complaints. She remains afebrile and hemodynamically stable. PHYSICAL EXAMINATION: VITAL SIGNS: Temperature 98.1, pulse 78, respiratory rate 16, blood pressure 148/58, saturating 95% on room air. Weight on the bed scale today was 65.4 kg which is significantly different from other days and likely inaccurate. GENERAL APPEARANCE: The patient was seen lying lateral, recumbent in the Hemodialysis Unit, not receiving the treatment, not hooked up to the dialysis machine, tearful. HEENT: Extraocular muscles are intact. She is wearing a facial mask. She is on contact precautions for C-diff. HEART: Regular. EXTREMITIES: No leg edema. The left forearm fistula has a dressing and it is immature but patent. LUNGS: Diminished at the bases but there is no wheezing or tachypnea. She is comfortable on room air. ABDOMEN: Soft. There was a dressing where the PD catheter exit site was previously. NEUROLOGICAL: She is oriented x3, at baseline mentation. PSYCHIATRIC: She is depressed and tearful. LABORATORY STUDIES: White count 9.2, hemoglobin 10.3, platelets 267. Sodium 138, potassium 4.2, creatinine 8.5, BUN 55. INPATIENT MEDICATIONS: Reviewed by myself. She continues on Tylenol p.r.n., Norvasc 5 mg p.o. daily, Coreg 25 mg p.o. twice daily, Gabapentin 200 mg p.o. q. h.s., Heparin 5,000 units subcutaneously q. 12 hourly, insulin, Protonix 40 mg p.o. daily, Rosuvastatin 40 mg p.o. q. h.s., Zoloft 200 mg p.o. q. h.s. and oral Vancomycin q. 6 hourly. Medications are unchanged from prior. PROBLEMS: 1. End-stage renal disease she was previously on peritoneal dialysis, however she had recurrent peritonitis with MSSA and she failed outpatient therapy and has recurrent MSSA on repeat cultures. Her PD catheter stopped working and was discontinued on Wednesday, and we are switching her over to hemodialysis. Her left forearm fistula is immature and permacath will be placed by Vascular Surgery either this afternoon or tomorrow morning and we will do a hemodialysis treatment after the permacath has been placed. 2. MSSA peritonitis - vancomyin random level 08/17 is therapeutic. Repeat culture 08/18 is pending. 3. C-difficile colitis she continues on oral Vancomycin with improvement in her stools. 4. Anemia and end-stage renal disease - hemoglobin is 10.3 which is optimal. We will resume Aranesp with hemodialysis. 5. Hypertension - blood pressures are acceptable and no change is made to the current regimen of Amlodipine and Carvedilol. 6. Anion gap metabolic acidosis serum bicarbonate is down to 17. It is secondary to inadequate dialysis due to peritonitis and also was not able to be hemodialyzed today because of difficulty with fistula cannulation. She will be dialyzed as soon as she has permacath arranged. [facility]
[2020-08-20] MEDS: HumaLOG INSULIN (NovoLOG) PER UNIT SC SCH ×2 (07:30→12:54)
[2020-08-20 08:33] LABS: BASO # 0.1 10^3/uL (0.0-0.2); BASO % 0.8 % (0.0-1.0); EOS # 0.4 10^3/uL (0.0-0.5); EOS % 3.9 % (0.0-3.0); HEMATOCRIT 32.9 % (36.0-47.0); HEMOGLOBIN 10.2 g/dl (12.0-15.5); LYMPH # 1.3 10^3/uL (1.5-5.0); MEAN CORPUSCULAR HEMOGLOBIN 29.7 pg (27.0-33.0); MEAN CORPUSCULAR VOLUME 95.9 fl (80.0-96.0); MONO # 0.6 10^3/uL (0.0-0.8); NEUTROPHILS # 7.3 10^3/uL (1.5-8.5); NEUTROPHILS % 75.3 % (36.0-66.0); PLATELET COUNT, AUTOMATED 262 10^3/uL (150-450); RED BLOOD COUNT 3.43 10^6/uL (4.00-5.40); WHITE BLOOD COUNT 9.7 10^3/uL (4.0-10.0)
[2020-08-20] MEDS: HEPARIN SOD (PORCINE) 5000UNITS/ML 1ML VIAL/SYRINGE SC SCH (09:00)
[2020-08-20 09:04] LABS: CALCIUM LEVEL 7.7 MG/DL (8.5-10.1); CREATININE FOR GFR 9.19 MG/DL (0.55-1.30); GLOMERULAR FILTRATION RATE 4.7 (>51); POTASSIUM SERUM 4.6 MEQ/L (3.5-5.1)
[2020-08-20] MEDS ORDERED: DARBEPOETIN 100 MCG/0.5 ML *DIALYSIS* SYRINGE (J0882) IV SCH (09:45)
[2020-08-20] MEDS ORDERED: FIRV50SO PO (12:30)
[2020-08-20] MEDS ORDERED: VANC250C3 PO (14:43)
--- NOTE | 2020-08-20 15:03 | IPN ---
DATE: 08/20/2020 SUBJECTIVE: The patient is seen and examined this morning at the bedside in the Hemodialysis Unit. She had a Perm-A-Cath placed yesterday afternoon by Vascular Surgery and she is being hemodialyzed today. She very much wants to go home. Blood pressure was soft during hemodialysis treatment and only 1 liter of fluid is being removed. She denies shortness of breath, chest pain, nausea or vomiting. Had three bowel movements this morning. PHYSICAL EXAMINATION: VITAL SIGNS: Temperature 98.5, pulse 74, respiratory rate 16, blood pressure 117/53, saturating 94% on room air. Intake yesterday was 1 liter. There were five bowel movements recorded yesterday. Dialysis today removed 1 liter. Weight on the bed scale today 65.2 kg. GENERAL: Patient is seen on hemodialysis, awake, alert and oriented, in no apparent distress receiving her treatment. HEENT: Extraocular muscles are intact. Facial mask is being worn. She is on contact isolation for C. Diff. HEART: Heart sounds are regular, S1 and S2. There is no leg edema. LUNGS: Clear to auscultation bilaterally. She is comfortable on room air. ABDOMEN: Soft, obese and nontender. The PD catheter has been removed and there is a dressing over the site. EXTREMITIES: The left forearm fistula is patent but immature. There is a hemodialysis catheter present in the right neck which is presently in use. SKIN: Normal temperature and turgor. EXTREMITIES: No edema or cyanosis. NEUROLOGIC: Oriented x3, at baseline mentation. LABORATORY DATA: White count 9.7, hemoglobin 10.2, platelets 262,000. Sodium 137, potassium 4.6, bicarbonate 16. INPATIENT MEDICATIONS: Reviewed by myself. She was started on Aranesp with dialysis. The remainder of medications are unchanged from prior. PROBLEMS: 1. Endstage renal disease on hemodialysis now. Patient is discontinued off of peritoneal dialysis because of recurrent peritonitis and failure of the PD catheter which was removed on Wednesday. She is now being hemodialyzed via newly placed right IJ catheter. She has a patent but immature fistula on the left forearm and will need to follow-up with Vascular Surgery as an outpatient for maturation of the fistula. She has been set up for outpatient hemodialysis on Wednesday, and Wednesday schedule at 7:00 a.m. in the morning and she is aware of the same. 2. C. Difficile colitis, three bowel movements reported this morning. Patient notes they are pasty. She continues on oral Vancomycin as per primary team. 3. Anemia and endstage renal disease. Hemoglobin is at goal and she is receiving Aranesp with her hemodialysis treatments. 4. Hypertension. Blood pressures are acceptable but were soft when we were trying to remove fluid with hemodialysis this morning. I am stopping her amlodipine so that she does not have hypotension of hemodialysis in the outpatient setting. 5. Anion gap metabolic acidosis, it was due to inadequate dialysis and she had a three hour hemodialysis treatment today which will help with her metabolic acidosis. MTDD
--- NOTE | 2020-08-21 13:45 | DS.PDOC ---
Discharge Summary General Date of Admission Aug 15, 2020 at 14:25 Date of Discharge 08/20/20 Discharge Summary PROCEDURES PERFORMED DURING STAY: PD catheter removal on 08/18/20 DISCHARGE DIAGNOSES: MSSA PD peritonitis Removal of PD catheter ESRD now on HD C diff enteritis and colitis Hyperglycemia on admission SECONDARY DIAGNOSIS: PD peritonitis with MSSA since 07/30/20 COPD Type II Diabetes Hypertension Hyperlipidemia Hypertriglyceridemia Chronic back pain ESRD on PD. Peripheral vascular disease status post stenting, five stents on the left SFA, one stent Rt SFA, done by Dr. Barnes H/o C diff. History of thoracic aortic aneurysm 4 cm. COMPLICATIONS/CHIEF COMPLAINT: Diabetes Mellitus W Hyperglycemia Hypokalemia. HOSPITAL COURSE: 55 year old female with PMD of ESRD on PD, Diabetes only on short-acting insulin, hypertension, hyperlipidemia, COPD, peripheral vascular disease status post stenting, history of CT in 2018 and in February 2020 was diagnosed with the PD peritonitis on July 30 with MSSA. Patient was getting intraperitoneal vancomycin as an outpatient. She went for a follow-up visit to the dialysis clinic and peritoneal fluid was sent out for testing and was seen that her cell count in the peritoneal fluid has increased from [id number]. It was felt that she has failed outpatient treatment of PD peritonitis, so was sent to the ER for admission for further evaluation and treatment. She also has been having ongoing diarrhea with history of 2 C. difficile infections in the past. In the ED she was found to have a blood glucose of more than 700. Patient reports that yesterday when she checked her sugars after lunch it was only 179. She usually checks her sugar once a day and it mostly runs less than 200. She uses insulin only when her sugar is greater than 150. She reports that her leg swelling has improved over the past 2 weeks. She was also hypokalemic CT scan in the ED showed acute regional colitis and mild enteritis with bilateral mild inguinal lymphadenopathy.. She was admitted for PD peritonitis, possibly secondary to colitis or enteritis, Hyperglycemia and electrolyte imbalance PD peritonitis probably combination of MSSA peritonitis from infected PD catheter and secondary peritonitis from C diff enteritis and colitis. MSSA PD cath related peritonitis from July 30,. Treated with Intraperitoneal vancomycin. Vanco level is therapeutic. For more than 2 weeks PD cath removed on 08/18/20 PD cath tip positive for MSSA. Fluid culture positive for MSSA. To be Continued on IV vancomycin after HD sessions Recurrent C diff Colitis 4th to 5th episode. On po vancomycin from 08/16/20 Last year received deficid and Zinplava(bezlotoxumab) Hyperglycemia and type II DM with neuropathy Her A1c is only 8.4 This is probably is related to the 4.25% exchange that she used at home. continue home meds. Continue gabapentin Hypokalemia replaced COPD Albuterol when necessary Hypertension Amlodipine , Coreg Hold torsemide Hyperlipidemia Statin ESRD Was on PD will be switched to HD as PD cath infected and not working any more. perm cath on 08/19/20 Renvela stopped due to enteritis/diarrhea torsemide continued Anemia of chronic disease hh stable. GERD Pantoprazole DISCHARGE MEDICATIONS: Please see below. ALLERGIES: Please see below. PHYSICAL EXAMINATION ON DISCHARGE: VITAL SIGNS: Please see below. General Exam: Positive: Alert, Cooperative, No Acute Distress Eye Exam: Positive: PERRLA, Conjunctiva & lids normal, EOMI; Negative: Sclera icteric ENT Exam: Positive: Atraumatic, Mucous membr. moist/pink, Pharynx Normal Neck Exam: Positive: Supple; Negative: JVD, thyromegaly Chest Exam: Positive: Normal air movement, Diminished (at the bases) Heart Exam: Positive: Rate Normal, Regular Rhythm, Normal S1, Normal S2; Negative: Murmurs, Rubs Abdomen Exam: Positive: BS Hyperactive, Soft; Nontender expect at the site from where the PD cath was taken out. Negative: Tenderness, Hepatosplenomegaly Extremity Exam: Positive: Edema (1+), Normal pulses; Negative: Clubbing, Cyanosis Neuro Exam: Positive: Normal Speech, Strength at 5/5 X4 ext, Normal Tone LABORATORY DATA: Please see below. Imaging: CT abdomen and pelvis 1. Acute regional colitis and mild enteritis. 2. Mild ascites and mild anasarca. 3. Moderate right pleural effusion. 4. Mild bilateral inguinal lymphadenopathy ACTIVITY: [As tolerated]. DIET: Carb consistent. DISPOSITION: 01 Home, Self-Care. DISCHARGE INSTRUCTIONS: Follow up at HD unit. Continued on IV vancomycin after HD. Referral to Dr Otto in 10 days. DISCHARGE CONDITION: [Stable]. TIME SPENT ON DISCHARGE: 35 minutes. Vital Signs/I&Os Vital Signs Date Time Temp Pulse Resp B/P (MAP) Pulse Ox O2 Delivery O2 Flow Rate FiO2 08/20/20 06:00 98.5 74 16 117/53 (74) 94 Room Air 08/19/20 15:40 2 I&O- Last 24 Hours up to 6 AM 08/21/20 06:00 Intake Total 360 ml Output Total 1000 ml Balance -640 ml Laboratory Data Labs 24H Item Value Date Time White Blood Count 9.7 10^3/uL 08/20/20 0801 Red Blood Count 3.43 10^6/uL L 08/20/20 08 Hemoglobin 10.2 g/dl L 08/20/20 08 Hematocrit 32.9 % L 08/20/20 08 Mean Corpuscular Volume 95.9 fl 08/20/20800 Mean Corpuscular Hemoglobin 29.7 pg 08/20/20800 Mean Corpuscular Hemoglobin Concent 31.0 g/dl L 08/20/20800 Red Cell Distribution Width 15.4 % H 08/20/20800 Platelet Count 262 10^3/uL 08/20/20800 Immature Granulocyte % (Auto) 1.0 % 08/20/20800 Neutrophils (%) (Auto) 75.3 % H 08/20/20800 Lymphocytes (%) (Auto) 13.0 % L 08/20/20800 Monocytes (%) (Auto) 6.0 % H 08/20/20800 Eosinophils (%) (Auto) 3.9 % H 08/20/20800 Basophils (%) (Auto) 0.8 % 08/20/20800 Neutrophils # (Auto) 7.3 10^3/uL 08/20/20 0801 Lymphocytes # (Auto) 1.3 10^3/uL L 08/20/20800 Sodium Level 137 MEQ/L 08/20/20800 Potassium Level 4.6 MEQ/L 08/20/20800 Chloride Level 111 MEQ/L H 08/20/20800 Carbon Dioxide Level 16 MEQ/L L 08/20/20800 Anion Gap 10 MEQ/L 08/20/20800 Blood Urea Nitrogen 61 MG/DL H 08/20/20 08 Creatinine 9.19 MG/DL *H 08/20/20800 Glomerular Filtration Rate 4.7 L 08/20/20800 Fasting Glucose 123 MG/DL H 08/20/20800 Calcium Level 7.7 MG/DL L 08/20/20 0801 Microbiology Microbiology 08/18/20 Bacterial Culture - Final, Complete Staphylococcus Aureus 08/15/20 Blood Culture - Final, Complete NO GROWTH AFTER 5 DAYS 08/15/20 Fungal Smear, Received Pending 08/15/20 Fungal Culture, Received Pending 08/15/20 Anaerobic Culture - Final, Complete 08/15/20 Acid Fast Stain, Received Pending 08/15/20 Mycobacterial Culture, Received Pending 08/15/20 Gram Stain - Final, Complete 08/15/20 Body Fluid Culture - Final, Complete Staphylococcus Aureus 08/15/20 Blood Culture - Final, Complete NO GROWTH AFTER 5 DAYS Discharge Medications Scheduled Carvedilol (Carvedilol) 25 Mg Tablet, 25 MG PO BID, (Reported) Ergocalciferol (Vitamin D2) (Vitamin D2) 50,000 Units Cap, 50,000 UNITS PO 1XWK, (Reported) WEDNESDAY Folic Acid/Vit B Complex and C (Anne Marie-Flaquito Tablet) 0.8 Mg Tablet, 0.8 MG PO DAILY, (Reported) Gabapentin (Gabapentin) 100 Mg Capsule, 200 MG PO QHS, (Reported) Loratadine (Loratadine) 10 Mg Tab, 10 MG PO DAILY, (Reported) Mupirocin (Mupirocin) 2 % Oint...g., 1 DOSE TOP DAILY, (Reported) APPLY TO DIALYSIS CATHETER Pantoprazole Sodium (Pantoprazole Sodium) 40 Mg Tablet.dr, 40 MG PO DAILY, (Reported) Rosuvastatin Calcium (Crestor) 40 Mg Tab, 40 MG PO QHS, (Reported) Sertraline HCl (Sertraline HCl) 100 Mg Tab, 200 MG PO QHS, (Reported) Sucroferric Oxyhydroxide (Velphoro) 500 Mg Tab.chew, 1,000 MG PO WM, (Reported) Torsemide (Torsemide) 100 Mg Tablet, 100 MG PO DAILY, (Reported) Vancomycin Hcl (Vancomycin HCl) 250 Mg Capsule, 250 MG PO QID Scheduled PRN Albuterol Sulfate (Ventolin Hfa) 108 Mcg/Act Aer, 2 PUFF INH QID PRN for SHORTNESS OF BREATH, (Reported) Allergies Coded Allergies: Penicillins (Verified Allergy, Intermediate, HIVES, 10/05/19) TAPE (Verified Allergy, Intermediate, SILKY TAPE - ITCHY RASH, 10/05/19) linagliptin (Verified Adverse Reaction, Intermediate, PANCREATITIS, 10/05/19) ANGELA RUIZ MD Aug 21, 2020 13:44
== END 2020-08-20 15:27 | disposition home or self-care (01) | DRG 856 ==
LOC: M ED 10:58 → M ED INP 14:25 → ENRESERV 15:01 → M PCU 16:08 → M MSPAV 08-17 18:40
PROVIDERS: ADMIT Internal Medicine Nephrology; ATTEND Internal Medicine Nephrology
PROC: 0WPG03Z Removal of Infusion Device from Peritoneal Cavity, Open Approach (ICD-10-PCS; principal; 2020-08-18 09:30)
PROC: 0JH60XZ Insertion of Tunneled Vascular Access Device into Chest Subcutaneous Tissue and Fascia, Open Approach (ICD-10-PCS; 2020-08-19)
PROC: 02HV33Z Insertion of Infusion Device into Superior Vena Cava, Percutaneous Approach (ICD-10-PCS; 2020-08-19)
PROC: 5A1D70Z Performance of Urinary Filtration, Intermittent, Less than 6 Hours Per Day (ICD-10-PCS; 2020-08-19)
DX: T80.29XA Infection following other infusion, transfusion and therapeutic injection, initial encounter (principal); N18.6 End stage renal disease; K65.8 Other peritonitis; I12.0 Hypertensive chronic kidney disease with stage 5 chronic kidney disease or end stage renal disease; E87.1 Hypo-osmolality and hyponatremia; A04.71 Enterocolitis due to Clostridium difficile, recurrent; E87.2 Acidosis; Y84.1 Kidney dialysis as the cause of abnormal reaction of the patient, or of later complication, without mention of misadventure at the time of the procedure; J44.9 Chronic obstructive pulmonary disease, unspecified; E11.22 Type 2 diabetes mellitus with diabetic chronic kidney disease; E78.5 Hyperlipidemia, unspecified; E78.1 Pure hyperglyceridemia; E83.39 Other disorders of phosphorus metabolism; D63.1 Anemia in chronic kidney disease; E11.40 Type 2 diabetes mellitus with diabetic neuropathy, unspecified; E11.65 Type 2 diabetes mellitus with hyperglycemia; E11.51 Type 2 diabetes mellitus with diabetic peripheral angiopathy without gangrene; F17.210 Nicotine dependence, cigarettes, uncomplicated; Z95.820 Peripheral vascular angioplasty status with implants and grafts; Z90.49 Acquired absence of other specified parts of digestive tract; Z99.2 Dependence on renal dialysis; Z91.048 Other nonmedicinal substance allergy status; Z79.899 Other long term (current) drug therapy; Z88.0 Allergy status to penicillin; Z88.8 Allergy status to other drugs, medicaments and biological substances; B95.61 Methicillin susceptible Staphylococcus aureus infection as the cause of diseases classified elsewhere

== ENCOUNTER → 2020-09-06 | Outpatient (CLI) | payer MEDICARE, MEDICAID ==
[~2020-09-06] MED LIST changes: +FIRV50SO PO; +MUPI2OI TOP; +RENATAB5 PO; +VANC250C3 PO; +VELP5CHW PO
== END ==
LOC: M LAB 09:41
PROVIDERS: ATTEND Nurse Practitioner Family
DX: M31.6 Other giant cell arteritis (principal)

== ENCOUNTER → 2020-09-30 | Outpatient (CLI) | payer MEDICARE, MEDICAID ==
[~2020-09-30] MED LIST changes: +LABE100T4 PO; -LABE10TAB PO
--- NOTE | 2020-09-30 12:53 | REPVR ---
PROCEDURE INFORMATION: Exam: MR Head Without Contrast Exam date and time: 09/30/2020 12:11 PM Age: 55 years old Clinical indication: Condition or disease; Other: Giant cell arteritis TECHNIQUE: Imaging protocol: MR of the head without contrast. COMPARISON: MRI-Brain without Contrast 12/29/2018 8:01 PM FINDINGS: Limitations: The study is limited due to motion artifact. Brain: There is mild patchy increased T2 signal intensity within the bilateral cerebral periventricular white matter, consistent with chronic microvascular ischemic changes. There are multiple small focal areas of chronic ischemia in bilateral frontal, parietal and periatrial white matter. Chronic ischemic changes are seen in the iraj. There is no abnormal diffusion weighted signal intensity to suggest an acute ischemic event. There is mild diffuse cerebral atrophy present, consistent with this patient's age. Cerebral ventricles: The ventricular system demonstrates mild diffuse compensatory enlargement. Bones/joints: Unremarkable. Paranasal sinuses: Normal as visualized. No acute sinusitis. Mastoid air cells: Normal as visualized. No mastoid effusion. Orbits: Unremarkable. Soft tissues: Unremarkable. IMPRESSION: 1. No acute infarction, masses or hemorrhage is seen. No acute intracranial abnormality is identified. 2. Diffuse age-related cerebral atrophy and mild chronic microvascular white matter ischemic changes, without evidence of an acute intracranial abnormality. 3. There has been no adverse interval change since the previous study. Electronically signed by: Sanjeev Dixon On 09/30/2020 12:53:33 PM
--- NOTE | 2020-09-30 12:55 | REPVR ---
PROCEDURE INFORMATION: Exam: MR Orbit Without Contrast Exam date and time: 09/30/2020 12:21 PM Age: 55 years old Clinical indication: Condition or disease; Other: Giant cell arteritis TECHNIQUE: Imaging protocol: MR Orbit was performed without intravenous contrast. COMPARISON: No relevant prior studies available. FINDINGS: Orbits: Examination reveals bilateral globes to be normal in size and morphology. The optic nerves are normal in thickness and signal intensity and symmetric bilaterally. The extraocular muscles are normal in thickness and signal intensity. The retroconal fat has a normal appearance. The lacrimal glands appear normal bilaterally. Paranasal sinuses: Right frontal sinusitis with complete opacification. Brain: No acute infarction, masses or hemorrhage is seen. No acute intracranial abnormality is identified. Soft tissues: Unremarkable. Other findings: The study is limited due to motion artifact. IMPRESSION: 1. Examination reveals bilateral globes to be normal in size and morphology. The optic nerves are normal in thickness and signal intensity and symmetric bilaterally. The extraocular muscles are normal in thickness and signal intensity. The retroconal fat has a normal appearance. The lacrimal glands appear normal bilaterally. 2. Right frontal sinusitis with complete opacification. Electronically signed by: Sanjeev Dixon On 09/30/2020 12:56:23 PM
== END ==
LOC: M RAD 11:10
PROVIDERS: ATTEND Ophthalmology
DX: M31.6 Other giant cell arteritis (principal)

== ENCOUNTER → 2020-10-22 | Outpatient (CLI) | payer MEDICARE, MEDICAID ==
[~2020-10-22] MED LIST changes: +ISOVUE-300 61% 50ML VIAL As Ordered ONE; +LIDOCAINE 1% MDV 20ML VIAL As Ordered ONE; +MIDAZOLAM INJ 2MG/2ML VIAL (J2250 PER 1MG) As Ordered ONE; +fentaNYL 100 MCG/2 ML INJECTION (J3010) As Ordered ONE; +hydrALAZINE 20MG/ML 1ML VIAL (J0360 PER 20MG) As Ordered ONE
--- NOTE | 2020-10-22 17:22 | ROOPDOC ---
[facility] Report Of Operation Report of Operation DATE OF PROCEDURE: 10/22/20 PREPROCEDURE DIAGNOSES: End-stage renal disease with poor maturation left Shahnaz fistula POSTPROCEDURE DIAGNOSES: Same PROCEDURE: 1. Ultrasound-guided access left cephalic vein 2. Left upper extremity fistulogram and central venogram 3. Angioplasty cephalic vein with 6 x 200 [place] balloon and 7 x 200 [place] balloon 4. Completion venogram SURGEON: Luca Cardona MD ANESTHESIA: Local anesthesia 2 mL lidocaine. Moderate intravenous conscious sedation was not utilized for this procedure because the patient had a few bites of lunch. She says other than that, she hadn't eaten all day, but I explained to her that it is not safe to proceed with full sedation if she has not been compliant with her NPO orders. A small amount of analgesia was given for the procedure, 25 g of fentanyl IV. No additional sedation was given. CONTRAST: 16 mL Isovue-300 INDICATION FOR PROCEDURE: This is a very pleasant 55-year-old patient with end- stage renal disease currently dialyzing with a PermCath who has a left Shahnaz fistula placed by another provider several years ago that has not been used and has been slow to mature. It is currently not suitable for cannulation due to diminutive size. Risks benefits and alternatives to a left upper extremity fistulogram and potential intervention were explained to the patient she is agreeable to proceed. Informed consent was obtained. INTERPRETATION: 1. Ultrasound was used to examine the AV anastomosis and it was noted to be widely patent. There is a good thrill in the fistula. 2. The cephalic vein in the forearm is small, I estimate 5-6 mm diameter, with several areas of focal stenosis of 20-40%. There is a branch proximal to the AV fistula but does not appear to be stealing much blood from the fistula, but we can always call us at a later time if maturation is still slow. The cephalic vein over the bicep is large in size with good flow in the subclavian and central veins. Limited flow is noted through the basilic and axillary system. 3. After angioplasty of the cephalic vein, there was widely patent inflow with a mild improvement in the size of the vein. There was an excellent thrill and the fistula. No extravasation or embolization were noted. REPORT OF OPERATION: The patient was brought to the angiographic suite in stable condition. Her left upper extremity was prepped and draped in a sterile fashion. A timeout was performed. Local anesthesia was administered to the skin and sub cutaneous tissue over the left cephalic vein. A microneedle was used to access the vein under ultrasound guidance. A wire was passed through this access and the needle was removed. A 4 [place] sheath was placed and flushed with saline. A small amount of analgesia was given without complication. A fistulogram and central venogram were performed, please see interpretation above. An O35 Glidewire was advanced through the sheath into the central system under fluoroscopic guidance. The sheath was exchanged for a 5 [place] sheath and flushed with saline. A 6 x 200 [place] balloon was placed across the cephalic vein from the distal wrist to the antecubital. Three-minute inflations was performed and following this there was an excellent thrill in the fistula, but it was still diminutive in size. We exchanged the balloon for 7 x 200 [place] balloon and a second three-minute inflation was performed. Following this, there was widely patent inflow through the fistula, no areas of residual stenosis, no extravasation and there was an excellent thrill and the fistula. Is still only appears to be about 6 mm in size along most of the fistula, but I did not show comfortable escalating to an 8 mm diameter balloon until we are able to give the patient some sedation. She had quite a bit of discomfort with just the 7 mm balloon. Therefore, for today, we concluded our procedure. The sheath was flushed. Of [id number] Prolene suture was placed at the sheath site and the sheath was removed upon securing the suture. Sterile dressings were applied. The patient was then taken to recovery in stable condition. She had an excellent thrill and her fistula. She tolerated the procedure and analgesia well. ESTIMATED BLOOD LOSS: Approximately 2 mL. COMPLICATIONS: None. PLAN: It is okay to resume home diet and medications. Patient should continue to use PermCath for dialysis. I would not recommend access on the cephalic vein fistula until we are able to mature it a bit further. At her next fistulogram, we will try to assist maturation up to an 8 mm diameter. This will may cannulation easier for the nurses. The patient is agreeable to this plan and understand she must adhere to her NPO orders prior to procedure so we are able to give her sedation. Also I discussed with the patient that she should continue to use her squeeze ball with her left hand to help with fistula circulation and blood flow. She is agreeable to this plan. We appreciate the opportunity to participate in the care of this patient. LUCA CARDONA MD Oct 22, 2020 17:21
[2020-10-22 17:49] VITALS: BP 172/88
== END ==
LOC: M IRPRO 14:42
PROVIDERS: ATTEND Surgery Vascular Surgery
DX: T82.590A Other mechanical complication of surgically created arteriovenous fistula, initial encounter (principal); N18.6 End stage renal disease; E10.22 Type 1 diabetes mellitus with diabetic chronic kidney disease; E78.00 Pure hypercholesterolemia, unspecified; F32.9 Major depressive disorder, single episode, unspecified; F41.9 Anxiety disorder, unspecified; I12.0 Hypertensive chronic kidney disease with stage 5 chronic kidney disease or end stage renal disease; I73.9 Peripheral vascular disease, unspecified; J44.9 Chronic obstructive pulmonary disease, unspecified; J45.909 Unspecified asthma, uncomplicated; K21.9 Gastro-esophageal reflux disease without esophagitis; F17.210 Nicotine dependence, cigarettes, uncomplicated; Z79.899 Other long term (current) drug therapy; Z88.0 Allergy status to penicillin; Z88.8 Allergy status to other drugs, medicaments and biological substances; Z99.2 Dependence on renal dialysis
CPT/HCPCS: 36902; C1725; C1769; C1894; J1644; J2250; J3010; Q9967

== ENCOUNTER → 2020-10-28 | Outpatient (CLI) | payer MEDICARE, MEDICAID ==
[~2020-10-28] MED LIST changes: -ISOVUE-300 61% 50ML VIAL As Ordered ONE; -LIDOCAINE 1% MDV 20ML VIAL As Ordered ONE; -MIDAZOLAM INJ 2MG/2ML VIAL (J2250 PER 1MG) As Ordered ONE; -fentaNYL 100 MCG/2 ML INJECTION (J3010) As Ordered ONE; -hydrALAZINE 20MG/ML 1ML VIAL (J0360 PER 20MG) As Ordered ONE
--- NOTE | 2020-10-28 09:16 | REP ---
INDICATION: DEPENDENCE ON RENAL DIALYSIS COMPARISON: 05/02/2018. TECHNIQUE: Real time compression and duplex Doppler evaluation of the Right upper extremity deep venous system is performed. Duplex Doppler evaluation of right upper extremity arterial structures also performed. The study is incomplete as the patient prematurely terminated the exam and refused further imaging. FINDINGS: The Right subclavian, jugular, axillary, brachial, basilic and cephalic veins are fully compressible where accessible with transducer pressure, and demonstrate no intraluminal thrombus and normal venous waveforms. There is no evidence of deep venous thrombosis. Right upper extremity venous measurements were not obtained. Right arterial structures: Peak systolic velocity (cm/s)/waveform/size (mm) Axillary: 117.1/triphasic/7 Brachial: 123.6/triphasic/4 Radial: 101.2/triphasic/3 Ulnar:61.5/triphasic/4 IMPRESSION: No evidence of deep venous thrombosis of the Right upper extremity deep vein system. Arterial diameters are given above. Incomplete exam as the patient terminated the exam. <Electronically signed by Ever Spencer > 10/28/20 0930
== END ==
LOC: M RAD 07:36
PROVIDERS: ATTEND Physician Assistant
DX: Z01.818 Encounter for other preprocedural examination (principal); N18.6 End stage renal disease; I77.6 Arteritis, unspecified; Z99.2 Dependence on renal dialysis

== ENCOUNTER → 2020-10-28 | Outpatient (CLI) | payer MEDICARE, MEDICAID | LOC: M LAB 07:34 | PROVIDERS: ATTEND Ophthalmology | DX: I77.6 Arteritis, unspecified (principal) ==

== ENCOUNTER → 2020-11-11 | Outpatient (REF) | payer MEDICARE, MEDICAID ==
[~2020-11-11] MED LIST changes: -LISI-538 PO; +LISI20TA33 PO
[2020-11-11 18:57] LABS: BASO % 0.3 % (0.0-1.0); EOS # 0.2 10^3/uL (0.0-0.5); EOS % 1.9 % (0.0-3.0); HEMATOCRIT 31.8 % (36.0-47.0); HEMOGLOBIN 9.8 g/dl (12.0-15.5); LYMPH # 2.6 10^3/uL (1.5-5.0); LYMPH % 22.1 % (24.0-44.0); MEAN CORPUSCULAR HEMOGLOBIN 31.2 pg (27.0-33.0); MEAN CORPUSCULAR HGB CONC 30.8 g/dl (32.0-36.5); MEAN CORPUSCULAR VOLUME 101.3 fl (80.0-96.0); MONO # 0.7 10^3/uL (0.0-0.8); NEUTROPHILS % 68.7 % (36.0-66.0); PLATELET COUNT, AUTOMATED 251 10^3/uL (150-450); RED BLOOD COUNT 3.14 10^6/uL (4.00-5.40); WHITE BLOOD COUNT 11.6 10^3/uL (4.0-10.0)
[2020-11-11 19:13] LABS: HEMOGLOBIN A1c 9.5 %
[2020-11-11 19:36] LABS: ALBUMIN 2.9 GM/DL (3.2-5.2); BILIRUBIN,TOTAL 0.4 MG/DL (0.2-1.0); CALCIUM LEVEL 8.3 MG/DL (8.5-10.1); CHOLESTEROL RISK RATIO 1.808 (<5); CREATININE FOR GFR 4.48 MG/DL (0.55-1.30); FREE T4 0.76 NG/DL (0.76-1.46); GLOMERULAR FILTRATION RATE 10.8 (>51); POTASSIUM SERUM 3.7 MEQ/L (3.5-5.1); THYROID STIMULATING HORMONE 1.7 uIU/ML (0.358-3.740); TOTAL PROTEIN 5.9 GM/DL (6.4-8.2)
[2020-11-11 19:50] LABS: TOTAL 25(OH) VITAMIN D 102.3 NG/ML (30.0-100.0)
== END ==
LOC: M LAB REF 16:45
PROVIDERS: ATTEND Nurse Practitioner Family
DX: E11.65 Type 2 diabetes mellitus with hyperglycemia (principal); I10 Essential (primary) hypertension

== ENCOUNTER → 2020-12-17 | Outpatient (POV) | payer MEDICARE, MEDICAID ==
--- NOTE | 2020-12-19 11:39 | IRCOV ---
[facility] IR Consult Office Visit IR Consult Office Visit DATE: Dec 17, 2020 Patient agreed to this telephone consultation. I spent 30 minutes reviewing patient's records and talking to the patient. Video conference was performed. REASON FOR CONSULTATION/CHIEF COMPLAINT: Nonhealing ulcers. HISTORY OF PRESENT ILLNESS: 55-year-old female complaining of bilateral lower extremity nonhealing ulcers. On the right lower extremity, she describes an ulcer on the tip of the big toe and a second one in the webspace between the big toe and second toe. She describes these are present for some months. She also has an ulcer on the left lower extremity, tip of the great toe. She states the ulcers are painful. Patient denies intermittent claudication or rest pain. She does elevate her legs at night without pain. She denies prior cold leg, gangrene or amputation. She does get leg swelling to the knees. She is an active smoker and smokes half a pack a day. She smoked for 47 years. She has not been able to quit. She's had prior angiography and intervention performed in both legs in [place] in 2012. She no longer follows with her proceduralist in [place]. She is diabetic with poor control, her hemoglobin A1c she reports about 8. She does have hypertension which is controlled with antihypertensives, running 105/64. She does have renal failure and is on dialysis. She failed peritoneal dialysis due to catheter infection and has an AV fistula which never matured. She current ly dialyzes through a PermCath. She reports prior mild stroke which left her with memory issues. She denies any limb weakness. She denies chest pain, shortness of breath, orthopnea or paroxysmal nocturnal dyspnea. ALLERGIES: Please see below. HOME MEDICATIONS: Please see below. PAST MEDICAL HISTORY: Peritoneal dialysis catheter related peritonitis COPD Diabetes Hypertension Hyperlipidemia Hypertriglyceridemia Chronic back pain End-stage renal disease Peripheral vascular disease C. difficile Thoracic aortic aneurysm 4 cm PAST SURGICAL HISTORY: Tubal ligation Ovarian cyst removal Breast biopsy Hysteroscopy Right carpal tunnel release Bilateral lower extremity arterial stents Cholecystectomy Left arm fistula Carpal tunnel release FAMILY HISTORY: Noncontributory. SOCIAL HISTORY: Active smoker. Smokes half a pack a day. Denies alcohol or drugs. REVIEW OF SYSTEMS: Otherwise negative. PHYSICAL EXAMINATION: Bilateral lower extremity edema to the knees. Skin pink. Shiny and hairless. No gangrene. No amputations. Punctate ulcerations on the big toes bilaterally. [place] base. Third ulceration between the right big toe and second toe. LABORATORY DATA: 11/11/2020 hemoglobin 9.8 hematocrit 31.8 WBC 11.6 platelets 251. Sodium 135 potassium 3.7 BUN 48 creatinine 4.48 GFR 10.8 hemoglobin A1c 9.5 LDL 36 total cholesterol 123 Imaging: I personally reviewed the CT abdomen pelvis with contrast performed July 2020. Atherosclerotic disease throughout the abdominal aorta, bilateral common iliac and external iliac arteries with no contrast seen in the left SFA stent. ASSESSMENT/PLAN: 55 year old female active smoker with horrendously poor diabetes control, status post multiple stent placements in bilateral lower extremities for peripheral vascular disease, presents with nonhealing bilateral lower extremity ulcers. I agree patient would benefit from angiography and/or i ntervention at the same time if possible. Patient has critical limb ischemia and is at high risk of long-term limb amputation. We discussed the risks and benefits of the procedure and patient would like to proceed. We have scheduled the patient for the procedure. Thank you for this referral. CC Dr. Jeff Allergies Coded Allergies: Penicillins (Verified Allergy, Intermediate, HIVES, 10/05/19) TAPE (Verified Allergy, Intermediate, SILKY TAPE - ITCHY RASH, 10/05/19) linagliptin (Verified Adverse Reaction, Intermediate, PANCREATITIS, 10/05/19) Home Medications Scheduled Carvedilol (Carvedilol), 25 MG PO BID, (Reported) Ergocalciferol (Vitamin D2) (Vitamin D2), 50,000 UNITS PO 1XWK, (Reported) Folic Acid/Vit B Complex and C (Anne Marie-Flaquito Tablet), 0.8 MG PO DAILY, (Reported) Gabapentin (Gabapentin), 200 MG PO QHS, (Reported) Mupirocin (Mupirocin), 1 DOSE TOP DAILY, (Reported) Pantoprazole Sodium (Pantoprazole Sodium), 40 MG PO DAILY, (Reported) Rosuvastatin Calcium (Crestor), 40 MG PO QHS, (Reported) Sertraline HCl (Sertraline HCl), 200 MG PO QHS, (Reported) Sucroferric Oxyhydroxide (Velphoro), 1,000 MG PO WM, (Reported) Torsemide (Torsemide), 100 MG PO DAILY, (Reported) Scheduled PRN Albuterol Sulfate (Ventolin Hfa), 2 PUFF INH QID PRN for SHORTNESS OF BREATH, (Reported) INGE PAUL MD Dec 19, 2020 11:39
== END ==
LOC: M TMIRPOV 13:12
PROVIDERS: ATTEND Radiology Diagnostic Radiology
DX: I87.2 Venous insufficiency (chronic) (peripheral) (principal); E11.22 Type 2 diabetes mellitus with diabetic chronic kidney disease; F17.210 Nicotine dependence, cigarettes, uncomplicated; I12.0 Hypertensive chronic kidney disease with stage 5 chronic kidney disease or end stage renal disease; J44.9 Chronic obstructive pulmonary disease, unspecified; N18.6 End stage renal disease; I70.203 Unspecified atherosclerosis of native arteries of extremities, bilateral legs; I73.9 Peripheral vascular disease, unspecified; I71.2 Thoracic aortic aneurysm, without rupture; R60.0 Localized edema; Z95.828 Presence of other vascular implants and grafts; Z98.51 Tubal ligation status

== ENCOUNTER → 2021-01-07 | Outpatient (REF) | payer MEDICARE, MEDICAID ==
[~2021-01-07] MED LIST changes: +ADV250INH INH; +ALBU83IN INH
== END ==
LOC: M SFHCPLAZ 18:44
PROVIDERS: ATTEND Physician Assistant
DX: L97.512 Non-pressure chronic ulcer of other part of right foot with fat layer exposed (principal); L02.212 Cutaneous abscess of back [any part, except buttock and flank]

== ENCOUNTER → 2021-01-20 | Outpatient (CLI) | payer MEDICARE, MEDICAID ==
[~2021-01-20] MED LIST changes: +ISOVUE-300 61% 50ML VIAL As Ordered ONE; +LIDOCAINE 1% MDV 20ML VIAL As Ordered ONE; +MIDAZOLAM INJ 2MG/2ML VIAL (J2250 PER 1MG) As Ordered ONE; +PROMETHAZINE INJ 25 MG/ML VIAL (J2550) As Ordered ONE; +diphenhydrAMINE 50MG/ML VIAL (J1200) As Ordered ONE; +fentaNYL 100 MCG/2 ML INJECTION (J3010) As Ordered ONE
[2021-01-20 08:11] LABS: HEMATOCRIT 37.5 % (36.0-47.0); HEMOGLOBIN 12.1 g/dl (12.0-15.5); MEAN CORPUSCULAR HEMOGLOBIN 31.3 pg (27.0-33.0); MEAN CORPUSCULAR HGB CONC 32.3 g/dl (32.0-36.5); MEAN CORPUSCULAR VOLUME 97.2 fl (80.0-96.0); PLATELET COUNT, AUTOMATED 170 10^3/uL (150-450); RED BLOOD COUNT 3.86 10^6/uL (4.00-5.40); WHITE BLOOD COUNT 16.4 10^3/uL (4.0-10.0)
--- NOTE | 2021-01-20 08:24 | IRHP ---
[facility] IR Pre-Procedure H & P General Date of Service: Jan 20, 2021 Procedure: Same Day Surgery Interval History and Physical I have seen the patient and reviewed last H & P performed within 30 days. There is no significant interval change. History of Present Illness Chief Complaint The patient is a 55-year-old female admitted with a reason for visit of PAD. PRE-PROCEDURE DIAGNOSIS: PAD HEART: Normal rate. LUNGS: Normal breathing at rest. ASA Classification ASA Classification: III-Severe systemic dis. Mallampati Score: II NPO: Yes Problems with prior sedation: No Obstructive Sleep Apnea: No Plan moderate sedation Allergies Coded Allergies: Penicillins (Verified Allergy, Intermediate, HIVES, 10/05/19) TAPE (Verified Allergy, Intermediate, SILKY TAPE - ITCHY RASH, 10/05/19) linagliptin (Verified Adverse Reaction, Intermediate, PANCREATITIS, 10/05/19) Home Medications Scheduled Carvedilol (Carvedilol), 25 MG PO BID, (Reported) Ergocalciferol (Vitamin D2) (Vitamin D2), 50,000 UNITS PO 1XWK, (Reported) Folic Acid/Vit B Complex and C (Anne Marie-Flaquito Tablet), 0.8 MG PO DAILY, (Reported) Gabapentin (Gabapentin), 200 MG PO BID, (Reported) Insulin Glargine (Lantus), 25 UNITS SC QHS, (Reported) Rosuvastatin Calcium (Crestor), 40 MG PO QHS, (Reported) Salmeterol/Fluticasone (Advair 250-50 Diskus), 1 PUFF INH DAILY, (Reported) Sertraline HCl (Sertraline HCl), 200 MG PO QHS, (Reported) Sucroferric Oxyhydroxide (Velphoro), 1,000 MG PO WM, (Reported) Torsemide (Torsemide), 100 MG PO DAILY, (Reported) Scheduled PRN Albuterol Sulf (Albuterol Sulfate), 2.5 MG INH Q4-6HP PRN for SHORTNESS OF BREATH, (Reported) Albuterol Sulfate (Ventolin Hfa), 2 PUFF INH QID PRN for SHORTNESS OF BREATH, (Reported) Miscellaneous Medications Insulin Human Lispro (Humalog), 1 UNITS SC, (Reported) Discontinued Medications Mupirocin (Mupirocin), 1 DOSE TOP DAILY, (Reported) Discontinued Reason: Pt states not taking Pantoprazole Sodium (Pantoprazole Sodium), 40 MG PO DAILY, (Reported) Discontinued Reason: Pt states not taking VS, I&O, 24H, Fishbone Vital Signs/I&O Vital Signs Date Time Temp Pulse Resp B/P (MAP) Pulse Ox O2 Delivery O2 Flow Rate FiO2 01/20/21 07:35 97.6 67 18 100 Room Air Laboratory Data 24H LABS Laboratory Tests 2 01/20/21 07:51: Nucleated Red Blood Cells % (auto) 0.0 CBC/BMP Laboratory Tests 01/20/21 07:51 INGE PAUL MD Jan 20, 2021 08:24
[2021-01-20 08:32] LABS: CALCIUM LEVEL 8.1 MG/DL (8.5-10.1); CREATININE FOR GFR 5.83 MG/DL (0.55-1.30); POTASSIUM SERUM 4.1 MEQ/L (3.5-5.1)
[2021-01-20 15:30] VITALS: BP 143/65
--- NOTE | 2021-01-23 12:44 | IRPON ---
IR Postoperative Note Date Of Procedure: Jan 20, 2021 Time Of Procedure: 16:00 IR Postoperative Note IR Right leg angiogram. IR Right Below-knee runoff arteriogram. IR Ultrasound-guided left common femoral artery access. IR Moderate sedation. Clinical Information:Nonhealing right lower extremity wounds. Peripheral arterial disease with history of arterial stenting. Physician: Dr. Box. Procedure: The patient was advised of the benefits, risks, and alternatives of the procedure and informed consent was obtained. A time out was performed with verification of the patient's name, MRN, site of procedure, and type of procedure to be performed. The patient was positioned in the supine position on the angiographic table. The site was prepped and draped in the usual sterile fashion. Moderate sedation was performed by the physician including the presence of an independent trained RN, who assisted in monitoring the patient's level of consciousness and physiological status. Following the administration of fentanyl and Versed, the physician spent 180 minutes of continuous [id number]-[id number] time with the patient. A boxing machine operator radiograph reveals heavily calcified vasculature. Stents in left common iliac, right external iliac and bilateral SFA region. Ultrasound of the left groin demonstrates hyperechoic stent and acoustic shadowing from the SFA stent extending into the left common femoral artery. Lidocaine was used for local anesthesia. The left common femoral artery was accessed just above the stent, under ultrasound guidance with a microintroducer set. A short 0.018" [place] wire was inserted and the needle was exchanged for a 4 Fr microintroducer sheath. The guidewire and dilator were removed and a 0.035" [place] wire was placed into the abdominal aorta. A 6 Fr sheath was placed over the wire. A flush catheter was advanced over the wire under fluoroscopy guidance and used to catheterize the abdominal aorta. An aortogram and pelvic arteriogram was performed. This demonstrates severe atherosclerotic disease in the abdominal aorta. Narrowing at the origin of right greater than left bilateral common iliac arteries. There is flow in bilateral common iliac arteries and external iliac arteries all of which are small and irregular. The left common iliac stent is patent. A wire was advanced through the flush catheter and used under fluoroscopy guidance, to gain up and over access into the right external iliac artery. The catheter was removed over the wire and exchanged for a Glidecath. The Glidecath in conjunction with the Glidewire was used to catheterize the right external iliac artery. A right leg arteriogram was performed. This demonstrates occlusion of the right common femoral artery just below the takeoff of the inferior epigastric artery. Complete occlusion of the proximal, mid and distal common femoral artery. Complete occlusion of the stented right superficial femoral artery. There is filling of the profunda femoris and retrograde filling into the right SFA stent. Angiography further down the right leg was performed and this demonstrates complete occlusion of the proximal, mid and distal right superficial femoral artery. There are collaterals in the right thigh and reconstitution of the popliteal artery at the knee. Right below-knee runoff arteriogram was performed and this demonstrates variant anatomy with takeoff of the posterior tibial artery first from the popliteal artery. Patent proximal posterior tibial artery, anterior tibial artery and peroneal artery. Runoff arteriogram into the right foot was performed and this demonstrates a posterior tibial artery which remains patent throughout its course and courses into the foot supplying calcaneal and plantar branches. The peroneal artery is patent to the level of the ankle. The mid and distal anterior tibial artery are completely occluded. There is microvascular disease in the right foot. No dorsalis pedis. The catheter was removed over the wire. A [place] catheter in conjunction with the Glidewire was used under fluoroscopy guidance to try to recanalize the common femoral artery. Intermittent injection of contrast confirmed intraluminal location. The wire was advanced under fluoroscopy guidance to the mid SFA. The catheter and sheath were removed over the wire. A 6 Czech 45cm destination sheath was advanced over the wire under fluoroscopy guidance to secure access into the right external iliac artery. However due to the stenosis at the origin of the right common iliac artery, the sheath would not pass. Therefore the sheath was exchanged for a short sheath. A 6 x 200 mm [place] balloon was then advanced over the wire under fluoroscopy guidance and used to angioplasty the right common iliac artery including its origin and external iliac artery. Heparin was administered. The balloon was deflated and under fluoroscopy guidance was used to try to adva nce over the wire into the occluded common femoral and superficial femoral artery. This was not possible from this up and over access. The balloon was deflated and removed over the wire. Repeat attempt was made to try to exchange the short sheath for the long sheath but could not be passed due to the angle and stenosis at the origin of the right common iliac artery, despite angioplasty. The catheter, wire and sheath were removed, pressure held and hemostasis achieved. A sterile dressing was applied to the site. The patient tolerated the procedure well and was returned to the PRU in stable condition. EBL: < 5 mL. Complications:Moderate left groin hematoma. Impression: 1. Pelvic angiography demonstrates severely atherosclerotic abdominal aorta, small bilateral common iliac and external iliac arteries with stenosis at the origin of the right common iliac artery. Calcified and irregular vasculature. Stent in the left common iliac artery is patent. 2. Right lower extremity angiography demonstrates complete occlusion of the right common femoral artery and proximal, mid and distal superficial femoral artery. Patent profunda femoris. Occluded right SFA stent. 3. 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 4. Below-knee arterial runoff demonstrates patent posterior tibial artery coursing into the foot and supplying calcaneal and plantar branches. Patent peroneal artery to the ankle. Occluded mid and distal anterior tibial artery. 5. Unsuccessful right leg revascularization via left groin access and up and o denisse attempt. Patient will be brought back for antegrade approach. Thank you for this referral. Cc INGE Hamilton MD Jan 23, 2021 12:44
== END ==
LOC: M IRPRO 07:20
PROVIDERS: ATTEND Radiology Diagnostic Radiology
DX: I70.239 Atherosclerosis of native arteries of right leg with ulceration of unspecified site (principal); I70.202 Unspecified atherosclerosis of native arteries of extremities, left leg; I70.0 Atherosclerosis of aorta; I70.92 Chronic total occlusion of artery of the extremities; L97.919 Non-pressure chronic ulcer of unspecified part of right lower leg with unspecified severity; Z79.4 Long term (current) use of insulin; Z79.899 Other long term (current) drug therapy; Z88.0 Allergy status to penicillin; Z88.8 Allergy status to other drugs, medicaments and biological substances; Z91.048 Other nonmedicinal substance allergy status
CPT/HCPCS: 37220; 75630; 75774; 80048; 85027; 99152; 99153; C1725; C1769; C1887; C1894; G0269; J1200; J1644; J2250; J3010; Q9967

== ENCOUNTER → 2021-01-23 | Outpatient (CLI) | payer MEDICARE, MEDICAID, OTHER ==
[~2021-01-23] MED LIST changes: +DEXTROSE 50% 50 ML SYRINGE As Ordered ONE; -PROMETHAZINE INJ 25 MG/ML VIAL (J2550) As Ordered ONE
[2021-01-23 08:11] LABS: HEMATOCRIT 29.4 % (36.0-47.0); HEMOGLOBIN 9.5 g/dl (12.0-15.5); MEAN CORPUSCULAR HEMOGLOBIN 31.4 pg (27.0-33.0); MEAN CORPUSCULAR HGB CONC 32.3 g/dl (32.0-36.5); PLATELET COUNT, AUTOMATED 169 10^3/uL (150-450); RED BLOOD COUNT 3.03 10^6/uL (4.00-5.40); WHITE BLOOD COUNT 13.6 10^3/uL (4.0-10.0)
--- NOTE | 2021-01-23 08:36 | IRHP ---
[facility] IR Pre-Procedure H & P General Date of Service: Jan 23, 2021 Procedure: Same Day Surgery Interval History and Physical I have seen the patient and reviewed last H & P performed within 30 days. There is no significant interval change. History of Present Illness Chief Complaint The patient is a 55-year-old female admitted with a reason for visit of Sfa Occlusion/Pad. PRE-PROCEDURE DIAGNOSIS: Right lower extremity SFA occlusion HEART: Normal rate. LUNGS: Normal breathing at rest. ASA Classification ASA Classification: III-Severe systemic dis. Mallampati Score: II NPO: Yes Problems with prior sedation: No Obstructive Sleep Apnea: No Plan moderate sedation Allergies Coded Allergies: Penicillins (Verified Allergy, Intermediate, HIVES, 10/05/19) TAPE (Verified Allergy, Intermediate, SILKY TAPE - ITCHY RASH, 10/05/19) linagliptin (Verified Adverse Reaction, Intermediate, PANCREATITIS, 10/05/19) Home Medications Scheduled Carvedilol (Carvedilol), 25 MG PO BID, (Reported) Ergocalciferol (Vitamin D2) (Vitamin D2), 50,000 UNITS PO 1XWK, (Reported) Folic Acid/Vit B Complex and C (Anne Marie-Flaquito Tablet), 0.8 MG PO DAILY, (Reported) Gabapentin (Gabapentin), 200 MG PO BID, (Reported) Insulin Glargine (Lantus), 25 UNITS SC QHS, (Reported) Rosuvastatin Calcium (Crestor), 40 MG PO QHS, (Reported) Salmeterol/Fluticasone (Advair 250-50 Diskus), 1 PUFF INH DAILY, (Reported) Sertraline HCl (Sertraline HCl), 200 MG PO QHS, (Reported) Sucroferric Oxyhydroxide (Velphoro), 1,000 MG PO WM, (Reported) Torsemide (Torsemide), 100 MG PO DAILY, (Reported) Scheduled PRN Albuterol Sulf (Albuterol Sulfate), 2.5 MG INH Q4-6HP PRN for SHORTNESS OF BREATH, (Reported) Albuterol Sulfate (Ventolin Hfa), 2 PUFF INH QID PRN for SHORTNESS OF BREATH, (Reported) Miscellaneous Medications Insulin Human Lispro (Humalog), 1 UNITS SC, (Reported) VS, I&O, 24H, Fishbone Vital Signs/I&O Vital Signs Date Time Temp Pulse Resp B/P (MAP) Pulse Ox O2 Delivery O2 Flow Rate FiO2 01/23/21 07:16 98.9 98 19 97 Room Air Laboratory Data 24H LABS Laboratory Tests 2 01/23/21 07:44: Nucleated Red Blood Cells % (auto) 0.3H CBC/BMP Laboratory Tests 01/23/21 07:44 INGE PAUL MD Jan 23, 2021 08:36
--- NOTE | 2021-01-23 12:55 | IRPON ---
IR Postoperative Note Date Of Procedure: Jan 23, 2021 Time Of Procedure: 12:44 IR Postoperative Note IR Ultrasound-guided right common femoral artery access. IR Moderate sedation. Clinical Information:Nonhealing right lower extremity wounds. Physician: Dr. Box. Procedure: The patient was advised of the benefits, risks, and alternatives of the procedure and informed consent was obtained. A time out was performed with verification of the patient's name, MRN, site of procedure, and type of procedure to be performed. The patient was positioned in the supine position on the angiographic table. The site was prepped and draped in the usual sterile fashion. Moderate sedation was performed by the physician including the presence of an independent trained RN, who assisted in monitoring the patient's level of consciousness and physiological status. Following the administration of fentanyl and Versed, the physician spent 45 minutes of continuous [id number] time with the patient. A inshore undersea warfare officer radiograph reveals calcified vasculature and bilateral SFA stents. Ultrasound of the right groin demonstrates calcified right common femoral artery with acoustic shadowing. Lidocaine was used for local anesthesia. The right common femoral artery was accessed, under ultrasound guidance with a microintroducer set.This was difficult due to heavy calcification and proximity to stent. A short 0.018" [place] wire was inserted through the needle under fluoroscopy guidance but could not be advanced antegrade into the right SFA. The ultrasound-guided access site in relation to patient's surface anatomy is quite high above the groin which also makes me concerned that, proceeding to a 6 Portuguese arteriotomy at this site is risky as hemostasis by manual compression may not be possible. Therefore, the needle and wire were removed, pressure held and hemostasis achieved. A sterile dressing was applied to the site. The patient tolerated the procedure well and was returned to the PRU in stable condition. EBL: < 5 mL. Complications:None. Impression: 1. Failed left up and over and now right antegrade approach for right leg revascularization. 2. Patient will be referred for surgical evaluation, possible right common femoral endarterectomy and SFA revascularization or bypass. Thank you for this referral. Cc Dr. Randee BOX,INGE SOLIZ Jan 23, 2021 12:55
[2021-01-23 15:30] VITALS: BP 130/63
== END ==
LOC: M IRPRO 07:14
PROVIDERS: ATTEND Radiology Diagnostic Radiology
DX: I70.239 Atherosclerosis of native arteries of right leg with ulceration of unspecified site (principal); I70.92 Chronic total occlusion of artery of the extremities; Z79.4 Long term (current) use of insulin; Z79.899 Other long term (current) drug therapy; Z88.0 Allergy status to penicillin; Z88.8 Allergy status to other drugs, medicaments and biological substances; Z91.041 Radiographic dye allergy status
CPT/HCPCS: 36246; 85027; 99152; 99153; C1769; C1894; J1200; J1644; J2250; J3010; Q9967

== ENCOUNTER → 2021-02-18 | Outpatient (POV) | payer MEDICARE, MEDICAID ==
[~2021-02-18] VITALS: Ht 157.5 cm; Wt 70.0 kg
[~2021-02-18] MED LIST changes: -DEXTROSE 50% 50 ML SYRINGE As Ordered ONE; -ISOVUE-300 61% 50ML VIAL As Ordered ONE; -LIDOCAINE 1% MDV 20ML VIAL As Ordered ONE; -MIDAZOLAM INJ 2MG/2ML VIAL (J2250 PER 1MG) As Ordered ONE; -diphenhydrAMINE 50MG/ML VIAL (J1200) As Ordered ONE; -fentaNYL 100 MCG/2 ML INJECTION (J3010) As Ordered ONE
[2021-02-18 14:15] VITALS: BP 123/58
--- NOTE | 2021-02-19 14:36 | IRPN ---
[facility] IR Progress Note IR Progress Note DATE: Feb 18, 2021 FOLLOW-UP: 56-year-old smoker female with nonhealing right lower extremity ulcers, right common femoral, proximal, mid and distal superficial femoral artery occlusions and posterior tibial artery runoff to the foot, is now status post recent arterial bypass by Dr. Carbajal in [place]. Patient states she is doing very well since the procedure. She was admitted for 10 days. She has not smoked in those 10 days however she resumed smoking after leaving the hospital. She states she is now able to sleep at night with her legs up and does not have the rest pain she had before. She denies fevers or chills. ON EXAMINATION: Surgical site in the right lower quadrant and right calf. Right lower extremity with moderate edema. Right foot warm to touch. IMPRESSION: Doing well status post right lower extremity bypass. Patient will continue follow up with Dr. Carbajal in [place]. I reiterated to the patient how important it is that she stop smoking. Otherwise, there is high risk of bypass occlusion and limb loss . I advised patient to contact her PCP and discuss Chantix. No further follow-up scheduled with me unless initiated by patient and/or referring provider. Thank you for this referral. Cc Dr. Jeff Allergies Coded Allergies: Penicillins (Verified Allergy, Intermediate, HIVES, 10/05/19) TAPE (Verified Allergy, Intermediate, SILKY TAPE - ITCHY RASH, 10/05/19) linagliptin (Verified Adverse Reaction, Intermediate, PANCREATITIS, 10/05/19) VS,Fishbone, I+O VS, Fishbone, I+O Vital Signs Date Time Temp Pulse Resp B/P (MAP) Pulse Ox O2 Delivery O2 Flow Rate FiO2 02/18/21 14:15 97.7 77 16 123/58 (79) 99 Room Air INGE PAUL MD Feb 19, 2021 14:36
== END ==
LOC: M TMIRPOV 14:05
PROVIDERS: ATTEND Radiology Diagnostic Radiology
DX: Z48.812 Encounter for surgical aftercare following surgery on the circulatory system (principal); I70.239 Atherosclerosis of native arteries of right leg with ulceration of unspecified site; L97.819 Non-pressure chronic ulcer of other part of right lower leg with unspecified severity; F17.210 Nicotine dependence, cigarettes, uncomplicated; Z88.0 Allergy status to penicillin; Z88.8 Allergy status to other drugs, medicaments and biological substances; Z91.048 Other nonmedicinal substance allergy status

== ENCOUNTER → 2021-02-19 | Outpatient (REF) | payer MEDICARE, MEDICAID ==
[2021-02-19 13:10] LABS: HEMATOCRIT 28.2 % (36.0-47.0); HEMOGLOBIN 8.6 g/dl (12.0-15.5); MEAN CORPUSCULAR HEMOGLOBIN 31.2 pg (27.0-33.0); MEAN CORPUSCULAR HGB CONC 30.5 g/dl (32.0-36.5); MEAN CORPUSCULAR VOLUME 102.2 fl (80.0-96.0); PLATELET COUNT, AUTOMATED 216 10^3/uL (150-450); RED BLOOD COUNT 2.76 10^6/uL (4.00-5.40); WHITE BLOOD COUNT 23.6 10^3/uL (4.0-10.0)
[2021-02-19 13:31] LABS: HEMOGLOBIN A1c 7.4 %
[2021-02-19 13:38] LABS: ALBUMIN 2.4 GM/DL (3.2-5.2); BILIRUBIN,TOTAL 0.6 MG/DL (0.2-1.0); CALCIUM LEVEL 8.1 MG/DL (8.5-10.1); CHOLESTEROL RISK RATIO 2.282 (<5); CREATININE FOR GFR 4.27 MG/DL (0.55-1.30); GLOMERULAR FILTRATION RATE 11.4 (>51)
[2021-02-19 13:40] LABS: HYPOCHROMASIA 1+; LYMPHOCYTES 10 % (16-44); NEUTROPHILS 90 % (28-66); PLATELET ESTIMATE NORMAL (NORMAL)
== END ==
LOC: M LAB REF 12:36
PROVIDERS: ATTEND Nurse Practitioner Family
DX: E11.65 Type 2 diabetes mellitus with hyperglycemia (principal)

== ENCOUNTER 2021-02-21 16:16 | Emergency (ER) | payer OTHER, MEDICAID ==
[~2021-02-21] VITALS: Ht 157.5 cm; Wt 71.4 kg
[2021-02-21 17:51] LABS: HEMATOCRIT 28.1 % (36.0-47.0); HEMOGLOBIN 8.7 g/dl (12.0-15.5); MEAN CORPUSCULAR HEMOGLOBIN 31.4 pg (27.0-33.0); MEAN CORPUSCULAR VOLUME 101.4 fl (80.0-96.0); PLATELET COUNT, AUTOMATED 149 10^3/uL (150-450); RED BLOOD COUNT 2.77 10^6/uL (4.00-5.40)
[2021-02-21 17:57] LABS: WHITE BLOOD COUNT 26.4 10^3/uL (4.0-10.0)
[2021-02-21 18:13] LABS: C REACTIVE PROTEIN QUANTITATIV 0.93 MG/DL (0.00-0.30); CREATININE FOR GFR 3.71 MG/DL (0.55-1.30); GLOMERULAR FILTRATION RATE 13.4 (>51); POTASSIUM SERUM 3.9 MEQ/L (3.5-5.1)
[2021-02-21 19:04] LABS: ERYTHROCYTE SEDIMENTATION RATE 52 mm/hr (0-30)
[2021-02-21 19:46] LABS: ATYPICAL LYMPH 3 % (0-5); LYMPHOCYTES 14 % (16-44); MONOCYTES 1 % (0-5); NEUTROPHILS 79 % (28-66); PLATELET ESTIMATE NORMAL (NORMAL)
[2021-02-21 19:47] LABS: ANISOCYTOSIS 1+
--- NOTE | 2021-02-21 19:51 | REP ---
INDICATION: swelling COMPARISON: None. TECHNIQUE: Spencer scale and color Doppler evaluation using linear high frequency transducer. FINDINGS: Ultrasound examination of the right lower extremity deep venous structures from the common femoral vein to the popliteal vein demonstrates normal compressibility flow and wave patterns in response to respiration and augmentation. There is no evidence for deep venous thrombosis. IMPRESSION: No evidence for deep venous thrombosis. <Electronically signed by Elpidio Baumann > 02/21/211947
--- NOTE | 2021-02-21 21:43 | REPVR ---
PROCEDURE INFORMATION: Exam: XR Chest Exam date and time: 02/21/2021 9:25 PM Age: 56 years old Clinical indication: Other: SOB TECHNIQUE: Imaging protocol: XR of the chest. Views: 2 views. COMPARISON: CR Chest, 1 view 08/15/2020 11:33 AM FINDINGS: Tubes, catheters and devices: Dual lumen dialysis catheter demonstrated. Lungs: Right lower lobe airspace infiltrate. Remaining lungs are clear. Pleural spaces: Right pleural effusion, possibly loculated. Heart/Mediastinum: Cardiomegaly. Bones/joints: Osteoporosis. IMPRESSION: 1. Right lower lobe airspace infiltrate. 2. Right pleural effusion, possibly loculated. 3. Cardiomegaly. Electronically signed by: Gurjit Alfaro On 02/21/2021 21:42:49 PM
[2021-02-21] MEDS ORDERED: VANCOMYCIN HCL 1,500 MG in IV FLUID PLACE HOLDER 1 EA IV ONE (21:50)
[2021-02-21] MEDS ORDERED: VANCOMYCIN HCL 750 MG, VIAL MATE ADAPTER 1 EACH in NS 250 ML IV ONE ×2 (22:00→23:00)
[2021-02-22 00:18] LABS: RSV AMPLIFICATION NEGATIVE (NEGATIVE)
[2021-02-22 00:53] VITALS: BP 137/64
== END 2021-02-22 01:00 | disposition short-term general hospital (02) ==
LOC: M ED 16:16
DX: L03.115 Cellulitis of right lower limb (principal); J18.1 Lobar pneumonia, unspecified organism; I51.7 Cardiomegaly; I50.9 Heart failure, unspecified; E11.9 Type 2 diabetes mellitus without complications; I10 Essential (primary) hypertension; E78.5 Hyperlipidemia, unspecified; Z86.73 Personal history of transient ischemic attack (TIA), and cerebral infarction without residual deficits; Z86.718 Personal history of other venous thrombosis and embolism; R51.9 Headache, unspecified; J45.909 Unspecified asthma, uncomplicated; J44.9 Chronic obstructive pulmonary disease, unspecified; M54.9 Dorsalgia, unspecified; F41.9 Anxiety disorder, unspecified; K21.9 Gastro-esophageal reflux disease without esophagitis; K52.9 Noninfective gastroenteritis and colitis, unspecified; Z86.19 Personal history of other infectious and parasitic diseases; N18.9 Chronic kidney disease, unspecified; R45.4 Irritability and anger; Z99.2 Dependence on renal dialysis; F17.200 Nicotine dependence, unspecified, uncomplicated; Z79.4 Long term (current) use of insulin; Z79.899 Other long term (current) drug therapy; Z88.0 Allergy status to penicillin; Z88.8 Allergy status to other drugs, medicaments and biological substances; Z91.89 Other specified personal risk factors, not elsewhere classified
CPT/HCPCS: 71046; 80048; 83605; 85025; 85652; 86140; 87040; 87631; 93971; 96365; 96366; 99284; J3370

== ENCOUNTER → 2021-02-26 | Outpatient (REF) | payer OTHER, MEDICAID ==
[2021-02-26 18:25] LABS: ALBUMIN 2.4 GM/DL (3.2-5.2); ALT/SGPT 133 U/L (12-78); BILIRUBIN,DIRECT 0.2 MG/DL (0.0-0.2); BILIRUBIN,TOTAL 0.6 MG/DL (0.2-1.0); BLOOD UREA NITROGEN 28 MG/DL (7-18); CALCIUM LEVEL 8.2 MG/DL (8.5-10.1); CARBON DIOXIDE LEVEL 29 MEQ/L (21-32); CHLORIDE LEVEL 104 MEQ/L (98-107); CREATININE FOR GFR 3.71 MG/DL (0.55-1.30); GLOMERULAR FILTRATION RATE 13.4 (>51); GLUCOSE, FASTING 117 MG/DL (70-100); POTASSIUM SERUM 5.1 MEQ/L (3.5-5.1); SODIUM LEVEL 139 MEQ/L (136-145)
[2021-02-26 18:51] LABS: HEPATITIS B SURFACE ANTIGEN NEGATIVE (NEGATIVE)
[2021-02-26 19:18] LABS: HEPATITIS C VIRUS ABY INDEX < 0.0 INDEX (<0.8)
[2021-02-26 19:19] LABS: HEPATITIS B CORE ANTIBODY IGM NEGATIVE (NEGATIVE)
[2021-02-26 19:20] LABS: HEPATITIS A ANTIBODY IGM NEGATIVE (NEGATIVE)
== END ==
LOC: M LAB REF 16:26
PROVIDERS: ATTEND Nurse Practitioner Family
DX: R94.5 Abnormal results of liver function studies (principal)

== ENCOUNTER 2021-03-22 12:22 | Emergency (ER) | payer OTHER, MEDICAID ==
[~2021-03-22] VITALS: Ht 157.5 cm; Wt 67.2 kg
[~2021-03-22 12:22] MED LIST changes: +ERGO500029 PO
[2021-03-22 12:50] LABS: BASO # 0.1 10^3/uL (0.0-0.2); BASO % 0.5 % (0.0-1.0); EOS # 0.1 10^3/uL (0.0-0.5); EOS % 0.3 % (0.0-3.0); HEMATOCRIT 31.3 % (36.0-47.0); HEMOGLOBIN 9.4 g/dl (12.0-15.5); LYMPH # 3.7 10^3/uL (1.5-5.0); LYMPH % 15.6 % (24.0-44.0); MEAN CORPUSCULAR HEMOGLOBIN 30.2 pg (27.0-33.0); MEAN CORPUSCULAR VOLUME 100.6 fl (80.0-96.0); MONO # 1.3 10^3/uL (0.0-0.8); MONO % 5.3 % (2.0-8.0); NEUTROPHILS # 18.5 10^3/uL (1.5-8.5); NEUTROPHILS % 77.2 % (36.0-66.0); PLATELET COUNT, AUTOMATED 179 10^3/uL (150-450); RED BLOOD COUNT 3.11 10^6/uL (4.00-5.40)
--- NOTE | 2021-03-22 13:03 | REP ---
INDICATION: Altered Mental Status COMPARISON: 02/21/2021 TECHNIQUE: Portable AP view of the chest FINDINGS: Cardiomegaly and evidence for CHF/pulmonary vascular congestion. Lower lobe opacities and right pleural effusion are suspected. No pneumothorax. IMPRESSION: Cardiomegaly and findings to suggest CHF/pulmonary vascular congestion along with lower lobe infiltrates and moderate right pleural effusion. <Electronically signed by Elpidio Baumann > 03/22/21 1300
[2021-03-22 13:13] LABS: OSMOLALITY SERUM 279 MOSM/KG (275-295)
[2021-03-22 13:16] LABS: ACETAMINOPHEN LEVEL 5.4 UG/ML (10.0-30.0); ALBUMIN 1.7 GM/DL (3.2-5.2); ALT/SGPT 23 U/L (12-78); BILIRUBIN,DIRECT 0.3 MG/DL (0.0-0.2); BILIRUBIN,TOTAL 0.7 MG/DL (0.2-1.0); BLOOD UREA NITROGEN 4 MG/DL (7-18); CALCIUM LEVEL 7.7 MG/DL (8.5-10.1); CARBON DIOXIDE LEVEL 29 MEQ/L (21-32); CHLORIDE LEVEL 103 MEQ/L (98-107); CK-MB VALUE MASS 5.4 NG/ML (<3.6); CPK CREATINE PHOSPHOKINASE 165 U/L (26-192); CREATININE FOR GFR 2.12 MG/DL (0.55-1.30); ETHYL ALCOHOL (ETHANOL) < 0.003 % (0.000-0.010); GLOMERULAR FILTRATION RATE 25.6 (>51); GLUCOSE, FASTING 74 MG/DL (70-100); MB/CK RELATIVE INDEX 3.27 (< OR =4); POTASSIUM SERUM 2.8 MEQ/L (3.5-5.1); SALICYLATE LEVEL < 1.7 MG/DL (5.0-30.0); SODIUM LEVEL 141 MEQ/L (136-145); TOTAL PROTEIN 5.2 GM/DL (6.4-8.2); TROPONIN I < 0.02 NG/ML (< 0.10)
[2021-03-22 13:23] LABS: RSV AMPLIFICATION NEGATIVE (NEGATIVE)
[2021-03-22] MEDS ORDERED: AZTREONAM 1 GM in D5W MINI-BAG PLUS 50 ML IV ONE (13:35)
[2021-03-22] MEDS ORDERED: VANCOMYCIN HCL 1,000 MG, VIAL MATE ADAPTER 1 EACH in NS 250 ML IV ONE (13:35)
--- NOTE | 2021-03-22 14:17 | REP ---
INDICATION: altered mental status COMPARISON: 12/28/2018 TECHNIQUE: Axial noncontrast images from the skull base to the thoracic inlet with coronal reformations. This CT examination was performed using the following dose reduction techniques: Automated exposure control, adjustment of mA and/or kv according to the patient's size, and use of iterative reconstruction technique. FINDINGS: Atrophy with periventricular leukomalacia and microvascular ischemic changes are appreciated and similar to prior examination. The ventricles and sulci are symmetric. Spencer-white differentiation is maintained. There is no evidence for acute intracranial hemorrhage, mass/mass effect, pathology or infarction. No extra-axial fluid collection. Calvarium is intact. Paranasal sinuses and mastoid air cells are clear. IMPRESSION: Atrophy and microvascular ischemic changes. No acute intracranial hemorrhage, infarction, or mass/mass effect. <Electronically signed by Elpidio Baumann > 03/22/21 [id number]
--- NOTE | 2021-03-22 14:21 | REP ---
INDICATION: effusion COMPARISON: None TECHNIQUE: Axial noncontrast images from the thoracic inlet to the upper abdomen with coronal and sagittal reformations. This CT examination was performed using the following dose reduction techniques: Automated exposure control, adjustment of mA and/or kv according to the patient's size, and use of iterative reconstruction technique. FINDINGS: Moderate to large right pleural effusion along with moderate areas of consolidation with air bronchograms in the right middle lobe and right lower along with diffuse bilateral alveolar infiltrates. Reactive mediastinal and hilar lymph nodes noted. Mediastinum demonstrates extensive atherosclerotic changes to the thoracic aorta and coronary arteries along with mild cardiomegaly. A double lumen catheter extends into the right atrium. Musculoskeletal structures demonstrate age-related changes. Limited upper abdomen demonstrates extensive atherosclerotic disease and normal bilateral adrenal glands. IMPRESSION: Moderate to large right pleural effusion with lower lobe consolidations and diffuse airspace disease. Differential diagnosis includes multifocal pneumonia and CHF/pulmonary edema. <Electronically signed by Elpidio Baumann > 03/22/21 [id number]
[2021-03-22] MEDS ORDERED: ACETAMINOPHEN TAB 650MG DOSE (2X325MG) PO ONE (14:25)
--- NOTE | 2021-03-22 15:29 | ECGEPIP ---
[facility] - ED Test Date: 2021-03-22 Pat Name: ONUR ESPINAL Department: Room: - Gender: Female Entry Clerk: LR : 1965 Requested By: EVARISTO Giordano Order Number: [id number] Reading MD: Olivia Bridges Measurements Intervals Armstrong Rate: 113 P: [place]: QRS: -89 QRSD: 158 T: 55 QT: 460 QTc: 630 Interpretive Statements sinus tachycardia baseline artifact may affect interpretation NSTTW abnormalities Right bundle branch block Left anterior fascicular block Bifascicular block Electronically Signed on 03-22-2021 15:28:46 EDT by Olivia Bridges
[2021-03-22 16:22] VITALS: BP 92/42
== END 2021-03-22 16:26 | disposition short-term general hospital (02) ==
LOC: M ED 12:22
DX: I70.201 Unspecified atherosclerosis of native arteries of extremities, right leg (principal); L03.115 Cellulitis of right lower limb; J91.8 Pleural effusion in other conditions classified elsewhere; I51.7 Cardiomegaly; R00.0 Tachycardia, unspecified; I44.4 Left anterior fascicular block; I45.10 Unspecified right bundle-branch block; I45.2 Bifascicular block; E11.9 Type 2 diabetes mellitus without complications; I10 Essential (primary) hypertension; J44.9 Chronic obstructive pulmonary disease, unspecified; N18.6 End stage renal disease; Z99.2 Dependence on renal dialysis; E78.5 Hyperlipidemia, unspecified; F17.200 Nicotine dependence, unspecified, uncomplicated; Z79.4 Long term (current) use of insulin; Z79.899 Other long term (current) drug therapy; Z88.0 Allergy status to penicillin; Z88.8 Allergy status to other drugs, medicaments and biological substances; Z91.89 Other specified personal risk factors, not elsewhere classified
CPT/HCPCS: 36415; 70450; 71045; 71250; 80047; 80048; 80076; 80143; 82077; 82140; 82550; 82553; 82803; 83605; 83930; 84443; 84484; 85025; 87040; 87631; 93005; 93041; 96365; 96367; 99285; J3370; S0073